=== PATIENT | female | born 1955 | race Caucasian/White ===

== ENCOUNTER 2017-07-22 19:26 | Inpatient (IN) | payer OTHER ==
[2017-07-22] VITALS (9 sets, daily range): BP systolic 118–189; BP diastolic 67–109; PULSE 76–108; RESP 18–19; Ht 160 cm; Wt 52.0 kg
[~2017-07-22] VITALS: Ht 160 cm; Wt 52.0 kg
[~2017-07-22 19:26] MED LIST: CLIN-73 PO
[2017-07-22] MEDS ORDERED: HYDR4TAB PO (19:45)
[2017-07-22] MEDS ORDERED: ALPR0.5T6 PO (19:45)
[2017-07-22] MEDS ORDERED: CALC667C PO (19:45)
[2017-07-22] MEDS ORDERED: ACETAMINOPHEN 325 MG TAB PO PRN (20:30)
[2017-07-22] MEDS: morphine 2 MG INJ IV PRN (22:01)
[2017-07-22] MEDS: ALPRAZOLAM 0.5 MG TAB PO PRN (22:15)
--- NOTE | 2017-07-22 22:52 | QN ---
Documentation Comment pt w esrd htn hx cellulites rectal prolapse plan per order KISHAN MEJIA MD Jul 22, 2017 22:52
[2017-07-22] MEDS ORDERED: NACL 0.9% 3 ML SYG IV SCH (23:00)
[2017-07-22] MEDS ORDERED: BISACODYL (EC) 5 MG TAB PO PRN (23:00)
[2017-07-22] MEDS ORDERED: ONDANSETRON 4 MG INJ IV PRN (23:00)
[2017-07-22] MEDS ORDERED: DOCUSATE SODIUM 100 MG CAP PO PRN (23:00)
[2017-07-23 02:20] VITALS: BP 140/64; RESP 19
[2017-07-23] MEDS: morphine 2 MG INJ IV PRN ×3 (03:47→13:02)
[2017-07-23 05:51] LABS: HAAIG REFLEX REFLEX FILED
[2017-07-23 06:01] LABS: ABNORMAL IP MESSAGE 1; BASOPHIL # 0.1 10^3/ul (0.0-0.1); BASOPHILS % 0.3 % (0.0-2.0); HEMATOCRIT 26.4 % (37.0-47.0); HEMOGLOBIN 8.4 g/dl (12.0-16.0); LYMPHOCYTES # 0.4 10^3/ul (0.8-2.9); LYMPHOCYTES % 1.6 % (15.0-51.0); MEAN CORPUSCULAR HEMOGLOBIN 28.6 pg (29.0-33.0); MEAN CORPUSCULAR HGB CONC 31.8 g/dl (32.0-37.0); MEAN CORPUSCULAR VOLUME 89.8 fl (82.0-101.0); MEAN PLATELET VOLUME 9.4 fl (7.4-10.4); MONOCYTE # 0.6 10^3/ul (0.3-0.9); MONOCYTES % 2.4 % (0.0-11.0); NEUTROPHIL # 23.8 10^3/ul (1.6-7.5); NEUTROPHILS % 94.1 % (39.0-77.0); PLATELET COUNT 301 10^3/UL (140-415); RED BLOOD COUNT 2.94 10^6/ul (4.20-5.40); RED CELL DISTRIBUTION WIDTH 16.2 % (11.5-14.5); WHITE BLOOD COUNT 25.3 10^3/ul (4.8-10.8)
[2017-07-23 06:15] LABS: POSITIVE DIFF @See below
[2017-07-23 06:46] LABS: ALBUMIN 2.5 g/dl (3.3-4.9); ALBUMIN/GLOBULIN RATIO 0.89; CALCIUM 7.9 mg/dl (8.4-10.2); CREATININE 7.97 mg/dl (0.44-1.00); POTASSIUM 3.8 mmol/L (3.5-5.1); TOTAL PROTEIN 5.3 g/dl (6.1-8.1)
[2017-07-23 07:20] VITALS: BP 93/55; RESP 18
[2017-07-23] MEDS: ALPRAZOLAM 0.5 MG TAB PO PRN ×2 (07:34→20:09)
[2017-07-23 07:35] LABS: HEPATITIS B CORE ANTIBODY REACTIVE (NEGATIVE)
[2017-07-23] MEDS: CALCIUM ACETATE 667 MG CAP PO SCH ×3 (07:35→17:11)
[2017-07-23 14:03] VITALS: BP 88/54; RESP 16
--- NOTE | 2017-07-23 16:23 | CONS ---
Date/Time of Note Date/Time of Note DATE: 07/23/17 TIME: 16:23 Assessment/Plan Assessment/Plan Chief Complaint/Hosp Course 1. Rectal prolapse: -recommend colorectal surgeon -manual reduction of prolapse in the interim - patient refusing 2. Leukocytosis: 2/2above vs. pna vs. pl effusion vs. liver etiology vs. other; no feves -[place] culture -abx 3. ESRD: -hd per renal 4. Electrolyte imbalance: -optimize lytes 5. Hypoalbuminemia with hypocalcemia: nutritional +/- inflammation -as above -optimize nutrition 6. Anemia: without acute bleed -monitor and transfuse as needed 7. Hepatitis with reactive serology -medical management Thank you. Patient seen and examined in collaboration with Dr. Deep Zhang. Problems: Consultation Date/Type/Reason Admit Date/Time Jul 22, 2017 at 19:26 Date of Consultation: Jul 23, 2017 Type of Consultation: surgical Reason for Consultation rectal prolapse Referring Provider: KISHAN MEJIA Hx of Present Illness Uzma Mcguire is a 62 yo woman with multiple comorbidities Who is transferred from [facility] due to a recurrent rectal prolapse. According to the patient her prolapse has been reduced multiple times but continues to recur. Her prolapse recurs unprovoked and without straining. She also reports stool incontinence. She reports great discomfort from the site and refused manual reduction of the prolapse at bedside. Risks were explained however she continued to refused stating she would like a more definitive intervention because of the multiple recurrence of the prolapse. She denies fevers, chills, acute pain at the site and myalgias. Constitutional: No chills, No diaphoresis, No febrile Eyes: No visual change ENT: No bleeding, No congestion, No pain Respiratory: No cough, No shortness of breath Cardiovascular: No chest pain, No edema Gastrointestinal: pain (as above), passing stool (incontinence), No blood, No nausea, No vomiting Genitourinary: No hematuria Musculoskeletal: No neck pain Skin: No pruritis, No rash Neurologic: No dizziness, No focal-weakness Psychological: anxiety, No confusion Past Medical History hypertension ESRD anxiety rectal prolapse recurrent Past Surgical History Past Surgical Hx: no surgical history Family History Significant Family History: no pertinent family hx Social History Alcohol Use: none Smoking Status: Smoker,current status unk Drug Use: none Exam/Review of Systems Vital Signs Vitals Vital Signs Date Time Temp Pulse Resp B/P Pulse Ox O2 Delivery O2 Flow Rate FiO2 07/23/17 14:03 98.0 83 16 88/54 93 07/23/17 09:00 Nasal Cannula 3.0 Intake and Output 07/22/17 07/22/17 07/23/17 15:00 23:00 07:00 Intake Total 1425 ml Output Total 4100 ml Balance -2675 ml Exam Constitutional: alert, oriented Psych: anxiety Head: atraumatic, normocephalic Eyes: nl conjunctiva, nl lids, nl sclera ENMT: No mucosa pink and moist (dry) Neck: non-tender, supple Respiratory: diminished breath sounds (at bases), No labored breathing Cardiovascular: nl pulses, regular rate and rhythm, No edema Gastrointestinal: non-tender, soft, No distended, No rebound or guarding Genitourinary - Female: No nl external genitalia (rectal prolapse - pink, moist. tender) Musculoskeletal: nl extremities to inspection Extremities: normal pulses, No edema 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: nl speech, nl strength Skin: No rash or lesions Results Result Diagram: 07/23/1744207/23/17442 Results 24 hrs Laboratory Tests Test 07/23/17 04:43 White Blood Count 25.3 H Red Blood Count 2.94 L Hemoglobin 8.4 L Hematocrit 26.4 L Mean Corpuscular Volume 89.8 Mean Corpuscular Hemoglobin 28.6 L Mean Corpuscular Hemoglobin Concent 31.8 L Red Cell Distribution Width 16.2 H Platelet Count 301 Mean Platelet Volume 9.4 Neutrophils % 94.1 H Lymphocytes % 1.6 L Monocytes % 2.4 Eosinophils % 0.0 Basophils % 0.3 Nucleated Red Blood Cells % 0.0 Neutrophils # 23.8 H Lymphocytes # 0.4 L Monocytes # 0.6 Eosinophils # 0.0 Basophils # 0.1 Nucleated Red Blood Cells # 0.0 Sodium Level 138 Potassium Level 3.8 Chloride Level 104 Carbon Dioxide Level 23 Anion Gap 15 Blood Urea Nitrogen 63 H Creatinine 7.97 H Glucose Level 71 Calcium Level 7.9 L Total Bilirubin 0.0 L Direct Bilirubin 0.00 Indirect Bilirubin 0.0 Aspartate Amino Transf (AST/SGOT) 20 Alanine Aminotransferase (ALT/SGPT) 29 Alkaline Phosphatase 74 Total Protein 5.3 L Albumin 2.5 L Globulin 2.80 Albumin/Globulin Ratio 0.89 Hepatitis B Surface Antigen NEGATIVE Hepatitis B Core Total Antibody REACTIVE H Hepatitis C Antibody REACTIVE H Medications Medications Current Medications Alprazolam (Xanax) 0.5 mg Q8H PRN PO ANXIETY Last administered on 07/23/17t 07: 34; Admin Dose 0.5 MG; Start 07/22/17 at 20:00 Acetaminophen (Tylenol Tab) 650 mg Q6H PRN PO PAIN AND OR ELEVATED TEMP; Start 07/22/17 at 20:30 Ondansetron HCl (Zofran Inj) 4 mg Q6H PRN IV NAUSEA AND/OR VOMITING; Start 07/22/17 at 23:00 Docusate Sodium (Colace) 100 mg Q12H PRN PO CONSTIPATION; Start 07/22/17 at 23: 00 Bisacodyl (Dulcolax) 5 mg DAILY PRN PO CONSTIPATION; Start 07/22/17 at 23:00 Influenza Virus Vaccine (Fluzone) 0.5 ml ONCE ONCE IM* ; Start 07/24/17 at 09:00 ; Stop 07/24/17 at 09:01 Morphine Sulfate (morphine) 3 mg Q4H PRN IV PAIN; Start 07/23/17 at 16:00 RAFFY GRAHAM NP Jul 23, 2017 16:23
[2017-07-23] MEDS: morphine 4 MG/ML VIAL IV PRN ×2 (17:08→22:55)
--- NOTE | 2017-07-23 18:53 | QN ---
Documentation Comment [id number] KISHAN MEJIA MD Jul 23, 2017 18:53
--- NOTE | 2017-07-23 19:56 | HP ---
DATE OF ADMISSION: 07/22/2017 HISTORY OF PRESENT ILLNESS: Patient has history of ESRD, hypertension, was taken to [facility] for rectal prolapse. Patient had rectal prolapse reduced, but patient had recurrence and was transferred her to further management. Patient also has history of ESRD on hemodialysis, missed few dialysis in the past. Denies any fever, chills or rigors. Patient's blood pressure 140/64. LABORATORY DATA: From this hospital, WBC 25.3, hematocrit 26.4, platelet count 301,000. Sodium 138, potassium 3.8, BUN 63, creatinine 7.97. PAST MEDICAL HISTORY: ESRD, hypertension. ALLERGIES: PENICILLIN. SOCIAL HISTORY: Negative at this point. MEDICATIONS: Xanax, calcium acetate, clindamycin, hydromorphone. REVIEW OF SYSTEMS: HEENT: Unremarkable. RESPIRATORY: Unremarkable. CVS: Unremarkable. ABDOMEN: As mentioned above. No hematemesis, melena, except rectal prolapse. EXTREMITIES: Unremarkable. BOTTLE CAPPER: Unremarkable. PHYSICAL EXAMINATION: GENERAL: Patient is awake and alert. VITAL SIGNS: Stable. HEENT: Head is atraumatic, Normocephalic. Pupils equal, reactive to light. NECK: Supple. There is no JVD. LUNGS: Clear. CVS: S1, S2 is normal. ABDOMEN: Soft, nontender, bowel sounds positive. No palpable mass or hepatosplenomegaly. No guarding, rebound tenderness. EXTREMITIES: No cyanosis, clubbing or edema. BOTTLE CAPPER: Patient is awake, alert. No focal deficit. Patient has dialysis catheter in the left neck and in the chest noted, PermCath. Patient's left chest noted. IMPRESSION: 1. Rectal prolapse, severe. 2. Leukocytosis, etiology to be determined. 3. Anemia. End-stage renal disease. 4. Hepatitis B core antibody positive. PLAN: 1. Give this patient clear liquid diet, advance. 2. Empiric antibiotic. 3. Urinalysis. 4. Chest x-ray. 5. Surgical consultation. 6. Hemodialysis. Orders were done. Dictated By: Sreedhar Yost MD /lori/mat /Document#: [id number]
[2017-07-23 19:58] VITALS: BP 101/62; RESP 19
[2017-07-23] MEDS: CIPROFLOXACIN 200 MG/D5W IVPB 100 ML IVPB SCH (20:08)
[2017-07-24] VITALS (12 sets, daily range): BP systolic 92–155; BP diastolic 53–97; PULSE 80–88; RESP 18–20
[2017-07-24] MEDS: ALPRAZOLAM 0.5 MG TAB PO PRN ×2 (04:35→15:06)
--- NOTE | 2017-07-24 04:35 | RADRPT ---
PROCEDURE: XR Chest. CLINICAL INDICATION: High white count. TECHNIQUE: Upright AP and Lateral views of the chest were obtained. COMPARISON: None. FINDINGS: The patient is rotated to the left. The left dialysis catheter is in satisfactory position. No pneum othorax is seen. Moderate left, small right pleural effusions are visualized. There is right lower l obe subsegmental atelectasis, bibasilar atelectasis or consolidation. The hemidiaphragms and heart b orders are obscured. The aortic arch is calcified.. The osseous structures are intact. IMPRESSION: Moderate left, small right pleural effusions and bibasilar atelectasis or consolidation. Left dialysis catheter in place. Physician Jose Date Time Electronically viewed and signed by Physician Jose on 07/24/2017 04:34 CS/
[2017-07-24] MEDS: morphine 4 MG/ML VIAL IV PRN ×4 (05:45→22:16)
[2017-07-24 06:22] LABS: BASOPHILS % 0.2 % (0.0-2.0); EOSINOPHILS # 0.2 10^3/ul (0.0-0.5); EOSINOPHILS % 0.7 % (0.0-7.0); HEMATOCRIT 23.7 % (37.0-47.0); HEMOGLOBIN 7.1 g/dl (12.0-16.0); LYMPHOCYTES # 2.6 10^3/ul (0.8-2.9); LYMPHOCYTES % 11.4 % (15.0-51.0); MEAN CORPUSCULAR HEMOGLOBIN 27.2 pg (29.0-33.0); MEAN CORPUSCULAR VOLUME 90.8 fl (82.0-101.0); MEAN PLATELET VOLUME 9.9 fl (7.4-10.4); MONOCYTE # 1.5 10^3/ul (0.3-0.9); MONOCYTES % 6.5 % (0.0-11.0); NEUTROPHIL # 18.6 10^3/ul (1.6-7.5); NEUTROPHILS % 80.4 % (39.0-77.0); PLATELET COUNT 274 10^3/UL (140-415); RED BLOOD COUNT 2.61 10^6/ul (4.20-5.40); RED CELL DISTRIBUTION WIDTH 16.6 % (11.5-14.5); WHITE BLOOD COUNT 23.2 10^3/ul (4.8-10.8)
[2017-07-24 06:58] LABS: ALBUMIN 2.3 g/dl (3.3-4.9); ALBUMIN/GLOBULIN RATIO 0.79; CALCIUM 7.4 mg/dl (8.4-10.2); CREATININE 9.86 mg/dl (0.44-1.00); POTASSIUM 4.2 mmol/L (3.5-5.1); TOTAL PROTEIN 5.2 g/dl (6.1-8.1)
[2017-07-24] MEDS ORDERED: INFLUENZA VIRUS VACCINE 0.5 ML (DISPENSING) IM* ONE (09:00)
[2017-07-24] MEDS: CALCIUM ACETATE 667 MG CAP PO SCH ×3 (09:01→17:19)
[2017-07-24] MEDS: GUAIFENESIN/DM 5ML CUP PO PRN ×2 (11:24→22:21)
[2017-07-24] MEDS: HYDROCODONE/APAP (5/325) TAB PO PRN ×2 (11:24→17:21)
[2017-07-24] MEDS ORDERED: morphine 4 MG/ML VIAL IV PRN (12:00)
--- NOTE | 2017-07-24 12:13 | CONS ---
Date/Time of Note Date/Time of Note DATE: 07/24/17 TIME: 12:11 Assessment/Plan Assessment/Plan Chief Complaint/Hosp Course IMPRESSION: 1. Rectal prolapse, severe. 2. Leukocytosis, etiology to be determined. 3. Anemia. End-stage renal disease. 4. Hepatitis B core antibody positive. 5 pleural effusion plan antibiotic hd Problems: Consultation Date/Type/Reason Admit Date/Time Jul 22, 2017 at 19:26 Initial Consult Date 07/23/17 Type of Consultation: renal Referring Provider: KISHAN MEJIA MD 24 HR Interval Summary Constitutional: no complaints Exam/Review of Systems Vital Signs Vitals Vital Signs Date Time Temp Pulse Resp B/P Pulse Ox O2 Delivery O2 Flow Rate FiO2 07/24/17 08:00 98.6 80 20 110/62 96 07/23/17 20:10 Nasal Cannula 3.0 Intake and Output 07/23/17 07/23/17 07/24/17 15:00 23:00 07:00 Intake Total 790 ml 480 ml Balance 790 ml 480 ml Exam Respiratory: clear to auscultation Cardiovascular: regular rate and rhythm Gastrointestinal: bowel sounds (+), other (rectal prolapse), soft Results Result Diagram: 07/24/17 0542 07/24/17 0542 Results 24 hrs Laboratory Tests Test 07/24/17 05:42 White Blood Count 23.2 H Red Blood Count 2.61 L Hemoglobin 7.1 L Hematocrit 23.7 L Mean Corpuscular Volume 90.8 Mean Corpuscular Hemoglobin 27.2 L Mean Corpuscular Hemoglobin Concent 30.0 L Red Cell Distribution Width 16.6 H Platelet Count 274 Mean Platelet Volume 9.9 Neutrophils % 80.4 H Lymphocytes % 11.4 L Monocytes % 6.5 Eosinophils % 0.7 Basophils % 0.2 Nucleated Red Blood Cells % 0.0 Neutrophils # 18.6 H Lymphocytes # 2.6 Monocytes # 1.5 H Eosinophils # 0.2 Basophils # 0.0 Nucleated Red Blood Cells # 0.0 Sodium Level 134 L Potassium Level 4.2 Chloride Level 98 Carbon Dioxide Level 24 Anion Gap 16 Blood Urea Nitrogen 90 H Creatinine 9.86 H Glucose Level 122 # Calcium Level 7.4 L Total Bilirubin 0.0 L Direct Bilirubin 0.00 Indirect Bilirubin 0.0 Aspartate Amino Transf (AST/SGOT) 15 Alanine Aminotransferase (ALT/SGPT) 29 Alkaline Phosphatase 67 Total Protein 5.2 L Albumin 2.3 L Globulin 2.90 Albumin/Globulin Ratio 0.79 Medications Medications Current Medications Alprazolam (Xanax) 0.5 mg Q8H PRN PO ANXIETY Last administered on 07/24/17 04: 35; Admin Dose 0.5 MG; Start 07/22/17 at 20:00 Acetaminophen (Tylenol Tab) 650 mg Q6H PRN PO PAIN AND OR ELEVATED TEMP; Start 07/22/17 at 20:30 Ondansetron HCl (Zofran Inj) 4 mg Q6H PRN IV NAUSEA AND/OR VOMITING; Start 07/22/17 at 23:00 Docusate Sodium (Colace) 100 mg Q12H PRN PO CONSTIPATION; Start 07/22/17 at 23: 00 Bisacodyl 5 mg 5 mg DAILY PRN PO CONSTIPATION; Start 07/22/17 at 23:00 Ciprofloxacin/ Dextrose (Cipro Ivpb) 100 ml @ 100 mls/hr Q24H IVPB Last administered on 07/23/17 20:08; Admin Dose 100 MLS/HR; Start 07/23/17 at 21:00 Morphine Sulfate (morphine) 4 mg Q4H PRN IV PAIN Last administered on 10:05; Admin Dose 4 MG; Start 07/24/17 at 10:00 Acetaminophen/ Hydrocodone Bitart ([place] (5/325)) 1 tab Q6H PRN PO Breakthrough Pain Last administered on 07/24/17 11:24; Admin Dose 1 TAB; Start 07/24/17 at 11:30 Guaifenesin/ Dextromethorphan (Robitussin Dm Liquid Cup) 5 ml TID PRN PO Cough Last administered on 07/24/17 11:24; Admin Dose 5 ML; Start 07/24/17 at 11:30 KISHAN MEJIA MD Jul 24, 2017 12:13
[2017-07-24 18:09] LABS: ADD UMIC YES; UR ASCORBIC ACID NEGATIVE (NEGATIVE); UR BACTERIA FEW /HPF (NONE SEEN); UR BILIRUBIN (Dip) NEGATIVE (NEGATIVE); UR BLOOD (Dip) NEGATIVE (NEGATIVE); UR CLARITY SLIGHTLY CLOUDY (CLEAR); UR COLOR YELLOW (YELLOW); UR GLUCOSE (Dip) 3+ mg/dL (NEGATIVE); UR KETONES (Dip) NEGATIVE (NEGATIVE); UR LEUKOCYTE ESTERASE (Dip) NEGATIVE Leu/ul (NEGATIVE); UR NITRITE (Dip) NEGATIVE (NEGATIVE); UR NONSQUAMOUS EPITHELIAL CELL 2 /HPF (NONE SEEN); UR RBC 8 /HPF (0-5); UR SQUAMOUS EPITHELIAL CELL FEW /HPF (FEW); UR TOTAL PROTEIN (Dip) 3+ mg/dl (NEGATIVE); UR UROBILINOGEN (Dip) NEGATIVE (NEGATIVE)
[2017-07-24] MEDS: CIPROFLOXACIN 200 MG/D5W IVPB 100 ML IVPB SCH (22:16)
--- NOTE | 2017-07-24 23:40 | PN ---
Date/Time of Note Date/Time of Note DATE: 07/24/17 TIME: 23:40 Assessment/Plan Lines/Catheters IV Catheter Type (from [facility]): Saline Lock Exam/Review of Systems Vital Signs Vitals Vital Signs Date Time Temp Pulse Resp B/P Pulse Ox O2 Delivery O2 Flow Rate FiO2 07/24/17 21:20 98.3 82 19 135/79 99 07/23/17 20:10 Nasal Cannula 3.0 Intake and Output 07/23/17 07/23/17 07/24/17 15:00 23:00 07:00 Intake Total 790 ml 480 ml Balance 790 ml 480 ml Results Result Diagram: 07/24/17 0542 07/24/17 0542 KLARISSA ELIZONDO MD Jul 24, 2017 23:40
[2017-07-25] MEDS: morphine 4 MG/ML VIAL IV PRN ×2 (03:26→08:24)
[2017-07-25 03:40] VITALS: BP 128/79; RESP 18
[2017-07-25 05:37] LABS: BASOPHIL # 0.1 10^3/ul (0.0-0.1); BASOPHILS % 0.7 % (0.0-2.0); EOSINOPHILS # 0.3 10^3/ul (0.0-0.5); EOSINOPHILS % 3.9 % (0.0-7.0); HEMATOCRIT 28.4 % (37.0-47.0); HEMOGLOBIN 8.9 g/dl (12.0-16.0); LYMPHOCYTES # 1.6 10^3/ul (0.8-2.9); LYMPHOCYTES % 19.2 % (15.0-51.0); MEAN CORPUSCULAR HEMOGLOBIN 28.1 pg (29.0-33.0); MEAN CORPUSCULAR HGB CONC 31.3 g/dl (32.0-37.0); MEAN CORPUSCULAR VOLUME 89.6 fl (82.0-101.0); MEAN PLATELET VOLUME 9.7 fl (7.4-10.4); MONOCYTE # 0.8 10^3/ul (0.3-0.9); MONOCYTES % 9.1 % (0.0-11.0); NEUTROPHIL # 5.6 10^3/ul (1.6-7.5); NEUTROPHILS % 65.9 % (39.0-77.0); PLATELET COUNT 226 10^3/UL (140-415); RED BLOOD COUNT 3.17 10^6/ul (4.20-5.40); RED CELL DISTRIBUTION WIDTH 16.7 % (11.5-14.5); WHITE BLOOD COUNT 8.6 10^3/ul (4.8-10.8)
[2017-07-25 08:00] VITALS: BP 167/89; RESP 20
[2017-07-25] MEDS: CALCIUM ACETATE 667 MG CAP PO SCH ×3 (08:22→19:12)
[2017-07-25] MEDS: HYDROmorphONE 1 MG/ML SYG IV PRN ×3 (11:47→20:17)
[2017-07-25] MEDS: ALPRAZOLAM 0.5 MG TAB PO PRN ×2 (11:53→22:43)
--- NOTE | 2017-07-25 15:00 | PN ---
Date/Time of Note Date/Time of Note DATE: 07/25/17 TIME: 14:50 Assessment/Plan Lines/Catheters IV Catheter Type (from [facility]): Saline Lock Assessment/Plan Chief Complaint/Hosp Course 1. Rectal prolapse: -lap sigmoidectomy tomorrow 2. Leukocytosis: 2/2 above vs. pna vs. pl effusion vs. liver etiology vs. uti vs. other; no fever: normalized -abx 3. ESRD: -hd per renal 4. Electrolyte imbalance: -optimize lytes 5. Hypoalbuminemia with hypocalcemia: nutritional +/- inflammation -as above -optimize nutrition 6. Anemia: without acute bleed -monitor and transfuse as needed 7. Hepatitis with reactive serology -medical management 8. UTI -abx per sensitivity -frequent bladder emptying Thank you. Patient seen and examined in collaboration with Dr. Deep Zhang. Problems: Subjective 24 Hr Interval Summary Continues to have pain in the rectum. No fevers, chills, sob, congested cough, avitia, dizziness, cp, palpitations, n/v/d/dysuria. Obtaining records from [facility]. Exam/Review of Systems Vital Signs Vitals Vital Signs Date Time Temp Pulse Resp B/P Pulse Ox O2 Delivery O2 Flow Rate FiO2 07/25/17 08:00 98.6 100 20 167/89 98 07/23/17 20:10 Nasal Cannula 3.0 Intake and Output 07/24/17 07/24/17 07/25/17 15:00 23:00 07:00 Intake Total 1000 ml 980 ml 600 ml Output Total 3000 ml Balance -2000 ml 980 ml 600 ml Exam Free Text/Dictation Constitutional: alert, oriented Psych: anxiety Head: atraumatic, normocephalic Eyes: nl conjunctiva, nl lids, nl sclera ENMT: No mucosa pink and moist (dry) Neck: non-tender, supple Respiratory: diminished breath sounds (at bases), No labored breathing Cardiovascular: nl pulses, regular rate and rhythm, No edema Gastrointestinal: non-tender, soft, No distended, No rebound or guarding Genitourinary - Female: No nl external genitalia (rectal prolapse - pink, moist. tender) Musculoskeletal: nl extremities to inspection Extremities: normal pulses, No edema 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: nl speech, nl strength Skin: No rash or lesions Results Result Diagram: 07/25/17 0459 07/24/17 0542 RAFFY GRAHAM NP Jul 25, 2017 15:00
[2017-07-25 15:57] LABS: INR 1.01; PROTIME 13.3 Sec (12.2-14.2)
[2017-07-25 15:58] LABS: CALCIUM 7.9 mg/dl (8.4-10.2); CREATININE 7.84 mg/dl (0.44-1.00); POTASSIUM 4.2 mmol/L (3.5-5.1)
[2017-07-25 19:45] VITALS: BP 165/99; RESP 20
[2017-07-25] MEDS: CIPROFLOXACIN 200 MG/D5W IVPB 100 ML IVPB SCH (20:17)
--- NOTE | 2017-07-25 22:34 | PN ---
Date/Time of Note Date/Time of Note DATE: 07/25/17 TIME: 22:33 Assessment/Plan VTE Prophylaxis VTE Prophylaxis Intervention: other Lines/Catheters IV Catheter Type (from Nrs): Saline Lock Assessment/Plan Chief Complaint/Hosp Course IMPRESSION: 1. Rectal prolapse, severe. 2. Leukocytosis, etiology to be determined.better 3. Anemia. End-stage renal disease. 4. Hepatitis B core antibody positive. 5 pleural effusion plan antibiotic hd per surgery Problems: Subjective 24 Hr Interval Summary Respiratory: no complaints Genitourinary: other (rectal pain+) Exam/Review of Systems Vital Signs Vitals Vital Signs Date Time Temp Pulse Resp B/P Pulse Ox O2 Delivery O2 Flow Rate FiO2 07/25/17 08:00 98.6 100 20 167/89 98 07/23/17 20:10 Nasal Cannula 3.0 Intake and Output 07/24/17 07/24/17 07/25/17 15:00 23:00 07:00 Intake Total 1000 ml 980 ml 600 ml Output Total 3000 ml Balance -2000 ml 980 ml 600 ml Exam Respiratory: clear to auscultation Cardiovascular: regular rate and rhythm Gastrointestinal: soft Results Result Diagram: 07/25/17 0459 07/25/17 1533 Results 24 hrs Laboratory Tests Test 07/25/17 04:57 07/25/17 04:59 07/25/17 15:29 07/25/17 15:33 Beta HCG, Quantitative < 2.4 White Blood Count 8.6 # Red Blood Count 3.17 #L Hemoglobin 8.9 #L Hematocrit 28.4 L Mean Corpuscular Volume 89.6 Mean Corpuscular Hemoglobin 28.1 L Mean Corpuscular Hemoglobin Concent 31.3 L Red Cell Distribution Width 16.7 H Platelet Count 226 Mean Platelet Volume 9.7 Neutrophils % 65.9 Lymphocytes % 19.2 Monocytes % 9.1 Eosinophils % 3.9 Basophils % 0.7 Nucleated Red Blood Cells % 0.0 Neutrophils # 5.6 Lymphocytes # 1.6 Monocytes # 0.8 Eosinophils # 0.3 Basophils # 0.1 Nucleated Red Blood Cells # 0.0 Prothrombin Time 13.3 Prothrombin Time Ratio 1.0 INR International Normalized Ratio 1.01 Sodium Level 136 Potassium Level 4.2 Chloride Level 103 Carbon Dioxide Level 23 Anion Gap 14 Blood Urea Nitrogen 71 H Creatinine 7.84 #H Glucose Level 110 Calcium Level 7.9 L Medications Medications Current Medications Acetaminophen (Tylenol Tab) 650 mg Q6H PRN PO PAIN AND OR ELEVATED TEMP; Start 07/22/17 at 20:30 Ondansetron HCl (Zofran Inj) 4 mg Q6H PRN IV NAUSEA AND/OR VOMITING; Start 07/22/17 at 23:00 Docusate Sodium (Colace) 100 mg Q12H PRN PO CONSTIPATION; Start 07/22/17 at 23: 00 Bisacodyl 5 mg 5 mg DAILY PRN PO CONSTIPATION; Start 07/22/17 at 23:00 Ciprofloxacin/ Dextrose (Cipro Ivpb) 100 ml @ 100 mls/hr Q24H IVPB Last administered on 07/25/17 20:17; Admin Dose 100 MLS/HR; Start 07/23/17 at 21:00 Acetaminophen/ Hydrocodone Bitart ([place] (5/325)) 1 tab Q6H PRN PO Breakthrough Pain Last administered on 07/24/17 17:21; Admin Dose 1 TAB; Start 07/24/17 at 11:30 Guaifenesin/ Dextromethorphan (Robitussin Dm Liquid Cup) 5 ml TID PRN PO Cough Last administered on 07/24/17 22:21; Admin Dose 5 ML; Start 07/24/17 at 11:30 Hydromorphone HCl (Dilaudid) 1 mg Q4H PRN IV PAIN Last administered on 20:17; Admin Dose 1 MG; Start 07/25/17 at 11:30 Alprazolam (Xanax) 1 mg Q8H PRN PO ANXIETY; Start 07/26/17 at 04:00 Morphine Sulfate (morphine) 4 mg Q3H PRN IV PAIN LEVEL 7-10; Start 07/25/17 at 21:30 Clonidine (Catapres) 0.1 mg TID PO ; Start 07/26/17 at 09:00 KISHAN MEJIA MD Jul 25, 2017 22:34
[2017-07-25] MEDS ORDERED: BARIUM SULF 2% 450 ML BTL (BERRY SMOOTHIE) PO ONE (23:00)
[2017-07-26] VITALS (11 sets, daily range): BP systolic 106–164; BP diastolic 65–92; PULSE 72–83; RESP 18–20
[2017-07-26] MEDS: morphine 4 MG/ML VIAL IV PRN ×3 (03:39→21:06)
[2017-07-26] MEDS ORDERED: ALPRAZOLAM 0.5 MG TAB PO PRN (04:00)
[2017-07-26] MEDS: ALPRAZOLAM 0.5 MG TAB PO PRN ×2 (06:46→22:15)
[2017-07-26] MEDS: CALCIUM ACETATE 667 MG CAP PO SCH ×3 (07:35→17:35)
[2017-07-26] MEDS: HYDROCODONE/APAP (5/325) TAB PO PRN (13:26)
--- NOTE | 2017-07-26 13:58 | RADRPT ---
PROCEDURE: CT Abdomen and Pelvis without contrast. CLINICAL INDICATION: Perineal pain and prolapse. TECHNIQUE: Multiple contiguous axial CT images of the abdomen and pelvis were obtained without the administration of intravenous contrast. Coronal and sagittal reconstructions were also performed. CTDIvol (mGy): 4.31; Total Exam DLP (mGy-cm): 244.46. One or more of the following dose reduction techniques were utilized: - Automated exposure control. - Adjustment of the mA and/or kV according to patient size. - Use of iterative reconstruction technique. COMPARISON: None. FINDINGS: Limited imaging of the lower thorax demonstrates a small moderate right and large layering left pleu ral effusions with bibasilar atelectasis. The liver and spleen are homogeneous in density. The gallbladder, pancreas and adrenal glands are u nremarkable. The kidneys are symmetric in size. There are no nephroureteral stones. There is no hydronephrosis. Bilateral symmetric perinephric fat stranding is observed. The abdominal aorta is normal in caliber. Atherosclerotic calcification is present. There is no per iaortic / retroperitoneal lymphadenopathy. The stomach is collapsed. The small intestines are unremarkable. A moderate volume of stool seen thr oughout the colon. Mild nonspecific mesenteric edema is observed. There is no ascites. There is no f ree intra-abdominal air. Considerable descent of the anorectal junction is observed with a large peritoneocele and sigmoidoce le. The bladder is collapsed. The uterus and adnexa are unremarkable. There is no free pelvic fluid. There is no pelvic sidewall or inguinal lymphadenopathy. Degenerative changes of the lower lumbar spine are observed. Body wall soft tissues are unremarkabl e. IMPRESSION: Bilateral symmetric perinephric fat stranding which may reflect perinephric edema. Correlate with cl inical signs and symptoms of upper urinary tract infection/inflammation. Considerable descent of the anorectal junction with a large peritoneocele and sigmoidocele. Bibasilar atelectasis with small moderate right and large layering left pleural effusions. Moderate volume of formed stool throughout the colon. RPTAT: HLST .Jayshree Porter MD, MD Date Time Electronically viewed and signed by .Jayshree Porter MD, on 07/26/2017 13:58 .T/
--- NOTE | 2017-07-26 14:27 | PN ---
Date/Time of Note Date/Time of Note DATE: 07/26/17 TIME: 14:25 Assessment/Plan VTE Prophylaxis VTE Prophylaxis Intervention: LMWH Lines/Catheters IV Catheter Type (from Nrs): gen cath Assessment/Plan Chief Complaint/Hosp Course 1. Rectal prolapse, severe. 2. SIRS 3. Anemia. 4. Hepatitis B core antibody positive. 5. End-stage renal disease. Problems: Assessment/Plan 1.continue current treatment . 2. surgical consults are following 3. continue HD Subjective 24 Hr Interval Summary Eyes: no complaints Gastrointestinal: no complaints Genitourinary: other (pain in rectal area) Exam/Review of Systems Vital Signs Vitals Vital Signs Date Time Temp Pulse Resp B/P Pulse Ox O2 Delivery O2 Flow Rate FiO2 07/26/17 08:10 82 07/26/17 08:10 16 07/26/17 08:00 98.6 106/71 96 07/23/17 20:10 Nasal Cannula 3.0 Intake and Output 07/25/17 07/25/17 07/26/17 15:00 23:00 07:00 Intake Total 940 ml 250 ml Balance 940 ml 250 ml Exam Constitutional: alert, oriented Respiratory: clear to auscultation, normal air movement Genitourinary - Female: nl adnexae Additional Comments rectal prolapse. Results Result Diagram: 07/25/17 0459 07/25/17 1533 Results 24 hrs Laboratory Tests Test 07/25/17 15:29 07/25/17 15:33 07/26/17 05:48 Prothrombin Time 13.3 Prothrombin Time Ratio 1.0 INR International Normalized Ratio 1.01 Sodium Level 136 Potassium Level 4.2 Chloride Level 103 Carbon Dioxide Level 23 Anion Gap 14 Blood Urea Nitrogen 71 H Creatinine 7.84 #H Glucose Level 110 Calcium Level 7.9 L Lab Scanned Report BLOOD TRANSFUSION Medications Medications Current Medications Acetaminophen (Tylenol Tab) 650 mg Q6H PRN PO PAIN AND OR ELEVATED TEMP; Start 07/22/17 at 20:30 Ondansetron HCl (Zofran Inj) 4 mg Q6H PRN IV NAUSEA AND/OR VOMITING; Start 07/22/17 at 23:00 Docusate Sodium (Colace) 100 mg Q12H PRN PO CONSTIPATION; Start 07/22/17 at 23: 00 Bisacodyl 5 mg 5 mg DAILY PRN PO CONSTIPATION; Start 07/22/17 at 23:00 Ciprofloxacin/ Dextrose (Cipro Ivpb) 100 ml @ 100 mls/hr Q24H IVPB Last administered on 07/25/17 20:17; Admin Dose 100 MLS/HR; Start 07/23/17 at 21:00 Acetaminophen/ Hydrocodone Bitart ([place] (5/325)) 1 tab Q6H PRN PO Breakthrough Pain Last administered on 07/26/17 13:26; Admin Dose 1 TAB; Start 07/24/17 at 11:30 Guaifenesin/ Dextromethorphan (Robitussin Dm Liquid Cup) 5 ml TID PRN PO Cough Last administered on 07/24/17 22:21; Admin Dose 5 ML; Start 07/24/17 at 11:30 Morphine Sulfate (morphine) 4 mg Q3H PRN IV PAIN LEVEL 7-10 Last administered on 07/26/17 12:23; Admin Dose 4 MG; Start 07/25/17 at 21:30 Clonidine (Catapres) 0.1 mg TID PO ; Start 07/26/17 at 09:00 Alprazolam (Xanax) 1 mg Q8H PRN PO ANXIETY Last administered on 07/26/17 06:46 ; Admin Dose 1 MG; Start 07/25/17 at 22:00 LYDIA DIANA Jul 26, 2017 14:27
[2017-07-26] MEDS: CIPROFLOXACIN 200 MG/D5W IVPB 100 ML IVPB SCH (20:29)
--- NOTE | 2017-07-26 23:45 | PN ---
Date/Time of Note Date/Time of Note DATE: 07/26/17 TIME: 23:45 Assessment/Plan Lines/Catheters IV Catheter Type (from [facility]): DINO CATH Patino in Place (from [facility]): No Assessment/Plan Chief Complaint/Hosp Course 1. Rectal prolapse: -lap sigmoidectomy pending 2. Leukocytosis: 2/2 above vs. pna vs[address] pl effusion vs. liver etiology vs. uti vs. other; no fever: normalized -abx 3. ESRD: -hd per renal 4. Electrolyte imbalance: -optimize lytes 5. Hypoalbuminemia with hypocalcemia: nutritional +/- inflammation -as above -optimize nutrition 6. Anemia: without acute bleed -monitor and transfuse as needed 7. Hepatitis with reactive serology -medical management 8. UTI -abx per sensitivity -frequent bladder emptying Thank you. Patient seen and examined in collaboration with Dr. Deep Zhang. Problems: Subjective 24 Hr Interval Summary No acute change in perineal pain - continues to have pain/discomfort. No fevers , chills, sob, congested cough, n/v/d/dysuria, avitia, dizziness, cp, palpitations. Exam/Review of Systems Vital Signs Vitals Vital Signs Date Time Temp Pulse Resp B/P Pulse Ox O2 Delivery O2 Flow Rate FiO2 08/03/17 20:38 97.4 71 19 165/80 94 08/03/17 16:30 Room Air 08/03/17 15:30 10.0 Intake and Output 08/02/17 08/02/17 08/03/17 15:00 23:00 07:00 Intake Total 1160 ml 0 ml Balance 1160 ml 0 ml Exam Free Text/Dictation Constitutional: alert, oriented Psych: anxiety Head: atraumatic, normocephalic Eyes: nl conjunctiva, nl lids, nl sclera ENMT: No mucosa pink and moist (dry) Neck: non-tender, supple Respiratory: diminished breath sounds (at bases), No labored breathing Cardiovascular: nl pulses, regular rate and rhythm, No edema Gastrointestinal: non-tender, soft, No distended, No rebound or guarding Genitourinary - Female: No nl external genitalia (rectal prolapse - pink, moist. tender) Musculoskeletal: nl extremities to inspection Extremities: normal pulses, No edema 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: nl speech, nl strength Skin: No rash or lesions Results Result Diagram: 08/03/17 0503 08/02/17 0442 RAFFY GRAHAM NP Jul 26, 2017 23:45
[2017-07-27] MEDS: morphine 4 MG/ML VIAL IV PRN ×6 (01:59→21:24)
[2017-07-27 03:22] VITALS: BP 126/80; RESP 18
[2017-07-27] MEDS: HYDROCODONE/APAP (5/325) TAB PO PRN (04:05)
[2017-07-27 06:31] LABS: BASOPHIL # 0.1 10^3/ul (0.0-0.1); BASOPHILS % 1.3 % (0.0-2.0); EOSINOPHILS # 0.3 10^3/ul (0.0-0.5); EOSINOPHILS % 3.8 % (0.0-7.0); HEMATOCRIT 30.5 % (37.0-47.0); HEMOGLOBIN 9.4 g/dl (12.0-16.0); LYMPHOCYTES # 2.7 10^3/ul (0.8-2.9); LYMPHOCYTES % 35.1 % (15.0-51.0); MEAN CORPUSCULAR HGB CONC 30.8 g/dl (32.0-37.0); MEAN CORPUSCULAR VOLUME 90.8 fl (82.0-101.0); MONOCYTE # 0.6 10^3/ul (0.3-0.9); MONOCYTES % 7.6 % (0.0-11.0); NEUTROPHIL # 3.8 10^3/ul (1.6-7.5); NEUTROPHILS % 50.1 % (39.0-77.0); PLATELET COUNT 228 10^3/UL (140-415); RED BLOOD COUNT 3.36 10^6/ul (4.20-5.40); RED CELL DISTRIBUTION WIDTH 16.1 % (11.5-14.5); WHITE BLOOD COUNT 7.5 10^3/ul (4.8-10.8)
[2017-07-27 06:53] LABS: CALCIUM 7.8 mg/dl (8.4-10.2); CREATININE 7.32 mg/dl (0.44-1.00); POTASSIUM 4.7 mmol/L (3.5-5.1)
[2017-07-27 08:15] VITALS: BP 129/89; RESP 20
[2017-07-27] MEDS: CALCIUM ACETATE 667 MG CAP PO SCH ×3 (08:38→17:30)
--- NOTE | 2017-07-27 14:10 | PN ---
Date/Time of Note Date/Time of Note DATE: 07/27/17 TIME: 14:09 Assessment/Plan VTE Prophylaxis VTE Prophylaxis Intervention: ambulation Lines/Catheters IV Catheter Type (from Nrs): DINO CATH Urinary Cath still in place: No Assessment/Plan Chief Complaint/Hosp Course 1. Rectal prolapse, severe. 2. SIRS 3. Anemia. 4. Hepatitis B core antibody positive. 5. End-stage renal disease. Problems: Assessment/Plan 1. LAp sigmoidectomy is pending 2. continue HD Subjective 24 Hr Interval Summary Gastrointestinal: other (rectal pain) Exam/Review of Systems Vital Signs Vitals Vital Signs Date Time Temp Pulse Resp B/P Pulse Ox O2 Delivery O2 Flow Rate FiO2 07/27/17 08:15 98.0 81 20 129/89 97 07/23/17 20:10 Nasal Cannula 3.0 Intake and Output 07/26/17 07/26/17 07/27/17 15:00 23:00 07:00 Intake Total 1100 ml 800 ml 960 ml Output Total 3600 ml Balance -2500 ml 800 ml 960 ml Exam Constitutional: alert, oriented Neck: supple Respiratory: clear to auscultation Musculoskeletal: nl extremities to inspection Results Result Diagram: 07/27/1722 07/27/17 0522 Results 24 hrs Laboratory Tests Test 07/27/17 05:22 07/27/17 10:35 White Blood Count 7.5 Red Blood Count 3.36 L Hemoglobin 9.4 L Hematocrit 30.5 L Mean Corpuscular Volume 90.8 Mean Corpuscular Hemoglobin 28.0 L Mean Corpuscular Hemoglobin Concent 30.8 L Red Cell Distribution Width 16.1 H Platelet Count 228 Mean Platelet Volume 10.0 Neutrophils % 50.1 Lymphocytes % 35.1 Monocytes % 7.6 Eosinophils % 3.8 Basophils % 1.3 Nucleated Red Blood Cells % 0.0 Neutrophils # 3.8 Lymphocytes # 2.7 Monocytes # 0.6 Eosinophils # 0.3 Basophils # 0.1 Nucleated Red Blood Cells # 0.0 Sodium Level 133 L Potassium Level 4.7 Chloride Level 98 Carbon Dioxide Level 26 Anion Gap 14 Blood Urea Nitrogen 66 H Creatinine 7.32 H Glucose Level 92 Calcium Level 7.8 L Hepatitis C Antibody REACTIVE H Lab Scanned Report REFERENCE LAB Medications Medications Current Medications Acetaminophen (Tylenol Tab) 650 mg Q6H PRN PO PAIN AND OR ELEVATED TEMP; Start 07/22/17 at 20:30 Ondansetron HCl (Zofran Inj) 4 mg Q6H PRN IV NAUSEA AND/OR VOMITING; Start 07/22/17 at 23:00 Docusate Sodium (Colace) 100 mg Q12H PRN PO CONSTIPATION; Start 07/22/17 at 23: 00 Bisacodyl 5 mg 5 mg DAILY PRN PO CONSTIPATION; Start 07/22/17 at 23:00 Ciprofloxacin/ Dextrose (Cipro Ivpb) 100 ml @ 100 mls/hr Q24H IVPB Last administered on 07/26/17 20:29; Admin Dose 100 MLS/HR; Start 07/23/17 at 21:00 Acetaminophen/ Hydrocodone Bitart ([place] (5/325)) 1 tab Q6H PRN PO Breakthrough Pain Last administered on 07/27/17 04:05; Admin Dose 1 TAB; Start 07/24/17 at 11:30 Guaifenesin/ Dextromethorphan (Robitussin Dm Liquid Cup) 5 ml TID PRN PO Cough Last administered on 07/24/17 22:21; Admin Dose 5 ML; Start 07/24/17 at 11:30 Morphine Sulfate (morphine) 4 mg Q3H PRN IV PAIN LEVEL 7-10 Last administered on 07/27/17 12:17; Admin Dose 4 MG; Start 07/25/17 at 21:30 Clonidine (Catapres) 0.1 mg TID PO Last administered on 07/27/17 08:40; Admin Dose 0.1 MG; Start 07/26/17 at 09:00 Alprazolam (Xanax) 1 mg Q8H PRN PO ANXIETY Last administered on 07/26/17 22:15 ; Admin Dose 1 MG; Start 07/25/17 at 22:00 LYDIA DIANA Jul 27, 2017 14:10
[2017-07-27 14:29] VITALS: BP 128/78; RESP 18
[2017-07-27] MEDS ORDERED: HYDROmorphONE 1 MG/ML SYG IV PRN (14:30)
--- NOTE | 2017-07-27 16:37 | CONS ---
Date/Time of Note Date/Time of Note DATE: 07/27/17 TIME: 16:29 Assessment/Plan Assessment/Plan Additional Assessment/Plan IMP: 1. Recurrent Rectal Prolapse 2. B/L pleural effusions --likely related to volume overload/ESRD RECS: 1. No preclusion for surgical intervention from pulm standpoint 2. Would continue HD with UF 3. Thoracentesis only for therapeutic purposes (symptom relief) as needed Consultation Date/Type/Reason Admit Date/Time Jul 22, 2017 at 19:26 Type of Consultation: Pulm Hx of Present Illness Briefly, this is 62-year-old woman with ESRD on HD, Hep C, HTN, admitted for recurrent rectal prolapse s/p prior reductions, await laparoscopic intervention. Of note, CT abdomen/pelvis notable for B/L free-flowing pleural effusions. Constitutional: no complaints Eyes: no complaints ENT: No bleeding, No congestion, No pain Respiratory: no complaints Cardiovascular: No chest pain, No edema Gastrointestinal: other (rectal pain) Genitourinary: other (pain in rectal area) Musculoskeletal: No neck pain Skin: No pruritis, No rash Neurologic: No dizziness, No focal-weakness Psychological: anxiety Past Medical History ESRD on HD Medical History: hepatitis, hypertension Past Surgical History Past Surgical Hx: no surgical history Social History Alcohol Use: none Smoking Status: Smoker,current status unk Drug Use: none Exam/Review of Systems Vital Signs Vitals Vital Signs Date Time Temp Pulse Resp B/P Pulse Ox O2 Delivery O2 Flow Rate FiO2 07/27/17 14:29 98.4 82 18 128/78 97 07/23/17 20:10 Nasal Cannula 3.0 Intake and Output 07/26/17 07/26/17 07/27/17 15:00 23:00 07:00 Intake Total 1100 ml 800 ml 960 ml Output Total 3600 ml Balance -2500 ml 800 ml 960 ml Exam Constitutional: alert, oriented, well developed Psych: nl mood/affect, no complaints Head: atraumatic, normocephalic Eyes: EOMI, nl conjunctiva, nl lids, nl sclera ENMT: mucosa pink and moist, nl external ears & nose, nl lips & teeth, nl nasal mucosa & septum Neck: jvd, non-tender, supple Respiratory: diminished breath sounds Cardiovascular: nl pulses, regular rate and rhythm Gastrointestinal: nl liver, spleen, non-tender, soft Musculoskeletal: nl extremities to inspection, nl gait and stance Extremities: normal pulses 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: MICRO LAB ANALYST II-XII intact, nl mental status Results Result Diagram: 07/27/1752107/27/17 05 Results 24 hrs Laboratory Tests Test 07/27/17 05:22 07/27/17 10:35 White Blood Count 7.5 Red Blood Count 3.36 L Hemoglobin 9.4 L Hematocrit 30.5 L Mean Corpuscular Volume 90.8 Mean Corpuscular Hemoglobin 28.0 L Mean Corpuscular Hemoglobin Concent 30.8 L Red Cell Distribution Width 16.1 H Platelet Count 228 Mean Platelet Volume 10.0 Neutrophils % 50.1 Lymphocytes % 35.1 Monocytes % 7.6 Eosinophils % 3.8 Basophils % 1.3 Nucleated Red Blood Cells % 0.0 Neutrophils # 3.8 Lymphocytes # 2.7 Monocytes # 0.6 Eosinophils # 0.3 Basophils # 0.1 Nucleated Red Blood Cells # 0.0 Sodium Level 133 L Potassium Level 4.7 Chloride Level 98 Carbon Dioxide Level 26 Anion Gap 14 Blood Urea Nitrogen 66 H Creatinine 7.32 H Glucose Level 92 Calcium Level 7.8 L Hepatitis C Antibody REACTIVE H Lab Scanned Report REFERENCE LAB Medications Medications Current Medications Acetaminophen (Tylenol Tab) 650 mg Q6H PRN PO PAIN AND OR ELEVATED TEMP; Start 07/22/17 at 20:30 Ondansetron HCl (Zofran Inj) 4 mg Q6H PRN IV NAUSEA AND/OR VOMITING; Start 07/22/17 at 23:00 Docusate Sodium (Colace) 100 mg Q12H PRN PO CONSTIPATION; Start 07/22/17 at 23: 00 Bisacodyl 5 mg 5 mg DAILY PRN PO CONSTIPATION; Start 07/22/17 at 23:00 Ciprofloxacin/ Dextrose (Cipro Ivpb) 100 ml @ 100 mls/hr Q24H IVPB Last administered on 07/26/17 20:29; Admin Dose 100 MLS/HR; Start 07/23/17 at 21:00 Acetaminophen/ Hydrocodone Bitart ([place] (5/325)) 1 tab Q6H PRN PO Breakthrough Pain Last administered on 07/27/17 04:05; Admin Dose 1 TAB; Start 07/24/17 at 11:30 Guaifenesin/ Dextromethorphan (Robitussin Dm Liquid Cup) 5 ml TID PRN PO Cough Last administered on 07/24/17 22:21; Admin Dose 5 ML; Start 07/24/17 at 11:30 Morphine Sulfate (morphine) 4 mg Q3H PRN IV PAIN LEVEL 7-10 Last administered on 07/27/17 12:17; Admin Dose 4 MG; Start 07/25/17 at 21:30 Clonidine (Catapres) 0.1 mg TID PO Last administered on 07/27/17 08:40; Admin Dose 0.1 MG; Start 07/26/17 at 09:00 Alprazolam (Xanax) 1 mg Q8H PRN PO ANXIETY Last administered on 07/26/17 22:15 ; Admin Dose 1 MG; Start 07/25/17 at 22:00 Pantoprazole (Protonix Tab) 40 mg DAILY@06 PO ; Start 07/28/17 at 06:00 Hydromorphone HCl (Dilaudid) 1 mg Q4H PRN IV PAIN LEVEL 6-10; Start 07/27/17 at 14:30 JAMES VALLEJO MD Jul 27, 2017 16:37
[2017-07-27] MEDS: ALPRAZOLAM 0.5 MG TAB PO PRN (18:35)
[2017-07-27 20:10] VITALS: BP 123/71; RESP 19
[2017-07-27] MEDS: CIPROFLOXACIN 200 MG/D5W IVPB 100 ML IVPB SCH (20:15)
--- NOTE | 2017-07-27 21:26 | PN ---
Date/Time of Note Date/Time of Note DATE: 07/27/17 TIME: 21:22 Assessment/Plan Lines/Catheters IV Catheter Type (from [facility]): gen cath Patino in Place (from [facility]): No Assessment/Plan Chief Complaint/Hosp Course 1. Rectal prolapse: awaiting gi -GI consult for colonoscopy prior to surgical intervention 2. Leukocytosis: 2/2 above vs. pna vs. pl effusion vs. liver etiology vs. uti vs. other; no fever: normalized -abx 3. ESRD: -hd per renal 4. Electrolyte imbalance: -optimize lytes 5. Hypoalbuminemia with hypocalcemia: nutritional +/- inflammation -as above -optimize nutrition 6. Anemia: without acute bleed -monitor and transfuse as needed 7. Hepatitis with reactive serology -medical management 8. UTI -abx per sensitivity -frequent bladder emptying Thank you. Patient seen and examined in collaboration with Dr. Deep Zhang. Problems: Subjective 24 Hr Interval Summary Continues to have rectal pain. Rectal prolapse persistent. Awaiting gi. No fevers, chills, sob, congested cough, n/v/d/dysuria, avitia, dizziness, cp, palpitations. Exam/Review of Systems Vital Signs Vitals Vital Signs Date Time Temp Pulse Resp B/P Pulse Ox O2 Delivery O2 Flow Rate FiO2 07/27/17 14:29 98.4 82 18 128/78 97 07/23/17 20:10 Nasal Cannula 3.0 Intake and Output 07/26/17 07/26/17 07/27/17 15:00 23:00 07:00 Intake Total 1100 ml 800 ml 960 ml Output Total 3600 ml Balance -2500 ml 800 ml 960 ml Exam Free Text/Dictation Constitutional: alert, oriented Psych: anxiety Head: atraumatic, normocephalic Eyes: nl conjunctiva, nl lids, nl sclera ENMT: No mucosa pink and moist (dry) Neck: non-tender, supple Respiratory: diminished breath sounds (at bases), No labored breathing Cardiovascular: nl pulses, regular rate and rhythm, No edema Gastrointestinal: non-tender, soft, No distended, No rebound or guarding Genitourinary - Female: No nl external genitalia (rectal prolapse - pink, moist. tender) Musculoskeletal: nl extremities to inspection Extremities: normal pulses, No edema 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: nl speech, nl strength Skin: No rash or lesions Results Result Diagram: 07/27/17 0522 07/27/17 0522 RAFFY GRAHAM NP Jul 27, 2017 21:26
[2017-07-28] VITALS (9 sets, daily range): BP systolic 106–151; BP diastolic 59–82; PULSE 79–84; RESP 17–18
[2017-07-28] MEDS: morphine 4 MG/ML VIAL IV PRN ×3 (04:06→19:49)
[2017-07-28] MEDS: PANTOPRAZOLE (EC) 40 MG TAB PO SCH (05:06)
[2017-07-28 05:21] LABS: BASOPHIL # 0.1 10^3/ul (0.0-0.1); BASOPHILS % 0.9 % (0.0-2.0); EOSINOPHILS # 0.4 10^3/ul (0.0-0.5); EOSINOPHILS % 4.6 % (0.0-7.0); HEMATOCRIT 30.7 % (37.0-47.0); HEMOGLOBIN 9.6 g/dl (12.0-16.0); LYMPHOCYTES # 3.6 10^3/ul (0.8-2.9); LYMPHOCYTES % 37.3 % (15.0-51.0); MEAN CORPUSCULAR HEMOGLOBIN 28.1 pg (29.0-33.0); MEAN CORPUSCULAR HGB CONC 31.3 g/dl (32.0-37.0); MEAN CORPUSCULAR VOLUME 89.8 fl (82.0-101.0); MEAN PLATELET VOLUME 10.1 fl (7.4-10.4); MONOCYTE # 0.6 10^3/ul (0.3-0.9); MONOCYTES % 6.6 % (0.0-11.0); NEUTROPHIL # 4.7 10^3/ul (1.6-7.5); NEUTROPHILS % 48.8 % (39.0-77.0); PLATELET COUNT 275 10^3/UL (140-415); RED BLOOD COUNT 3.42 10^6/ul (4.20-5.40); RED CELL DISTRIBUTION WIDTH 15.7 % (11.5-14.5); WHITE BLOOD COUNT 9.6 10^3/ul (4.8-10.8)
[2017-07-28] MEDS: NITROGLYCERIN (SL) 0.4 MG TAB SL PRN ×2 (05:29→06:49)
[2017-07-28 05:57] LABS: CREATININE 8.65 mg/dl (0.44-1.00); POTASSIUM 5.5 mmol/L (3.5-5.1)
[2017-07-28] MEDS: CALCIUM ACETATE 667 MG CAP PO SCH ×3 (08:48→17:37)
[2017-07-28] MEDS: ALPRAZOLAM 0.5 MG TAB PO PRN (09:08)
--- NOTE | 2017-07-28 12:45 | PN ---
Date/Time of Note Date/Time of Note DATE: 07/28/17 TIME: 12:43 Assessment/Plan VTE Prophylaxis VTE Prophylaxis Intervention: ambulation Lines/Catheters IV Catheter Type (from Nrs): gen cath Urinary Cath still in place: No Assessment/Plan Chief Complaint/Hosp Course 1. Rectal prolapse, severe. 2. SIRS 3. Anemia. 4. Hepatitis B core antibody positive. 5. End-stage renal disease. 6. electrolyte imbalance Problems: Assessment/Plan 1. dr Hobbs for colonoscopy, called 2. pending lap sigmoidoscopy per dr Zhang 3. pain control 4. continue HD Subjective 24 Hr Interval Summary Gastrointestinal: pain (rectally) Exam/Review of Systems Vital Signs Vitals Vital Signs Date Time Temp Pulse Resp B/P Pulse Ox O2 Delivery O2 Flow Rate FiO2 07/28/17 08:34 97.7 71 18 149/76 94 Intake and Output 07/27/17 07/27/17 07/28/17 15:00 23:00 07:00 Intake Total 100 ml 500 ml Output Total 200 ml Balance 100 ml 300 ml Exam Constitutional: alert, oriented Eyes: nl conjunctiva ENMT: nl external ears & nose Respiratory: clear to auscultation Cardiovascular: regular rate and rhythm Gastrointestinal: other (rectal prolapse), soft Results Result Diagram: 07/28/17 0452 07/28/17 0452 Results 24 hrs Laboratory Tests Test 07/28/17 04:52 White Blood Count 9.6 # Red Blood Count 3.42 L Hemoglobin 9.6 L Hematocrit 30.7 L Mean Corpuscular Volume 89.8 Mean Corpuscular Hemoglobin 28.1 L Mean Corpuscular Hemoglobin Concent 31.3 L Red Cell Distribution Width 15.7 H Platelet Count 275 # Mean Platelet Volume 10.1 Neutrophils % 48.8 Lymphocytes % 37.3 Monocytes % 6.6 Eosinophils % 4.6 Basophils % 0.9 Nucleated Red Blood Cells % 0.0 Neutrophils # 4.7 Lymphocytes # 3.6 H Monocytes # 0.6 Eosinophils # 0.4 Basophils # 0.1 Nucleated Red Blood Cells # 0.0 Sodium Level 131 L Potassium Level 5.5 H Chloride Level 98 Carbon Dioxide Level 22 Anion Gap 17 H Blood Urea Nitrogen 82 H Creatinine 8.65 H Glucose Level 74 Calcium Level 8.0 L Troponin I 0.068 Medications Medications Current Medications Acetaminophen (Tylenol Tab) 650 mg Q6H PRN PO PAIN AND OR ELEVATED TEMP; Start 07/22/17 at 20:30 Ondansetron HCl (Zofran Inj) 4 mg Q6H PRN IV NAUSEA AND/OR VOMITING; Start 07/22/17 at 23:00 Docusate Sodium (Colace) 100 mg Q12H PRN PO CONSTIPATION; Start 07/22/17 at 23: 00 Bisacodyl 5 mg 5 mg DAILY PRN PO CONSTIPATION; Start 07/22/17 at 23:00 Ciprofloxacin/ Dextrose (Cipro Ivpb) 100 ml @ 100 mls/hr Q24H IVPB Last administered on 07/27/17 20:15; Admin Dose 100 MLS/HR; Start 07/23/17 at 21:00 Acetaminophen/ Hydrocodone Bitart ([place] (5/325)) 1 tab Q6H PRN PO Breakthrough Pain Last administered on 07/27/17 04:05; Admin Dose 1 TAB; Start 07/24/17 at 11:30 Guaifenesin/ Dextromethorphan (Robitussin Dm Liquid Cup) 5 ml TID PRN PO Cough Last administered on 07/24/17 22:21; Admin Dose 5 ML; Start 07/24/17 at 11:30 Morphine Sulfate (morphine) 4 mg Q3H PRN IV PAIN LEVEL 7-10 Last administered on 07/28/17 08:54; Admin Dose 4 MG; Start 07/25/17 at 21:30 Clonidine (Catapres) 0.1 mg TID PO Last administered on 07/28/17 08:48; Admin Dose 0.1 MG; Start 07/26/17 at 09:00 Alprazolam (Xanax) 1 mg Q8H PRN PO ANXIETY Last administered on 07/28/17 09:08 ; Admin Dose 1 MG; Start 07/25/17 at 22:00 Pantoprazole (Protonix Tab) 40 mg DAILY@06 PO Last administered on 07/28/17 05 :06; Admin Dose 40 MG; Start 07/28/17 at 06:00 Hydromorphone HCl (Dilaudid) 1 mg Q4H PRN IV PAIN LEVEL 6-10; Start 07/27/17 at 14:30 Nitroglycerin (Nitroglycerin (Sl Tab) 0.4 Mg) 1 tab Q5M PRN SL ANGINA Last administered on 07/28/17t 06:49; Admin Dose 1 TAB; Start 07/28/17 at 05:30 LYDIA DIANA Jul 28, 2017 12:45
--- NOTE | 2017-07-28 13:41 | PN ---
Date/Time of Note Date/Time of Note DATE: 07/28/17 TIME: 13:32 Assessment/Plan Lines/Catheters IV Catheter Type (from [facility]): gen cath Patino in Place (from [facility]): No Assessment/Plan Chief Complaint/Hosp Course 1. Rectal prolapse: awaiting gi -GI consult for colonoscopy prior to surgical intervention 2. Leukocytosis: 2/2 above vs. pna vs. pl effusion vs. liver etiology vs. uti vs. other; no fever: normalized -abx 3. ESRD: -hd per renal 4. Electrolyte imbalance: -optimize lytes 5. Hypoalbuminemia with hypocalcemia: nutritional +/- inflammation -as above -optimize nutrition 6. Anemia: without acute bleed -monitor and transfuse as needed 7. Hepatitis with reactive serology -medical management 8. UTI -abx per sensitivity -frequent bladder emptying Thank you. Patient seen and examined in collaboration with Dr. Deep Zhang. Problems: Subjective 24 Hr Interval Summary Continues to have perineal pain but no acute pain.. Awaiting GI consult. Prolapse still out. No fevers, chills, sob, congested cough, n/v/d/dysuria, avitia , dizziness, cp, palpitations, HD ongoing. Exam/Review of Systems Vital Signs Vitals Vital Signs Date Time Temp Pulse Resp B/P Pulse Ox O2 Delivery O2 Flow Rate FiO2 07/28/17 12:30 80 18 07/28/17 08:34 97.7 149/76 94 Intake and Output 07/27/17 07/27/17 07/28/17 15:00 23:00 07:00 Intake Total 100 ml 500 ml Output Total 200 ml Balance 100 ml 300 ml Exam Free Text/Dictation Constitutional: alert, oriented Psych: anxiety Head: atraumatic, normocephalic Eyes: nl conjunctiva, nl lids, nl sclera ENMT: No mucosa pink and moist (dry) Neck: non-tender, supple Respiratory: diminished breath sounds (at bases), No labored breathing Cardiovascular: nl pulses, regular rate and rhythm, No edema Gastrointestinal: non-tender, soft, No distended, No rebound or guarding Genitourinary - Female: No nl external genitalia (rectal prolapse - pink, tender) Musculoskeletal: nl extremities to inspection Extremities: normal pulses, No edema 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: nl speech, nl strength Skin: No rash or lesions Results Result Diagram: 10/8/17 0452 07/28/17 0452 RAFFY GRAHAM NP Jul 28, 2017 13:41
--- NOTE | 2017-07-28 15:53 | CONS ---
Date/Time of Note Date/Time of Note DATE: 07/28/17 TIME: 15:52 Consult Date/Type/Reason Admit Date/Time Jul 22, 2017 at 19:26 Initial Consult Date 07/23/17 Type of Consultation: Pulm Ordering Provider: KISHAN MEJIA MD Subjective No events overnight. Objective Vital Signs Date Time Temp Pulse Resp B/P Pulse Ox O2 Delivery O2 Flow Rate FiO2 07/28/17 15:10 97.6 75 18 106/59 91 Intake and Output 07/27/17 07/27/17 07/28/17 15:00 23:00 07:00 Intake Total 100 ml 500 ml Output Total 200 ml Balance 100 ml 300 ml Exam HEENT: Neck supple; no JVD; no LAD CVS: RRR, S1 and S2 CHEST: Decreased BS at bases ABD: Soft, NT, + BS EXT: No c/c/e Results/Medications Result Diagram: 07/28/17 0452 07/28/17 0452 Results 24 hrs Laboratory Tests Test 07/28/17 04:52 07/28/17 12:56 White Blood Count 9.6 # Red Blood Count 3.42 L Hemoglobin 9.6 L Hematocrit 30.7 L Mean Corpuscular Volume 89.8 Mean Corpuscular Hemoglobin 28.1 L Mean Corpuscular Hemoglobin Concent 31.3 L Red Cell Distribution Width 15.7 H Platelet Count 275 # Mean Platelet Volume 10.1 Neutrophils % 48.8 Lymphocytes % 37.3 Monocytes % 6.6 Eosinophils % 4.6 Basophils % 0.9 Nucleated Red Blood Cells % 0.0 Neutrophils # 4.7 Lymphocytes # 3.6 H Monocytes # 0.6 Eosinophils # 0.4 Basophils # 0.1 Nucleated Red Blood Cells # 0.0 Sodium Level 131 L Potassium Level 5.5 H Chloride Level 98 Carbon Dioxide Level 22 Anion Gap 17 H Blood Urea Nitrogen 82 H Creatinine 8.65 H Glucose Level 74 Calcium Level 8.0 L Troponin I 0.068 0.042 Medications Current Medications Acetaminophen (Tylenol Tab) 650 mg Q6H PRN PO PAIN AND OR ELEVATED TEMP; Start 07/22/17 at 20:30 Ondansetron HCl (Zofran Inj) 4 mg Q6H PRN IV NAUSEA AND/OR VOMITING; Start 07/22/17 at 23:00 Docusate Sodium (Colace) 100 mg Q12H PRN PO CONSTIPATION; Start 07/22/17 at 23: 00 Bisacodyl 5 mg 5 mg DAILY PRN PO CONSTIPATION; Start 07/22/17 at 23:00 Ciprofloxacin/ Dextrose (Cipro Ivpb) 100 ml @ 100 mls/hr Q24H IVPB Last administered on 07/27/17 20:15; Admin Dose 100 MLS/HR; Start 07/23/17 at 21:00 Acetaminophen/ Hydrocodone Bitart ([place] (5/325)) 1 tab Q6H PRN PO Breakthrough Pain Last administered on 07/27/17 04:05; Admin Dose 1 TAB; Start 07/24/17 at 11:30 Guaifenesin/ Dextromethorphan (Robitussin Dm Liquid Cup) 5 ml TID PRN PO Cough Last administered on 07/24/17 22:21; Admin Dose 5 ML; Start 07/24/17 at 11:30 Morphine Sulfate (morphine) 4 mg Q3H PRN IV PAIN LEVEL 7-10 Last administered on 07/28/17 08:54; Admin Dose 4 MG; Start 07/25/17 at 21:30 Clonidine (Catapres) 0.1 mg TID PO Last administered on 07/28/17 08:48; Admin Dose 0.1 MG; Start 07/26/17 at 09:00 Alprazolam (Xanax) 1 mg Q8H PRN PO ANXIETY Last administered on 07/28/17 09:08 ; Admin Dose 1 MG; Start 07/25/17 at 22:00 Pantoprazole (Protonix Tab) 40 mg DAILY@06 PO Last administered on 07/28/17 05 :06; Admin Dose 40 MG; Start 07/28/17 at 06:00 Hydromorphone HCl (Dilaudid) 1 mg Q4H PRN IV PAIN LEVEL 6-10; Start 07/27/17 at 14:30 Nitroglycerin (Nitroglycerin (Sl Tab) 0.4 Mg) 1 tab Q5M PRN SL ANGINA Last administered on 07/28/17 06:49; Admin Dose 1 TAB; Start 07/28/17 at 05:30 Assessment/Plan Chief Complaint/Hosp Course Briefly, this is 62-year-old woman with ESRD on HD, Hep C, HTN, admitted for recurrent rectal prolapse s/p prior reductions, await laparoscopic intervention. Of note, CT abdomen/pelvis notable for B/L free-flowing pleural effusions. Problems: Additional Assessment/Plan MP: 1. Recurrent Rectal Prolapse 2. B/L pleural effusions --likely related to volume overload/ESRD 3. ESRD on HD 4. HypoNa+ RECS: 1. No preclusion for surgical intervention from pulm standpoint 2. Would continue HD with UF 3. Thoracentesis only for therapeutic purposes (symptom relief) as needed 4. Am CXR JAMES VALLEJO MD Jul 28, 2017 15:53
[2017-07-28] MEDS ORDERED: PEG/ELECTROLYTES 4L BTL PO ONE ×2 (17:00→20:00)
[2017-07-28] MEDS ORDERED: BISACODYL (EC) 5 MG TAB PO ONE ×2 (17:00→22:00)
[2017-07-28] MEDS: CIPROFLOXACIN 200 MG/D5W IVPB 100 ML IVPB SCH (20:30)
[2017-07-28] MEDS: GUAIFENESIN/DM 5ML CUP PO PRN (21:19)
[2017-07-29] VITALS (11 sets, daily range): BP systolic 124–144; BP diastolic 63–89; PULSE 62–71; RESP 11–24
[2017-07-29] MEDS: morphine 4 MG/ML VIAL IV PRN ×4 (02:01→21:27)
[2017-07-29 05:18] LABS: CALCIUM 7.8 mg/dl (8.4-10.2); CREATININE 6.14 mg/dl (0.44-1.00); POTASSIUM 4.2 mmol/L (3.5-5.1)
[2017-07-29] MEDS: PANTOPRAZOLE (EC) 40 MG TAB PO SCH (05:30)
[2017-07-29] MEDS: CALCIUM ACETATE 667 MG CAP PO SCH ×3 (07:35→17:10)
--- NOTE | 2017-07-29 10:47 | CONS ---
DATE OF ADMISSION: 07/22/2017 DATE OF CONSULTATION: TYPE OF CONSULTATION: Gastroenterology. REFERRING PHYSICIAN: Sreedhar Yost. REASON FOR CONSULTATION: Screening colonoscopy before surgery for rectal prolapse. HISTORY OF PRESENT ILLNESS: The patient is an elderly female with end-stage renal disease, on dialy sis; hypertension; was originally taken to the [facility] for rectal prolapse. It was red uced, but since it came back, the patient was brought back to this hospital. The patient was evalua layla by Dr. Ran Zhang, and he wanted a colonoscopy prior to surgery. No gross GI bleeding, no naus ea, no vomiting, no abdominal pain, no chest pain, no shortness of breath. PAST MEDICAL HISTORY: End-stage renal disease and hypertension. ALLERGIES: PENICILLIN. SOCIAL HISTORY: Negative. MEDICATIONS: Xanax, calcium acetate, clindamycin and hydromorphone. REVIEW OF SYSTEMS: Negative. PHYSICAL EXAMINATION: GENERAL: Thin, well-nourished, not in distress. VITAL SIGNS: Stable. HEENT: Unremarkable. NECK: Supple, no thyromegaly, no lymphadenopathy. CARDIOVASCULAR: No murmur, gallop or click. LUNGS: Clear. ABDOMEN: Benign. EXTREMITIES: No edema. CENTRAL NERVOUS SYSTEM: Grossly within normal limits. IMPRESSION: 1. Rectal prolapse. 2. End-stage renal disease, on dialysis. 3. Anemia. 4. Positive hepatitis C antibody, but ____ study was negative. 5. Urinary tract infection. PLAN: At this point is to proceed with colonoscopy. Discussed with the patient and also with Dr. Guille feliciano. The patient has agreed. The GI lab staff has been informed and they will notify me tomorrow regarding the timing. Dictated By: ZIA HARRINGTON/JON Conf#: [id number] DID#: [id number]
--- NOTE | 2017-07-29 10:57 | RADRPT ---
PROCEDURE: XR Chest. CLINICAL INDICATION: Shortness of breath. TECHNIQUE: Single frontal view. COMPARISON: 07/23/2017. FINDINGS: There is a tunneled left internal jugular vein dialysis catheter in satisfactory and unchanged posit ion. Bibasilar atelectasis is slightly improved. The heart size is normal. There are small bilateral pleural effusions. There is no pneumothorax. IMPRESSION: 1. Improved appearance of the lung bases. 2. No other change from 07/23/2017. RPTAT: QQ .Sam Villalpando MD, MD Date Time Electronically viewed and signed by .Sam Villalpando MD, MD on 07/29/2017 10:57 .R/
--- NOTE | 2017-07-29 12:11 | PN ---
Date/Time of Note Date/Time of Note DATE: 07/29/17 TIME: 12:06 Assessment/Plan Lines/Catheters IV Catheter Type (from [facility]): Saline Lock [place] in Place (from [facility]): No Assessment/Plan Chief Complaint/Hosp Course 1. Rectal prolapse: gi for coloscopy and cards clearance prior to surgery -GI consult for colonoscopy prior to surgical intervention 2. Leukocytosis: 2/2 above vs[address] pna vs. [address] effusion vs. liver etiology vs. uti vs. other; no fever: normalized -abx 3. ESRD: -hd per renal 4. Electrolyte imbalance: -optimize lytes 5. Hypoalbuminemia with hypocalcemia: nutritional +/- inflammation -as above -optimize nutrition 6. Anemia: without acute bleed -monitor and transfuse as needed 7. Hepatitis with reactive serology -medical management 8. UTI -abx per sensitivity -frequent bladder emptying 9. Chest pain: no current c/o pain; trop +; EKG: NSR -cards consult -cardia optimization 10. Pleural effusion: comfortable on room air -pulm consult -IS -cont diuresis and HD Thank you. Patient seen and examined in collaboration with Dr. Deep Zhang. Problems: Subjective 24 Hr Interval Summary Patient with episode of chest pain yesterday with +troponins. No current cp, palpitations, sob, congested cough, n/v/d/dysuria. Pending colonoscopy. Exam/Review of Systems Vital Signs Vitals Vital Signs Date Time Temp Pulse Resp B/P Pulse Ox O2 Delivery O2 Flow Rate FiO2 07/29/17 07:51 98.3 74 18 132/63 96 Intake and Output 07/28/17 07/28/17 07/29/17 15:00 23:00 07:00 Intake Total 500 ml 520 ml 2000 ml Output Total 2500 ml Balance -2000 ml 520 ml 2000 ml Exam Free Text/Dictation Constitutional: alert, oriented Psych: anxiety Head: atraumatic, normocephalic Eyes: nl conjunctiva, nl lids, nl sclera ENMT: No mucosa pink and moist (dry) Neck: non-tender, supple Respiratory: diminished breath sounds (at bases), No labored breathing Cardiovascular: nl pulses, regular rate and rhythm, No edema Gastrointestinal: non-tender, soft, No distended, No rebound or guarding Genitourinary - Female: No nl external genitalia (rectal prolapse - pink, tender) Musculoskeletal: nl extremities to inspection Extremities: normal pulses, No edema 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: nl speech, nl strength Skin: No rash or lesions Results Result Diagram: 07/28/17 0452 07/29/17 0435 RAFFY GRAHAM NP Jul 29, 2017 12:11
--- NOTE | 2017-07-29 12:54 | CONS ---
Date/Time of Note Date/Time of Note DATE: 07/29/17 TIME: 12:52 Assessment/Plan Assessment/Plan Additional Assessment/Plan Assessment and recommendations; 1. Patient admitted with rectal prolapse with interval improvement. Awaiting laparoscopic intervention. 2. Bilateral pleural effusions with marked overall improvement from today's chest x-ray. 3. Volume overload, history of end-stage renal disease, on hemodialysis. Continue current treatment. Patient cleared for surgery from pulmonary perspective. Consultation Date/Type/Reason Admit Date/Time Jul 22, 2017 at 19:26 Initial Consult Date 07/23/17 Type of Consultation: Pulm Referring Provider: KISHAN MEJIA MD 24 HR Interval Summary Free Text/Dictation Patient's condition is stable. Remains awake alert. Denies any shortness of breath, chest pain. General exam; elderly woman, awake and alert. Currently in no distress. Exam/Review of Systems Vital Signs Vitals Vital Signs Date Time Temp Pulse Resp B/P Pulse Ox O2 Delivery O2 Flow Rate FiO2 07/29/17 07:51 98.3 74 18 132/63 96 Intake and Output 07/28/17 07/28/17 07/29/17 15:00 23:00 07:00 Intake Total 500 ml 520 ml 2000 ml Output Total 2500 ml Balance -2000 ml 520 ml 2000 ml Exam HEENT exam; supple neck, no JVD. No lymphadenopathy. Midline trachea. No thyromegaly. Patient is edentulous. Chest exam; diminished but clear breath sounds. S1-S2 audible, no murmurs. Regular rhythm. Abdomen exam; soft, nontender. No organomegaly. Bowel sounds audible. Extremity exam; no peripheral edema. COMMUNITY RELATIONS REPRESENTATIVE exam; focal deficit. Results Result Diagram: 07/28/17 0452 07/29/17 0435 Results 24 hrs Laboratory Tests Test 07/28/17 12:56 07/28/17 18:59 07/29/17 01:49 07/29/17 04:35 Troponin I 0.042 0.275 *H 0.400 *H 0.297 *H Sodium Level 142 Potassium Level 4.2 Chloride Level 106 Carbon Dioxide Level 25 Anion Gap 15 Blood Urea Nitrogen 52 #H Creatinine 6.14 #H Glucose Level 91 Calcium Level 7.8 L Medications Medications Current Medications Acetaminophen (Tylenol Tab) 650 mg Q6H PRN PO PAIN AND OR ELEVATED TEMP; Start 07/22/17 at 20:30 Ondansetron HCl (Zofran Inj) 4 mg Q6H PRN IV NAUSEA AND/OR VOMITING; Start 07/22/17 at 23:00 Docusate Sodium (Colace) 100 mg Q12H PRN PO CONSTIPATION; Start 07/22/17 at 23: 00 Bisacodyl 5 mg 5 mg DAILY PRN PO CONSTIPATION; Start 07/22/17 at 23:00 Ciprofloxacin/ Dextrose (Cipro Ivpb) 100 ml @ 100 mls/hr Q24H IVPB Last administered on 07/28/17 20:30; Admin Dose 100 MLS/HR; Start 07/23/17 at 21:00 Acetaminophen/ Hydrocodone Bitart ([place] (5/325)) 1 tab Q6H PRN PO Breakthrough Pain Last administered on 07/27/17 04:05; Admin Dose 1 TAB; Start 07/24/17 at 11:30 Guaifenesin/ Dextromethorphan (Robitussin Dm Liquid Cup) 5 ml TID PRN PO Cough Last administered on 07/28/17 21:19; Admin Dose 5 ML; Start 07/24/17 at 11:30 Morphine Sulfate (morphine) 4 mg Q3H PRN IV PAIN LEVEL 7-10 Last administered on 07/29/17 08:08; Admin Dose 4 MG; Start 07/25/17 at 21:30 Clonidine (Catapres) 0.1 mg TID PO Last administered on 07/28/17 20:04; Admin Dose 0.1 MG; Start 07/26/17 at 09:00 Alprazolam (Xanax) 1 mg Q8H PRN PO ANXIETY Last administered on 07/28/17 09:08 ; Admin Dose 1 MG; Start 07/25/17 at 22:00 Pantoprazole (Protonix Tab) 40 mg DAILY@06 PO Last administered on 07/28/17 05 :06; Admin Dose 40 MG; Start 07/28/17 at 06:00 Hydromorphone HCl (Dilaudid) 1 mg Q4H PRN IV PAIN LEVEL 6-10; Start 07/27/17 at 14:30 Nitroglycerin (Nitroglycerin (Sl Tab) 0.4 Mg) 1 tab Q5M PRN SL ANGINA Last administered on 07/28/17 06:49; Admin Dose 1 TAB; Start 07/28/17 at 05:30 LEATHA PHAM Jul 29, 2017 12:54
[2017-07-29] MEDS ORDERED: morphine 4 MG/ML VIAL IV STA (15:36)
[2017-07-29] MEDS ORDERED: MIDAZOLAM 1 MG/ML 2 ML INJ ONE (17:00)
[2017-07-29] MEDS ORDERED: HYDROmorphONE (0.2 MG/ML) 10ML SYG IV PRN (17:00)
[2017-07-29] MEDS ORDERED: LIDOCAINE 2% (SDV) 5 ML INJ ONE (17:00)
[2017-07-29] MEDS ORDERED: PROPOFOL 40 ML ONE (17:00)
[2017-07-29] MEDS ORDERED: ONDANSETRON 4 MG INJ IV PRN (17:00)
--- NOTE | 2017-07-29 17:22 | OPPN ---
Date/Time of Note Date/Time of Note DATE: 07/29/17 TIME: 17:20 Proc Note GI Procedure Date 07/29/17 Pre-procedure Diagnosis Screening colonoscopy Post-procedure Diagnosis Complete prolapse of the rectum Procedure Performed: Colonoscopy Surgeon see signature line Tank Builder Helper none Anesthesia Type: MAC Tourniquet Time none EBL none Transfusion required none Biopsy 1: None Grafts/Implants none Tubes/Drains none Complication(s) none Pt Condition post procedure: stable Disposition: PACU Indications: screening/surveillance Operative\Procedure Findings Complete prolapse of the rectum Diverticulosis left side of the colon Negative all the way into the cecum Procedure Description See dictated report ZIA BAEZA MD Jul 29, 2017 17:22
[2017-07-29] MEDS: ALPRAZOLAM 0.5 MG TAB PO PRN (20:24)
--- NOTE | 2017-07-29 20:43 | PN ---
Date/Time of Note Date/Time of Note DATE: 07/29/17 TIME: 20:42 Assessment/Plan VTE Prophylaxis VTE Prophylaxis Intervention: other Lines/Catheters IV Catheter Type (from Nrs): Saline Lock Urinary Cath still in place: No Assessment/Plan Chief Complaint/Hosp Course IMPRESSION: 1. Rectal prolapse, severe. 2. Leukocytosis, etiology to be determined.better 3. Anemia. End-stage renal disease. 4. Hepatitis B core antibody positive. 5 pleural effusion 6 NSTEMI plan hd per surgery AND GI DR ENRIQUEZ TO SEE Problems: Subjective 24 Hr Interval Summary Cardiovascular: No chest pain Gastrointestinal: pain (+) Exam/Review of Systems Vital Signs Vitals Vital Signs Date Time Temp Pulse Resp B/P Pulse Ox O2 Delivery O2 Flow Rate FiO2 07/29/17 17:53 62 12 134/84 95 Room Air 07/29/17 17:29 98.6 07/29/17 17:15 12 Intake and Output 07/28/17 07/28/17 07/29/17 15:00 23:00 07:00 Intake Total 500 ml 520 ml 2000 ml Output Total 2500 ml Balance -2000 ml 520 ml 2000 ml Exam Respiratory: clear to auscultation Cardiovascular: regular rate and rhythm Gastrointestinal: soft Musculoskeletal: nl extremities to inspection Extremities: normal pulses Results Result Diagram: 07/28/17 0452 07/29/17 0435 Results 24 hrs Laboratory Tests Test 07/29/17 01:49 07/29/17 04:35 07/29/17 12:28 07/29/17 19:05 Troponin I 0.400 *H 0.297 *H 0.173 *H 0.145 *H Sodium Level 142 Potassium Level 4.2 Chloride Level 106 Carbon Dioxide Level 25 Anion Gap 15 Blood Urea Nitrogen 52 #H Creatinine 6.14 #H Glucose Level 91 Calcium Level 7.8 L Medications Medications Current Medications Acetaminophen (Tylenol Tab) 650 mg Q6H PRN PO PAIN AND OR ELEVATED TEMP; Start 07/22/17 at 20:30 Ondansetron HCl (Zofran Inj) 4 mg Q6H PRN IV NAUSEA AND/OR VOMITING; Start 07/22/17 at 23:00 Docusate Sodium (Colace) 100 mg Q12H PRN PO CONSTIPATION; Start 07/22/17 at 23: 00 Bisacodyl 5 mg 5 mg DAILY PRN PO CONSTIPATION; Start 07/22/17 at 23:00 Ciprofloxacin/ Dextrose (Cipro Ivpb) 100 ml @ 100 mls/hr Q24H IVPB Last administered on 07/28/17 20:30; Admin Dose 100 MLS/HR; Start 07/23/17 at 21:00 Acetaminophen/ Hydrocodone Bitart ([place] (5/325)) 1 tab Q6H PRN PO Breakthrough Pain Last administered on 07/27/17 04:05; Admin Dose 1 TAB; Start 07/24/17 at 11:30 Guaifenesin/ Dextromethorphan (Robitussin Dm Liquid Cup) 5 ml TID PRN PO Cough Last administered on 07/28/17 21:19; Admin Dose 5 ML; Start 07/24/17 at 11:30 Morphine Sulfate (morphine) 4 mg Q3H PRN IV PAIN LEVEL 7-10 Last administered on 07/29/17 14:25; Admin Dose 4 MG; Start 07/25/17 at 21:30 Clonidine (Catapres) 0.1 mg TID PO Last administered on 07/28/17 20:04; Admin Dose 0.1 MG; Start 07/26/17 at 09:00 Alprazolam (Xanax) 1 mg Q8H PRN PO ANXIETY Last administered on 07/29/17 20:24 ; Admin Dose 1 MG; Start 07/25/17 at 22:00 Pantoprazole (Protonix Tab) 40 mg DAILY@06 PO Last administered on 07/28/17 05 :06; Admin Dose 40 MG; Start 07/28/17 at 06:00 Nitroglycerin (Nitroglycerin (Sl Tab) 0.4 Mg) 1 tab Q5M PRN SL ANGINA Last administered on 07/28/17 06:49; Admin Dose 1 TAB; Start 07/28/17 at 05:30 Aspirin (Aspirin) 81 mg DAILY PO ; Start 07/30/17 at 09:00 Metoprolol Tartrate (Lopressor) 12.5 mg BID PO ; Start 07/29/17 at 21:00 Isosorbide Dinitrate (Isordil) 20 mg TID PO ; Start 07/29/17 at 21:00 KISHAN MEJIA MD Jul 29, 2017 20:43
[2017-07-29] MEDS: ISOSORBIDE DINITRATE 20 MG TAB PO SCH (21:00)
[2017-07-29] MEDS: METOPROLOL 25 MG TAB PO SCH (21:28)
[2017-07-29] MEDS: CIPROFLOXACIN 200 MG/D5W IVPB 100 ML IVPB SCH (21:34)
[2017-07-29] MEDS: HYDROCODONE/APAP (5/325) TAB PO PRN (23:51)
[2017-07-30] VITALS (11 sets, daily range): BP systolic 109–136; BP diastolic 55–82; PULSE 60–84; RESP 14–19
[2017-07-30] MEDS: morphine 4 MG/ML VIAL IV PRN ×6 (01:56→21:01)
--- NOTE | 2017-07-30 04:00 | GILP ---
DATE OF PROCEDURE: PROCEDURE PERFORMED: Colonoscopy. INDICATION: A 62-year-old female undergoing this procedure for prolapse of the rectum and for colon cancer screening. INFORMED CONSENT: The risks of the procedure, related and unrelated complications, anesthetic risks , alternatives discussed. Informed consent was obtained. DESCRIPTION OF PROCEDURE: Patient was brought to the GI lab, sedated by the anesthesiologist. Afte r optimal sedation, scope was passed with much ease into rectum. Before passing the scope, there wa s a large prolapse of the entire rectum which could not be initially reduced, but managed to pass th e scope through the opening into the rectum and gradually reduced it. Scope was advanced slowly thr ough sigmoid, descending, transverse colon all the way into cecum. Appendiceal orifice identified. IC valve identified. No tumor was seen. No polyp was identified. While coming out, mucosa thorou ghly inspected. She had diverticulosis in the left side of the colon. Some nonsegmental colitis al so identified. Rest of the colon was normal. IMPRESSION: 1. Grade IV prolapse of the rectum. 2. Diverticulosis, left side of the colon. 3. Negative all the way into cecum. PLAN: Proceed with the surgery for prolapse of the rectum. Dictated By: ZIA HARRINGTON/NTS Conf#: [id number] DID#: [id number] CC: KLARISSA ELIZONDO MD; KISHAN MEJIA MD;*End*
[2017-07-30] MEDS: PANTOPRAZOLE (EC) 40 MG TAB PO SCH (04:40)
--- NOTE | 2017-07-30 05:38 | CONS ---
DATE OF ADMISSION: 07/22/2017 DATE OF CONSULTATION: 07/29/2017 REASON FOR CONSULTATION: Positive troponin, assess significance. REQUESTING PHYSICIAN: Dr. Sreedhar Mejia. HISTORY OF PRESENT ILLNESS: Ms. Mcguire is a 62-year-old female with a history of hypertension, dyslipidemia, diabetes mellitus, hepatitis, rectal prolapse who had initially presented to an outside hospital with painful rectal prolapse. It was reduced. The patient is transferred due to insurance reasons. Initially upon arrival temperature of 98, blood pressure 151/96, pulse 102, respiratory rate 19, saturating 98% on 2 liters. The patient's labs initially were notable for Hep C antibody positivity, Hep B core antibody positive. White blood cell count 25/c, hemoglobin 8.4, platelet count 301. Sodium 138, potassium 3.8, creatinine 7.9, BUN 63, AST 20, ALT 29. INR of 1.0, UA negative. The patient underwent a chest x-ray revealing improved appearance at the lung bases, small bilateral pleural effusions and abdominal pelvic CT that revealed bilateral symmetric perinephric fat stranding which may reflect perinephric edema. Considerable desat of the anorectal junction, bibasilar atelectasis, moderate volume, formed stool throughout the colon. The patient's initial electrocardiogram on the revealed normal sinus rhythm, rate of 66 with normal axis, normal intervals and anterior lateral T-wave inversions. The patient had a followup EKG later in the day revealing no significant changes. The patient states that since admit, she has had some recurrent episodes of chest pain, described as a pressure-like sensation, occurring at rest. The patient has had troponins trending, initially returning negative at 0.068 and then became positive at 0.275, trended up to 0.4, and back down to 0.173 day. The patient has been followed by the GI services and underwent a colonoscopy today revealing prolapse and diverticulosis. The patient at this time denies ongoing chest pain. PAST MEDICAL HISTORY: As above in HPI. MEDICATIONS CURRENTLY IN HOSPITAL: 1. Dilaudid. 2. Zofran. 3. Protonix. 4. Xopenex ____. 5. Clonidine 0.1 mg p.o. t.i.d. 6. Xanax. 7. Morphine. 8. [place]. 9. Robitussin 10. Ciprofloxacin. 11. Calcium acetate. 12. Dulcolax. 13. Tylenol. 14. Colace. ALLERGIES: PENICILLIN. SOCIAL HISTORY: No tobacco, ETOH or illicit drug use. FAMILY HISTORY: No history of sudden cardiac or early CAD. REVIEW OF SYSTEMS: As above in HPI. CONSTITUTIONAL: No fevers, chills. PULMONARY: No shortness of breath. CARDIOVASCULAR: Intermittent chest pain. Positive troponin. GASTROINTESTINAL: Rectal prolapse. GENITOURINARY: No hematuria. MUSCULOSKELETAL: Degenerative joint disease. PSYCHIATRIC: Possible psychiatric medications with anxiety. NEUROLOGIC: No documented history of CVA. PHYSICAL EXAMINATION VITAL SIGNS: Temperature of 98.6, blood pressure 134/84, pulse 60, respiratory rate 12, saturating 95% on room air. GENERAL: The patient is alert, awake, in no acute distress. NECK: JVP approximately 9 cm water. CHEST: Fair air movement throughout. HEART: Regular rate and rhythm. Normal S1, S2, I/ systolic murmur, nondisplaced PMI. ABDOMEN: Positive bowel sounds, soft. EXTREMITIES: No pitting edema, 1+ pulses bilaterally posterior tibial. LABORATORIES: As above in HPI, white blood cell count 9.6, hemoglobin 9.6, platelet count of 275. Sodium 142, potassium 4.2, creatinine 6.1 from the 9th. Troponin 0.173. IMAGING STUDIES: As above in HPI with chest x-ray from today revealing small bilateral pleural effusions. IMPRESSION: 1. Positive troponin in the setting of renal failure, but chest pain and cardiac risk factors, assess significance. 2. Abnormal electrocardiogram with nonspecific ST-T abnormalities and initial anterolateral T-wave inversions. 3. Hypertension. 4. Rectal prolapse. 5. Hepatitis C antibody positive, hepatitis B core antibody positive. 6. Anemia. 7. End-stage renal disease on hemodialysis. RECOMMENDATIONS: 1. At this time, would check serial EKGs to assess for significant ongoing changes. Continue to trend the patient's cardiac enzymes to assess for any significant ongoing cardiac damage. 2. Check a fasting lipid panel for general risk stratification and initiate lipid-lowering medication as necessary. 3. Continue the patient's baseline clonidine at this time. We will initiate the patient on very low dose beta blockers and nitrates as tolerated given chest pain. 4. Check a 2D echocardiogram to further assess patient's ejection fraction, wall motion and any major valve abnormalities. 5. Would place the patient on aspirin prophylaxis against cardiovascular events. 6. Will consider a Lexiscan stress test in morning to assess significance of positive troponin in a patient in need for further repair of rectal prolapse. Thank you for allowing me to take part in the care of this patient. I will continue to follow along very closely with you. Further recommendations will be made as the patient progresses through her inpatient hospital clinical course. Dictated By: CONI PATINO/JON Conf#: [id number] DID#: [id number] CC: SREEDHAR MEJIA MD;*EndCC* MTDD
[2017-07-30] MEDS: HYDROCODONE/APAP (5/325) TAB PO PRN (05:58)
[2017-07-30 07:19] LABS: BASOPHIL # 0.1 10^3/ul (0.0-0.1); BASOPHILS % 1.1 % (0.0-2.0); EOSINOPHILS # 0.5 10^3/ul (0.0-0.5); EOSINOPHILS % 5.3 % (0.0-7.0); HEMATOCRIT 28.2 % (37.0-47.0); HEMOGLOBIN 8.4 g/dl (12.0-16.0); LYMPHOCYTES % 32.8 % (15.0-51.0); MEAN CORPUSCULAR HEMOGLOBIN 27.2 pg (29.0-33.0); MEAN CORPUSCULAR HGB CONC 29.8 g/dl (32.0-37.0); MEAN CORPUSCULAR VOLUME 91.3 fl (82.0-101.0); MEAN PLATELET VOLUME 10.1 fl (7.4-10.4); MONOCYTE # 0.7 10^3/ul (0.3-0.9); MONOCYTES % 7.2 % (0.0-11.0); NEUTROPHIL # 4.8 10^3/ul (1.6-7.5); NEUTROPHILS % 52.1 % (39.0-77.0); PLATELET COUNT 272 10^3/UL (140-415); RED BLOOD COUNT 3.09 10^6/ul (4.20-5.40); RED CELL DISTRIBUTION WIDTH 15.9 % (11.5-14.5); WHITE BLOOD COUNT 9.3 10^3/ul (4.8-10.8)
[2017-07-30] MEDS: CALCIUM ACETATE 667 MG CAP PO SCH ×3 (07:35→17:34)
[2017-07-30 07:50] LABS: CHOL/HDL RATIO 3.5 RATIO
[2017-07-30 07:59] LABS: ALBUMIN 2.3 g/dl (3.3-4.9); ALBUMIN/GLOBULIN RATIO 0.76; CREATININE 7.92 mg/dl (0.44-1.00); POTASSIUM 4.1 mmol/L (3.5-5.1); TOTAL PROTEIN 5.3 g/dl (6.1-8.1)
[2017-07-30] MEDS: ASPIRIN 81 MG TAB PO SCH (08:22)
[2017-07-30] MEDS: ISOSORBIDE DINITRATE 20 MG TAB PO SCH ×3 (08:22→20:59)
[2017-07-30] MEDS: METOPROLOL 25 MG TAB PO SCH ×2 (08:23→20:59)
--- NOTE | 2017-07-30 09:54 | CONS ---
Date/Time of Note Date/Time of Note DATE: 07/30/17 TIME: 09:53 Assessment/Plan Assessment/Plan Additional Assessment/Plan 1. Positive troponin in the setting of renal failure, but chest pain and cardiac risk factors, assess significance- Donna scheduled for today. 2. Abnormal electrocardiogram with nonspecific ST-T abnormalities and initial anterolateral T-wave inversions- will re-stratify with stress test. 3. Hypertension- well Rx now, will monitpr. 4. Rectal prolapse- primary team follows. 5. Hepatitis C antibody positive, hepatitis B core antibody positive. 6. Anemia. 7. End-stage renal disease on hemodialysis. Consultation Date/Type/Reason Admit Date/Time Jul 22, 2017 at 19:26 Initial Consult Date 07/23/17 Type of Consultation: Pulm Referring Provider: KISHAN MEJIA MD 24 HR Interval Summary Free Text/Dictation No acute events - Stress test planned today. ROS: No fever, no chills, no nausea, no vomiting, no diarrhea/constipation No recent weight changes No chest pain, no PND, no orthopnea No dizziness, blurred vision No thirst, no heat or cold intolerance Exam/Review of Systems Vital Signs Vitals Vital Signs Date Time Temp Pulse Resp B/P Pulse Ox O2 Delivery O2 Flow Rate FiO2 07/30/17 07:40 98.2 63 14 122/82 93 Room Air 07/29/17 17:15 12 Intake and Output 07/29/17 07/29/17 07/30/17 15:00 23:00 07:00 Intake Total 100 ml 120 ml Balance 100 ml 120 ml Exam General: WN/WD/NAD, AOx 3 HEENT: Unicetric/atraumatic/EOMI ( follows commands) NECK: JVD elevated, no thyromegaly Lymph: no lymphadenopathy HEART: regular with no S3, II/ systolic murmur at apex LUNGS: Coarse sounds ABD: soft, NT, ND, +BS : Intact Neuro: non focal SKIN: chronic changes EXT: trace edema Results Result Diagram: 07/30/1725 07/30/17 0625 Results 24 hrs Laboratory Tests Test 07/29/17 12:28 07/29/17 19:05 07/30/17 00:44 07/30/17 06:25 Troponin I 0.173 *H 0.145 *H 0.117 0.112 White Blood Count 9.3 Red Blood Count 3.09 L Hemoglobin 8.4 L Hematocrit 28.2 L Mean Corpuscular Volume 91.3 Mean Corpuscular Hemoglobin 27.2 L Mean Corpuscular Hemoglobin Concent 29.8 L Red Cell Distribution Width 15.9 H Platelet Count 272 Mean Platelet Volume 10.1 Neutrophils % 52.1 Lymphocytes % 32.8 Monocytes % 7.2 Eosinophils % 5.3 Basophils % 1.1 Nucleated Red Blood Cells % 0.0 Neutrophils # 4.8 Lymphocytes # 3.0 H Monocytes # 0.7 Eosinophils # 0.5 Basophils # 0.1 Nucleated Red Blood Cells # 0.0 Sodium Level 135 Potassium Level 4.1 Chloride Level 102 Carbon Dioxide Level 24 Anion Gap 13 Blood Urea Nitrogen 66 H Creatinine 7.92 H Glucose Level 70 Calcium Level 8.0 L Total Bilirubin 0.0 L Direct Bilirubin 0.00 Indirect Bilirubin 0.0 Aspartate Amino Transf (AST/SGOT) 17 Alanine Aminotransferase (ALT/SGPT) 31 Alkaline Phosphatase 56 Total Protein 5.3 L Albumin 2.3 L Globulin 3.00 Albumin/Globulin Ratio 0.76 Triglycerides Level 183 H Cholesterol Level 168 LDL Cholesterol, Calculated 83 HDL Cholesterol 48 Cholesterol/HDL Ratio 3.5 Medications Medications Current Medications Acetaminophen (Tylenol Tab) 650 mg Q6H PRN PO PAIN AND OR ELEVATED TEMP; Start 07/22/17 at 20:30 Ondansetron HCl (Zofran Inj) 4 mg Q6H PRN IV NAUSEA AND/OR VOMITING; Start 07/22/17 at 23:00 Docusate Sodium (Colace) 100 mg Q12H PRN PO CONSTIPATION; Start 07/22/17 at 23: 00 Bisacodyl 5 mg 5 mg DAILY PRN PO CONSTIPATION; Start 07/22/17 at 23:00 Ciprofloxacin/ Dextrose (Cipro Ivpb) 100 ml @ 100 mls/hr Q24H IVPB Last administered on 07/29/17 21:34; Admin Dose 100 MLS/HR; Start 07/23/17 at 21:00 Acetaminophen/ Hydrocodone Bitart ([place] (5/325)) 1 tab Q6H PRN PO Breakthrough Pain Last administered on 07/30/17 05:58; Admin Dose 1 TAB; Start 07/24/17 at 11:30 Guaifenesin/ Dextromethorphan (Robitussin Dm Liquid Cup) 5 ml TID PRN PO Cough Last administered on 07/28/17 21:19; Admin Dose 5 ML; Start 07/24/17 at 11:30 Morphine Sulfate (morphine) 4 mg Q3H PRN IV PAIN LEVEL 7-10 Last administered on 07/30/17 08:35; Admin Dose 4 MG; Start 07/25/17 at 21:30 Clonidine (Catapres) 0.1 mg TID PO Last administered on 07/30/17 08:21; Admin Dose 0.1 MG; Start 07/26/17 at 09:00 Alprazolam (Xanax) 1 mg Q8H PRN PO ANXIETY Last administered on 07/29/17 20:24 ; Admin Dose 1 MG; Start 07/25/17 at 22:00 Pantoprazole (Protonix Tab) 40 mg DAILY@06 PO Last administered on 07/30/17 04:40; Admin Dose 40 MG; Start 07/28/17 at 06:00 Nitroglycerin (Nitroglycerin (Sl Tab) 0.4 Mg) 1 tab Q5M PRN SL ANGINA Last administered on 07/28/17 06:49; Admin Dose 1 TAB; Start 07/28/17 at 05:30 Aspirin (Aspirin) 81 mg DAILY PO Last administered on 07/30/17 08:22; Admin Dose 81 MG; Start 07/30/17 at 09:00 Metoprolol Tartrate (Lopressor) 12.5 mg BID PO Last administered on 07/30/17 08:23; Admin Dose 12.5 MG; Start 07/29/17 at 21:00 Isosorbide Dinitrate (Isordil) 20 mg TID PO Last administered on 07/30/17 08: 22; Admin Dose 20 MG; Start 07/29/17 at 21:00 NASREEN CRUZ MD Jul 30, 2017 09:54
--- NOTE | 2017-07-30 10:39 | CONS ---
Date/Time of Note Date/Time of Note DATE: 07/30/17 TIME: 10:39 Assessment/Plan Assessment/Plan Additional Assessment/Plan IMPRESSION: 1. Rectal prolapse. 2. End-stage renal disease, on dialysis. 3. Anemia. 4. Positive hepatitis C antibody, but viral study was negative. 5. Urinary tract infection. Plan Proceed with surgery for rectal prolapse Consultation Date/Type/Reason Admit Date/Time Jul 22, 2017 at 19:26 Initial Consult Date 07/23/17 Type of Consultation: Pulm Referring Provider: KISHAN MEJIA MD 24 HR Interval Summary Constitutional: improved, no complaints Exam/Review of Systems Vital Signs Vitals Vital Signs Date Time Temp Pulse Resp B/P Pulse Ox O2 Delivery O2 Flow Rate FiO2 07/30/17 07:40 98.2 63 14 122/82 93 Room Air 07/29/17 17:15 12 Intake and Output 07/29/17 07/29/17 07/30/17 15:00 23:00 07:00 Intake Total 100 ml 120 ml Balance 100 ml 120 ml Exam Constitutional: alert, oriented, well developed Psych: nl mood/affect, no complaints Head: atraumatic, normocephalic Eyes: EOMI, PERRL, nl conjunctiva, nl lids, nl sclera ENMT: nl external ears & nose, nl lips & teeth, nl nasal mucosa & septum Neck: non-tender, supple Respiratory: clear to auscultation, normal air movement Cardiovascular: nl pulses, regular rate and rhythm Gastrointestinal: nl liver, spleen, non-tender, soft Musculoskeletal: nl extremities to inspection, nl gait and stance Extremities: normal pulses 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: ADMITTANCE ATTENDANT II-XII intact, nl mental status, nl speech, nl strength Skin: nl turgor, No rash or lesions Lymph: nl lymph nodes Results Result Diagram: 07/30/1725 07/30/1725 Results 24 hrs Laboratory Tests Test 07/29/17 12:28 07/29/17 19:05 07/30/17 00:44 07/30/17 06:25 Troponin I 0.173 *H 0.145 *H 0.117 0.112 White Blood Count 9.3 Red Blood Count 3.09 L Hemoglobin 8.4 L Hematocrit 28.2 L Mean Corpuscular Volume 91.3 Mean Corpuscular Hemoglobin 27.2 L Mean Corpuscular Hemoglobin Concent 29.8 L Red Cell Distribution Width 15.9 H Platelet Count 272 Mean Platelet Volume 10.1 Neutrophils % 52.1 Lymphocytes % 32.8 Monocytes % 7.2 Eosinophils % 5.3 Basophils % 1.1 Nucleated Red Blood Cells % 0.0 Neutrophils # 4.8 Lymphocytes # 3.0 H Monocytes # 0.7 Eosinophils # 0.5 Basophils # 0.1 Nucleated Red Blood Cells # 0.0 Sodium Level 135 Potassium Level 4.1 Chloride Level 102 Carbon Dioxide Level 24 Anion Gap 13 Blood Urea Nitrogen 66 H Creatinine 7.92 H Glucose Level 70 Calcium Level 8.0 L Total Bilirubin 0.0 L Direct Bilirubin 0.00 Indirect Bilirubin 0.0 Aspartate Amino Transf (AST/SGOT) 17 Alanine Aminotransferase (ALT/SGPT) 31 Alkaline Phosphatase 56 Total Protein 5.3 L Albumin 2.3 L Globulin 3.00 Albumin/Globulin Ratio 0.76 Triglycerides Level 183 H Cholesterol Level 168 LDL Cholesterol, Calculated 83 HDL Cholesterol 48 Cholesterol/HDL Ratio 3.5 Medications Medications Current Medications Acetaminophen (Tylenol Tab) 650 mg Q6H PRN PO PAIN AND OR ELEVATED TEMP; Start 07/22/17 at 20:30 Ondansetron HCl (Zofran Inj) 4 mg Q6H PRN IV NAUSEA AND/OR VOMITING; Start 07/22/17 at 23:00 Docusate Sodium (Colace) 100 mg Q12H PRN PO CONSTIPATION; Start 07/22/17 at 23: 00 Bisacodyl 5 mg 5 mg DAILY PRN PO CONSTIPATION; Start 07/22/17 at 23:00 Ciprofloxacin/ Dextrose (Cipro Ivpb) 100 ml @ 100 mls/hr Q24H IVPB Last administered on 07/29/17 21:34; Admin Dose 100 MLS/HR; Start 07/23/17 at 21:00 Acetaminophen/ Hydrocodone Bitart ([place] (5/325)) 1 tab Q6H PRN PO Breakthrough Pain Last administered on 07/30/17 05:58; Admin Dose 1 TAB; Start 07/24/17 at 11:30 Guaifenesin/ Dextromethorphan (Robitussin Dm Liquid Cup) 5 ml TID PRN PO Cough Last administered on 07/28/17 21:19; Admin Dose 5 ML; Start 07/24/17 at 11:30 Morphine Sulfate (morphine) 4 mg Q3H PRN IV PAIN LEVEL 7-10 Last administered on 07/30/17 08:35; Admin Dose 4 MG; Start 07/25/17 at 21:30 Clonidine (Catapres) 0.1 mg TID PO Last administered on 07/30/17 08:21; Admin Dose 0.1 MG; Start 07/26/17 at 09:00 Alprazolam (Xanax) 1 mg Q8H PRN PO ANXIETY Last administered on 07/29/17 20:24 ; Admin Dose 1 MG; Start 07/25/17 at 22:00 Pantoprazole (Protonix Tab) 40 mg DAILY@06 PO Last administered on 07/30/17 04:40; Admin Dose 40 MG; Start 07/28/17 at 06:00 Nitroglycerin (Nitroglycerin (Sl Tab) 0.4 Mg) 1 tab Q5M PRN SL ANGINA Last administered on 07/28/17 06:49; Admin Dose 1 TAB; Start 07/28/17 at 05:30 Aspirin (Aspirin) 81 mg DAILY PO Last administered on 07/30/17 08:22; Admin Dose 81 MG; Start 07/30/17 at 09:00 Metoprolol Tartrate (Lopressor) 12.5 mg BID PO Last administered on 07/30/17 08:23; Admin Dose 12.5 MG; Start 07/29/17 at 21:00 Isosorbide Dinitrate (Isordil) 20 mg TID PO Last administered on 07/30/17 08: 22; Admin Dose 20 MG; Start 07/29/17 at 21:00 ZIA BAEZA MD Jul 30, 2017 10:39
[2017-07-30] MEDS ORDERED: REGADENOSON 0.4 MG/5 ML SYG ONE (11:02)
--- NOTE | 2017-07-30 12:47 | RADRPT ---
PROCEDURE: Lexiscan myocardial perfusion study CLINICAL INDICATION: 62 -year-old patient complaining of chest pain. TECHNIQUE: Lexiscan 0.4 mg intravenously separate acquisition gated myocardial perfusion SPECT usi ng Tc 99m Myoview 28.7 mCi intravenously at stress and Tc-99m Myoview, 10.2 mCi intravenously at res t was performed using the rest/stress sequence. Poststress Myoview SPECT images were obtained in th e supine position. COMPARISON: No prior studies. FINDINGS: Perfusion images reveal no evidence of perfusion defects. Lexiscan post stress gated SPECT images demonstrate no wall motion abnormalities. IMPRESSION: 1. No evidence of perfusion defects. 2. No wall motion abnormalities. 3. The left ventricle ejection fraction at stress is 54%. Call report was made to Dr. Carmona on July 30, 2017 and 12:45 p.m. RPTAT: HH .Catina Johnson MD, Date Time Electronically viewed and signed by .Catina Johnson MD, on 07/30/2017 12:46 .L/
--- NOTE | 2017-07-30 15:46 | ECORPT ---
DATE OF SERVICE: REFERRING PHYSICIAN: Dr. Yost. REASON FOR STRESS TEST: Chest pain. DESCRIPTION OF TEST: The patient was brought into the heart station in fasting condition. Initial blood pressure was /84. She tolerated the injection well. The imaging portion will be dictate d separately. Dictated By: NASREEN CRUZ MD ML/JON Conf#: [id number] DID#: [id number]
--- NOTE | 2017-07-30 18:37 | PN ---
Date/Time of Note Date/Time of Note DATE: 07/30/17 TIME: 18:35 Assessment/Plan VTE Prophylaxis VTE Prophylaxis Intervention: other Lines/Catheters IV Catheter Type (from [facility]): Saline Lock Urinary Cath still in place: No Assessment/Plan Chief Complaint/Hosp Course IMPRESSION: 1. Rectal prolapse, severe. 2. Leukocytosis, BETTER 3. Anemia. End-stage renal disease. 4. Hepatitis B core antibody positive. 5 pleural effusion 6 NSTEMI 7 S/P LEXISCAN NEG plan hd per surgery GI AND CARDIO Problems: Subjective 24 Hr Interval Summary Subjective hx not possible: other (S/P LEXISCAN NEG,) Exam/Review of Systems Vital Signs Vitals Vital Signs Date Time Temp Pulse Resp B/P Pulse Ox O2 Delivery O2 Flow Rate FiO2 07/30/17 16:22 98.0 60 16 133/74 94 07/30/17 07:40 Room Air 07/29/17 17:15 12 Intake and Output 07/29/17 07/29/17 07/30/17 15:00 23:00 07:00 Intake Total 100 ml 120 ml Balance 100 ml 120 ml Exam Neck: supple Respiratory: clear to auscultation Cardiovascular: regular rate and rhythm Gastrointestinal: soft Musculoskeletal: nl extremities to inspection Extremities: normal pulses Results Result Diagram: 07/30/17 0625 07/30/17 0625 Results 24 hrs Laboratory Tests Test 07/29/17 19:05 07/30/17 00:44 07/30/17 06:25 Troponin I 0.145 *H 0.117 0.112 White Blood Count 9.3 Red Blood Count 3.09 L Hemoglobin 8.4 L Hematocrit 28.2 L Mean Corpuscular Volume 91.3 Mean Corpuscular Hemoglobin 27.2 L Mean Corpuscular Hemoglobin Concent 29.8 L Red Cell Distribution Width 15.9 H Platelet Count 272 Mean Platelet Volume 10.1 Neutrophils % 52.1 Lymphocytes % 32.8 Monocytes % 7.2 Eosinophils % 5.3 Basophils % 1.1 Nucleated Red Blood Cells % 0.0 Neutrophils # 4.8 Lymphocytes # 3.0 H Monocytes # 0.7 Eosinophils # 0.5 Basophils # 0.1 Nucleated Red Blood Cells # 0.0 Sodium Level 135 Potassium Level 4.1 Chloride Level 102 Carbon Dioxide Level 24 Anion Gap 13 Blood Urea Nitrogen 66 H Creatinine 7.92 H Glucose Level 70 Calcium Level 8.0 L Total Bilirubin 0.0 L Direct Bilirubin 0.00 Indirect Bilirubin 0.0 Aspartate Amino Transf (AST/SGOT) 17 Alanine Aminotransferase (ALT/SGPT) 31 Alkaline Phosphatase 56 Total Protein 5.3 L Albumin 2.3 L Globulin 3.00 Albumin/Globulin Ratio 0.76 Triglycerides Level 183 H Cholesterol Level 168 LDL Cholesterol, Calculated 83 HDL Cholesterol 48 Cholesterol/HDL Ratio 3.5 Medications Medications Current Medications Acetaminophen (Tylenol Tab) 650 mg Q6H PRN PO PAIN AND OR ELEVATED TEMP; Start 07/22/17 at 20:30 Ondansetron HCl (Zofran Inj) 4 mg Q6H PRN IV NAUSEA AND/OR VOMITING; Start 07/22/17 at 23:00 Docusate Sodium (Colace) 100 mg Q12H PRN PO CONSTIPATION; Start 07/22/17 at 23: 00 Bisacodyl 5 mg 5 mg DAILY PRN PO CONSTIPATION; Start 07/22/17 at 23:00 Ciprofloxacin/ Dextrose (Cipro Ivpb) 100 ml @ 100 mls/hr Q24H IVPB Last administered on 07/29/17 21:34; Admin Dose 100 MLS/HR; Start 07/23/17 at 21:00 Acetaminophen/ Hydrocodone Bitart ([place] (5/325)) 1 tab Q6H PRN PO Breakthrough Pain Last administered on 07/30/17 05:58; Admin Dose 1 TAB; Start 07/24/17 at 11:30 Guaifenesin/ Dextromethorphan (Robitussin Dm Liquid Cup) 5 ml TID PRN PO Cough Last administered on 07/28/17 21:19; Admin Dose 5 ML; Start 07/24/17 at 11:30 Morphine Sulfate (morphine) 4 mg Q3H PRN IV PAIN LEVEL 7-10 Last administered on 07/30/17 17:46; Admin Dose 4 MG; Start 07/25/17 at 21:30 Clonidine (Catapres) 0.1 mg TID PO Last administered on 07/30/17 08:21; Admin Dose 0.1 MG; Start 07/26/17 at 09:00 Alprazolam (Xanax) 1 mg Q8H PRN PO ANXIETY Last administered on 07/29/17 20:24 ; Admin Dose 1 MG; Start 07/25/17 at 22:00 Pantoprazole (Protonix Tab) 40 mg DAILY@06 PO Last administered on 07/30/17 04:40; Admin Dose 40 MG; Start 07/28/17 at 06:00 Nitroglycerin (Nitroglycerin (Sl Tab) 0.4 Mg) 1 tab Q5M PRN SL ANGINA Last administered on 07/28/17 06:49; Admin Dose 1 TAB; Start 07/28/17 at 05:30 Aspirin (Aspirin) 81 mg DAILY PO Last administered on 07/30/17 08:22; Admin Dose 81 MG; Start 07/30/17 at 09:00 Metoprolol Tartrate (Lopressor) 12.5 mg BID PO Last administered on 07/30/17 08:23; Admin Dose 12.5 MG; Start 07/29/17 at 21:00 Isosorbide Dinitrate (Isordil) 20 mg TID PO Last administered on 07/30/17 13: 44; Admin Dose 20 MG; Start 07/29/17 at 21:00 KISHAN MEJIA MD Jul 30, 2017 18:37
[2017-07-30] MEDS: CIPROFLOXACIN 200 MG/D5W IVPB 100 ML IVPB SCH (20:58)
--- NOTE | 2017-07-30 22:59 | PN ---
Date/Time of Note Date/Time of Note DATE: 07/30/17 TIME: 22:46 Assessment/Plan Lines/Catheters IV Catheter Type (from [facility]): gen catheter Patino in Place (from [facility]): No Assessment/Plan Chief Complaint/Hosp Course 1. Rectal prolapse: colonoscopy noted; s/p samuel today -pending prolapse repair once cleared by cards 2. Leukocytosis: 2/2 above vs. pna vs. pl effusion vs. liver etiology vs. uti vs. other; no fever: normalized -abx 3. ESRD: -hd per renal 4. Electrolyte imbalance: -optimize lytes 5. Hypoalbuminemia with hypocalcemia: nutritional +/- inflammation -as above -optimize nutrition 6. Anemia: without acute bleed -monitor and transfuse as needed 7. Hepatitis with reactive serology -medical management 8. UTI -abx per sensitivity -frequent bladder emptying 9. Chest pain: no current c/o pain; trop +; EKG: NSR -cards consult -cardia optimization 10. Pleural effusion: comfortable on room air -pulm consult -IS -cont diuresis and HD Thank you. Patient seen and examined in collaboration with Dr. Deep Zhang. Problems: Subjective 24 Hr Interval Summary S/p lexiscan today. Colonscopy noted. Continues to have perineal pain. No fevers , chills, sob, congested cough, avitia, dizziness, cp, palpitations. Exam/Review of Systems Vital Signs Vitals Vital Signs Date Time Temp Pulse Resp B/P Pulse Ox O2 Delivery O2 Flow Rate FiO2 07/30/17 19:48 98.6 69 18 109/63 91 07/30/17 07:40 Room Air 07/29/17 17:15 12 Intake and Output 07/29/17 07/29/17 07/30/17 15:00 23:00 07:00 Intake Total 100 ml 120 ml Balance 100 ml 120 ml Exam Free Text/Dictation Constitutional: alert, oriented Psych: anxiety Head: atraumatic, normocephalic Eyes: nl conjunctiva, nl lids, nl sclera ENMT: No mucosa pink and moist (dry) Neck: non-tender, supple Respiratory: diminished breath sounds (at bases), No labored breathing Cardiovascular: nl pulses, regular rate and rhythm, No edema Gastrointestinal: non-tender, soft, No distended, No rebound or guarding Genitourinary - Female: No nl external genitalia (rectal prolapse - pink, tender) Musculoskeletal: nl extremities to inspection Extremities: normal pulses, No edema 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: nl speech, nl strength Skin: No rash or lesions Results Result Diagram: 07/30/1762407/30/17624 RAFFY GRAHAM NP Jul 30, 2017 22:59
[2017-07-31] MEDS: morphine 4 MG/ML VIAL IV PRN ×6 (00:03→22:46)
[2017-07-31] MEDS: HYDROCODONE/APAP (5/325) TAB PO PRN (01:41)
[2017-07-31 02:19] VITALS: BP 151/89; RESP 18
[2017-07-31] MEDS: ALPRAZOLAM 0.5 MG TAB PO PRN (03:35)
[2017-07-31] MEDS: PANTOPRAZOLE (EC) 40 MG TAB PO SCH (06:19)
[2017-07-31 08:10] VITALS: BP 151/86; RESP 16
[2017-07-31] MEDS: ISOSORBIDE DINITRATE 20 MG TAB PO SCH ×3 (08:23→22:51)
[2017-07-31] MEDS: CALCIUM ACETATE 667 MG CAP PO SCH ×3 (08:23→17:35)
[2017-07-31] MEDS: METOPROLOL 25 MG TAB PO SCH ×2 (08:24→22:49)
--- NOTE | 2017-07-31 10:31 | PN ---
Date/Time of Note Date/Time of Note DATE: 07/31/17 TIME: 10:23 Assessment/Plan Lines/Catheters IV Catheter Type (from [facility]rs): Saline Lock Patino in Place (from [facility]): No Assessment/Plan Chief Complaint/Hosp Course 1. Rectal prolapse: colonoscopy noted; s/p samuel today -pending prolapse repair possibly today 2. Leukocytosis: 2/2 above vs. pna vs. pl effusion vs. liver etiology vs. uti vs. other; no fever: normalized -monitor 3. ESRD: -hd per renal 4. Electrolyte imbalance: -optimize lytes 5. Hypoalbuminemia with hypocalcemia: nutritional +/- inflammation -as above -optimize nutrition 6. Anemia: without acute bleed -monitor and transfuse as needed 7. Hepatitis with reactive serology -medical management 8. UTI -abx per sensitivity -frequent bladder emptying 9. Chest pain: no current c/o pain; trop +; EKG: NSR -cardia optimization 10. Pleural effusion: comfortable on room air -IS -cont diuresis and HD Thank you. Patient seen and examined in collaboration with Dr. Deep Zhang. Problems: Subjective 24 Hr Interval Summary Still with pain in perineum. No change in pain character. No n/v/d/dysuria, cp, palpitations, sob, congested cough, avitia, dizziness, palpitations. HD yesterday Exam/Review of Systems Vital Signs Vitals Vital Signs Date Time Temp Pulse Resp B/P Pulse Ox O2 Delivery O2 Flow Rate FiO2 07/31/17 08:10 98.5 67 16 151/86 93 07/30/17 07:40 Room Air 07/29/17 17:15 12 Intake and Output 07/30/17 07/30/17 07/31/17 15:00 23:00 07:00 Intake Total 1200 ml 1180 ml Output Total 3000 ml Balance -1800 ml 1180 ml Exam Free Text/Dictation Constitutional: alert, oriented Psych: anxiety Head: atraumatic, normocephalic Eyes: nl conjunctiva, nl lids, nl sclera ENMT: No mucosa pink and moist (dry) Neck: non-tender, supple Respiratory: diminished breath sounds (at bases), No labored breathing Cardiovascular: nl pulses, regular rate and rhythm, No edema Gastrointestinal: non-tender, soft, No distended, No rebound or guarding Genitourinary - Female: No nl external genitalia (rectal prolapse - pink, tender) Musculoskeletal: nl extremities to inspection Extremities: normal pulses, No edema 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: nl speech, nl strength Skin: No rash or lesions Results Result Diagram: 07/30/1762407/30/17624 RAFFY GRAHAM NP Jul 31, 2017 10:31
[2017-07-31] MEDS: ASPIRIN 81 MG TAB PO SCH (10:39)
[2017-07-31 11:20] LABS: BASOPHIL # 0.1 10^3/ul (0.0-0.1); EOSINOPHILS # 0.4 10^3/ul (0.0-0.5); EOSINOPHILS % 3.9 % (0.0-7.0); HEMATOCRIT 30.8 % (37.0-47.0); HEMOGLOBIN 9.4 g/dl (12.0-16.0); LYMPHOCYTES # 3.2 10^3/ul (0.8-2.9); LYMPHOCYTES % 34.3 % (15.0-51.0); MEAN CORPUSCULAR HEMOGLOBIN 28.1 pg (29.0-33.0); MEAN CORPUSCULAR HGB CONC 30.5 g/dl (32.0-37.0); MEAN CORPUSCULAR VOLUME 92.2 fl (82.0-101.0); MEAN PLATELET VOLUME 10.1 fl (7.4-10.4); MONOCYTE # 0.7 10^3/ul (0.3-0.9); MONOCYTES % 7.6 % (0.0-11.0); NEUTROPHIL # 4.8 10^3/ul (1.6-7.5); NEUTROPHILS % 52.3 % (39.0-77.0); PLATELET COUNT 313 10^3/UL (140-415); RED BLOOD COUNT 3.34 10^6/ul (4.20-5.40); RED CELL DISTRIBUTION WIDTH 15.7 % (11.5-14.5); WHITE BLOOD COUNT 9.2 10^3/ul (4.8-10.8)
[2017-07-31 11:37] LABS: CALCIUM 8.4 mg/dl (8.4-10.2); CREATININE 6.48 mg/dl (0.44-1.00); POTASSIUM 3.6 mmol/L (3.5-5.1)
--- NOTE | 2017-07-31 12:52 | CONS ---
Date/Time of Note Date/Time of Note DATE: 07/31/17 TIME: 12:50 Assessment/Plan Assessment/Plan Additional Assessment/Plan Assessment and recommendations; 1. Patient admitted with pulmonary edema with marked clinical improvement. 2. Rectal prolapse. 3. End-stage renal disease, on hemodialysis. Patient also admitted with fluid overload with interval improvement. 4. Negative nuclear cardiac SPECT test from yesterday. Continue current treatment. Patient awaiting laparoscopic rectal prolapse surgery. Cleared for surgery from pulmonary perspective. Consultation Date/Type/Reason Admit Date/Time Jul 22, 2017 at 19:26 Initial Consult Date 07/23/17 Type of Consultation: Pulm Referring Provider: KISHAN MEJIA MD 24 HR Interval Summary Free Text/Dictation Patient's condition is stable. Remains completely awake and alert. She complains of rectal prolapse. Denies any shortness breath. General exam; elderly woman, awake alert, currently in no distress. Exam/Review of Systems Vital Signs Vitals Vital Signs Date Time Temp Pulse Resp B/P Pulse Ox O2 Delivery O2 Flow Rate FiO2 07/31/17 08:10 98.5 67 16 151/86 93 07/30/17 07:40 Room Air 07/29/17 17:15 12 Intake and Output 07/30/17 07/30/17 07/31/17 14:59 22:59 06:59 Intake Total 1200 ml 1180 ml Output Total 3000 ml Balance -1800 ml 1180 ml Exam HEENT exam; supple neck, no JVD. No lymphadenopathy. Midline trachea. No thyromegaly. Patient is edentulous. Pupils are equal and reactive to light. Chest exam; clear to auscultation. S1-S2 audible, no murmurs. Regular rhythm. Abdomen exam; soft, nontender. No organomegaly. Bowel sounds audible. Extremity exam; no peripheral edema. No clubbing. [employer]ENT[employer] THIRD STEP examination; no focal deficit. Results Result Diagram: 07/31/17 1051 07/31/17 1051 Results 24 hrs Laboratory Tests Test 07/31/17 10:51 White Blood Count 9.2 Red Blood Count 3.34 L Hemoglobin 9.4 L Hematocrit 30.8 L Mean Corpuscular Volume 92.2 Mean Corpuscular Hemoglobin 28.1 L Mean Corpuscular Hemoglobin Concent 30.5 L Red Cell Distribution Width 15.7 H Platelet Count 313 Mean Platelet Volume 10.1 Neutrophils % 52.3 Lymphocytes % 34.3 Monocytes % 7.6 Eosinophils % 3.9 Basophils % 1.0 Nucleated Red Blood Cells % 0.0 Neutrophils # 4.8 Lymphocytes # 3.2 H Monocytes # 0.7 Eosinophils # 0.4 Basophils # 0.1 Nucleated Red Blood Cells # 0.0 Sodium Level 136 Potassium Level 3.6 Chloride Level 101 Carbon Dioxide Level 26 Anion Gap 13 Blood Urea Nitrogen 48 #H Creatinine 6.48 H Glucose Level 86 Calcium Level 8.4 Medications Medications Current Medications Acetaminophen (Tylenol Tab) 650 mg Q6H PRN PO PAIN AND OR ELEVATED TEMP; Start 07/22/17 at 20:30 Ondansetron HCl (Zofran Inj) 4 mg Q6H PRN IV NAUSEA AND/OR VOMITING; Start 07/22/17 at 23:00 Docusate Sodium (Colace) 100 mg Q12H PRN PO CONSTIPATION; Start 07/22/17 at 23: 00 Bisacodyl 5 mg 5 mg DAILY PRN PO CONSTIPATION; Start 07/22/17 at 23:00 Ciprofloxacin/ Dextrose (Cipro Ivpb) 100 ml @ 100 mls/hr Q24H IVPB Last administered on 07/30/17 20:58; Admin Dose 100 MLS/HR; Start 07/23/17 at 21:00 Acetaminophen/ Hydrocodone Bitart ([place] (5/325)) 1 tab Q6H PRN PO Breakthrough Pain Last administered on 07/31/17 01:41; Admin Dose 1 TAB; Start 07/24/17 at 11:30 Guaifenesin/ Dextromethorphan (Robitussin Dm Liquid Cup) 5 ml TID PRN PO Cough Last administered on 07/28/17 21:19; Admin Dose 5 ML; Start 07/24/17 at 11:30 Morphine Sulfate (morphine) 4 mg Q3H PRN IV PAIN LEVEL 7-10 Last administered on 07/31/17 11:45; Admin Dose 4 MG; Start 07/25/17 at 21:30 Clonidine (Catapres) 0.1 mg TID PO Last administered on 07/31/17 08:24; Admin Dose 0.1 MG; Start 07/26/17 at 09:00 Alprazolam (Xanax) 1 mg Q8H PRN PO ANXIETY Last administered on 07/31/17 03: 35; Admin Dose 1 MG; Start 07/25/17 at 22:00 Pantoprazole (Protonix Tab) 40 mg DAILY@06 PO Last administered on 07/31/17 06:19; Admin Dose 40 MG; Start 07/28/17 at 06:00 Nitroglycerin (Nitroglycerin (Sl Tab) 0.4 Mg) 1 tab Q5M PRN SL ANGINA Last administered on 07/28/17 06:49; Admin Dose 1 TAB; Start 07/28/17 at 05:30 Aspirin (Aspirin) 81 mg DAILY PO Last administered on 07/30/17 08:22; Admin Dose 81 MG; Start 07/30/17 at 09:00 Metoprolol Tartrate (Lopressor) 12.5 mg BID PO Last administered on 07/31/17 08:24; Admin Dose 12.5 MG; Start 07/29/17 at 21:00 Isosorbide Dinitrate (Isordil) 20 mg TID PO Last administered on 07/31/17 08: 23; Admin Dose 20 MG; Start 07/29/17 at 21:00 LEATHA PHAM Jul 31, 2017 12:52
[2017-07-31 14:39] VITALS: BP 123/64; RESP 16
--- NOTE | 2017-07-31 17:02 | CONS ---
Date/Time of Note Date/Time of Note DATE: 07/31/17 TIME: 16:57 Assessment/Plan Assessment/Plan Chief Complaint/Hosp Course IMPRESSION: 1. Positive troponin in the setting of renal failure, but chest pain and cardiac risk factors, assess significance.- Now trended negative and s/p lexiscan with no ischemia/NL EF. OK to proceed to surgery fopr rectal prolapse from cardiac standpoint at moderate CV risk on current medications including low dose BB continue [id number] 2. Abnormal electrocardiogram with nonspecific ST-T abnormalities and initial anterolateral T-wave inversions. 3. Hypertension. 4. Rectal prolapse. 5. Hepatitis C antibody positive, hepatitis B core antibody positive. 6. Anemia. 7. End-stage renal disease on hemodialysis. Recc: -Continue low dose BB as tolerated [id number] -check post-op 12 lead ecg -Continue baseline isordil/clonidine -Contnue asa -pnding rectal prolapse surgery -Will f/u echo -Pain control Problems: Consultation Date/Type/Reason Admit Date/Time Jul 22, 2017 at 19:26 Initial Consult Date 07/23/17 Type of Consultation: cardiology Reason for Consultation Pre-op/positive troponin Referring Provider: KISHAN MEJIA MD Exam/Review of Systems Vital Signs Vitals Vital Signs Date Time Temp Pulse Resp B/P Pulse Ox O2 Delivery O2 Flow Rate FiO2 07/31/17 14:39 98.5 63 16 123/64 92 07/30/17 07:40 Room Air 07/29/17 17:15 12 Intake and Output 07/30/17 07/30/17 07/31/17 15:00 23:00 07:00 Intake Total 1200 ml 1180 ml Output Total 3000 ml Balance -1800 ml 1180 ml Exam Review of Systems: CONSTITUTIONAL: No fevers, chills. PULMONARY: No sob CARDIOVASCULAR: No chest pain/palpitations GASTROINTESTINAL: No nausea/vomiting. GENITOURINARY: No hematuria/dysuria. MUSCULOSKELETAL: No myagias/arthalgias. PSYCHIATRIC: The patient denies depression. NEUROLOGIC: No weakness Constitutional: alert Psych: no complaints Head: normocephalic ENMT: mucosa pink and moist Neck: supple Respiratory: clear to auscultation Cardiovascular: regular rate and rhythm Gastrointestinal: non-tender, soft Musculoskeletal: muscle tone (normal) Extremities: edema (none) 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: other (No focal deficits) Results Result Diagram: 07/31/17 1051 07/31/17 1051 Results 24 hrs Laboratory Tests Test 07/31/17 10:51 White Blood Count 9.2 Red Blood Count 3.34 L Hemoglobin 9.4 L Hematocrit 30.8 L Mean Corpuscular Volume 92.2 Mean Corpuscular Hemoglobin 28.1 L Mean Corpuscular Hemoglobin Concent 30.5 L Red Cell Distribution Width 15.7 H Platelet Count 313 Mean Platelet Volume 10.1 Neutrophils % 52.3 Lymphocytes % 34.3 Monocytes % 7.6 Eosinophils % 3.9 Basophils % 1.0 Nucleated Red Blood Cells % 0.0 Neutrophils # 4.8 Lymphocytes # 3.2 H Monocytes # 0.7 Eosinophils # 0.4 Basophils # 0.1 Nucleated Red Blood Cells # 0.0 Sodium Level 136 Potassium Level 3.6 Chloride Level 101 Carbon Dioxide Level 26 Anion Gap 13 Blood Urea Nitrogen 48 #H Creatinine 6.48 H Glucose Level 86 Calcium Level 8.4 Medications Medications Current Medications Acetaminophen (Tylenol Tab) 650 mg Q6H PRN PO PAIN AND OR ELEVATED TEMP; Start 07/22/17 at 20:30 Ondansetron HCl (Zofran Inj) 4 mg Q6H PRN IV NAUSEA AND/OR VOMITING; Start 07/22/17 at 23:00 Docusate Sodium (Colace) 100 mg Q12H PRN PO CONSTIPATION; Start 07/22/17 at 23: 00 Bisacodyl 5 mg 5 mg DAILY PRN PO CONSTIPATION; Start 07/22/17 at 23:00 Ciprofloxacin/ Dextrose (Cipro Ivpb) 100 ml @ 100 mls/hr Q24H IVPB Last administered on 07/30/17 20:58; Admin Dose 100 MLS/HR; Start 07/23/17 at 21:00 Acetaminophen/ Hydrocodone Bitart ([place] (5/325)) 1 tab Q6H PRN PO Breakthrough Pain Last administered on 07/31/17 01:41; Admin Dose 1 TAB; Start 07/24/17 at 11:30 Guaifenesin/ Dextromethorphan (Robitussin Dm Liquid Cup) 5 ml TID PRN PO Cough Last administered on 07/28/17 21:19; Admin Dose 5 ML; Start 07/24/17 at 11:30 Morphine Sulfate (morphine) 4 mg Q3H PRN IV PAIN LEVEL 7-10 Last administered on 07/31/17 16:12; Admin Dose 4 MG; Start 07/25/17 at 21:30 Clonidine (Catapres) 0.1 mg TID PO Last administered on 07/31/17 08:24; Admin Dose 0.1 MG; Start 07/26/17 at 09:00 Alprazolam (Xanax) 1 mg Q8H PRN PO ANXIETY Last administered on 07/31/17 03: 35; Admin Dose 1 MG; Start 07/25/17 at 22:00 Pantoprazole (Protonix Tab) 40 mg DAILY@06 PO Last administered on 07/31/17 06:19; Admin Dose 40 MG; Start 07/28/17 at 06:00 Nitroglycerin (Nitroglycerin (Sl Tab) 0.4 Mg) 1 tab Q5M PRN SL ANGINA Last administered on 07/28/17 06:49; Admin Dose 1 TAB; Start 07/28/17 at 05:30 Aspirin (Aspirin) 81 mg DAILY PO Last administered on 07/30/17 08:22; Admin Dose 81 MG; Start 07/30/17 at 09:00 Metoprolol Tartrate (Lopressor) 12.5 mg BID PO Last administered on 07/31/17 08:24; Admin Dose 12.5 MG; Start 07/29/17 at 21:00 Isosorbide Dinitrate (Isordil) 20 mg TID PO Last administered on 07/31/17 08: 23; Admin Dose 20 MG; Start 07/29/17 at 21:00 CONI ENRIQUEZ Jul 31, 2017 17:02
--- NOTE | 2017-07-31 17:16 | CONS ---
Date/Time of Note Date/Time of Note DATE: 07/31/17 TIME: 17:16 Assessment/Plan Assessment/Plan Additional Assessment/Plan IMPRESSION: 1. Rectal prolapse. 2. End-stage renal disease, on dialysis. 3. Anemia. 4. Positive hepatitis C antibody, but viral study was negative. 5. Urinary tract infection. Plan Proceed with surgery for rectal prolapse Patient is scheduled for surgery today Consultation Date/Type/Reason Admit Date/Time Jul 22, 2017 at 19:26 Initial Consult Date 07/23/17 Type of Consultation: cardiology Referring Provider: KISHAN MEJIA MD 24 HR Interval Summary Constitutional: improved, no complaints Exam/Review of Systems Vital Signs Vitals Vital Signs Date Time Temp Pulse Resp B/P Pulse Ox O2 Delivery O2 Flow Rate FiO2 07/31/17 14:39 98.5 63 16 123/64 92 07/30/17 07:40 Room Air 07/29/17 17:15 12 Intake and Output 07/30/17 07/30/17 07/31/17 15:00 23:00 07:00 Intake Total 1200 ml 1180 ml Output Total 3000 ml Balance -1800 ml 1180 ml Exam Constitutional: alert, oriented, well developed Psych: nl mood/affect, no complaints Head: atraumatic, normocephalic Eyes: EOMI, PERRL, nl conjunctiva, nl lids, nl sclera ENMT: nl external ears & nose, nl lips & teeth, nl nasal mucosa & septum Neck: non-tender, supple Respiratory: clear to auscultation, normal air movement Cardiovascular: nl pulses, regular rate and rhythm Gastrointestinal: nl liver, spleen, non-tender, soft Musculoskeletal: nl extremities to inspection, nl gait and stance Extremities: normal pulses 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: PARACHUTE MARKER II-XII intact, nl mental status, nl speech, nl strength Skin: nl turgor, No rash or lesions Lymph: nl lymph nodes Results Result Diagram: 07/31/17 1051 07/31/17 1051 Results 24 hrs Laboratory Tests Test 07/31/17 10:51 White Blood Count 9.2 Red Blood Count 3.34 L Hemoglobin 9.4 L Hematocrit 30.8 L Mean Corpuscular Volume 92.2 Mean Corpuscular Hemoglobin 28.1 L Mean Corpuscular Hemoglobin Concent 30.5 L Red Cell Distribution Width 15.7 H Platelet Count 313 Mean Platelet Volume 10.1 Neutrophils % 52.3 Lymphocytes % 34.3 Monocytes % 7.6 Eosinophils % 3.9 Basophils % 1.0 Nucleated Red Blood Cells % 0.0 Neutrophils # 4.8 Lymphocytes # 3.2 H Monocytes # 0.7 Eosinophils # 0.4 Basophils # 0.1 Nucleated Red Blood Cells # 0.0 Sodium Level 136 Potassium Level 3.6 Chloride Level 101 Carbon Dioxide Level 26 Anion Gap 13 Blood Urea Nitrogen 48 #H Creatinine 6.48 H Glucose Level 86 Calcium Level 8.4 Medications Medications Current Medications Acetaminophen (Tylenol Tab) 650 mg Q6H PRN PO PAIN AND OR ELEVATED TEMP; Start 07/22/17 at 20:30 Ondansetron HCl (Zofran Inj) 4 mg Q6H PRN IV NAUSEA AND/OR VOMITING; Start 07/22/17 at 23:00 Docusate Sodium (Colace) 100 mg Q12H PRN PO CONSTIPATION; Start 07/22/17 at 23: 00 Bisacodyl 5 mg 5 mg DAILY PRN PO CONSTIPATION; Start 07/22/17 at 23:00 Ciprofloxacin/ Dextrose (Cipro Ivpb) 100 ml @ 100 mls/hr Q24H IVPB Last administered on 07/30/17 20:58; Admin Dose 100 MLS/HR; Start 07/23/17 at 21:00 Acetaminophen/ Hydrocodone Bitart ([place] (5/325)) 1 tab Q6H PRN PO Breakthrough Pain Last administered on 07/31/17 01:41; Admin Dose 1 TAB; Start 07/24/17 at 11:30 Guaifenesin/ Dextromethorphan (Robitussin Dm Liquid Cup) 5 ml TID PRN PO Cough Last administered on 07/28/17 21:19; Admin Dose 5 ML; Start 07/24/17 at 11:30 Morphine Sulfate (morphine) 4 mg Q3H PRN IV PAIN LEVEL 7-10 Last administered on 07/31/17 16:12; Admin Dose 4 MG; Start 07/25/17 at 21:30 Clonidine (Catapres) 0.1 mg TID PO Last administered on 07/31/17 08:24; Admin Dose 0.1 MG; Start 07/26/17 at 09:00 Alprazolam (Xanax) 1 mg Q8H PRN PO ANXIETY Last administered on 07/31/17 03: 35; Admin Dose 1 MG; Start 07/25/17 at 22:00 Pantoprazole (Protonix Tab) 40 mg DAILY@06 PO Last administered on 07/31/17 06:19; Admin Dose 40 MG; Start 07/28/17 at 06:00 Nitroglycerin (Nitroglycerin (Sl Tab) 0.4 Mg) 1 tab Q5M PRN SL ANGINA Last administered on 07/28/17 06:49; Admin Dose 1 TAB; Start 07/28/17 at 05:30 Aspirin (Aspirin) 81 mg DAILY PO Last administered on 07/30/17 08:22; Admin Dose 81 MG; Start 07/30/17 at 09:00 Metoprolol Tartrate (Lopressor) 12.5 mg BID PO Last administered on 07/31/17 08:24; Admin Dose 12.5 MG; Start 07/29/17 at 21:00 Isosorbide Dinitrate (Isordil) 20 mg TID PO Last administered on 07/31/17 08: 23; Admin Dose 20 MG; Start 07/29/17 at 21:00 ZIA BAEZA MD Jul 31, 2017 17:16
[2017-07-31 20:14] VITALS: BP 117/72; RESP 17
--- NOTE | 2017-07-31 20:44 | RADRPT ---
Echocardiogram Report Patient Name: CAYETANO CARRILLO Gender: Female Date: 1955 Study Date: 30-Jul-2017 Traveling Accountant: ANALIA Hill.[facility] Location: 2246 Ref. Physician: ARMOND MARLOW Quality: Adequate Procedures: Transthoracic echocardiogram with complete 2D, M-Mode, and doppler examination. Indications: NSTEMI. 2D/M Mode Doppler Measurement Value Normal Ranges Measurement Value Normal Ranges LVIDd 2D 4.4 3.5 - 5.6 cm ROSALBA Vmax 0.9 cm2 LVIDs 2D 2.7 2.1 - 4.1 cm ROSALBA VTI 0.9 cm2 FS 2D 38.7 % AV Mean Louie 2.0 m/sec LVPWd 2D 0.8 0.6 - 1.1 cm AV Mean PG 19.0 mmHg IVSd 2D 0.9 0.6 - 1.1 cm AV Peak Louie 2.8 m/sec IVS/LVPW 2D 1.0 AV Peak PG 32.0 mmHg AoR Diam 2D 2.7 2.0 - 3.7 cm AV VTI 63.6 cm LA/Ao 2D 1 0 - 1 AI Peak PG 42.0 mmHg EDV 2D 88.1 cm3 AI Peak Louie 3.3 m/sec ESV 2D 20.3 cm3 AI PHT 390.0 msec LA Dimen 2D 3.1 2.3 - 4.0 cm LVOT Mean Louie 0.7 m/sec LVOT Diam 1.8 cm LVOT Mean PG 3.0 mmHg LVOT Area 2.5 cm2 LVOT Peak Louie 1.0 m/sec LVOT Peak PG 4.0 mmHg LVOT VTI 22.7 cm MV E Peak Louie 0.7 m/sec MV A Peak Louie 0.9 m/sec MV E/A 0.7 MV Decel Time 320 msec MV E/A 0.7 TR Peak Louie 2.7 m/sec TR Peak PG 30.0 mmHg RVSP 35.0 mmHg Findings Left Ventricle: Lower limits of normal systolic function. Normal left ventricular cavity size. Normal left ventricular wall thickness. Ejection fraction is visually estimated at 5055 %. Tissue Doppler/Mitral Doppler indices are consistent with impaired relaxation (Stage I diastolic dysfunction). Right Ventricle: Normal right ventricular size. Normal right ventricular systolic function. Left Atrium: The left atrium is normal in size. Right Atrium: The right atrium is normal in size. Mitral Valve: Mitral valve leaflets appear mildly thickened. Mild mitral annular calcification. Mild mitral valve regurgitation. Aortic Valve: Moderate aortic stenosis. Max PG 35.00 mmHg. Mean PG 19.00 mmHg. Aortic valve area 0.91 cm2. Mild to moderate aortic valve regurgitation. Tricuspid Valve: Tricuspid valve not well visualized. Estimated peak PA systolic pressure 35 mmHg. There is mild tricuspid regurgitation. Pulmonic Valve: Pulmonic valve not well visualized. Pericardium: Trivial pericardial effusion. Aorta: Normal aortic root. IVC: Normal size and normal respiratory collapse consistent with normal right atrial pressure. Conclusions 1.Lower limits of normal systolic function. Normal left ventricular cavity size. Normal left ventricular wall thickness. Ejection fraction is visually estimated at 50-55 %. Tissue Doppler/Mitral Doppler indices are consistent with impaired relaxation (Stage I diastolic dysfunction). 2.Mild mitral valve regurgitation. 3.Significant mismatch between derived gradient across the valve and calculated aortic valve area. Likely consistent with Moderate aortic stenosis. Mean PG 19.00 mmHg. Aortic valve area 0.91 cm2. Mild to moderate aortic valve regurgitation. 4.Tricuspid valve not well visualized. Estimated peak PA systolic pressure 35 mmHg. There is mild tricuspid regurgitation. 5.Trivial to small pericardial effusion. Electronically Signed By: Vitaly Ceballos 31-Jul-2017 20:43:49 -0700 Patient Name: CAYETANO CARRILLO Study Date: 30-Jul-[id number]
[2017-07-31] MEDS: CIPROFLOXACIN 200 MG/D5W IVPB 100 ML IVPB SCH (20:49)
--- NOTE | 2017-07-31 20:57 | PN ---
Date/Time of Note Date/Time of Note DATE: 07/31/17 TIME: 20:56 Assessment/Plan VTE Prophylaxis VTE Prophylaxis Intervention: other Lines/Catheters IV [facility] Type (from [facility]): L Miguel Cath Urinary Cath still in place: No Assessment/Plan Chief Complaint/Hosp Course IMPRESSION: 1. Rectal prolapse, severe. 2. Leukocytosis, BETTER 3. Anemia. End-stage renal disease. 4. Hepatitis B core antibody positive. 5 pleural effusion 6 NSTEMI 7 S/P LEXISCAN NEG plan hd SOON surgery GI AND CARDIO Problems: Subjective 24 Hr Interval Summary Cardiovascular: no complaints Gastrointestinal: no complaints Exam/Review of Systems Vital Signs Vitals Vital Signs Date Time Temp Pulse Resp B/P Pulse Ox O2 Delivery O2 Flow Rate FiO2 07/31/17 14:39 98.5 63 16 123/64 92 07/30/17 07:40 Room Air 07/29/17 17:15 12 Intake and Output 07/30/17 07/30/17 07/31/17 15:00 23:00 07:00 Intake Total 1200 ml 1180 ml Output Total 3000 ml Balance -1800 ml 1180 ml Exam Neck: supple Respiratory: clear to auscultation Cardiovascular: regular rate and rhythm Gastrointestinal: bowel sounds (+), soft Extremities: No edema Results Result Diagram: 07/31/17 1051 07/31/17 1051 Results 24 hrs Laboratory Tests Test 07/31/17 10:51 White Blood Count 9.2 Red Blood Count 3.34 L Hemoglobin 9.4 L Hematocrit 30.8 L Mean Corpuscular Volume 92.2 Mean Corpuscular Hemoglobin 28.1 L Mean Corpuscular Hemoglobin Concent 30.5 L Red Cell Distribution Width 15.7 H Platelet Count 313 Mean Platelet Volume 10.1 Neutrophils % 52.3 Lymphocytes % 34.3 Monocytes % 7.6 Eosinophils % 3.9 Basophils % 1.0 Nucleated Red Blood Cells % 0.0 Neutrophils # 4.8 Lymphocytes # 3.2 H Monocytes # 0.7 Eosinophils # 0.4 Basophils # 0.1 Nucleated Red Blood Cells # 0.0 Sodium Level 136 Potassium Level 3.6 Chloride Level 101 Carbon Dioxide Level 26 Anion Gap 13 Blood Urea Nitrogen 48 #H Creatinine 6.48 H Glucose Level 86 Calcium Level 8.4 Medications Medications Current Medications Acetaminophen (Tylenol Tab) 650 mg Q6H PRN PO PAIN AND OR ELEVATED TEMP; Start 07/22/17 at 20:30 Ondansetron HCl (Zofran Inj) 4 mg Q6H PRN IV NAUSEA AND/OR VOMITING; Start 07/22/17 at 23:00 Docusate Sodium (Colace) 100 mg Q12H PRN PO CONSTIPATION; Start 07/22/17 at 23: 00 Bisacodyl 5 mg 5 mg DAILY PRN PO CONSTIPATION; Start 07/22/17 at 23:00 Ciprofloxacin/ Dextrose (Cipro Ivpb) 100 ml @ 100 mls/hr Q24H IVPB Last administered on 07/30/17 20:58; Admin Dose 100 MLS/HR; Start 07/23/17 at 21:00 Acetaminophen/ Hydrocodone Bitart ([place] (5/325)) 1 tab Q6H PRN PO Breakthrough Pain Last administered on 07/31/17 01:41; Admin Dose 1 TAB; Start 07/24/17 at 11:30 Guaifenesin/ Dextromethorphan (Robitussin Dm Liquid Cup) 5 ml TID PRN PO Cough Last administered on 07/28/17 21:19; Admin Dose 5 ML; Start 07/24/17 at 11:30 Morphine Sulfate (morphine) 4 mg Q3H PRN IV PAIN LEVEL 7-10 Last administered on 07/31/17 16:12; Admin Dose 4 MG; Start 07/25/17 at 21:30 Clonidine (Catapres) 0.1 mg TID PO Last administered on 07/31/17 08:24; Admin Dose 0.1 MG; Start 07/26/17 at 09:00 Alprazolam (Xanax) 1 mg Q8H PRN PO ANXIETY Last administered on 07/31/17 03: 35; Admin Dose 1 MG; Start 07/25/17 at 22:00 Pantoprazole (Protonix Tab) 40 mg DAILY@06 PO Last administered on 07/31/17 06:19; Admin Dose 40 MG; Start 07/28/17 at 06:00 Nitroglycerin (Nitroglycerin (Sl Tab) 0.4 Mg) 1 tab Q5M PRN SL ANGINA Last administered on 07/28/17 06:49; Admin Dose 1 TAB; Start 07/28/17 at 05:30 Aspirin (Aspirin) 81 mg DAILY PO Last administered on 07/30/17 08:22; Admin Dose 81 MG; Start 07/30/17 at 09:00 Metoprolol Tartrate (Lopressor) 12.5 mg BID PO Last administered on 07/31/17 08:24; Admin Dose 12.5 MG; Start 07/29/17 at 21:00 Isosorbide Dinitrate (Isordil) 20 mg TID PO Last administered on 07/31/17 08: 23; Admin Dose 20 MG; Start 07/29/17 at 21:00 KISHAN MEJIA MD Jul 31, 2017 20:57
[2017-08-01] VITALS (12 sets, daily range): BP systolic 102–147; BP diastolic 56–87; PULSE 70–81; RESP 18–20
[2017-08-01] MEDS: ALPRAZOLAM 0.5 MG TAB PO PRN (00:25)
[2017-08-01] MEDS: morphine 4 MG/ML VIAL IV PRN ×3 (05:01→17:36)
[2017-08-01 05:57] LABS: BASOPHIL # 0.1 10^3/ul (0.0-0.1); BASOPHILS % 1.1 % (0.0-2.0); EOSINOPHILS # 0.3 10^3/ul (0.0-0.5); EOSINOPHILS % 3.6 % (0.0-7.0); HEMOGLOBIN 8.4 g/dl (12.0-16.0); LYMPHOCYTES # 3.4 10^3/ul (0.8-2.9); MEAN CORPUSCULAR HEMOGLOBIN 28.1 pg (29.0-33.0); MEAN CORPUSCULAR HGB CONC 31.1 g/dl (32.0-37.0); MEAN CORPUSCULAR VOLUME 90.3 fl (82.0-101.0); MONOCYTE # 0.7 10^3/ul (0.3-0.9); MONOCYTES % 8.3 % (0.0-11.0); NEUTROPHIL # 3.9 10^3/ul (1.6-7.5); NEUTROPHILS % 46.2 % (39.0-77.0); PLATELET COUNT 308 10^3/UL (140-415); RED BLOOD COUNT 2.99 10^6/ul (4.20-5.40); RED CELL DISTRIBUTION WIDTH 15.6 % (11.5-14.5); WHITE BLOOD COUNT 8.5 10^3/ul (4.8-10.8)
[2017-08-01] MEDS: PANTOPRAZOLE (EC) 40 MG TAB PO SCH (06:05)
[2017-08-01 06:15] LABS: ALBUMIN 2.6 g/dl (3.3-4.9); ALBUMIN/GLOBULIN RATIO 0.89; CALCIUM 8.1 mg/dl (8.4-10.2); CREATININE 7.23 mg/dl (0.44-1.00); POTASSIUM 4.1 mmol/L (3.5-5.1); TOTAL PROTEIN 5.5 g/dl (6.1-8.1)
[2017-08-01] MEDS: CALCIUM ACETATE 667 MG CAP PO SCH ×3 (07:35→17:36)
[2017-08-01] MEDS: METOPROLOL 25 MG TAB PO SCH ×2 (09:00→21:00)
[2017-08-01] MEDS: ISOSORBIDE DINITRATE 20 MG TAB PO SCH ×3 (09:00→21:00)
[2017-08-01] MEDS: ASPIRIN 81 MG TAB PO SCH (09:00)
--- NOTE | 2017-08-01 11:00 | CONS ---
Date/Time of Note Date/Time of Note DATE: 08/01/17 TIME: 10:59 Assessment/Plan Assessment/Plan Additional Assessment/Plan IMPRESSION: 1. Rectal prolapse. 2. End-stage renal disease, on dialysis. 3. Anemia. 4. Positive hepatitis C antibody, but viral study was negative. 5. Urinary tract infection. Plan Proceed with surgery for rectal prolapse Consultation Date/Type/Reason Admit Date/Time Jul 22, 2017 at 19:26 Initial Consult Date 07/23/17 Type of Consultation: cardiology Referring Provider: KISHAN MEJIA MD 24 HR Interval Summary Free Text/Dictation Patient is hungry Exam/Review of Systems Vital Signs Vitals Vital Signs Date Time Temp Pulse Resp B/P Pulse Ox O2 Delivery O2 Flow Rate FiO2 08/01/17 07:49 98.3 57 20 126/73 94 07/30/17 07:40 Room Air 07/29/17 17:15 12 Intake and Output 07/31/17 07/31/17 08/01/17 15:00 23:00 07:00 Intake Total 500 ml 240 ml Balance 500 ml 240 ml Exam Constitutional: alert, oriented, well developed Psych: nl mood/affect, no complaints Head: atraumatic, normocephalic Eyes: EOMI, PERRL, nl conjunctiva, nl lids, nl sclera ENMT: nl external ears & nose, nl lips & teeth, nl nasal mucosa & septum Neck: non-tender, supple Respiratory: clear to auscultation, normal air movement Cardiovascular: nl pulses, regular rate and rhythm Gastrointestinal: nl liver, spleen, non-tender, soft Musculoskeletal: nl extremities to inspection, nl gait and stance Extremities: normal pulses 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: AGRICULTURAL REAL ESTATE AGENT II-XII intact, nl mental status, nl speech, nl strength Skin: nl turgor, No rash or lesions Lymph: nl lymph nodes Results Result Diagram: 08/01/17 0524 08/01/17 0524 Results 24 hrs Laboratory Tests Test 08/01/17 05:24 08/01/17 07:57 White Blood Count 8.5 Red Blood Count 2.99 L Hemoglobin 8.4 L Hematocrit 27.0 L Mean Corpuscular Volume 90.3 Mean Corpuscular Hemoglobin 28.1 L Mean Corpuscular Hemoglobin Concent 31.1 L Red Cell Distribution Width 15.6 H Platelet Count 308 Mean Platelet Volume 10.0 Neutrophils % 46.2 Lymphocytes % 40.0 Monocytes % 8.3 Eosinophils % 3.6 Basophils % 1.1 Nucleated Red Blood Cells % 0.0 Neutrophils # 3.9 Lymphocytes # 3.4 H Monocytes # 0.7 Eosinophils # 0.3 Basophils # 0.1 Nucleated Red Blood Cells # 0.0 Sodium Level 133 L Potassium Level 4.1 Chloride Level 99 Carbon Dioxide Level 24 Anion Gap 14 Blood Urea Nitrogen 53 H Creatinine 7.23 H Glucose Level 65 #L Calcium Level 8.1 L Total Bilirubin 0.0 L Direct Bilirubin 0.00 Indirect Bilirubin 0.0 Aspartate Amino Transf (AST/SGOT) 14 L Alanine Aminotransferase (ALT/SGPT) 26 Alkaline Phosphatase 53 Total Protein 5.5 L Albumin 2.6 L Globulin 2.90 Albumin/Globulin Ratio 0.89 Bedside Glucose 75 Medications Medications Current Medications Acetaminophen (Tylenol Tab) 650 mg Q6H PRN PO PAIN AND OR ELEVATED TEMP; Start 07/22/17 at 20:30 Ondansetron HCl (Zofran Inj) 4 mg Q6H PRN IV NAUSEA AND/OR VOMITING; Start 07/22/17 at 23:00 Docusate Sodium (Colace) 100 mg Q12H PRN PO CONSTIPATION; Start 07/22/17 at 23: 00 Bisacodyl (Dulcolax) 5 mg DAILY PRN PO CONSTIPATION; Start 07/22/17 at 23:00 Acetaminophen/ Hydrocodone Bitart ([place] (5/325)) 1 tab Q6H PRN PO Breakthrough Pain Last administered on 07/31/17 01:41; Admin Dose 1 TAB; Start 07/24/17 at 11:30 Guaifenesin/ Dextromethorphan (Robitussin Dm Liquid Cup) 5 ml TID PRN PO Cough Last administered on 07/28/17 21:19; Admin Dose 5 ML; Start 07/24/17 at 11:30 Morphine Sulfate (morphine) 4 mg Q3H PRN IV PAIN LEVEL 7-10 Last administered on 08/01/17 05:01; Admin Dose 4 MG; Start 07/25/17 at 21:30 Clonidine (Catapres) 0.1 mg TID PO Last administered on 07/31/17 22:50; Admin Dose 0.1 MG; Start 07/26/17 at 09:00 Alprazolam (Xanax) 1 mg Q8H PRN PO ANXIETY Last administered on 08/01/17 00: 25; Admin Dose 1 MG; Start 07/25/17 at 22:00 Pantoprazole (Protonix Tab) 40 mg DAILY@06 PO Last administered on 08/01/17 06:05; Admin Dose 40 MG; Start 07/28/17 at 06:00 Nitroglycerin (Nitroglycerin (Sl Tab) 0.4 Mg) 1 tab Q5M PRN SL ANGINA Last administered on 07/28/17 06:49; Admin Dose 1 TAB; Start 07/28/17 at 05:30 Aspirin (Aspirin) 81 mg DAILY PO Last administered on 07/30/17 08:22; Admin Dose 81 MG; Start 07/30/17 at 09:00 Metoprolol Tartrate (Lopressor) 12.5 mg BID PO Last administered on 07/31/17 22:49; Admin Dose 12.5 MG; Start 07/29/17 at 21:00 Isosorbide Dinitrate (Isordil) 20 mg TID PO Last administered on 07/31/17 22: 51; Admin Dose 20 MG; Start 07/29/17 at 21:00 Ciprofloxacin (Cipro) 250 mg Q24H PO ; Start 08/01/17 at 21:00 ZIA BAEZA MD Aug 01, 2017 11:00
--- NOTE | 2017-08-01 13:43 | RADRPT ---
Vent Rate: 67 bpm RR Interval: 0 msec VA Interval: 128 msec QRS Duration: 78 msec QT Interval: 434 msec QTC Interval: 458 msec P-R-T [place]: 38 - 50 - 42 degrees Normal sinus rhythm Nonspecific T wave abnormality Abnormal ECG Electronically Signed By: Del [place] [id number]
--- NOTE | 2017-08-01 16:05 | PN ---
Date/Time of Note Date/Time of Note DATE: 08/01/17 TIME: 16:00 Assessment/Plan Lines/Catheters IV Catheter Type (from [facility]): Saline Lock [place] in Place (from [facility]): No Assessment/Plan Chief Complaint/Hosp Course 1. Rectal prolapse: cleared by cards -pending prolapse repair:likely tomorrow 2. Leukocytosis: 2/2 above vs. p[address] vs. [address] effusion vs. liver etiology vs. uti vs. other; no fever: normalized -monitor 3. ESRD: -hd per renal 4. Electrolyte imbalance: -optimize lytes 5. Hypoalbuminemia with hypocalcemia: nutritional +/- inflammation -as above -optimize nutrition 6. Anemia: without acute bleed -monitor and transfuse as needed 7. Hepatitis with reactive serology -medical management 8. UTI -abx per sensitivity -frequent bladder emptying 9. Chest pain: no current c/o pain; trop +; EKG: NSR -cardiac optimization 10. Pleural effusion: comfortable on room air -IS -cont diuresis and HD Thank you. Patient seen and examined in collaboration with Dr. Deep Zhang. Problems: Subjective 24 Hr Interval Summary Feels ok. Pending surgery tomorrow. Continues to have perineal discomfort. No acute pain. No fevers, chills, sob, congested cough, n/v/d/dysuria. Exam/Review of Systems Vital Signs Vitals Vital Signs Date Time Temp Pulse Resp B/P Pulse Ox O2 Delivery O2 Flow Rate FiO2 08/01/17 14:30 98.1 66 18 102/56 96 07/30/17 07:40 Room Air 07/29/17 17:15 12 Intake and Output 07/31/17 07/31/17 08/01/17 15:00 23:00 07:00 Intake Total 500 ml 240 ml Balance 500 ml 240 ml Exam Free Text/Dictation Constitutional: alert, oriented Psych: anxiety Head: atraumatic, normocephalic Eyes: nl conjunctiva, nl lids, nl sclera ENMT: No mucosa pink and moist (dry) Neck: non-tender, supple Respiratory: diminished breath sounds (at bases), No labored breathing Cardiovascular: nl pulses, regular rate and rhythm, No edema Gastrointestinal: non-tender, soft, No distended, No rebound or guarding Genitourinary - Female: No nl external genitalia (rectal prolapse - moist, pink , tender) Musculoskeletal: nl extremities to inspection Extremities: normal pulses, No edema 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: nl speech, nl strength Skin: No rash or lesions Results Result Diagram: 08/01/1752308/01/17523 RAFFY GRAHAM NP Aug 01, 2017 16:05
--- NOTE | 2017-08-01 17:08 | PN ---
Date/Time of Note Date/Time of Note DATE: 08/01/17 TIME: 17:06 Assessment/Plan VTE Prophylaxis VTE Prophylaxis Intervention: other Lines/Catheters [facility] [place] Urinary Cath still in place: No Assessment/Plan Chief Complaint/Hosp Course IMPRESSION: 1. Rectal prolapse, severe. 2. Leukocytosis, BETTER 3. Anemia. End-stage renal disease. 4. Hepatitis B core antibody positive. 5 pleural effusion 6 NSTEMI 7 S/P LEXISCAN NEG plan hd rectal prolapse surgery soon Problems: Subjective 24 Hr Interval Summary Cardiovascular: No lightheadedness Gastrointestinal: no complaints Genitourinary: No flank pain Musculoskeletal: no complaints Skin: no complaints Exam/Review of Systems Vital Signs Vitals Vital Signs Date Time Temp Pulse Resp B/P Pulse Ox O2 Delivery O2 Flow Rate FiO2 08/01/17 14:30 98.1 66 18 102/56 96 07/30/17 07:40 Room Air 07/29/17 17:15 12 Intake and Output 07/31/17 07/31/17 08/01/17 15:00 23:00 07:00 Intake Total 500 ml 240 ml Balance 500 ml 240 ml Exam Respiratory: clear to auscultation Cardiovascular: regular rate and rhythm Gastrointestinal: soft Musculoskeletal: nl extremities to inspection Results Result Diagram: 08/01/1752308/01/17 0524 Results 24 hrs Laboratory Tests Test 08/01/17 05:24 08/01/17 07:57 White Blood Count 8.5 Red Blood Count 2.99 L Hemoglobin 8.4 L Hematocrit 27.0 L Mean Corpuscular Volume 90.3 Mean Corpuscular Hemoglobin 28.1 L Mean Corpuscular Hemoglobin Concent 31.1 L Red Cell Distribution Width 15.6 H Platelet Count 308 Mean Platelet Volume 10.0 Neutrophils % 46.2 Lymphocytes % 40.0 Monocytes % 8.3 Eosinophils % 3.6 Basophils % 1.1 Nucleated Red Blood Cells % 0.0 Neutrophils # 3.9 Lymphocytes # 3.4 H Monocytes # 0.7 Eosinophils # 0.3 Basophils # 0.1 Nucleated Red Blood Cells # 0.0 Sodium Level 133 L Potassium Level 4.1 Chloride Level 99 Carbon Dioxide Level 24 Anion Gap 14 Blood Urea Nitrogen 53 H Creatinine 7.23 H Glucose Level 65 #L Calcium Level 8.1 L Total Bilirubin 0.0 L Direct Bilirubin 0.00 Indirect Bilirubin 0.0 Aspartate Amino Transf (AST/SGOT) 14 L Alanine Aminotransferase (ALT/SGPT) 26 Alkaline Phosphatase 53 Total Protein 5.5 L Albumin 2.6 L Globulin 2.90 Albumin/Globulin Ratio 0.89 Bedside Glucose 75 Medications Medications Current Medications Acetaminophen (Tylenol Tab) 650 mg Q6H PRN PO PAIN AND OR ELEVATED TEMP; Start 07/22/17 at 20:30 Ondansetron HCl (Zofran Inj) 4 mg Q6H PRN IV NAUSEA AND/OR VOMITING; Start 07/22/17 at 23:00 Docusate Sodium (Colace) 100 mg Q12H PRN PO CONSTIPATION; Start 07/22/17 at 23: 00 Bisacodyl (Dulcolax) 5 mg DAILY PRN PO CONSTIPATION; Start 07/22/17 at 23:00 Acetaminophen/ Hydrocodone Bitart ([place] (5/325)) 1 tab Q6H PRN PO Breakthrough Pain Last administered on 07/31/17 01:41; Admin Dose 1 TAB; Start 07/24/17 at 11:30 Guaifenesin/ Dextromethorphan (Robitussin Dm Liquid Cup) 5 ml TID PRN PO Cough Last administered on 07/28/17 21:19; Admin Dose 5 ML; Start 07/24/17 at 11:30 Morphine Sulfate (morphine) 4 mg Q3H PRN IV PAIN LEVEL 7-10 Last administered on 08/01/17 11:11; Admin Dose 4 MG; Start 07/25/17 at 21:30 Clonidine (Catapres) 0.1 mg TID PO Last administered on 07/31/17 22:50; Admin Dose 0.1 MG; Start 07/26/17 at 09:00 Alprazolam (Xanax) 1 mg Q8H PRN PO ANXIETY Last administered on 08/01/17 00: 25; Admin Dose 1 MG; Start 07/25/17 at 22:00 Pantoprazole (Protonix Tab) 40 mg DAILY@06 PO Last administered on 08/01/17 06:05; Admin Dose 40 MG; Start 07/28/17 at 06:00 Nitroglycerin (Nitroglycerin (Sl Tab) 0.4 Mg) 1 tab Q5M PRN SL ANGINA Last administered on 07/28/17 06:49; Admin Dose 1 TAB; Start 07/28/17 at 05:30 Aspirin (Aspirin) 81 mg DAILY PO Last administered on 07/30/17 08:22; Admin Dose 81 MG; Start 07/30/17 at 09:00 Metoprolol Tartrate (Lopressor) 12.5 mg BID PO Last administered on 07/31/17 22:49; Admin Dose 12.5 MG; Start 07/29/17 at 21:00 Isosorbide Dinitrate (Isordil) 20 mg TID PO Last administered on 07/31/17 22: 51; Admin Dose 20 MG; Start 07/29/17 at 21:00 Ciprofloxacin (Cipro) 250 mg Q24H PO ; Start 08/01/17 at 21:00 KISHAN MEJIA MD Aug 01, 2017 17:08
--- NOTE | 2017-08-01 17:52 | CONS ---
Date/Time of Note Date/Time of Note DATE: 08/01/17 TIME: 17:46 Assessment/Plan Assessment/Plan Chief Complaint/Hosp Course IMPRESSION: 1. Positive troponin in the setting of renal failure, but chest pain and cardiac risk factors, assess significance.- Now trended negative and s/p lexiscan with no ischemia/NL EF.Echo n10/10 with NL EF 50-55. Moid OK to proceed to surgery for rectal prolapse from cardiac standpoint at moderate CV risk on current medications including low dose BB continue pre-post- operatively. Avoid large fluid shifts/swings in blood pressure as possible. 2. Abnormal electrocardiogram with nonspecific ST-T abnormalities and initial anterolateral T-wave inversions. 3. Hypertension-refusing medications but patient BP on lower end today 4. Rectal prolapse. 5. Hepatitis C antibody positive, hepatitis B core antibody positive. 6. Anemia. 7. End-stage renal disease on hemodialysis. Recc: -Continue low dose BB as tolerated [id number] -check post-op 12 lead ecg -Continue baseline isordil/clonidine as patient will comply and tolerated/ neceassary -Contnue asa -pnding rectal prolapse surgery -Pain control Problems: Consultation Date/Type/Reason Admit Date/Time Jul 22, 2017 at 19:26 Initial Consult Date 07/23/17 Type of Consultation: cardiology Reason for Consultation preop Referring Provider: KISHAN MEJIA MD Exam/Review of Systems Vital Signs Vitals Vital Signs Date Time Temp Pulse Resp B/P Pulse Ox O2 Delivery O2 Flow Rate FiO2 08/01/17 14:30 98.1 66 18 102/56 96 07/30/17 07:40 Room Air 07/29/17 17:15 12 Intake and Output 07/31/17 07/31/17 08/01/17 15:00 23:00 07:00 Intake Total 500 ml 240 ml Balance 500 ml 240 ml Exam Review of Systems: CONSTITUTIONAL: No fevers, chills. PULMONARY: No sob CARDIOVASCULAR: No chest pain/palpitations GASTROINTESTINAL: No nausea/vomiting. GENITOURINARY: No hematuria/dysuria. MUSCULOSKELETAL: No myagias/arthalgias. PSYCHIATRIC: The patient denies depression. NEUROLOGIC: No weakness Constitutional: alert, oriented Psych: no complaints Head: normocephalic ENMT: mucosa pink and moist Neck: jvd (8-9 cm water), supple Respiratory: clear to auscultation Cardiovascular: regular rate and rhythm Gastrointestinal: non-tender, soft Musculoskeletal: muscle tone (normal) Extremities: edema (none) 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: other (NO ofcal deficits) Results Result Diagram: 08/01/17 0524 08/01/17 0524 Results 24 hrs Laboratory Tests Test 08/01/17 05:24 08/01/17 07:57 White Blood Count 8.5 Red Blood Count 2.99 L Hemoglobin 8.4 L Hematocrit 27.0 L Mean Corpuscular Volume 90.3 Mean Corpuscular Hemoglobin 28.1 L Mean Corpuscular Hemoglobin Concent 31.1 L Red Cell Distribution Width 15.6 H Platelet Count 308 Mean Platelet Volume 10.0 Neutrophils % 46.2 Lymphocytes % 40.0 Monocytes % 8.3 Eosinophils % 3.6 Basophils % 1.1 Nucleated Red Blood Cells % 0.0 Neutrophils # 3.9 Lymphocytes # 3.4 H Monocytes # 0.7 Eosinophils # 0.3 Basophils # 0.1 Nucleated Red Blood Cells # 0.0 Sodium Level 133 L Potassium Level 4.1 Chloride Level 99 Carbon Dioxide Level 24 Anion Gap 14 Blood Urea Nitrogen 53 H Creatinine 7.23 H Glucose Level 65 #L Calcium Level 8.1 L Total Bilirubin 0.0 L Direct Bilirubin 0.00 Indirect Bilirubin 0.0 Aspartate Amino Transf (AST/SGOT) 14 L Alanine Aminotransferase (ALT/SGPT) 26 Alkaline Phosphatase 53 Total Protein 5.5 L Albumin 2.6 L Globulin 2.90 Albumin/Globulin Ratio 0.89 Bedside Glucose 75 Medications Medications Current Medications Acetaminophen (Tylenol Tab) 650 mg Q6H PRN PO PAIN AND OR ELEVATED TEMP; Start 07/22/17 at 20:30 Ondansetron HCl (Zofran Inj) 4 mg Q6H PRN IV NAUSEA AND/OR VOMITING; Start 07/22/17 at 23:00 Docusate Sodium (Colace) 100 mg Q12H PRN PO CONSTIPATION; Start 07/22/17 at 23: 00 Bisacodyl (Dulcolax) 5 mg DAILY PRN PO CONSTIPATION; Start 07/22/17 at 23:00 Acetaminophen/ Hydrocodone Bitart ([place] (5/325)) 1 tab Q6H PRN PO Breakthrough Pain Last administered on 07/31/17t 01:41; Admin Dose 1 TAB; Start 07/24/17 at 11:30 Guaifenesin/ Dextromethorphan (Robitussin Dm Liquid Cup) 5 ml TID PRN PO Cough Last administered on 07/28/17 21:19; Admin Dose 5 ML; Start 07/24/17 at 11:30 Morphine Sulfate (morphine) 4 mg Q3H PRN IV PAIN LEVEL 7-10 Last administered on 08/01/17 17:36; Admin Dose 4 MG; Start 07/25/17 at 21:30 Clonidine (Catapres) 0.1 mg TID PO Last administered on 07/31/17 22:50; Admin Dose 0.1 MG; Start 07/26/17 at 09:00 Alprazolam (Xanax) 1 mg Q8H PRN PO ANXIETY Last administered on 08/01/17 00: 25; Admin Dose 1 MG; Start 07/25/17 at 22:00 Pantoprazole (Protonix Tab) 40 mg DAILY@06 PO Last administered on 08/01/17 06:05; Admin Dose 40 MG; Start 07/28/17 at 06:00 Nitroglycerin (Nitroglycerin (Sl Tab) 0.4 Mg) 1 tab Q5M PRN SL ANGINA Last administered on 07/28/17 06:49; Admin Dose 1 TAB; Start 07/28/17 at 05:30 Aspirin (Aspirin) 81 mg DAILY PO Last administered on 07/30/17 08:22; Admin Dose 81 MG; Start 07/30/17 at 09:00 Metoprolol Tartrate (Lopressor) 12.5 mg BID PO Last administered on 07/31/17 22:49; Admin Dose 12.5 MG; Start 07/29/17 at 21:00 Isosorbide Dinitrate (Isordil) 20 mg TID PO Last administered on 07/31/17 22: 51; Admin Dose 20 MG; Start 07/29/17 at 21:00 Ciprofloxacin (Cipro) 250 mg Q24H PO ; Start 08/01/17 at 21:00 CONI ENRIQUEZ Aug 01, 2017 17:52
[2017-08-01] MEDS ORDERED: CIPROFLOXACIN 250 MG TAB PO SCH (21:00)
[2017-08-02] MEDS: morphine 4 MG/ML VIAL IV PRN ×3 (01:23→23:06)
[2017-08-02 03:03] VITALS: BP 132/73; RESP 18
[2017-08-02 05:14] LABS: BASOPHIL # 0.1 10^3/ul (0.0-0.1); BASOPHILS % 1.4 % (0.0-2.0); EOSINOPHILS # 0.2 10^3/ul (0.0-0.5); EOSINOPHILS % 2.7 % (0.0-7.0); HEMATOCRIT 25.2 % (37.0-47.0); HEMOGLOBIN 7.9 g/dl (12.0-16.0); LYMPHOCYTES % 31.9 % (15.0-51.0); MEAN CORPUSCULAR HEMOGLOBIN 27.8 pg (29.0-33.0); MEAN CORPUSCULAR HGB CONC 31.3 g/dl (32.0-37.0); MEAN CORPUSCULAR VOLUME 88.7 fl (82.0-101.0); MEAN PLATELET VOLUME 10.3 fl (7.4-10.4); MONOCYTE # 0.6 10^3/ul (0.3-0.9); MONOCYTES % 9.5 % (0.0-11.0); NEUTROPHIL # 3.4 10^3/ul (1.6-7.5); PLATELET COUNT 301 10^3/UL (140-415); RED BLOOD COUNT 2.84 10^6/ul (4.20-5.40); RED CELL DISTRIBUTION WIDTH 15.4 % (11.5-14.5); WHITE BLOOD COUNT 6.2 10^3/ul (4.8-10.8)
[2017-08-02 05:35] LABS: INR 1.06; PROTIME 13.8 Sec (12.2-14.2); PT RATIO 1.1
[2017-08-02 05:40] LABS: CREATININE 5.82 mg/dl (0.44-1.00); POTASSIUM 3.7 mmol/L (3.5-5.1)
[2017-08-02] MEDS: PANTOPRAZOLE (EC) 40 MG TAB PO SCH (06:16)
[2017-08-02 07:59] VITALS: BP 131/77; RESP 16
[2017-08-02] MEDS: ASPIRIN 81 MG TAB PO SCH (09:00)
[2017-08-02] MEDS: ISOSORBIDE DINITRATE 20 MG TAB PO SCH ×3 (09:43→21:00)
[2017-08-02] MEDS: CALCIUM ACETATE 667 MG CAP PO SCH ×3 (09:44→18:05)
[2017-08-02] MEDS: METOPROLOL 25 MG TAB PO SCH ×2 (09:44→21:00)
[2017-08-02] MEDS: ALPRAZOLAM 0.5 MG TAB PO PRN (09:50)
[2017-08-02 14:12] VITALS: BP 104/67; RESP 17
--- NOTE | 2017-08-02 15:55 | RADRPT ---
Vent Rate: 61 bpm RR Interval: 0 msec [place] Interval: 142 msec QRS Duration: 78 msec QT Interval: 434 msec QTC Interval: 436 msec P-R-T [place]: 57 - 65 - 61 degrees Normal sinus rhythm Nonspecific T wave abnormality Abnormal ECG Electronically Signed By: Chester Cantu [id number]
--- NOTE | 2017-08-02 16:26 | CONS ---
Date/Time of Note Date/Time of Note DATE: 08/02/17 TIME: 16:24 Assessment/Plan Assessment/Plan Chief Complaint/Hosp Course IMPRESSION: 1. Positive troponin in the setting of renal failure, but chest pain and cardiac risk factors, assess significance.- Now trended negative and s/p lexiscan with no ischemia/NL EF.Echo n10/10 with NL EF 50-55. Moid OK to proceed to surgery for rectal prolapse from cardiac standpoint at moderate CV risk on current medications including low dose BB continue pre-post- operatively. Avoid large fluid shifts/swings in blood pressure as possible. 2. Abnormal electrocardiogram with nonspecific ST-T abnormalities and initial anterolateral T-wave inversions. 3. Hypertension-refusing medications but patient BP on lower end today 4. Rectal prolapse. 5. Hepatitis C antibody positive, hepatitis B core antibody positive. 6. Anemia. 7. End-stage renal disease on hemodialysis. Recc: -Continue low dose BB as tolerated [id number] -check post-op 12 lead ecg -Continue baseline isordil/clonidine as patient will comply and tolerated/ necessary -Contnue asa -pnding rectal prolapse surgery -Pain control Problems: Consultation Date/Type/Reason Admit Date/Time Jul 22, 2017 at 19:26 Initial Consult Date 07/23/17 Type of Consultation: cardiology Reason for Consultation positive troponin Referring Provider: KISHAN MEJIA MD Exam/Review of Systems Vital Signs Vitals Vital Signs Date Time Temp Pulse Resp B/P Pulse Ox O2 Delivery O2 Flow Rate FiO2 08/02/17 14:12 98.4 60 17 104/67 91 07/30/17 07:40 Room Air 07/29/17 17:15 12 Intake and Output 08/01/17 08/01/17 08/02/17 15:00 23:00 07:00 Intake Total 500 ml 700 ml 200 ml Output Total 3000 ml 150 ml Balance -2500 ml 550 ml 200 ml Exam Review of Systems: CONSTITUTIONAL: No fevers, chills. PULMONARY: No sob CARDIOVASCULAR: No chest pain/palpitations GASTROINTESTINAL: Rectal pain GENITOURINARY: No hematuria/dysuria. MUSCULOSKELETAL: No myagias/arthalgias. PSYCHIATRIC: The patient denies depression. NEUROLOGIC: No weakness Constitutional: alert Psych: no complaints Head: normocephalic ENMT: mucosa pink and moist Neck: jvd (9 cm water), supple Respiratory: diminished breath sounds (at bases/B) Cardiovascular: regular rate and rhythm Gastrointestinal: non-tender, soft Musculoskeletal: muscle tone (normal) Extremities: edema (none) 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: other (NO focal deficits) Results Result Diagram: 08/02/172 08/02/172 Results 24 hrs Laboratory Tests Test 08/02/17 04:42 White Blood Count 6.2 # Red Blood Count 2.84 L Hemoglobin 7.9 L Hematocrit 25.2 L Mean Corpuscular Volume 88.7 Mean Corpuscular Hemoglobin 27.8 L Mean Corpuscular Hemoglobin Concent 31.3 L Red Cell Distribution Width 15.4 H Platelet Count 301 Mean Platelet Volume 10.3 Neutrophils % 54.0 Lymphocytes % 31.9 Monocytes % 9.5 Eosinophils % 2.7 Basophils % 1.4 Nucleated Red Blood Cells % 0.0 Neutrophils # 3.4 Lymphocytes # 2.0 Monocytes # 0.6 Eosinophils # 0.2 Basophils # 0.1 Nucleated Red Blood Cells # 0.0 Prothrombin Time 13.8 Prothrombin Time Ratio 1.1 INR International Normalized Ratio 1.06 Sodium Level 137 Potassium Level 3.7 Chloride Level 101 Carbon Dioxide Level 29 Anion Gap 11 Blood Urea Nitrogen 38 #H Creatinine 5.82 H Glucose Level 77 Calcium Level 8.0 L Medications Medications Current Medications Acetaminophen (Tylenol Tab) 650 mg Q6H PRN PO PAIN AND OR ELEVATED TEMP; Start 07/22/17 at 20:30 Ondansetron HCl (Zofran Inj) 4 mg Q6H PRN IV NAUSEA AND/OR VOMITING; Start 07/22/17 at 23:00 Docusate Sodium (Colace) 100 mg Q12H PRN PO CONSTIPATION; Start 07/22/17 at 23: 00 Bisacodyl (Dulcolax) 5 mg DAILY PRN PO CONSTIPATION; Start 07/22/17 at 23:00 Acetaminophen/ Hydrocodone Bitart ([place] (5/325)) 1 tab Q6H PRN PO Breakthrough Pain Last administered on 07/31/17 01:41; Admin Dose 1 TAB; Start 07/24/17 at 11:30 Guaifenesin/ Dextromethorphan (Robitussin Dm Liquid Cup) 5 ml TID PRN PO Cough Last administered on 07/28/17 21:19; Admin Dose 5 ML; Start 07/24/17 at 11:30 Morphine Sulfate (morphine) 4 mg Q3H PRN IV PAIN LEVEL 7-10 Last administered on 08/02/17 09:33; Admin Dose 4 MG; Start 07/25/17 at 21:30 Alprazolam (Xanax) 1 mg Q8H PRN PO ANXIETY Last administered on 08/02/17 09: 50; Admin Dose 1 MG; Start 07/25/17 at 22:00 Pantoprazole (Protonix Tab) 40 mg DAILY@06 PO Last administered on 08/02/17 06:16; Admin Dose 40 MG; Start 07/28/17 at 06:00 Nitroglycerin (Nitroglycerin (Sl Tab) 0.4 Mg) 1 tab Q5M PRN SL ANGINA Last administered on 07/28/17 06:49; Admin Dose 1 TAB; Start 07/28/17 at 05:30 Aspirin (Aspirin) 81 mg DAILY PO Last administered on 07/30/17 08:22; Admin Dose 81 MG; Start 07/30/17 at 09:00 Metoprolol Tartrate (Lopressor) 12.5 mg BID PO Last administered on 08/02/17 09:44; Admin Dose 12.5 MG; Start 07/29/17 at 21:00 Isosorbide Dinitrate (Isordil) 20 mg TID PO Last administered on 08/02/17 13: 19; Admin Dose 20 MG; Start 07/29/17 at 21:00 Clonidine (Catapres) 0.1 mg BID PO Last administered on 08/02/17 09:45; Admin Dose 0.1 MG; Start 08/01/17 at 21:00 CONI ENRIQUEZ Aug 02, 2017 16:26
--- NOTE | 2017-08-02 18:01 | PN ---
Date/Time of Note Date/Time of Note DATE: 08/02/17 TIME: 17:59 Assessment/Plan VTE Prophylaxis VTE Prophylaxis Intervention: other Lines/Catheters IV [facility] Type (from [facility] Peripheral IV Urinary Cath still in place: No Assessment/Plan Chief Complaint/Hosp Course IMPRESSION: 1. Rectal prolapse, severe. 2. Leukocytosis, BETTER 3. Anemia. End-stage renal disease. 4. Hepatitis B core antibody positive. 5 pleural effusion 6 NSTEMI 7 S/P LEXISCAN NEG plan hd rectal prolapse surgery soon SCHEDULING PROBLEM Problems: Subjective 24 Hr Interval Summary Subjective hx not possible: other (WAITING FOR RECTAL PROLAPSE SURGERY) Exam/Review of Systems Vital Signs Vitals Vital Signs Date Time Temp Pulse Resp B/P Pulse Ox O2 Delivery O2 Flow Rate FiO2 08/02/17 14:12 98.4 60 17 104/67 91 07/30/17 07:40 Room Air 07/29/17 17:15 12 Intake and Output 08/01/17 08/01/17 08/02/17 14:59 22:59 06:59 Intake Total 500 ml 700 ml 200 ml Output Total 3000 ml 150 ml Balance -2500 ml 550 ml 200 ml Exam Neck: supple Respiratory: clear to auscultation Cardiovascular: regular rate and rhythm Gastrointestinal: soft Musculoskeletal: nl extremities to inspection Extremities: normal pulses Results Result Diagram: 08/02/172 08/02/17 0442 Results 24 hrs Laboratory Tests Test 08/02/17 04:42 White Blood Count 6.2 # Red Blood Count 2.84 L Hemoglobin 7.9 L Hematocrit 25.2 L Mean Corpuscular Volume 88.7 Mean Corpuscular Hemoglobin 27.8 L Mean Corpuscular Hemoglobin Concent 31.3 L Red Cell Distribution Width 15.4 H Platelet Count 301 Mean Platelet Volume 10.3 Neutrophils % 54.0 Lymphocytes % 31.9 Monocytes % 9.5 Eosinophils % 2.7 Basophils % 1.4 Nucleated Red Blood Cells % 0.0 Neutrophils # 3.4 Lymphocytes # 2.0 Monocytes # 0.6 Eosinophils # 0.2 Basophils # 0.1 Nucleated Red Blood Cells # 0.0 Prothrombin Time 13.8 Prothrombin Time Ratio 1.1 INR International Normalized Ratio 1.06 Sodium Level 137 Potassium Level 3.7 Chloride Level 101 Carbon Dioxide Level 29 Anion Gap 11 Blood Urea Nitrogen 38 #H Creatinine 5.82 H Glucose Level 77 Calcium Level 8.0 L Medications Medications Current Medications Acetaminophen (Tylenol Tab) 650 mg Q6H PRN PO PAIN AND OR ELEVATED TEMP; Start 07/22/17 at 20:30 Ondansetron HCl (Zofran Inj) 4 mg Q6H PRN IV NAUSEA AND/OR VOMITING; Start 07/22/17 at 23:00 Docusate Sodium (Colace) 100 mg Q12H PRN PO CONSTIPATION; Start 07/22/17 at 23: 00 Bisacodyl (Dulcolax) 5 mg DAILY PRN PO CONSTIPATION; Start 07/22/17 at 23:00 Acetaminophen/ Hydrocodone Bitart ([place] (5/325)) 1 tab Q6H PRN PO Breakthrough Pain Last administered on 07/31/17 01:41; Admin Dose 1 TAB; Start 07/24/17 at 11:30 Guaifenesin/ Dextromethorphan (Robitussin Dm Liquid Cup) 5 ml TID PRN PO Cough Last administered on 07/28/17 21:19; Admin Dose 5 ML; Start 07/24/17 at 11:30 Morphine Sulfate (morphine) 4 mg Q3H PRN IV PAIN LEVEL 7-10 Last administered on 08/02/17 09:33; Admin Dose 4 MG; Start 07/25/17 at 21:30 Alprazolam (Xanax) 1 mg Q8H PRN PO ANXIETY Last administered on 08/02/17 09: 50; Admin Dose 1 MG; Start 07/25/17 at 22:00 Pantoprazole (Protonix Tab) 40 mg DAILY@06 PO Last administered on 08/02/17 06:16; Admin Dose 40 MG; Start 07/28/17 at 06:00 Nitroglycerin (Nitroglycerin (Sl Tab) 0.4 Mg) 1 tab Q5M PRN SL ANGINA Last administered on 07/28/17 06:49; Admin Dose 1 TAB; Start 07/28/17 at 05:30 Aspirin (Aspirin) 81 mg DAILY PO Last administered on 07/30/17 08:22; Admin Dose 81 MG; Start 07/30/17 at 09:00 Metoprolol Tartrate (Lopressor) 12.5 mg BID PO Last administered on 08/02/17 09:44; Admin Dose 12.5 MG; Start 07/29/17 at 21:00 Isosorbide Dinitrate (Isordil) 20 mg TID PO Last administered on 08/02/17 13: 19; Admin Dose 20 MG; Start 07/29/17 at 21:00 Clonidine (Catapres) 0.1 mg BID PO Last administered on 08/02/17 09:45; Admin Dose 0.1 MG; Start 08/01/17 at 21:00 KISHAN MEJIA MD Aug 02, 2017 18:01
--- NOTE | 2017-08-02 18:44 | CONS ---
Date/Time of Note Date/Time of Note DATE: 08/02/17 TIME: 18:43 Assessment/Plan Assessment/Plan Additional Assessment/Plan Additional Assessment/Plan IMPRESSION: 1. Rectal prolapse. 2. End-stage renal disease, on dialysis. 3. Anemia. 4. Positive hepatitis C antibody, but viral study was negative. 5. Urinary tract infection. Plan Proceed with surgery for rectal prolapse Awaiting for the surgery Consultation Date/Type/Reason Admit Date/Time Jul 22, 2017 at 19:26 Initial Consult Date 07/23/17 Type of Consultation: cardiology Referring Provider: KISHAN MEJIA MD 24 HR Interval Summary Constitutional: no complaints Exam/Review of Systems Vital Signs Vitals Vital Signs Date Time Temp Pulse Resp B/P Pulse Ox O2 Delivery O2 Flow Rate FiO2 08/02/17 14:12 98.4 60 17 104/67 91 07/30/17 07:40 Room Air 07/29/17 17:15 12 Intake and Output 08/01/17 08/01/17 08/02/17 15:00 23:00 07:00 Intake Total 500 ml 700 ml 200 ml Output Total 3000 ml 150 ml Balance -2500 ml 550 ml 200 ml Exam Constitutional: alert, oriented, well developed Psych: nl mood/affect, no complaints Head: atraumatic, normocephalic Eyes: EOMI, PERRL, nl conjunctiva, nl lids, nl sclera ENMT: nl external ears & nose, nl lips & teeth, nl nasal mucosa & septum Neck: non-tender, supple Respiratory: clear to auscultation, normal air movement Cardiovascular: nl pulses, regular rate and rhythm Gastrointestinal: nl liver, spleen, non-tender, soft Musculoskeletal: nl extremities to inspection, nl gait and stance Extremities: normal pulses 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: OSTEOP[employer] TE[employer]ER II-XII intact, nl mental status, nl speech, nl strength Skin: nl turgor, No rash or lesions Lymph: nl lymph nodes Results Result Diagram: 08/02/1744108/02/17441 Results 24 hrs Laboratory Tests Test 08/02/17 04:42 White Blood Count 6.2 # Red Blood Count 2.84 L Hemoglobin 7.9 L Hematocrit 25.2 L Mean Corpuscular Volume 88.7 Mean Corpuscular Hemoglobin 27.8 L Mean Corpuscular Hemoglobin Concent 31.3 L Red Cell Distribution Width 15.4 H Platelet Count 301 Mean Platelet Volume 10.3 Neutrophils % 54.0 Lymphocytes % 31.9 Monocytes % 9.5 Eosinophils % 2.7 Basophils % 1.4 Nucleated Red Blood Cells % 0.0 Neutrophils # 3.4 Lymphocytes # 2.0 Monocytes # 0.6 Eosinophils # 0.2 Basophils # 0.1 Nucleated Red Blood Cells # 0.0 Prothrombin Time 13.8 Prothrombin Time Ratio 1.1 INR International Normalized Ratio 1.06 Sodium Level 137 Potassium Level 3.7 Chloride Level 101 Carbon Dioxide Level 29 Anion Gap 11 Blood Urea Nitrogen 38 #H Creatinine 5.82 H Glucose Level 77 Calcium Level 8.0 L Medications Medications Current Medications Acetaminophen (Tylenol Tab) 650 mg Q6H PRN PO PAIN AND OR ELEVATED TEMP; Start 07/22/17 at 20:30 Ondansetron HCl (Zofran Inj) 4 mg Q6H PRN IV NAUSEA AND/OR VOMITING; Start 07/22/17 at 23:00 Docusate Sodium (Colace) 100 mg Q12H PRN PO CONSTIPATION; Start 07/22/17 at 23: 00 Bisacodyl (Dulcolax) 5 mg DAILY PRN PO CONSTIPATION; Start 07/22/17 at 23:00 Acetaminophen/ Hydrocodone Bitart ([place] (5/325)) 1 tab Q6H PRN PO Breakthrough Pain Last administered on 07/31/17 01:41; Admin Dose 1 TAB; Start 07/24/17 at 11:30 Guaifenesin/ Dextromethorphan (Robitussin Dm Liquid Cup) 5 ml TID PRN PO Cough Last administered on 07/28/17 21:19; Admin Dose 5 ML; Start 07/24/17 at 11:30 Morphine Sulfate (morphine) 4 mg Q3H PRN IV PAIN LEVEL 7-10 Last administered on 08/02/17 09:33; Admin Dose 4 MG; Start 07/25/17 at 21:30 Alprazolam (Xanax) 1 mg Q8H PRN PO ANXIETY Last administered on 08/02/17 09: 50; Admin Dose 1 MG; Start 07/25/17 at 22:00 Pantoprazole (Protonix Tab) 40 mg DAILY@06 PO Last administered on 08/02/17 06:16; Admin Dose 40 MG; Start 07/28/17 at 06:00 Nitroglycerin (Nitroglycerin (Sl Tab) 0.4 Mg) 1 tab Q5M PRN SL ANGINA Last administered on 07/28/17 06:49; Admin Dose 1 TAB; Start 07/28/17 at 05:30 Aspirin (Aspirin) 81 mg DAILY PO Last administered on 07/30/17 08:22; Admin Dose 81 MG; Start 07/30/17 at 09:00 Metoprolol Tartrate (Lopressor) 12.5 mg BID PO Last administered on 08/02/17 09:44; Admin Dose 12.5 MG; Start 07/29/17 at 21:00 Isosorbide Dinitrate (Isordil) 20 mg TID PO Last administered on 08/02/17 13: 19; Admin Dose 20 MG; Start 07/29/17 at 21:00 Clonidine (Catapres) 0.1 mg BID PO Last administered on 08/02/17 09:45; Admin Dose 0.1 MG; Start 08/01/17 at 21:00 ZIA BAEZA MD Aug 02, 2017 18:44
[2017-08-02 19:40] VITALS: BP 113/75; RESP 20
--- NOTE | 2017-08-02 20:25 | PN ---
Date/Time of Note Date/Time of Note DATE: 08/02/17 TIME: 20:25 Assessment/Plan Lines/Catheters IV Catheter Type (from [facility]): Peripheral IV Patino in Place (from [facility]): No Assessment/Plan Chief Complaint/Hosp Course 1. Rectal prolapse: cleared by cards -pending prolapse repair: tomorrow 2. Leukocytosis: 2/2 above vs. pna vs. pl effusion vs. liver etiology vs. uti vs. other; no fever: normalized -monitor 3. ESRD: -hd per renal 4. Electrolyte imbalance: -optimize lytes 5. Hypoalbuminemia with hypocalcemia: nutritional +/- inflammation -as above -optimize nutrition 6. Anemia: without acute bleed -monitor and transfuse as needed 7. Hepatitis with reactive serology -medical management 8. UTI -abx per sensitivity -frequent bladder emptying 9. Chest pain: no current c/o pain; trop +; EKG: NSR -cardiac optimization 10. Pleural effusion: comfortable on room air -IS -cont diuresis and HD Thank you. Patient seen and examined in collaboration with Dr. Deep Zhang. Problems: Subjective 24 Hr Interval Summary Prolapse repair tomorrow (no OR time available today). Patient feels well. No acute pain, change in pain in perineal area. No fevers, chills, sob, congested cough, n/v/d/dysuria, avitia, dizziness, cp, palpitations. Exam/Review of Systems Vital Signs Vitals Vital Signs Date Time Temp Pulse Resp B/P Pulse Ox O2 Delivery O2 Flow Rate FiO2 08/03/17 02:08 98.6 61 18 128/79 94 07/30/17 07:40 Room Air Intake and Output 08/02/17 08/02/17 08/03/17 15:00 23:00 07:00 Intake Total 1160 ml 0 ml Balance 1160 ml 0 ml Exam Free Text/Dictation Constitutional: alert, oriented Psych: nl mood Head: atraumatic, normocephalic Eyes: nl conjunctiva, nl lids, nl sclera ENMT: No mucosa pink and moist (dry) Neck: non-tender, supple Respiratory: diminished breath sounds (at bases), No labored breathing Cardiovascular: nl pulses, regular rate and rhythm, No edema Gastrointestinal: non-tender, soft, No distended, No rebound or guarding Genitourinary - Female: No nl external genitalia (rectal prolapse - moist, pink , tender) Musculoskeletal: nl extremities to inspection Extremities: normal pulses, No edema 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: nl speech, nl strength Skin: No rash or lesions Results Result Diagram: 08/03/17 0503 08/02/17 0442 RAFFY GRAHAM NP Aug 02, 2017 20:25
[2017-08-03] VITALS (22 sets, daily range): BP systolic 128–182; BP diastolic 76–93; PULSE 60–82; RESP 11–19
[2017-08-03] MEDS: morphine 4 MG/ML VIAL IV PRN ×2 (04:31→17:40)
[2017-08-03] MEDS: PANTOPRAZOLE (EC) 40 MG TAB PO SCH (05:24)
[2017-08-03 05:41] LABS: BASOPHIL # 0.1 10^3/ul (0.0-0.1); BASOPHILS % 1.3 % (0.0-2.0); EOSINOPHILS # 0.3 10^3/ul (0.0-0.5); HEMATOCRIT 26.8 % (37.0-47.0); HEMOGLOBIN 8.3 g/dl (12.0-16.0); LYMPHOCYTES % 39.1 % (15.0-51.0); MEAN CORPUSCULAR HEMOGLOBIN 27.9 pg (29.0-33.0); MEAN CORPUSCULAR VOLUME 89.9 fl (82.0-101.0); MONOCYTE # 0.8 10^3/ul (0.3-0.9); MONOCYTES % 10.3 % (0.0-11.0); NEUTROPHIL # 3.5 10^3/ul (1.6-7.5); NEUTROPHILS % 44.9 % (39.0-77.0); PLATELET COUNT 308 10^3/UL (140-415); RED BLOOD COUNT 2.98 10^6/ul (4.20-5.40); RED CELL DISTRIBUTION WIDTH 15.3 % (11.5-14.5); WHITE BLOOD COUNT 7.7 10^3/ul (4.8-10.8)
[2017-08-03] MEDS ORDERED: NEOSTIGMINE 3 MG/3 ML SYRINGE ONE (07:00)
[2017-08-03] MEDS ORDERED: GLYCOPYRROLATE 0.4 MG INJ ONE (07:00)
[2017-08-03] MEDS ORDERED: ONDANSETRON 4 MG INJ ONE (07:00)
[2017-08-03] MEDS: CALCIUM ACETATE 667 MG CAP PO SCH ×3 (07:35→17:40)
[2017-08-03] MEDS: METOPROLOL 25 MG TAB PO SCH ×2 (09:00→20:27)
[2017-08-03] MEDS: ISOSORBIDE DINITRATE 20 MG TAB PO SCH ×3 (09:00→20:27)
[2017-08-03] MEDS: ASPIRIN 81 MG TAB PO SCH (09:00)
--- NOTE | 2017-08-03 10:40 | PN ---
Date/Time of Note Date/Time of Note DATE: 08/03/17 TIME: 10:37 Assessment/Plan Lines/Catheters IV Catheter Type (from Nrs): Saline Lock Patino in Place (from Nrs): No Assessment/Plan Chief Complaint/Hosp Course 1. Rectal prolapse: cleared by cards -OR today. Patient advised she had stool incontinence currently which may not improve. She is advised of her higher risks and probable recurrence. 2. Leukocytosis: 2/2 above vs. pna vs. pl effusion vs. liver etiology vs. uti vs. other; no fever: normalized -monitor 3. ESRD: -hd per renal 4. Electrolyte imbalance: -optimize lytes 5. Hypoalbuminemia with hypocalcemia: nutritional +/- inflammation -as above -optimize nutrition 6. Anemia: without acute bleed -monitor and transfuse as needed 7. Hepatitis with reactive serology -medical management 8. UTI s/p abx per sensitivity -frequent bladder emptying 9. Chest pain: no current c/o pain; trop +; EKG: NSR. Cleared by Cardiology. -cardiac optimization 10. Pleural effusion: comfortable on room air -IS -cont diuresis and HD Thank you, Problems: Subjective 24 Hr Interval Summary OR today. Patient feels well. No acute pain, change in pain in perineal area. No fevers, chills, sob, congested cough, n/v/d/dysuria, avitia, dizziness, cp, palpitations. Exam/Review of Systems Vital Signs Vitals Vital Signs Date Time Temp Pulse Resp B/P Pulse Ox O2 Delivery O2 Flow Rate FiO2 08/03/17 07:56 98.2 62 19 133/76 95 07/30/17 07:40 Room Air Intake and Output 08/02/17 08/02/17 08/03/17 15:00 23:00 07:00 Intake Total 1160 ml 0 ml Balance 1160 ml 0 ml Exam Free Text/Dictation Constitutional: alert, oriented Psych: nl mood Head: atraumatic, normocephalic Eyes: nl conjunctiva, nl lids, nl sclera ENMT: No mucosa pink and moist (dry) Neck: non-tender, supple Respiratory: diminished breath sounds (at bases), No labored breathing Cardiovascular: nl pulses, regular rate and rhythm, No edema Gastrointestinal: non-tender, soft, No distended, No rebound or guarding Genitourinary - Female: No nl external genitalia (rectal prolapse - moist, pink , tender) Musculoskeletal: nl extremities to inspection Extremities: normal pulses, No edema 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: nl speech, nl strength Skin: No rash or lesions Rectal: Prolapse with incontinence. No sphincter tone. Results Result Diagram: 08/03/17 0503 08/02/17 0442 KLARISSA ELIZONDO MD Aug 03, 2017 10:40
[2017-08-03] MEDS ORDERED: MIDAZOLAM 1 MG/ML 2 ML INJ ONE (10:58)
[2017-08-03] MEDS ORDERED: LIDOCAINE 1% (MPF) 30 ML INJ ONE (12:00)
[2017-08-03] MEDS ORDERED: BUPIVACAINE 0.5%/EPI (SDV) 30 ML INJ ONE (12:00)
--- NOTE | 2017-08-03 12:59 | CONS ---
Date/Time of Note Date/Time of Note DATE: 08/03/17 TIME: 12:58 Assessment/Plan Assessment/Plan Additional Assessment/Plan In surgery now - will follow post op Consultation Date/Type/Reason Admit Date/Time Jul 22, 2017 at 19:26 Initial Consult Date 07/23/17 Type of Consultation: cardiology Referring Provider: KISHAN MEJIA MD Exam/Review of Systems Vital Signs Vitals Vital Signs Date Time Temp Pulse Resp B/P Pulse Ox O2 Delivery O2 Flow Rate FiO2 08/03/17 07:56 98.2 62 19 133/76 95 07/30/17 07:40 Room Air Intake and Output 08/02/17 08/02/17 08/03/17 15:00 23:00 07:00 Intake Total 1160 ml 0 ml Balance 1160 ml 0 ml Results Result Diagram: 08/03/17 0503 08/02/17 0442 Results 24 hrs Laboratory Tests Test 08/03/17 05:03 White Blood Count 7.7 # Red Blood Count 2.98 L Hemoglobin 8.3 L Hematocrit 26.8 L Mean Corpuscular Volume 89.9 Mean Corpuscular Hemoglobin 27.9 L Mean Corpuscular Hemoglobin Concent 31.0 L Red Cell Distribution Width 15.3 H Platelet Count 308 Mean Platelet Volume 10.0 Neutrophils % 44.9 Lymphocytes % 39.1 Monocytes % 10.3 Eosinophils % 4.0 Basophils % 1.3 Nucleated Red Blood Cells % 0.0 Neutrophils # 3.5 Lymphocytes # 3.0 H Monocytes # 0.8 Eosinophils # 0.3 Basophils # 0.1 Nucleated Red Blood Cells # 0.0 Medications Medications Current Medications Acetaminophen (Tylenol Tab) 650 mg Q6H PRN PO PAIN AND OR ELEVATED TEMP; Start 07/22/17 at 20:30 Ondansetron HCl (Zofran Inj) 4 mg Q6H PRN IV NAUSEA AND/OR VOMITING; Start 07/22/17 at 23:00 Docusate Sodium (Colace) 100 mg Q12H PRN PO CONSTIPATION; Start 07/22/17 at 23: 00 Bisacodyl (Dulcolax) 5 mg DAILY PRN PO CONSTIPATION; Start 07/22/17 at 23:00 Acetaminophen/ Hydrocodone Bitart ([place] (5/325)) 1 tab Q6H PRN PO Breakthrough Pain Last administered on 07/31/17 01:41; Admin Dose 1 TAB; Start 07/24/17 at 11:30 Guaifenesin/ Dextromethorphan (Robitussin Dm Liquid Cup) 5 ml TID PRN PO Cough Last administered on 07/28/17 21:19; Admin Dose 5 ML; Start 07/24/17 at 11:30 Morphine Sulfate (morphine) 4 mg Q3H PRN IV PAIN LEVEL 7-10 Last administered on 08/03/17 04:31; Admin Dose 4 MG; Start 07/25/17 at 21:30 Alprazolam (Xanax) 1 mg Q8H PRN PO ANXIETY Last administered on 08/02/17 09: 50; Admin Dose 1 MG; Start 07/25/17 at 22:00 Pantoprazole (Protonix Tab) 40 mg DAILY@06 PO Last administered on 08/02/17 06:16; Admin Dose 40 MG; Start 07/28/17 at 06:00 Nitroglycerin (Nitroglycerin (Sl Tab) 0.4 Mg) 1 tab Q5M PRN SL ANGINA Last administered on 07/28/17 06:49; Admin Dose 1 TAB; Start 07/28/17 at 05:30 Aspirin (Aspirin) 81 mg DAILY PO Last administered on 07/30/17 08:22; Admin Dose 81 MG; Start 07/30/17 at 09:00 Metoprolol Tartrate (Lopressor) 12.5 mg BID PO Last administered on 08/02/17 09:44; Admin Dose 12.5 MG; Start 07/29/17 at 21:00 Isosorbide Dinitrate (Isordil) 20 mg TID PO Last administered on 08/02/17 13: 19; Admin Dose 20 MG; Start 07/29/17 at 21:00 Clonidine (Catapres) 0.1 mg BID PO Last administered on 08/02/17 09:45; Admin Dose 0.1 MG; Start 08/01/17 at 21:00 NASREEN CRUZ MD Aug 03, 2017 12:59
[2017-08-03] MEDS ORDERED: ETOMIDATE 20 MG INJ ONE (14:46)
[2017-08-03] MEDS ORDERED: LIDOCAINE 2% (SDV) 5 ML INJ ONE (14:46)
[2017-08-03] MEDS ORDERED: metroNIDAZOLE 500 MG/NS (PMX) 100 ML IVPB ONE (14:46)
[2017-08-03] MEDS ORDERED: CIPROFLOXACIN 400MG/D5W 200 ML ONE (14:46)
[2017-08-03] MEDS ORDERED: ROCURONIUM 50 MG INJ ONE (14:47)
[2017-08-03] MEDS ORDERED: KETOROLAC 15 MG INJ IV PRN (15:00)
--- NOTE | 2017-08-03 15:07 | OPR ---
Date/Time of Note Date/Time of Note DATE: 08/03/17 TIME: 14:58 Operative Report Procedure Date: Aug 03, 2017 Preoperative Diagnosis 1. Rectal prolapse 2. Stool incontinence Postoperative Diagnosis 1. Rectal prolapse 2. Stool incontinence 3. Redundant sigmoid Operation/Procedure Performed 1. Laparoscopic low anterior resection with primary colo-proctostomy 2. Rigid sigmoidoscopy 3. Rectopexy 2 4. Implantation of biologic, xenograft, ACell, 3 layer, 7 x 10 cm 5. Local anesthetic injection, [id number] 6. Laparoscopic guided bilateral transversus abdominis plane block Surgeon Deep Zhnag MD Tomato Paste Maker None Anesthesia Type: general (Plus local plus regional) Anesthesiologist: BOLIVAR SWAN MD Estimated Blood Loss: 10 - 50 ml's Transfusion none Specimen Sigmoid and upper rectum with open and proximal and staple and distal Donut anastomotic rings Grafts/Implants Acell, 7 x 10 cm, 3 layer Tubes/Drains None Complications none Pt Condition Post Procedure: stable Disposition: PACU Indications Per notes. Risks include but are not limited to bleeding, infection, abscess, seroma, leak , damage to intestines or any intra-abdominal/intrapelvic structures, hernia formation, chronic pain, need for re-operations or further surgeries, TN, stroke , PE, DVT, pneumonia, organ failures, or even . Procedure Description Patient was brought into the operating room, placed supine on the operating table, SCDs were placed, right arm was tucked, all pressure points were well- padded, preoperative antibiotics administered, and after induction of anesthesia , patient was placed in the lithotomy. Patino was inserted. Patient was then prepped and draped in usual sterile fashion, and timeout was performed. Incision was made in the right upper quadrant, and using an Optiview port and 5 mm 0 scope abdomen was safely entered and insufflated to 15 mmHg with CO2. Laparoscopy was performed and no injuries were identified. There was tattoo marking in the sigmoid colon with some splattering of the tattoo ink on the burton and the intestines. Under direct visualization another 5 mm port was placed in the right lower quadrant a 12 mm port was placed in the right lower lateral quadrant. Eventually a 5 mm port was placed in the left upper quadrant. Patient was placed in Trendelenburg and left side up. Using LigaSure and scissor colon was mobilized off of the left lateral wall in the avascular plane fully mobilizing the left colon the sigmoid and the upper rectum. The medial mesentery was opened and the left colon, sigmoid and the upper rectum beyond the peritoneal reflection. At least 5 cm of colon proximal and distal to the tattoo region were marked. The mesentery was sequentially taken using LigaSure with complete hemostasis. The colon 5 cm proximal and distal to the tattoo area was transected with Endo BIANCA echelon 60 mm blue staplers. After full resection of the diseased segment of the sigmoid and the left colon suture was placed on the proximal colon. The 12 mm port site was switched to GelPort with an Sylvain medium. The resected colon was exteriorized and sent to pathology. Intraoperative consultation with pathologist confirmed lesion to be fully removed with sufficient clear margins. Abdomen was reinsufflated with CO2. Partial mobilization of the splenic flexure was performed to allow sufficient colon to reach into the pelvis. This was done by mobilizing the left colon off of the spleen. [id number] staple anastomosis was created between the left colon and the upper rectum. This was done by placing 2-0 silk sutures and interrupted posteriorly followed by enterotomies in both segments followed by 60 blue load staple anastomosis that was created. The open end was closed with another 60 blue load stapler. There was enough anastomosis to allow easy passage of stool. The suture line was reinforced with 2-0 silk Lembert sutures in a running fashion. The mesenteric defect was large enough and decision was made not to close it. There was enough fat around the colon to cover this anastomosis for reinforcement. The omentum was eventually pulled over the anastomosis to further secure it as well. The colon was not twisted. There was complete hemostasis. Sylvain retractor was removed wound was irrigated and the fascial defect was closed with interrupted oh Vicryls in a [id number] manner with Endo Close. Ports and CO2 were removed under direct visualization, wounds were fully irrigated, and skin was closed in subcuticular fashion using 4-0 Monocryl. The right lower quadrant incision was closed in multiple layers. After the fascial closer there was an interrupted subcutaneous 2-0 Vicryl closures followed by 4- 0 Monocryl subcuticular. Dermabond was applied. All counts were correct and the end of the operation 2. Patient was extubated and transferred to recovery room in stable condition. Copies To: CC: CONI ENRIQUEZ; ZIA BAEZA MD; NASREEN CRUZ MD; KISHAN MEJIA MD, SAMUEL MD Aug 03, 2017 15:07
--- NOTE | 2017-08-03 15:22 | PN ---
Date/Time of Note Date/Time of Note DATE: 08/03/17 TIME: 15:21 Assessment/Plan VTE Prophylaxis VTE Prophylaxis Intervention: other Lines/Catheters IV Catheter Type (from Nrs): Saline Lock Urinary Cath still in place: No Assessment/Plan Chief Complaint/Hosp Course IMPRESSION: 1. Rectal prolapse, severe. 2. Leukocytosis, BETTER 3. Anemia. End-stage renal disease. 4. Hepatitis B core antibody positive. 5 pleural effusion 6 NSTEMI 7 S/P LEXISCAN NEG plan hd rectal prolapse surgery TODAY Problems: Subjective 24 Hr Interval Summary Cardiovascular: no complaints Gastrointestinal: no complaints Exam/Review of Systems Vital Signs Vitals Vital Signs Date Time Temp Pulse Resp B/P Pulse Ox O2 Delivery O2 Flow Rate FiO2 08/03/17 15:07 98.0 08/03/17 07:56 62 19 133/76 95 07/30/17 07:40 Room Air Intake and Output 08/02/17 08/02/17 08/03/17 15:00 23:00 07:00 Intake Total 1160 ml 0 ml Balance 1160 ml 0 ml Exam Respiratory: clear to auscultation Cardiovascular: regular rate and rhythm Gastrointestinal: bowel sounds (+), soft Results Result Diagram: 08/03/17 0503 08/02/17 0442 Results 24 hrs Laboratory Tests Test 08/03/17 05:03 White Blood Count 7.7 # Red Blood Count 2.98 L Hemoglobin 8.3 L Hematocrit 26.8 L Mean Corpuscular Volume 89.9 Mean Corpuscular Hemoglobin 27.9 L Mean Corpuscular Hemoglobin Concent 31.0 L Red Cell Distribution Width 15.3 H Platelet Count 308 Mean Platelet Volume 10.0 Neutrophils % 44.9 Lymphocytes % 39.1 Monocytes % 10.3 Eosinophils % 4.0 Basophils % 1.3 Nucleated Red Blood Cells % 0.0 Neutrophils # 3.5 Lymphocytes # 3.0 H Monocytes # 0.8 Eosinophils # 0.3 Basophils # 0.1 Nucleated Red Blood Cells # 0.0 Medications Medications Current Medications Acetaminophen (Tylenol Tab) 650 mg Q6H PRN PO PAIN AND OR ELEVATED TEMP; Start 07/22/17 at 20:30 Ondansetron HCl (Zofran Inj) 4 mg Q6H PRN IV NAUSEA AND/OR VOMITING; Start 07/22/17 at 23:00 Docusate Sodium (Colace) 100 mg Q12H PRN PO CONSTIPATION; Start 07/22/17 at 23: 00 Bisacodyl (Dulcolax) 5 mg DAILY PRN PO CONSTIPATION; Start 07/22/17 at 23:00 Acetaminophen/ Hydrocodone Bitart ([place] (5/325)) 1 tab Q6H PRN PO Breakthrough Pain Last administered on 07/31/17 01:41; Admin Dose 1 TAB; Start 07/24/17 at 11:30 Guaifenesin/ Dextromethorphan (Robitussin Dm Liquid Cup) 5 ml TID PRN PO Cough Last administered on 07/28/17 21:19; Admin Dose 5 ML; Start 07/24/17 at 11:30 Morphine Sulfate (morphine) 4 mg Q3H PRN IV PAIN LEVEL 7-10 Last administered on 08/03/17 04:31; Admin Dose 4 MG; Start 07/25/17 at 21:30 Alprazolam (Xanax) 1 mg Q8H PRN PO ANXIETY Last administered on 08/02/17 09: 50; Admin Dose 1 MG; Start 07/25/17 at 22:00 Pantoprazole (Protonix Tab) 40 mg DAILY@06 PO Last administered on 08/02/17 06:16; Admin Dose 40 MG; Start 07/28/17 at 06:00 Nitroglycerin (Nitroglycerin (Sl Tab) 0.4 Mg) 1 tab Q5M PRN SL ANGINA Last administered on 07/28/17 06:49; Admin Dose 1 TAB; Start 07/28/17 at 05:30 Aspirin (Aspirin) 81 mg DAILY PO Last administered on 07/30/17 08:22; Admin Dose 81 MG; Start 07/30/17 at 09:00 Metoprolol Tartrate (Lopressor) 12.5 mg BID PO Last administered on 08/02/17 09:44; Admin Dose 12.5 MG; Start 07/29/17 at 21:00 Isosorbide Dinitrate (Isordil) 20 mg TID PO Last administered on 08/02/17 13: 19; Admin Dose 20 MG; Start 07/29/17 at 21:00 Clonidine 0.1 mg 0.1 mg BID PO Last administered on 08/02/17 09:45; Admin Dose 0.1 MG; Start 08/01/17 at 21:00 Metronidazole 100 ml @ 100 mls/hr Q8H IVPB ; Start 08/03/17 at 15:00; Stop at 14:59 Ciprofloxacin/ Dextrose (Cipro Ivpb) 200 ml @ 200 mls/hr DAILY IVPB ; Start at 15:00; Stop 08/04/17 at 14:59 Ketorolac Tromethamine (Toradol) 15 mg Q6H PRN IV PAIN; Start 08/03/17 at 15: 00; Stop 08/06/17 at 14:59 KISHAN MEJIA MD Aug 03, 2017 15:22
[2017-08-03] MEDS ORDERED: HYDROmorphONE (0.2 MG/ML) 10ML SYG IV PRN ×2 (15:30)
[2017-08-03] MEDS ORDERED: FENTAnyl 50 MCG/ML VIAL IV PRN (15:30)
--- NOTE | 2017-08-03 15:33 | CONS ---
Date/Time of Note Date/Time of Note DATE: 08/03/17 TIME: 15:32 Assessment/Plan Assessment/Plan Additional Assessment/Plan Additional Assessment/Plan Additional Assessment/Plan IMPRESSION: 1. Rectal prolapse. 2. End-stage renal disease, on dialysis. 3. Anemia. 4. Positive hepatitis C antibody, but viral study was negative. 5. Urinary tract infection. 6. Status post a surgery for rectal prolapse Plan Continue postoperative care Consultation Date/Type/Reason Admit Date/Time Jul 22, 2017 at 19:26 Initial Consult Date 07/23/17 Type of Consultation: cardiology Referring Provider: KISHAN MEJIA MD 24 HR Interval Summary Constitutional: no complaints Exam/Review of Systems Vital Signs Vitals Vital Signs Date Time Temp Pulse Resp B/P Pulse Ox O2 Delivery O2 Flow Rate FiO2 08/03/17 15:11 Simple Mask 10.0 08/03/17 15:07 98.0 08/03/17 07:56 62 19 133/76 95 Intake and Output 08/02/17 08/02/17 08/03/17 15:00 23:00 07:00 Intake Total 1160 ml 0 ml Balance 1160 ml 0 ml Exam Constitutional: alert, oriented, well developed Psych: nl mood/affect, no complaints Head: atraumatic, normocephalic Eyes: EOMI, PERRL, nl conjunctiva, nl lids, nl sclera ENMT: nl external ears & nose, nl lips & teeth, nl nasal mucosa & septum Neck: non-tender, supple Respiratory: clear to auscultation, normal air movement Cardiovascular: nl pulses, regular rate and rhythm Gastrointestinal: nl liver, spleen, non-tender, soft Musculoskeletal: nl extremities to inspection, nl gait and stance Extremities: normal pulses 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: MANAGER NIGHT II-XII intact, nl mental status, nl speech, nl strength Skin: nl turgor, No rash or lesions Lymph: nl lymph nodes Results Result Diagram: 08/03/17 0503 08/02/17 0442 Results 24 hrs Laboratory Tests Test 08/03/17 05:03 White Blood Count 7.7 # Red Blood Count 2.98 L Hemoglobin 8.3 L Hematocrit 26.8 L Mean Corpuscular Volume 89.9 Mean Corpuscular Hemoglobin 27.9 L Mean Corpuscular Hemoglobin Concent 31.0 L Red Cell Distribution Width 15.3 H Platelet Count 308 Mean Platelet Volume 10.0 Neutrophils % 44.9 Lymphocytes % 39.1 Monocytes % 10.3 Eosinophils % 4.0 Basophils % 1.3 Nucleated Red Blood Cells % 0.0 Neutrophils # 3.5 Lymphocytes # 3.0 H Monocytes # 0.8 Eosinophils # 0.3 Basophils # 0.1 Nucleated Red Blood Cells # 0.0 Medications Medications Current Medications Acetaminophen (Tylenol Tab) 650 mg Q6H PRN PO PAIN AND OR ELEVATED TEMP; Start 07/22/17 at 20:30 Ondansetron HCl (Zofran Inj) 4 mg Q6H PRN IV NAUSEA AND/OR VOMITING; Start 07/22/17 at 23:00 Docusate Sodium (Colace) 100 mg Q12H PRN PO CONSTIPATION; Start 07/22/17 at 23: 00 Bisacodyl (Dulcolax) 5 mg DAILY PRN PO CONSTIPATION; Start 07/22/17 at 23:00 Acetaminophen/ Hydrocodone Bitart ([place] (5/325)) 1 tab Q6H PRN PO Breakthrough Pain Last administered on 07/31/17 01:41; Admin Dose 1 TAB; Start 07/24/17 at 11:30 Guaifenesin/ Dextromethorphan (Robitussin Dm Liquid Cup) 5 ml TID PRN PO Cough Last administered on 07/28/17 21:19; Admin Dose 5 ML; Start 07/24/17 at 11:30 Morphine Sulfate (morphine) 4 mg Q3H PRN IV PAIN LEVEL 7-10 Last administered on 08/03/17 04:31; Admin Dose 4 MG; Start 07/25/17 at 21:30 Alprazolam (Xanax) 1 mg Q8H PRN PO ANXIETY Last administered on 08/02/17 09: 50; Admin Dose 1 MG; Start 07/25/17 at 22:00 Pantoprazole (Protonix Tab) 40 mg DAILY@06 PO Last administered on 08/02/17 06:16; Admin Dose 40 MG; Start 07/28/17 at 06:00 Nitroglycerin (Nitroglycerin (Sl Tab) 0.4 Mg) 1 tab Q5M PRN SL ANGINA Last administered on 07/28/17 06:49; Admin Dose 1 TAB; Start 07/28/17 at 05:30 Aspirin (Aspirin) 81 mg DAILY PO Last administered on 07/30/17 08:22; Admin Dose 81 MG; Start 07/30/17 at 09:00 Metoprolol Tartrate (Lopressor) 12.5 mg BID PO Last administered on 08/02/17 09:44; Admin Dose 12.5 MG; Start 07/29/17 at 21:00 Isosorbide Dinitrate (Isordil) 20 mg TID PO Last administered on 08/02/17 13: 19; Admin Dose 20 MG; Start 07/29/17 at 21:00 Clonidine 0.1 mg 0.1 mg BID PO Last administered on 08/02/17 09:45; Admin Dose 0.1 MG; Start 08/01/17 at 21:00 Metronidazole 100 ml @ 100 mls/hr Q8H IVPB ; Start 08/03/17 at 15:00; Stop at 14:59 Ciprofloxacin/ Dextrose (Cipro Ivpb) 200 ml @ 200 mls/hr DAILY IVPB ; Start at 15:00; Stop 08/04/17 at 14:59 Ketorolac Tromethamine (Toradol) 15 mg Q6H PRN IV PAIN; Start 08/03/17 at 15: 00; Stop 08/06/17 at 14:59 ZIA BAEZA MD Aug 03, 2017 15:33
[2017-08-03] MEDS ORDERED: hydrALAzine 20 MG INJ ONE (15:42)
[2017-08-03] MEDS ORDERED: hydrALAzine 20 MG INJ IV ONE (16:00)
[2017-08-03] MEDS: metroNIDAZOLE 500 MG/NS (PMX) 100 ML IVPB SCH (17:42)
[2017-08-03] MEDS ORDERED: morphine 4 MG/ML VIAL IV STA (18:08)
[2017-08-03] MEDS: CIPROFLOXACIN 400MG/D5W 200 ML IVPB SCH (18:26)
[2017-08-03] MEDS: ALPRAZOLAM 0.5 MG TAB PO PRN (20:26)
[2017-08-03] MEDS: morphine 10 MG INJ IV PRN (20:33)
[2017-08-04] VITALS (13 sets, daily range): BP systolic 97–125; BP diastolic 50–75; PULSE 58–72; RESP 17–19
[2017-08-04] MEDS: metroNIDAZOLE 500 MG/NS (PMX) 100 ML IVPB SCH ×2 (00:15→06:39)
[2017-08-04] MEDS: morphine 10 MG INJ IV PRN ×6 (01:06→22:03)
[2017-08-04] MEDS: PANTOPRAZOLE (EC) 40 MG TAB PO SCH (05:35)
[2017-08-04 06:24] LABS: BASOPHIL # 0.1 10^3/ul (0.0-0.1); BASOPHILS % 0.5 % (0.0-2.0); EOSINOPHILS % 0.1 % (0.0-7.0); HEMATOCRIT 26.1 % (37.0-47.0); LYMPHOCYTES # 1.5 10^3/ul (0.8-2.9); LYMPHOCYTES % 10.9 % (15.0-51.0); MEAN CORPUSCULAR HEMOGLOBIN 27.4 pg (29.0-33.0); MEAN CORPUSCULAR HGB CONC 30.7 g/dl (32.0-37.0); MEAN CORPUSCULAR VOLUME 89.4 fl (82.0-101.0); MEAN PLATELET VOLUME 10.4 fl (7.4-10.4); MONOCYTE # 0.4 10^3/ul (0.3-0.9); NEUTROPHILS % 85.1 % (39.0-77.0); PLATELET COUNT 326 10^3/UL (140-415); RED BLOOD COUNT 2.92 10^6/ul (4.20-5.40); RED CELL DISTRIBUTION WIDTH 15.5 % (11.5-14.5); WHITE BLOOD COUNT 14.1 10^3/ul (4.8-10.8)
[2017-08-04 07:14] LABS: ALBUMIN 2.7 g/dl (3.3-4.9); CALCIUM 7.8 mg/dl (8.4-10.2); CREATININE 8.32 mg/dl (0.44-1.00); POTASSIUM 5.8 mmol/L (3.5-5.1); TOTAL PROTEIN 5.4 g/dl (6.1-8.1)
[2017-08-04] MEDS: CALCIUM ACETATE 667 MG CAP PO SCH ×3 (07:35→16:59)
[2017-08-04] MEDS: ASPIRIN 81 MG TAB PO SCH (08:26)
[2017-08-04] MEDS: ALPRAZOLAM 0.5 MG TAB PO PRN ×2 (08:26→23:00)
[2017-08-04] MEDS: CIPROFLOXACIN 400MG/D5W 200 ML IVPB SCH (08:27)
[2017-08-04] MEDS: ISOSORBIDE DINITRATE 20 MG TAB PO SCH ×3 (08:35→22:01)
[2017-08-04] MEDS: METOPROLOL 25 MG TAB PO SCH ×2 (08:35→22:01)
--- NOTE | 2017-08-04 13:25 | CONS ---
Date/Time of Note Date/Time of Note DATE: 08/04/17 TIME: 13:24 Assessment/Plan Assessment/Plan Additional Assessment/Plan 1. Positive troponin in the setting of renal failure, but chest pain and cardiac risk factors, assess significance.- Now trended negative and s/p lexiscan with no ischemia/NL EF.Echo n10/10 with NL EF 50-55. Moid OK to proceed to surgery for rectal prolapse from cardiac standpoint at moderate CV risk on current medications including low dose BB continue pre-post- operatively. Avoid large fluid shifts/swings in blood pressure as possible- TOLERATED procedure well. 2. Abnormal electrocardiogram with nonspecific ST-T abnormalities and initial anterolateral T-wave inversions. 3. Hypertension-refusing medications but patient BP on lower end today 4. Rectal prolapse. 5. Hepatitis C antibody positive, hepatitis B core antibody positive. 6. Anemia. 7. End-stage renal disease on hemodialysis- ON HD now. Consultation Date/Type/Reason Admit Date/Time Jul 22, 2017 at 19:26 Initial Consult Date 07/23/17 Type of Consultation: cardiology Referring Provider: KISHAN MJEIA MD 24 HR Interval Summary Free Text/Dictation NO acute events - HD now. ROS: No fever, no chills, no nausea, no vomiting, no diarrhea/constipation No recent weight changes No chest pain, no PND, no orthopnea No dizziness, blurred vision No thirst, no heat or cold intolerance Exam/Review of Systems Vital Signs Vitals Vital Signs Date Time Temp Pulse Resp B/P Pulse Ox O2 Delivery O2 Flow Rate FiO2 08/04/17 13:13 64 14 08/04/17 07:54 98.7 123/73 92 08/03/17 20:00 Nasal Cannula 2.0 Intake and Output 08/03/17 08/03/17 08/04/17 14:59 22:59 06:59 Intake Total 275 ml 500 ml Output Total 150 ml Balance -150 ml 275 ml 500 ml Exam General: WN/WD/NAD, AOx 1-2 HEENT: Unicetric/atraumatic/EOMI (follow commands) NECK: JVD elevated, no thyromegaly Lymph: no lymphadenopathy HEART: regular with no S3, II/ systolic murmur at apex LUNGS: Coarse sounds ABD: soft, NT, ND, +BS : Intact Neuro: non focal SKIN: chronic changes EXT: trace edema Results Result Diagram: 08/04/17 0425 08/04/17 0425 Results 24 hrs Laboratory Tests Test 08/04/17 04:25 White Blood Count 14.1 #H Red Blood Count 2.92 L Hemoglobin 8.0 L Hematocrit 26.1 L Mean Corpuscular Volume 89.4 Mean Corpuscular Hemoglobin 27.4 L Mean Corpuscular Hemoglobin Concent 30.7 L Red Cell Distribution Width 15.5 H Platelet Count 326 Mean Platelet Volume 10.4 Neutrophils % 85.1 H Lymphocytes % 10.9 L Monocytes % 3.0 Eosinophils % 0.1 Basophils % 0.5 Nucleated Red Blood Cells % 0.0 Neutrophils # 12.0 H Lymphocytes # 1.5 Monocytes # 0.4 Eosinophils # 0.0 Basophils # 0.1 Nucleated Red Blood Cells # 0.0 Sodium Level 133 L Potassium Level 5.8 #H Chloride Level 99 Carbon Dioxide Level 22 Anion Gap 18 #H Blood Urea Nitrogen 58 H Creatinine 8.32 #H Glucose Level 67 #L Calcium Level 7.8 L Total Bilirubin 0.0 L Direct Bilirubin 0.00 Indirect Bilirubin 0.0 Aspartate Amino Transf (AST/SGOT) 18 Alanine Aminotransferase (ALT/SGPT) 27 Alkaline Phosphatase 57 Total Protein 5.4 L Albumin 2.7 L Globulin 2.70 Albumin/Globulin Ratio 1.00 Medications Medications Current Medications Acetaminophen (Tylenol Tab) 650 mg Q6H PRN PO PAIN AND OR ELEVATED TEMP; Start 07/22/17 at 20:30 Ondansetron HCl (Zofran Inj) 4 mg Q6H PRN IV NAUSEA AND/OR VOMITING; Start 07/22/17 at 23:00 Docusate Sodium (Colace) 100 mg Q12H PRN PO CONSTIPATION; Start 07/22/17 at 23: 00 Bisacodyl (Dulcolax) 5 mg DAILY PRN PO CONSTIPATION; Start 07/22/17 at 23:00 Acetaminophen/ Hydrocodone Bitart ([place] (5/325)) 1 tab Q6H PRN PO Breakthrough Pain Last administered on 07/31/17 01:41; Admin Dose 1 TAB; Start 07/24/17 at 11:30 Guaifenesin/ Dextromethorphan (Robitussin Dm Liquid Cup) 5 ml TID PRN PO Cough Last administered on 07/28/17 21:19; Admin Dose 5 ML; Start 07/24/17 at 11:30 Alprazolam (Xanax) 1 mg Q8H PRN PO ANXIETY Last administered on 08/04/17 08: 26; Admin Dose 1 MG; Start 07/25/17 at 22:00 Pantoprazole (Protonix Tab) 40 mg DAILY@06 PO Last administered on 08/04/17 05:35; Admin Dose 40 MG; Start 07/28/17 at 06:00 Nitroglycerin (Nitroglycerin (Sl Tab) 0.4 Mg) 1 tab Q5M PRN SL ANGINA Last administered on 07/28/17 06:49; Admin Dose 1 TAB; Start 07/28/17 at 05:30 Aspirin (Aspirin) 81 mg DAILY PO Last administered on 08/04/17 08:26; Admin Dose 81 MG; Start 07/30/17 at 09:00 Metoprolol Tartrate (Lopressor) 12.5 mg BID PO Last administered on 08/03/17 20:27; Admin Dose 12.5 MG; Start 07/29/17 at 21:00 Isosorbide Dinitrate (Isordil) 20 mg TID PO Last administered on 08/03/17 20: 27; Admin Dose 20 MG; Start 07/29/17 at 21:00 Clonidine 0.1 mg 0.1 mg BID PO Last administered on 08/03/17 20:26; Admin Dose 0.1 MG; Start 08/01/17 at 21:00 Metronidazole 100 ml @ 100 mls/hr Q8H IVPB Last administered on 08/04/17 06: 39; Admin Dose 100 MLS/HR; Start 08/03/17 at 15:00; Stop 08/04/17 at 14:59 Ciprofloxacin/ Dextrose (Cipro Ivpb) 200 ml @ 200 mls/hr DAILY IVPB Last administered on 08/04/17 08:27; Admin Dose 200 MLS/HR; Start 08/03/17 at 15: 00; Stop 08/04/17 at 14:59 Ketorolac Tromethamine (Toradol) 15 mg Q6H PRN IV PAIN Last administered on 12:25; Admin Dose 15 MG; Start 08/03/17 at 15:00; Stop 08/06/17 at 14: 59 Morphine Sulfate (morphine) 5 mg Q4H PRN IV For pain 7-10 Last administered on 08/04/17t 09:48; Admin Dose 5 MG; Start 08/03/17 at 18:30 NASREEN CRUZ MD Aug 04, 2017 13:25
--- NOTE | 2017-08-04 23:56 | PN ---
Date/Time of Note Date/Time of Note DATE: 08/04/17 TIME: 23:53 Assessment/Plan Lines/Catheters IV Catheter Type (from Nrs): lcw gen cath. Patino in Place (from Nrs): No Assessment/Plan Chief Complaint/Hosp Course 1. Rectal prolapse status post laparoscopic LAR, rectopexy, biologic 08/03. Doing well. -Avoid straining -Diet advance as tolerated 2. Leukocytosis probably reactive -monitor 3. ESRD: -hd per renal 4. Electrolyte imbalance: -optimize lytes 5. Hypoalbuminemia with hypocalcemia: nutritional +/- inflammation -as above -optimize nutrition 6. Anemia: without acute bleed -monitor and transfuse as needed 7. Hepatitis with reactive serology -medical management 8. UTI s/p abx per sensitivity -frequent bladder emptying 9. Chest pain: no current c/o pain; trop +; EKG: NSR. Cleared by Cardiology. -cardiac optimization 10. Pleural effusion: comfortable on room air -IS -cont diuresis and HD Thank you, Problems: Subjective 24 Hr Interval Summary s/p laparoscopic LAR, rectopexy 08/03. Feels good overall. Minimal pain. No fevers, chills, sob, congested cough, n/v/d/dysuria, avitia, dizziness, cp, palpitations. No dysuria. On clears. Passing flatus however no bowel movement. Exam/Review of Systems Vital Signs Vitals Vital Signs Date Time Temp Pulse Resp B/P Pulse Ox O2 Delivery O2 Flow Rate FiO2 08/04/17 20:44 98.4 74 18 108/58 90 08/03/17 20:00 Nasal Cannula 2.0 Intake and Output 08/03/17 08/03/17 08/04/17 15:00 23:00 07:00 Intake Total 275 ml 500 ml Output Total 150 ml Balance -150 ml 275 ml 500 ml Exam Free Text/Dictation Constitutional: alert, oriented Psych: nl mood Head: atraumatic, normocephalic Eyes: nl conjunctiva, nl lids, nl sclera ENMT: No mucosa pink and moist (dry) Neck: non-tender, supple Respiratory: diminished breath sounds (at bases), No labored breathing Cardiovascular: nl pulses, regular rate and rhythm, No edema Gastrointestinal: non-tender, soft, No distended, No rebound or guarding Genitourinary - Female: No further prolapse Musculoskeletal: nl extremities to inspection Extremities: normal pulses, No edema 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: nl speech, nl strength Skin: No rash or lesions Rectal: No further prolapse Results Result Diagram: 08/04/1742408/04/17 0425 KLARISSA ELIZONDO MD Aug 04, 2017 23:56
[2017-08-05 02:49] VITALS: BP 100/62; RESP 16
[2017-08-05] MEDS: PANTOPRAZOLE (EC) 40 MG TAB PO SCH (05:27)
[2017-08-05] MEDS: morphine 10 MG INJ IV PRN ×3 (05:27→15:29)
[2017-08-05] MEDS: CALCIUM ACETATE 667 MG CAP PO SCH ×4 (07:35→20:45)
[2017-08-05 07:48] LABS: ABNORMAL IP MESSAGE 1; HEMATOCRIT 22.1 % (37.0-47.0); MEAN CORPUSCULAR HEMOGLOBIN 26.7 pg (29.0-33.0); MEAN CORPUSCULAR HGB CONC 29.4 g/dl (32.0-37.0); MEAN CORPUSCULAR VOLUME 90.9 fl (82.0-101.0); MEAN PLATELET VOLUME 10.6 fl (7.4-10.4); PLATELET COUNT 266 10^3/UL (140-415); RED BLOOD COUNT 2.43 10^6/ul (4.20-5.40); RED CELL DISTRIBUTION WIDTH 15.8 % (11.5-14.5); WHITE BLOOD COUNT 6.6 10^3/ul (4.8-10.8)
[2017-08-05 07:53] LABS: HEMOGLOBIN 6.5 g/dl (12.0-16.0); POSITIVE DIFF @See below
[2017-08-05 08:02] VITALS: BP 115/72; RESP 20
[2017-08-05 08:20] LABS: ALBUMIN 2.1 g/dl (3.3-4.9); ALBUMIN/GLOBULIN RATIO 0.75; BILIRUBIN,INDIRECT 0.1 mg/dl (0-1.1); BILIRUBIN,TOTAL 0.1 mg/dl (0.2-1.3); CALCIUM 7.7 mg/dl (8.4-10.2); CREATININE 6.07 mg/dl (0.44-1.00); POTASSIUM 3.9 mmol/L (3.5-5.1); TOTAL PROTEIN 4.9 g/dl (6.1-8.1)
[2017-08-05] MEDS: ASPIRIN 81 MG TAB PO SCH (08:34)
[2017-08-05] MEDS: METOPROLOL 25 MG TAB PO SCH ×2 (08:35→20:46)
[2017-08-05] MEDS: ISOSORBIDE DINITRATE 20 MG TAB PO SCH ×3 (08:35→20:45)
[2017-08-05] MEDS: ALPRAZOLAM 0.5 MG TAB PO PRN ×2 (08:39→19:53)
[2017-08-05 10:07] LABS: ANISOCYTOSIS 1+ (0-0); EOSINOPHILS % (M) 3 % (0-7); MICROCYTOSIS 1+ (0-0); MONOCYTES % (M) 4 % (0-11); PLATELET ESTIMATE NORMAL; POLYCHROMASIA 3+ (0-0)
[2017-08-05 13:41] VITALS: BP 125/76; RESP 18
--- NOTE | 2017-08-05 15:46 | PN ---
Date/Time of Note Date/Time of Note DATE: 08/05/17 TIME: 15:37 Assessment/Plan Lines/Catheters IV Catheter Type (from Nrs): LCW Miguel Patino in Place (from Nrs): No Assessment/Plan Chief Complaint/Hosp Course 1. Rectal prolapse status post laparoscopic LAR, rectopexy, biologic 08/03; tolerating clear with +bowel function -Avoid straining -Diet advance as tolerated 2. Leukocytosis probably reactive: normalized -monitor 3. ESRD: -hd per renal 4. Electrolyte imbalance: -optimize lytes 5. Hypoalbuminemia with hypocalcemia: nutritional +/- inflammation -as above -optimize nutrition 6. Anemia: without acute bleed: s/p 1 unit prbc tx today -monitor and transfuse as needed 7. Hepatitis with reactive serology -medical management 8. UTI s/p abx per sensitivity -frequent bladder emptying 9. Chest pain: no current c/o pain; trop +; EKG: NSR. Cleared by Cardiology. -cardiac optimization 10. Pleural effusion: comfortable on room air -IS -cont diuresis and HD Thank you. Patient seen and examined in collaboration with Dr. Deep Zhang. Problems: Subjective 24 Hr Interval Summary Pain improved. + flatus and small bm. No meri bleed from rectum. No fevers, chills, sob, congested cough, n/v/d/dysuria, cp, palpitations. S/p 1 unit prbc tx today. Exam/Review of Systems Vital Signs Vitals Vital Signs Date Time Temp Pulse Resp B/P Pulse Ox O2 Delivery O2 Flow Rate FiO2 08/05/17 13:41 97.5 60 18 125/76 94 08/05/17 10:00 Nasal Cannula 2.0 Intake and Output 08/04/17 08/04/17 08/05/17 15:00 23:00 07:00 Intake Total 800 ml 2100 ml 340 ml Output Total 1500 ml Balance -700 ml 2100 ml 340 ml Exam Free Text/Dictation Constitutional: alert, oriented Psych: nl mood Head: atraumatic, normocephalic Eyes: nl conjunctiva, nl lids, nl sclera ENMT: No mucosa pink and moist (dry) Neck: non-tender, supple Respiratory: diminished breath sounds (at bases), No labored breathing Cardiovascular: nl pulses, regular rate and rhythm, No edema Gastrointestinal: non-tender, soft, No distended, No rebound or guarding Genitourinary - Female: No further prolapse Musculoskeletal: nl extremities to inspection Extremities: normal pulses, No edema 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: nl speech, nl strength Skin: No rash or lesions Rectal: No further prolapse, no meri bleed noted Results Result Diagram: 08/05/17 0536 08/05/17 0536 RAFFY GRAHAM NP Aug 05, 2017 15:46
--- NOTE | 2017-08-05 16:37 | PN ---
Date/Time of Note Date/Time of Note DATE: 08/05/17 TIME: 16:30 Assessment/Plan VTE Prophylaxis VTE Prophylaxis Intervention: contraindicated VTE Contraindication Reason: bleeding Lines/Catheters IV Catheter Type (from Nrs): LCW Miguel Urinary Cath still in place: No Assessment/Plan Chief Complaint/Hosp Course 62 y/o with 1. Rectal prolapse, severe.status post laparoscopic LAR, rectopexy, biologic 08/03; on full liquid 2. Leukocytosis > imrpoved 3. Anemia likely End-stage renal disease however with acute drop no bleeding noted 4. Hepatitis B core antibody positive. 5 pleural effusion 6 NSTEMI 7 S/P LEXISCAN NEG Plan - HD tmw - 1 unit PRBC - Full liquid diet - Decrease Morphine,add ultram - PT - Epogen Problems: Subjective 24 Hr Interval Summary Free Text/Dictation Abdominal pain present Pt not ambulating much Hb dropped today 6.5 no active bleed noted Exam/Review of Systems Vital Signs Vitals Vital Signs Date Time Temp Pulse Resp B/P Pulse Ox O2 Delivery O2 Flow Rate FiO2 08/05/17 13:41 97.5 60 18 125/76 94 08/05/17 10:00 Nasal Cannula 2.0 Intake and Output 08/04/17 08/04/17 08/05/17 15:00 23:00 07:00 Intake Total 800 ml 2100 ml 340 ml Output Total 1500 ml Balance -700 ml 2100 ml 340 ml Exam Exam Respiratory: clear to auscultation Cardiovascular: regular rate and rhythm Gastrointestinal: bowel sounds (+), soft Results Result Diagram: 08/05/17 0536 08/05/17 0536 Results 24 hrs Laboratory Tests Test 08/05/17 05:36 White Blood Count 6.6 # Red Blood Count 2.43 L Hemoglobin 6.5 *L Hematocrit 22.1 L Mean Corpuscular Volume 90.9 Mean Corpuscular Hemoglobin 26.7 L Mean Corpuscular Hemoglobin Concent 29.4 L Red Cell Distribution Width 15.8 H Platelet Count 266 Mean Platelet Volume 10.6 H Neutrophils % Segmented Neutrophils % (Manual) 72 Band Neutrophils % (Manual) 1 Lymphocytes % Lymphocytes % (Manual) 21 Monocytes % Monocytes % (Manual) 4 Eosinophils % Eosinophils % (Manual) 3 Basophils % Nucleated Red Blood Cells % 0.0 Neutrophils # Neutrophils # (Manual) 4.8 Band Neutrophils # 0.0 Absolute Lymphocytes (Manual) 1.3 Lymphocytes # Monocytes # Absolute Monocytes (Manual) 0.2 L Eosinophils # Basophils # Nucleated Red Blood Cells # Platelet Estimate NORMAL Polychromasia 3+ Anisocytosis 1+ Microcytosis 1+ Sodium Level 135 Potassium Level 3.9 Chloride Level 98 Carbon Dioxide Level 30 Anion Gap 11 # Blood Urea Nitrogen 36 #H Creatinine 6.07 #H Glucose Level 76 Calcium Level 7.7 L Total Bilirubin 0.1 L Direct Bilirubin 0.00 Indirect Bilirubin 0.1 Aspartate Amino Transf (AST/SGOT) 15 Alanine Aminotransferase (ALT/SGPT) 23 Alkaline Phosphatase 51 Total Protein 4.9 L Albumin 2.1 L Globulin 2.80 Albumin/Globulin Ratio 0.75 Medications Medications Current Medications Acetaminophen (Tylenol Tab) 650 mg Q6H PRN PO PAIN AND OR ELEVATED TEMP; Start 07/22/17 at 20:30 Ondansetron HCl (Zofran Inj) 4 mg Q6H PRN IV NAUSEA AND/OR VOMITING; Start 07/22/17 at 23:00 Docusate Sodium (Colace) 100 mg Q12H PRN PO CONSTIPATION; Start 07/22/17 at 23: 00 Bisacodyl (Dulcolax) 5 mg DAILY PRN PO CONSTIPATION; Start 07/22/17 at 23:00 Acetaminophen/ Hydrocodone Bitart ([place] (5/325)) 1 tab Q6H PRN PO Breakthrough Pain Last administered on 07/31/17 01:41; Admin Dose 1 TAB; Start 07/24/17 at 11:30 Guaifenesin/ Dextromethorphan (Robitussin Dm Liquid Cup) 5 ml TID PRN PO Cough Last administered on 07/28/17 21:19; Admin Dose 5 ML; Start 07/24/17 at 11:30 Alprazolam (Xanax) 1 mg Q8H PRN PO ANXIETY Last administered on 08/05/17 08: 39; Admin Dose 1 MG; Start 07/25/17 at 22:00 Pantoprazole (Protonix Tab) 40 mg DAILY@06 PO Last administered on 08/05/17 05:27; Admin Dose 40 MG; Start 07/28/17 at 06:00 Nitroglycerin (Nitroglycerin (Sl Tab) 0.4 Mg) 1 tab Q5M PRN SL ANGINA Last administered on 07/28/17 06:49; Admin Dose 1 TAB; Start 07/28/17 at 05:30 Aspirin (Aspirin) 81 mg DAILY PO Last administered on 08/05/17 08:34; Admin Dose 81 MG; Start 07/30/17 at 09:00 Metoprolol Tartrate (Lopressor) 12.5 mg BID PO Last administered on 08/05/17 08:35; Admin Dose 12.5 MG; Start 07/29/17 at 21:00 Isosorbide Dinitrate (Isordil) 20 mg TID PO Last administered on 08/05/17 13: 39; Admin Dose 20 MG; Start 07/29/17 at 21:00 Clonidine (Catapres) 0.1 mg BID PO Last administered on 08/04/17 22:01; Admin Dose 0.1 MG; Start 08/01/17 at 21:00 Morphine Sulfate (morphine) 5 mg Q4H PRN IV For pain 7-10 Last administered on 08/05/17 15:29; Admin Dose 5 MG; Start 08/03/17 at 18:30 ROSLYN SHANNON MD Aug 05, 2017 16:37
--- NOTE | 2017-08-05 16:53 | CONS ---
Date/Time of Note Date/Time of Note DATE: 08/05/17 TIME: 16:50 Assessment/Plan Assessment/Plan Chief Complaint/Hosp Course IMPRESSION: 1. Positive troponin in the setting of renal failure, but chest pain and cardiac risk factors, assess significance.- Now trended negative and s/p lexiscan with no ischemia/NL EF.Echo n10/10 with NL EF 50-55. Mod OK to proceed to surgery for rectal prolapse from cardiac standpoint at moderate CV risk on current medications including low dose BB continue pre-post- operatively. Avoid large fluid shifts/swings in blood pressure as possible-Now post-op s/p rectal prolapse surgery 2. Abnormal electrocardiogram with nonspecific ST-T abnormalities and initial anterolateral T-wave inversions. 3. Hypertension-refusing medications but patient BP on lower end today 4. Rectal prolapse. 5. Hepatitis C antibody positive, hepatitis B core antibody positive. 6. Anemia. 7. End-stage renal disease on hemodialysis. Recc: -Continue low dose BB/isordil as tolerated [id number] -Possible need to d/c clonidine as being held and thus will make prn at this time -Continue baseline isordil/clonidine as patient will comply and tolerated/ necessary -Contnue asa -routine post-op care -Pain control Problems: Consultation Date/Type/Reason Admit Date/Time Jul 22, 2017 at 19:26 Initial Consult Date 07/23/17 Type of Consultation: cardiology Reason for Consultation pre-op/positive troponin Referring Provider: KISHAN MEJIA MD Exam/Review of Systems Vital Signs Vitals Vital Signs Date Time Temp Pulse Resp B/P Pulse Ox O2 Delivery O2 Flow Rate FiO2 08/05/17 13:41 97.5 60 18 125/76 94 08/05/17 10:00 Nasal Cannula 2.0 Intake and Output 08/04/17 08/04/17 08/05/17 15:00 23:00 07:00 Intake Total 800 ml 2100 ml 340 ml Output Total 1500 ml Balance -700 ml 2100 ml 340 ml Exam Review of Systems: CONSTITUTIONAL: No fevers, chills. PULMONARY: No sob CARDIOVASCULAR: No chest pain/palpitations GASTROINTESTINAL: No nausea/vomiting. GENITOURINARY: No hematuria/dysuria. MUSCULOSKELETAL: Pain at incision site PSYCHIATRIC: The patient denies depression. NEUROLOGIC: No weakness Constitutional: alert Psych: no complaints Head: normocephalic ENMT: mucosa pink and moist Neck: jvd (9 cm water), supple Respiratory: clear to auscultation Cardiovascular: regular rate and rhythm Gastrointestinal: non-tender, soft Musculoskeletal: muscle tone (normal), other (incision site c/d/i) Extremities: edema (none) 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: other (No focal deficits) Results Result Diagram: 08/05/17 0536 08/05/17 0536 Results 24 hrs Laboratory Tests Test 08/05/17 05:36 White Blood Count 6.6 # Red Blood Count 2.43 L Hemoglobin 6.5 *L Hematocrit 22.1 L Mean Corpuscular Volume 90.9 Mean Corpuscular Hemoglobin 26.7 L Mean Corpuscular Hemoglobin Concent 29.4 L Red Cell Distribution Width 15.8 H Platelet Count 266 Mean Platelet Volume 10.6 H Neutrophils % Segmented Neutrophils % (Manual) 72 Band Neutrophils % (Manual) 1 Lymphocytes % Lymphocytes % (Manual) 21 Monocytes % Monocytes % (Manual) 4 Eosinophils % Eosinophils % (Manual) 3 Basophils % Nucleated Red Blood Cells % 0.0 Neutrophils # Neutrophils # (Manual) 4.8 Band Neutrophils # 0.0 Absolute Lymphocytes (Manual) 1.3 Lymphocytes # Monocytes # Absolute Monocytes (Manual) 0.2 L Eosinophils # Basophils # Nucleated Red Blood Cells # Platelet Estimate NORMAL Polychromasia 3+ Anisocytosis 1+ Microcytosis 1+ Sodium Level 135 Potassium Level 3.9 Chloride Level 98 Carbon Dioxide Level 30 Anion Gap 11 # Blood Urea Nitrogen 36 #H Creatinine 6.07 #H Glucose Level 76 Calcium Level 7.7 L Total Bilirubin 0.1 L Direct Bilirubin 0.00 Indirect Bilirubin 0.1 Aspartate Amino Transf (AST/SGOT) 15 Alanine Aminotransferase (ALT/SGPT) 23 Alkaline Phosphatase 51 Total Protein 4.9 L Albumin 2.1 L Globulin 2.80 Albumin/Globulin Ratio 0.75 Medications Medications Current Medications Acetaminophen (Tylenol Tab) 650 mg Q6H PRN PO PAIN AND OR ELEVATED TEMP; Start 07/22/17 at 20:30 Ondansetron HCl (Zofran Inj) 4 mg Q6H PRN IV NAUSEA AND/OR VOMITING; Start 07/22/17 at 23:00 Bisacodyl (Dulcolax) 5 mg DAILY PRN PO CONSTIPATION; Start 07/22/17 at 23:00 Acetaminophen/ Hydrocodone Bitart ([place] (5/325)) 1 tab Q6H PRN PO Breakthrough Pain Last administered on 07/31/17 01:41; Admin Dose 1 TAB; Start 07/24/17 at 11:30 Guaifenesin/ Dextromethorphan (Robitussin Dm Liquid Cup) 5 ml TID PRN PO Cough Last administered on 07/28/17 21:19; Admin Dose 5 ML; Start 07/24/17 at 11:30 Alprazolam (Xanax) 1 mg Q8H PRN PO ANXIETY Last administered on 08/05/17 08: 39; Admin Dose 1 MG; Start 07/25/17 at 22:00 Pantoprazole (Protonix Tab) 40 mg DAILY@06 PO Last administered on 08/05/17 05:27; Admin Dose 40 MG; Start 07/28/17 at 06:00 Nitroglycerin (Nitroglycerin (Sl Tab) 0.4 Mg) 1 tab Q5M PRN SL ANGINA Last administered on 07/28/17 06:49; Admin Dose 1 TAB; Start 07/28/17 at 05:30 Aspirin (Aspirin) 81 mg DAILY PO Last administered on 08/05/17 08:34; Admin Dose 81 MG; Start 07/30/17 at 09:00 Metoprolol Tartrate (Lopressor) 12.5 mg BID PO Last administered on 08/05/17 08:35; Admin Dose 12.5 MG; Start 07/29/17 at 21:00 Isosorbide Dinitrate (Isordil) 20 mg TID PO Last administered on 08/05/17 13: 39; Admin Dose 20 MG; Start 07/29/17 at 21:00 Clonidine (Catapres) 0.1 mg BID PO Last administered on 08/04/17 22:01; Admin Dose 0.1 MG; Start 08/01/17 at 21:00 Tramadol HCl (Ultram) 50 mg Q6H PRN PO pain; Start 08/05/17 at 16:30; Status UNV Morphine Sulfate (morphine) 2 mg Q4H PRN IV pain; Start 08/05/17 at 17:00; Status UNV Docusate Sodium (Colace) 100 mg Q12H PO ; Start 08/05/17 at 23:00; Status UNV CONI ENRIQUEZ Aug 05, 2017 16:53
[2017-08-05] MEDS: morphine 2 MG INJ IV PRN (19:54)
[2017-08-05] MEDS: GUAIFENESIN/DM 5ML CUP PO PRN (20:45)
[2017-08-05] MEDS: DOCUSATE SODIUM 100 MG CAP PO SCH (20:47)
[2017-08-05 20:49] VITALS: BP 126/72; RESP 16
[2017-08-06] VITALS (12 sets, daily range): BP systolic 118–170; BP diastolic 65–96; PULSE 61–72; RESP 16–18
[2017-08-06] MEDS: morphine 2 MG INJ IV PRN ×2 (02:02→06:51)
[2017-08-06 05:36] LABS: BASOPHIL # 0.1 10^3/ul (0.0-0.1); BASOPHILS % 1.1 % (0.0-2.0); EOSINOPHILS # 0.6 10^3/ul (0.0-0.5); EOSINOPHILS % 6.5 % (0.0-7.0); HEMATOCRIT 25.6 % (37.0-47.0); HEMOGLOBIN 7.9 g/dl (12.0-16.0); LYMPHOCYTES # 2.1 10^3/ul (0.8-2.9); LYMPHOCYTES % 25.1 % (15.0-51.0); MEAN CORPUSCULAR HEMOGLOBIN 27.7 pg (29.0-33.0); MEAN CORPUSCULAR HGB CONC 30.9 g/dl (32.0-37.0); MEAN CORPUSCULAR VOLUME 89.8 fl (82.0-101.0); MEAN PLATELET VOLUME 10.4 fl (7.4-10.4); MONOCYTE # 0.7 10^3/ul (0.3-0.9); MONOCYTES % 8.2 % (0.0-11.0); NEUTROPHIL # 4.9 10^3/ul (1.6-7.5); NEUTROPHILS % 58.6 % (39.0-77.0); PLATELET COUNT 276 10^3/UL (140-415); RED BLOOD COUNT 2.85 10^6/ul (4.20-5.40); RED CELL DISTRIBUTION WIDTH 15.9 % (11.5-14.5); WHITE BLOOD COUNT 8.4 10^3/ul (4.8-10.8)
[2017-08-06] MEDS: PANTOPRAZOLE (EC) 40 MG TAB PO SCH (05:47)
[2017-08-06 06:45] LABS: CREATININE 7.41 mg/dl (0.44-1.00); POTASSIUM 4.2 mmol/L (3.5-5.1)
[2017-08-06] MEDS ORDERED: HEPARIN 1000 UNITS/ML 10 ML INJ CATHETER SCH (08:30)
[2017-08-06] MEDS: ISOSORBIDE DINITRATE 20 MG TAB PO SCH ×3 (09:00→20:54)
[2017-08-06] MEDS: METOPROLOL 25 MG TAB PO SCH ×2 (09:00→20:55)
--- NOTE | 2017-08-06 09:38 | CONS ---
Date/Time of Note Date/Time of Note DATE: 08/06/17 TIME: 09:37 Assessment/Plan Assessment/Plan Additional Assessment/Plan 1. Positive troponin in the setting of renal failure, but chest pain and cardiac risk factors, assess significance.- Now trended negative and s/p lexiscan with no ischemia/NL EF.Echo n10/10 with NL EF 50-55. Mod OK to proceed to surgery for rectal prolapse from cardiac standpoint at moderate CV risk on current medications including low dose BB continue pre-post- operatively. Avoid large fluid shifts/swings in blood pressure as possible-Now post-op s/p rectal prolapse surgery - tolerated well 2. Abnormal electrocardiogram with nonspecific ST-T abnormalities and initial anterolateral T-wave inversions.NO CP now. 3. Hypertension-refusing medications but patient BP on lower end today- reasonable control - margi rx with renal team. 4. Rectal prolapse. 5. Hepatitis C antibody positive, hepatitis B core antibody positive. 6. Anemia. 7. End-stage renal disease on hemodialysis. Consultation Date/Type/Reason Admit Date/Time Jul 22, 2017 at 19:26 Initial Consult Date 07/23/17 Type of Consultation: cardiology Referring Provider: KISHAN MEJIA MD 24 HR Interval Summary Free Text/Dictation NO acute events - off tele now - no CP. ROS: No fever, no chills, no nausea, no vomiting, no diarrhea/constipation No recent weight changes No chest pain, no PND, no orthopnea No dizziness, blurred vision No thirst, no heat or cold intolerance Exam/Review of Systems Vital Signs Vitals Vital Signs Date Time Temp Pulse Resp B/P Pulse Ox O2 Delivery O2 Flow Rate FiO2 08/06/17 08:30 98.3 71 16 150/65 99 08/05/17 20:00 Nasal Cannula 2.0 Intake and Output 08/05/17 08/05/17 08/06/17 15:00 23:00 07:00 Intake Total 1000 ml 920 ml Balance 1000 ml 920 ml Exam General: WN/WD/NAD, AOx 3 HEENT: Unicetric/atraumatic/EOMI (follows commands) NECK: JVD elevated, no thyromegaly Lymph: no lymphadenopathy HEART: regular with no S3, II/ systolic murmur at apex LUNGS: Coarse sounds ABD: soft, NT, ND, +BS : Intact Neuro: non focal SKIN: chronic changes EXT: trace edema Results Result Diagram: 08/06/17 0451 08/06/17 0451 Results 24 hrs Laboratory Tests Test 08/06/17 04:51 08/06/17 05:25 White Blood Count 8.4 # Red Blood Count 2.85 L Hemoglobin 7.9 #L Hematocrit 25.6 L Mean Corpuscular Volume 89.8 Mean Corpuscular Hemoglobin 27.7 L Mean Corpuscular Hemoglobin Concent 30.9 L Red Cell Distribution Width 15.9 H Platelet Count 276 Mean Platelet Volume 10.4 Neutrophils % 58.6 Lymphocytes % 25.1 Monocytes % 8.2 Eosinophils % 6.5 Basophils % 1.1 Nucleated Red Blood Cells % 0.0 Neutrophils # 4.9 Lymphocytes # 2.1 Monocytes # 0.7 Eosinophils # 0.6 H Basophils # 0.1 Nucleated Red Blood Cells # 0.0 Sodium Level 137 Potassium Level 4.2 Chloride Level 101 Carbon Dioxide Level 27 Anion Gap 13 Blood Urea Nitrogen 44 H Creatinine 7.41 H Glucose Level 76 Calcium Level 8.0 L Lab Scanned Report BLOOD TRANSFUSION Medications Medications Current Medications Acetaminophen (Tylenol Tab) 650 mg Q6H PRN PO PAIN AND OR ELEVATED TEMP; Start 07/22/17 at 20:30 Ondansetron HCl (Zofran Inj) 4 mg Q6H PRN IV NAUSEA AND/OR VOMITING; Start 07/22/17 at 23:00 Bisacodyl (Dulcolax) 5 mg DAILY PRN PO CONSTIPATION; Start 07/22/17 at 23:00 Acetaminophen/ Hydrocodone Bitart ([place] (5/325)) 1 tab Q6H PRN PO Breakthrough Pain Last administered on 07/31/17 01:41; Admin Dose 1 TAB; Start 07/24/17 at 11:30 Guaifenesin/ Dextromethorphan (Robitussin Dm Liquid Cup) 5 ml TID PRN PO Cough Last administered on 08/05/17 20:45; Admin Dose 5 ML; Start 07/24/17 at 11:30 Alprazolam (Xanax) 1 mg Q8H PRN PO ANXIETY Last administered on 08/05/17 19: 53; Admin Dose 1 MG; Start 07/25/17 at 22:00 Pantoprazole (Protonix Tab) 40 mg DAILY@06 PO Last administered on 08/06/17 05:47; Admin Dose 40 MG; Start 07/28/17 at 06:00 Nitroglycerin (Nitroglycerin (Sl Tab) 0.4 Mg) 1 tab Q5M PRN SL ANGINA Last administered on 07/28/17 06:49; Admin Dose 1 TAB; Start 07/28/17 at 05:30 Aspirin (Aspirin) 81 mg DAILY PO Last administered on 08/05/17 08:34; Admin Dose 81 MG; Start 07/30/17 at 09:00 Metoprolol Tartrate (Lopressor) 12.5 mg BID PO Last administered on 08/05/17 20:46; Admin Dose 12.5 MG; Start 07/29/17 at 21:00 Isosorbide Dinitrate (Isordil) 20 mg TID PO Last administered on 08/05/17 20: 45; Admin Dose 20 MG; Start 07/29/17 at 21:00 Tramadol HCl (Ultram) 50 mg Q6H PRN PO pain; Start 08/05/17 at 16:30 Morphine Sulfate (morphine) 2 mg Q4H PRN IV pain Last administered on 06:51; Admin Dose 2 MG; Start 08/05/17 at 17:00 Docusate Sodium (Colace) 100 mg Q12 PO Last administered on 08/05/17 20:47; Admin Dose 100 MG; Start 08/05/17 at 21:00 Clonidine (Catapres) 0.1 mg Q6 PRN PO SBP>170; Start 08/05/17 at 17:00 NASREEN CRUZ MD Aug 06, 2017 09:38
[2017-08-06] MEDS: ASPIRIN 81 MG TAB PO SCH (09:49)
[2017-08-06] MEDS: DOCUSATE SODIUM 100 MG CAP PO SCH ×2 (09:49→20:54)
[2017-08-06] MEDS: ALPRAZOLAM 0.5 MG TAB PO PRN ×2 (09:51→20:54)
[2017-08-06] MEDS: CALCIUM ACETATE 667 MG CAP PO SCH ×2 (11:30→17:24)
--- NOTE | 2017-08-06 12:17 | CONS ---
Date/Time of Note Date/Time of Note DATE: 08/06/17 TIME: 12:13 Assessment/Plan Assessment/Plan Chief Complaint/Hosp Course 62 y/o with 1. Rectal prolapse, severe.status post laparoscopic LAR, rectopexy, biologic 08/03; improving 2. Leukocytosis > imrpoved 3. Anemia likely End-stage renal disease however with acute drop no bleeding noted 4. Hepatitis B core antibody positive. 5 pleural effusion 6 NSTEMI 7 S/P LEXISCAN NEG Plan - HD today - 1 unit PRBC along with HD - Repeat Chest Xray - Advance diet to renal diet - c/w Morphine and ultram - PT - Epogen - Possible SNIF arrangement along with HD, spoke to energy efficient site manager Problems: Consultation Date/Type/Reason Admit Date/Time Jul 22, 2017 at 19:26 Initial Consult Date 07/23/17 Type of Consultation: cardiology Referring Provider: KISHAN MEJIA MD 24 HR Interval Summary Free Text/Dictation Able to tolerate diet well pt very weak, Receiving 1 unit of PRBC along with HD Exam/Review of Systems Vital Signs Vitals Vital Signs Date Time Temp Pulse Resp B/P Pulse Ox O2 Delivery O2 Flow Rate FiO2 08/06/17 09:53 142/77 94 Nasal Cannula 2.0 08/06/17 08:30 98.3 71 16 Intake and Output 08/05/17 08/05/17 08/06/17 15:00 23:00 07:00 Intake Total 1000 ml 920 ml Balance 1000 ml 920 ml Exam respiratory: decreased breath sounds b/l Cardiovascular: regular rate and rhythm Gastrointestinal: bowel sounds (+), soft, distended, surgical site TTP Left permacath Results Result Diagram: 08/06/17 0451 08/06/17 0451 Results 24 hrs Laboratory Tests Test 08/06/17 04:51 08/06/17 05:25 White Blood Count 8.4 # Red Blood Count 2.85 L Hemoglobin 7.9 #L Hematocrit 25.6 L Mean Corpuscular Volume 89.8 Mean Corpuscular Hemoglobin 27.7 L Mean Corpuscular Hemoglobin Concent 30.9 L Red Cell Distribution Width 15.9 H Platelet Count 276 Mean Platelet Volume 10.4 Neutrophils % 58.6 Lymphocytes % 25.1 Monocytes % 8.2 Eosinophils % 6.5 Basophils % 1.1 Nucleated Red Blood Cells % 0.0 Neutrophils # 4.9 Lymphocytes # 2.1 Monocytes # 0.7 Eosinophils # 0.6 H Basophils # 0.1 Nucleated Red Blood Cells # 0.0 Sodium Level 137 Potassium Level 4.2 Chloride Level 101 Carbon Dioxide Level 27 Anion Gap 13 Blood Urea Nitrogen 44 H Creatinine 7.41 H Glucose Level 76 Calcium Level 8.0 L Lab Scanned Report BLOOD TRANSFUSION Medications Medications Current Medications Acetaminophen (Tylenol Tab) 650 mg Q6H PRN PO PAIN AND OR ELEVATED TEMP; Start 07/22/17 at 20:30 Ondansetron HCl (Zofran Inj) 4 mg Q6H PRN IV NAUSEA AND/OR VOMITING; Start 07/22/17 at 23:00 Bisacodyl (Dulcolax) 5 mg DAILY PRN PO CONSTIPATION; Start 07/22/17 at 23:00 Acetaminophen/ Hydrocodone Bitart ([place] (5/325)) 1 tab Q6H PRN PO Breakthrough Pain Last administered on 07/31/17 01:41; Admin Dose 1 TAB; Start 07/24/17 at 11:30 Guaifenesin/ Dextromethorphan (Robitussin Dm Liquid Cup) 5 ml TID PRN PO Cough Last administered on 08/05/17 20:45; Admin Dose 5 ML; Start 07/24/17 at 11:30 Alprazolam (Xanax) 1 mg Q8H PRN PO ANXIETY Last administered on 08/06/17 09: 51; Admin Dose 1 MG; Start 07/25/17 at 22:00 Pantoprazole (Protonix Tab) 40 mg DAILY@06 PO Last administered on 08/06/17 05:47; Admin Dose 40 MG; Start 07/28/17 at 06:00 Nitroglycerin (Nitroglycerin (Sl Tab) 0.4 Mg) 1 tab Q5M PRN SL ANGINA Last administered on 07/28/17 06:49; Admin Dose 1 TAB; Start 07/28/17 at 05:30 Aspirin (Aspirin) 81 mg DAILY PO Last administered on 08/06/17 09:49; Admin Dose 81 MG; Start 07/30/17 at 09:00 Metoprolol Tartrate (Lopressor) 12.5 mg BID PO Last administered on 08/05/17 20:46; Admin Dose 12.5 MG; Start 07/29/17 at 21:00 Isosorbide Dinitrate (Isordil) 20 mg TID PO Last administered on 08/05/17 20: 45; Admin Dose 20 MG; Start 07/29/17 at 21:00 Tramadol HCl (Ultram) 50 mg Q6H PRN PO pain; Start 08/05/17 at 16:30 Morphine Sulfate (morphine) 2 mg Q4H PRN IV pain Last administered on 06:51; Admin Dose 2 MG; Start 08/05/17 at 17:00 Docusate Sodium (Colace) 100 mg Q12 PO Last administered on 08/06/17 09:49; Admin Dose 100 MG; Start 08/05/17 at 21:00 Clonidine (Catapres) 0.1 mg Q6 PRN PO SBP>170; Start 08/05/17 at 17:00 ROSLYN SHANNON MD Aug 06, 2017 12:17
[2017-08-06] MEDS: traMADol 50 MG TAB PO PRN ×2 (13:39→20:59)
--- NOTE | 2017-08-06 18:13 | RADRPT ---
PROCEDURE: X-ray Chest. CLINICAL INDICATION: Pulmonary edema. TECHNIQUE: Single view chest x-ray. COMPARISON: Exam dated 07/29/2017. FINDINGS: There is a well-positioned tunneled left IJ catheter with its tip overlying the right atr ium. There is new complete opacification of the left hemithorax with shift of the mediastinal struct ures towards the left, suggestive of volume loss. There is a new small right effusion and right basi lar parenchymal disease. No pneumothorax is identified. There are no acute osseous abnormalities. IMPRESSION: 1. New complete opacification of the left hemithorax with shift of the mediastinal structures towar ds the left, suggestive of volume loss/consolidation. 2. New right basilar pleural and parenchymal disease. These findings discussed with the floor nurse Ian Chawla at 1812 hours on 08/06/2017. RPTAT: HLBP .Brown Faye MD, Date Time Electronically viewed and signed by .Borwn Faye MD, MD on 08/06/2017 18:13 .P/
[2017-08-06] MEDS: IPRATROPIUM (NEB) 0.5 MG/2.5 ML AMP HHN SCH (21:15)
[2017-08-06] MEDS: ALBUTEROL 0.083% (NEB) 2.5 MG/3 ML AMP HHN SCH (21:15)
[2017-08-06] MEDS: ACETYLCYSTEINE 20% 4 ML VIAL NEB SCH (21:21)
[2017-08-06] MEDS ORDERED: FUROSEMIDE 40 MG INJ IV ONE (22:30)
--- NOTE | 2017-08-06 22:44 | PN ---
Date/Time of Note Date/Time of Note DATE: 08/06/17 TIME: 22:44 Assessment/Plan Lines/Catheters IV C[facility] Type [facility]from [facility] LCW Catheter Patino in Place (from Nrs): No Assessment/Plan Chief Complaint/Hosp Course 1. Rectal prolapse status post laparoscopic LAR, rectopexy, biologic 08/03; tolerating diet with +bowel function -Avoid straining 2. Leukocytosis probably reactive: normalized -monitor 3. ESRD: -hd per renal 4. Electrolyte imbalance: -optimize lytes 5. Hypoalbuminemia with hypocalcemia: nutritional +/- inflammation -as above -optimize nutrition 6. Anemia: without acute bleed: s/p 1 unit prbc tx today -monitor and transfuse as needed 7. Hepatitis with reactive serology -medical management 8. UTI s/p abx per sensitivity -frequent bladder emptying 9. Chest pain: no current c/o pain; trop +; EKG: NSR. -cardiac optimization 10. Pleural effusion: comfortable on room air; cxr: new opacifications -IS -cont diuresis and HD -consider pulm consult Thank you. Patient seen and examined in collaboration with Dr. Deep Zhang. Problems: Subjective 24 Hr Interval Summary Feels well. Tolerating solid diet. +bowel function without bleeding/discomfort/ prolapse. No fevers, chills, sob, congested cough, n/v/d/dysuria, avitia, dizziness , cp, palpitations. Exam/Review of Systems Vital Signs Vitals Vital Signs Date Time Temp Pulse Resp B/P Pulse Ox O2 Delivery O2 Flow Rate FiO2 08/07/17 05:15 95 100 08/07/17 04:02 63 08/07/17 03:49 97.9 20 163/95 08/06/17 22:09 6.0 08/06/17 21:21 Nasal Cannula Intake and Output 08/06/17 08/06/17 08/07/17 15:00 23:00 07:00 Intake Total 800 ml 700 ml 500 ml Output Total 4000 ml Balance -3200 ml 700 ml 500 ml Exam Free Text/Dictation Constitutional: alert, oriented Psych: nl mood Head: atraumatic, normocephalic Eyes: nl conjunctiva, nl lids, nl sclera ENMT: No mucosa pink and moist (dry) Neck: non-tender, supple Respiratory: diminished breath sounds, No labored breathing Cardiovascular: nl pulses, regular rate and rhythm, No edema Gastrointestinal: non-tender, soft, No distended, No rebound or guarding Genitourinary - Female: No further prolapse Musculoskeletal: nl extremities to inspection Extremities: normal pulses, No edema 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: nl speech, nl strength Skin: No rash or lesions Rectal: No further prolapse, no meri bleed noted Results Result Diagram: 08/06/17 0451 08/06/17 0451 RAFFY GRAHAM NP Aug 06, 2017 22:44 RAFFY GRAHAM NP Aug 06, 2017 22:44
[2017-08-06 22:59] LABS: AADO2 Arterial 191.5 mmHg (7.0-24.0); Allen Test ACCEPTAB; Arterial Base Excess 2.5 mmol/L (-3.0-3); Arterial COHb 0.1 % (0.0-3.0); Arterial Fraction of Oxyhgb 84.3 % (93.0-99.0); Arterial HCO3 25.8 mmol/L (22.0-26.0); Arterial MetHb 0.3 % (0.0-1.5); Arterial Total Hemglobin 10.7 g/dl (12.0-18.0); MODE NASAL CANNULA
[2017-08-07] VITALS (26 sets, daily range): BP systolic 131–182; BP diastolic 81–124; PULSE 63–79; RESP 15–20
[2017-08-07] MEDS: IPRATROPIUM (NEB) 0.5 MG/2.5 ML AMP HHN SCH ×6 (00:42→20:18)
[2017-08-07] MEDS: ALBUTEROL 0.083% (NEB) 2.5 MG/3 ML AMP HHN SCH ×6 (00:43→20:19)
[2017-08-07] MEDS: HYDROCODONE/APAP (5/325) TAB PO PRN (00:53)
[2017-08-07] MEDS: PANTOPRAZOLE (EC) 40 MG TAB PO SCH (06:00)
[2017-08-07 07:11] LABS: BASOPHIL # 0.1 10^3/ul (0.0-0.1); BASOPHILS % 1.2 % (0.0-2.0); EOSINOPHILS # 0.4 10^3/ul (0.0-0.5); EOSINOPHILS % 3.6 % (0.0-7.0); HEMATOCRIT 30.4 % (37.0-47.0); HEMOGLOBIN 9.5 g/dl (12.0-16.0); LYMPHOCYTES # 1.7 10^3/ul (0.8-2.9); LYMPHOCYTES % 17.8 % (15.0-51.0); MEAN CORPUSCULAR HEMOGLOBIN 27.9 pg (29.0-33.0); MEAN CORPUSCULAR HGB CONC 31.3 g/dl (32.0-37.0); MEAN CORPUSCULAR VOLUME 89.1 fl (82.0-101.0); MEAN PLATELET VOLUME 10.4 fl (7.4-10.4); MONOCYTE # 0.7 10^3/ul (0.3-0.9); MONOCYTES % 7.2 % (0.0-11.0); NEUTROPHIL # 6.8 10^3/ul (1.6-7.5); PLATELET COUNT 245 10^3/UL (140-415); RED BLOOD COUNT 3.41 10^6/ul (4.20-5.40); RED CELL DISTRIBUTION WIDTH 15.5 % (11.5-14.5); WHITE BLOOD COUNT 9.8 10^3/ul (4.8-10.8)
[2017-08-07] MEDS: CALCIUM ACETATE 667 MG CAP PO SCH ×4 (07:28→18:35)
[2017-08-07 08:00] LABS: CALCIUM 8.2 mg/dl (8.4-10.2); CREATININE 4.66 mg/dl (0.44-1.00); POTASSIUM 3.7 mmol/L (3.5-5.1)
[2017-08-07] MEDS: ACETYLCYSTEINE 20% 4 ML VIAL NEB SCH ×2 (08:00→20:18)
[2017-08-07] MEDS: traMADol 50 MG TAB PO PRN (08:48)
[2017-08-07] MEDS: ISOSORBIDE DINITRATE 20 MG TAB PO SCH ×3 (08:48→20:57)
[2017-08-07] MEDS: DOCUSATE SODIUM 100 MG CAP PO SCH ×2 (08:48→20:06)
[2017-08-07] MEDS: METOPROLOL 25 MG TAB PO SCH ×2 (08:48→20:06)
[2017-08-07] MEDS: ASPIRIN 81 MG TAB PO SCH (08:48)
[2017-08-07] MEDS: GUAIFENESIN/DM 5ML CUP PO PRN (08:49)
--- NOTE | 2017-08-07 10:02 | PN ---
Date/Time of Note Date/Time of Note DATE: 08/07/17 TIME: 09:58 Assessment/Plan VTE Prophylaxis VTE Prophylaxis Intervention: heparin Lines/Catheters IV [facility] (from [facility] [place] Urinary Cath still in place: No Assessment/Plan Chief Complaint/Hosp Course 62 y/o with 1. Rectal prolapse, severe.status post laparoscopic LAR, rectopexy, biologic 08/03; improving 2. Leukocytosis > imrpoved 3. Anemia likely End-stage renal disease however with acute drop no bleeding noted 4. Hepatitis B core antibody positive. 5 pleural effusion 6 NSTEMI 7 S/P LEXISCAN NEG 8 Hypoxic respiratory insufficency with completye opacification of left lung ? mucous plug s/p dry UF this am, much improved Plan - Spoke to Dr Bruno, pt will likely need Bronch - Repeat chest xray stat pending - s/p dry UF todayHD today - Keep NPO - c/w Morphine and ultram - Epogen - Problems: Subjective 24 Hr Interval Summary Free Text/Dictation Pt was transferred to [facility] due to worseining repsiratory status Chest Xray yesterday had showed complete opacification of left lung Pt received breathing treatments S/P dry UF this am removed 3.5 L On high flow oxygen currently , saturating in 90's Exam/Review of Systems Vital Signs Vitals Vital Signs Date Time Temp Pulse Resp B/P Pulse Ox O2 Delivery O2 Flow Rate FiO2 08/07/17 09:02 68 08/07/17 08:17 92 100 08/07/17 08:14 22 15.0 08/07/17 07:37 98.3 174/95 08/06/17 21:21 Nasal Cannula Intake and Output 08/06/17 08/06/17 08/07/17 15:00 23:00 07:00 Intake Total 800 ml 700 ml 500 ml Output Total 4000 ml Balance -3200 ml 700 ml 500 ml Exam respiratory: decreased breath sounds b/l r>l Cardiovascular: regular rate and rhythm Gastrointestinal: bowel sounds (+), soft, distended, surgical site TTP Left permacath Results Result Diagram: 08/07/17 0641 08/07/17 0640 Results 24 hrs Laboratory Tests Test 08/06/17 22:19 08/07/17 06:40 08/07/17 06:41 Blood Gas Specimen Source Blood arterial Arterial Blood Date Drawn 08/06/2017 10:50:45 PM Arterial Blood pH (Temp corrected) 7.482 H Arterial Blood pCO2 (Temp correct) 35.3 Arterial Blood pO2 (Temp corrected) 45.9 *L Arterial Blood HCO3 25.8 Arterial Blood Base Excess 2.5 Arterial Blood Oxygen Saturation 84.6 L Seb Test ACCEPTAB Arterial Blood Gas Puncture Site Left Radial Arterial Blood Carboxyhemoglobin 0.1 Arterial Blood Methemoglobin 0.3 Blood Gas A-a O2 Differential 191.5 H Oxyhemoglobin Percent 84.3 L Total Hemoglobin 10.7 L Blood Gas Temperature 37.0 Blood Gas Modality NASAL CANNULA FiO2 39.0 Blood Gas Critical Value Read Back Liz ADAME R.N Blood Gas Notified Whom MM Blood Gas Notified Time 08/06/2017 10:59:32 PM Sodium Level 139 Potassium Level 3.7 Chloride Level 103 Carbon Dioxide Level 28 Anion Gap 12 Blood Urea Nitrogen 24 #H Creatinine 4.66 #H Glucose Level 87 Calcium Level 8.2 L White Blood Count 9.8 Red Blood Count 3.41 L Hemoglobin 9.5 #L Hematocrit 30.4 L Mean Corpuscular Volume 89.1 Mean Corpuscular Hemoglobin 27.9 L Mean Corpuscular Hemoglobin Concent 31.3 L Red Cell Distribution Width 15.5 H Platelet Count 245 Mean Platelet Volume 10.4 Neutrophils % 70.0 Lymphocytes % 17.8 Monocytes % 7.2 Eosinophils % 3.6 Basophils % 1.2 Nucleated Red Blood Cells % 0.0 Neutrophils # 6.8 Lymphocytes # 1.7 Monocytes # 0.7 Eosinophils # 0.4 Basophils # 0.1 Nucleated Red Blood Cells # 0.0 Medications Medications Current Medications Acetaminophen (Tylenol Tab) 650 mg Q6H PRN PO PAIN AND OR ELEVATED TEMP; Start 07/22/17 at 20:30 Ondansetron HCl (Zofran Inj) 4 mg Q6H PRN IV NAUSEA AND/OR VOMITING; Start 07/22/17 at 23:00 Bisacodyl (Dulcolax) 5 mg DAILY PRN PO CONSTIPATION; Start 07/22/17 at 23:00 Acetaminophen/ Hydrocodone Bitart ([place] (5/325)) 1 tab Q6H PRN PO Breakthrough Pain Last administered on 08/07/17t 00:53; Admin Dose 1 TAB; Start 07/24/17 at 11:30 Guaifenesin/ Dextromethorphan (Robitussin Dm Liquid Cup) 5 ml TID PRN PO Cough Last administered on 08/07/17 08:49; Admin Dose 5 ML; Start 07/24/17 at 11:30 Alprazolam (Xanax) 1 mg Q8H PRN PO ANXIETY Last administered on 08/06/17 20: 54; Admin Dose 1 MG; Start 07/25/17 at 22:00 Pantoprazole (Protonix Tab) 40 mg DAILY@06 PO Last administered on 08/07/17 06:00; Admin Dose 40 MG; Start 07/28/17 at 06:00 Nitroglycerin (Nitroglycerin (Sl Tab) 0.4 Mg) 1 tab Q5M PRN SL ANGINA Last administered on 07/28/17 06:49; Admin Dose 1 TAB; Start 07/28/17 at 05:30 Aspirin (Aspirin) 81 mg DAILY PO Last administered on 08/07/17 08:48; Admin Dose 81 MG; Start 07/30/17 at 09:00 Metoprolol Tartrate (Lopressor) 12.5 mg BID PO Last administered on 08/07/17 08:48; Admin Dose 12.5 MG; Start 07/29/17 at 21:00 Isosorbide Dinitrate (Isordil) 20 mg TID PO Last administered on 08/07/17 08: 48; Admin Dose 20 MG; Start 07/29/17 at 21:00 Tramadol HCl (Ultram) 50 mg Q6H PRN PO pain Last administered on 08/07/17 08: 48; Admin Dose 50 MG; Start 08/05/17 at 16:30 Morphine Sulfate (morphine) 2 mg Q4H PRN IV pain Last administered on 06:51; Admin Dose 2 MG; Start 08/05/17 at 17:00 Docusate Sodium (Colace) 100 mg Q12 PO Last administered on 08/07/17 08:48; Admin Dose 100 MG; Start 08/05/17 at 21:00 Clonidine (Catapres) 0.1 mg Q6 PRN PO SBP>170; Start 08/05/17 at 17:00 ROSLYN SHANNON MD Aug 07, 2017 10:02
--- NOTE | 2017-08-07 12:57 | RADRPT ---
PROCEDURE: XR Chest. CLINICAL INDICATION: Consolidation TECHNIQUE: Single AP portable chest. COMPARISON: A chest x-ray 08/06/2017 Chest x-ray FINDINGS: Persistent opacification left hemithorax with right to left mediastinal shift and left lung volume l oss/atelectasis increased moderate sized right pleural effusion. Stable position of left dialysis c atheter tip at the cavoatrial junction. The right lung is clear. No pneumothorax. Degenerative rios es of the thoracic spine.. IMPRESSION: 1. Persistent consolidation/volume loss of the left hemithorax with large pleural effusion moderate sized right pleural effusion increased compared to prior examination. 2. No pneumothorax. . RPTAT:AAJJ Physician Heidi Date Time Electronically viewed and signed by Physician Heidi on 08/07/2017 12:56 LORENA/
--- NOTE | 2017-08-07 13:14 | CONS ---
Date/Time of Note Date/Time of Note DATE: 08/07/17 TIME: 13:11 Assessment/Plan Assessment/Plan Additional Assessment/Plan Assessment recommendations; patient admitted with pulmonary edema with interval improvement. 1. Patient admitted with pulmonary edema with interval improvement. 2. Rectal prolapse status post surgical repair. 3. End-stage renal disease, on hemodialysis. 4. Complete left lung atelectasis. Transfer the patient to ICU , the patient will need to have a bronchoscopy performed sometime this afternoon. She will need to be intubated for the procedure. Consultation Date/Type/Reason Admit Date/Time Jul 22, 2017 at 19:26 Initial Consult Date 07/23/17 Type of Consultation: Pulmonary Referring Provider: KISHAN MEJIA MD 24 HR Interval Summary Free Text/Dictation Patient's condition is stable. Complains of mild shortness of breath. A chest x-ray was done yesterday which is showing complete whiteout of the left lung. Repeat chest x-ray was performed today which is not showing any interval change. The findings are indicative of underlying left mainstem mucous plugging. Next General exam; elderly woman, awake alert, currently in no distress. Exam/Review of Systems Vital Signs Vitals Vital Signs Date Time Temp Pulse Resp B/P Pulse Ox O2 Delivery O2 Flow Rate FiO2 08/07/17 12:42 67 08/07/17 12:04 98.4 19 166/81 93 08/07/17 08:17 100 08/07/17 08:14 15.0 08/06/17 21:21 Nasal Cannula Intake and Output 08/06/17 08/06/17 08/07/17 15:00 23:00 07:00 Intake Total 800 ml 700 ml 500 ml Output Total 4000 ml Balance -3200 ml 700 ml 500 ml Exam HEENT exam; supple neck, no JVD. No lymphadenopathy. Midline trachea. No thyromegaly. Pharynx is clear. Patient is edentulous. Chest exam; diminished breath sounds left lung. Right lung is clear to auscultation. S1-S2 audible, no murmurs. Regular rhythm. Abdomen exam; soft, nontender. No organomegaly. Bowel sounds audible. Extremity exam; no peripheral edema. Patient is a chronic skin changes in lower extremities bilaterally. MANAGEMENT CONSULTING exam; no focal deficit. Results Result Diagram: 08/07/17 0641 08/07/17 0640 Results 24 hrs Laboratory Tests Test 08/06/17 22:19 08/07/17 06:40 08/07/17 06:41 Blood Gas Specimen Source Blood arterial Arterial Blood Date Drawn 08/06/2017 10:50:45 PM Arterial Blood pH (Temp corrected) 7.482 H Arterial Blood pCO2 (Temp correct) 35.3 Arterial Blood pO2 (Temp corrected) 45.9 *L Arterial Blood HCO3 25.8 Arterial Blood Base Excess 2.5 Arterial Blood Oxygen Saturation 84.6 L Seb Test ACCEPTAB Arterial Blood Gas Puncture Site Left Radial Arterial Blood Carboxyhemoglobin 0.1 Arterial Blood Methemoglobin 0.3 Blood Gas A-a O2 Differential 191.5 H Oxyhemoglobin Percent 84.3 L Total Hemoglobin 10.7 L Blood Gas Temperature 37.0 Blood Gas Modality NASAL CANNULA FiO2 39.0 Blood Gas Critical Value Read Back Liz ADAME R.N Blood Gas Notified Whom MM Blood Gas Notified Time 08/06/2017 10:59:32 PM Sodium Level 139 Potassium Level 3.7 Chloride Level 103 Carbon Dioxide Level 28 Anion Gap 12 Blood Urea Nitrogen 24 #H Creatinine 4.66 #H Glucose Level 87 Calcium Level 8.2 L White Blood Count 9.8 Red Blood Count 3.41 L Hemoglobin 9.5 #L Hematocrit 30.4 L Mean Corpuscular Volume 89.1 Mean Corpuscular Hemoglobin 27.9 L Mean Corpuscular Hemoglobin Concent 31.3 L Red Cell Distribution Width 15.5 H Platelet Count 245 Mean Platelet Volume 10.4 Neutrophils % 70.0 Lymphocytes % 17.8 Monocytes % 7.2 Eosinophils % 3.6 Basophils % 1.2 Nucleated Red Blood Cells % 0.0 Neutrophils # 6.8 Lymphocytes # 1.7 Monocytes # 0.7 Eosinophils # 0.4 Basophils # 0.1 Nucleated Red Blood Cells # 0.0 Medications Medications Current Medications Acetaminophen (Tylenol Tab) 650 mg Q6H PRN PO PAIN AND OR ELEVATED TEMP; Start 07/22/17 at 20:30 Ondansetron HCl (Zofran Inj) 4 mg Q6H PRN IV NAUSEA AND/OR VOMITING; Start 07/22/17 at 23:00 Bisacodyl (Dulcolax) 5 mg DAILY PRN PO CONSTIPATION; Start 07/22/17 at 23:00 Acetaminophen/ Hydrocodone Bitart ([place] (5/325)) 1 tab Q6H PRN PO Breakthrough Pain Last administered on 08/07/17 00:53; Admin Dose 1 TAB; Start 07/24/17 at 11:30 Guaifenesin/ Dextromethorphan (Robitussin Dm Liquid Cup) 5 ml TID PRN PO Cough Last administered on 08/07/17 08:49; Admin Dose 5 ML; Start 07/24/17 at 11:30 Alprazolam (Xanax) 1 mg Q8H PRN PO ANXIETY Last administered on 08/06/17 20: 54; Admin Dose 1 MG; Start 07/25/17 at 22:00 Pantoprazole (Protonix Tab) 40 mg DAILY@06 PO Last administered on 08/07/17 06:00; Admin Dose 40 MG; Start 07/28/17 at 06:00 Nitroglycerin (Nitroglycerin (Sl Tab) 0.4 Mg) 1 tab Q5M PRN SL ANGINA Last administered on 07/28/17 06:49; Admin Dose 1 TAB; Start 07/28/17 at 05:30 Aspirin (Aspirin) 81 mg DAILY PO Last administered on 08/07/17 08:48; Admin Dose 81 MG; Start 07/30/17 at 09:00 Metoprolol Tartrate (Lopressor) 12.5 mg BID PO Last administered on 08/07/17 08:48; Admin Dose 12.5 MG; Start 07/29/17 at 21:00 Isosorbide Dinitrate (Isordil) 20 mg TID PO Last administered on 08/07/17 08: 48; Admin Dose 20 MG; Start 07/29/17 at 21:00 Tramadol HCl (Ultram) 50 mg Q6H PRN PO pain Last administered on 08/07/17 08: 48; Admin Dose 50 MG; Start 08/05/17 at 16:30 Morphine Sulfate (morphine) 2 mg Q4H PRN IV pain Last administered on 06:51; Admin Dose 2 MG; Start 08/05/17 at 17:00 Docusate Sodium (Colace) 100 mg Q12 PO Last administered on 08/07/17 08:48; Admin Dose 100 MG; Start 08/05/17 at 21:00 Clonidine (Catapres) 0.1 mg Q6 PRN PO SBP>170; Start 08/05/17 at 17:00 LEATHA PHAM Aug 07, 2017 13:14
[2017-08-07] MEDS ORDERED: VITAMIN A & D 5 GM OINT PACKET TOP ONE (13:32)
[2017-08-07] MEDS: morphine 10 MG INJ IV PRN ×2 (15:13→20:14)
--- NOTE | 2017-08-07 17:52 | CONS ---
Date/Time of Note Date/Time of Note DATE: 08/07/17 TIME: 17:51 Assessment/Plan Assessment/Plan Additional Assessment/Plan Additional Assessment/Plan IMPRESSION: 1. Rectal prolapse. 2. End-stage renal disease, on dialysis. 3. Anemia. 4. Positive hepatitis C antibody, but viral study was negative. 5. Urinary tract infection. 6. Status post a surgery for rectal prolapse 7. Left lung complete opacification Plan Continue present care Patient will undergo bronchoscopy Consultation Date/Type/Reason Admit Date/Time Jul 22, 2017 at 19:26 Initial Consult Date 07/23/17 Type of Consultation: Pulmonary Referring Provider: KISHAN MEJIA MD 24 HR Interval Summary Free Text/Dictation Patient shortness of breath worsened and transferred to the intensive care unit Subjective hx not possible: pt critical Exam/Review of Systems Vital Signs Vitals Vital Signs Date Time Temp Pulse Resp B/P Pulse Ox O2 Delivery O2 Flow Rate FiO2 08/07/17 17:34 20 95 8.0 08/07/17 17:00 98.4 79 131/105 High Flow 08/07/17 14:31 100 Intake and Output 08/06/17 08/06/17 08/07/17 15:00 23:00 07:00 Intake Total 800 ml 700 ml 500 ml Output Total 4000 ml Balance -3200 ml 700 ml 500 ml Exam Constitutional: alert, oriented, well developed Psych: nl mood/affect, no complaints Head: atraumatic, normocephalic Eyes: EOMI, PERRL, nl conjunctiva, nl lids, nl sclera ENMT: nl external ears & nose, nl lips & teeth, nl nasal mucosa & septum Neck: non-tender, supple Respiratory: clear to auscultation, normal air movement Cardiovascular: nl pulses, regular rate and rhythm Gastrointestinal: nl liver, spleen, non-tender, soft Musculoskeletal: nl extremities to inspection, nl gait and stance Extremities: normal pulses 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, nl mental status, nl speech, nl strength Skin: nl turgor, No rash or lesions Lymph: nl lymph nodes Results Result Diagram: 08/07/17 0641 08/07/17 0640 Results 24 hrs Laboratory Tests Test 08/06/17 22:19 08/07/17 06:40 08/07/17 06:41 Blood Gas Specimen Source Blood arterial Arterial Blood Date Drawn 08/06/2017 10:50:45 PM Arterial Blood pH (Temp corrected) 7.482 H Arterial Blood pCO2 (Temp correct) 35.3 Arterial Blood pO2 (Temp corrected) 45.9 *L Arterial Blood HCO3 25.8 Arterial Blood Base Excess 2.5 Arterial Blood Oxygen Saturation 84.6 L Seb Test ACCEPTAB Arterial Blood Gas Puncture Site Left Radial Arterial Blood Carboxyhemoglobin 0.1 Arterial Blood Methemoglobin 0.3 Blood Gas A-a O2 Differential 191.5 H Oxyhemoglobin Percent 84.3 L Total Hemoglobin 10.7 L Blood Gas Temperature 37.0 Blood Gas Modality NASAL CANNULA FiO2 39.0 Blood Gas Critical Value Read Back Liz ADAME R.N Blood Gas Notified Whom MM Blood Gas Notified Time 08/06/2017 10:59:32 PM Sodium Level 139 Potassium Level 3.7 Chloride Level 103 Carbon Dioxide Level 28 Anion Gap 12 Blood Urea Nitrogen 24 #H Creatinine 4.66 #H Glucose Level 87 Calcium Level 8.2 L White Blood Count 9.8 Red Blood Count 3.41 L Hemoglobin 9.5 #L Hematocrit 30.4 L Mean Corpuscular Volume 89.1 Mean Corpuscular Hemoglobin 27.9 L Mean Corpuscular Hemoglobin Concent 31.3 L Red Cell Distribution Width 15.5 H Platelet Count 245 Mean Platelet Volume 10.4 Neutrophils % 70.0 Lymphocytes % 17.8 Monocytes % 7.2 Eosinophils % 3.6 Basophils % 1.2 Nucleated Red Blood Cells % 0.0 Neutrophils # 6.8 Lymphocytes # 1.7 Monocytes # 0.7 Eosinophils # 0.4 Basophils # 0.1 Nucleated Red Blood Cells # 0.0 Medications Medications Current Medications Acetaminophen (Tylenol Tab) 650 mg Q6H PRN PO PAIN AND OR ELEVATED TEMP; Start 07/22/17 at 20:30 Ondansetron HCl (Zofran Inj) 4 mg Q6H PRN IV NAUSEA AND/OR VOMITING; Start 07/22/17 at 23:00 Bisacodyl (Dulcolax) 5 mg DAILY PRN PO CONSTIPATION; Start 07/22/17 at 23:00 Acetaminophen/ Hydrocodone Bitart ([place] (5/325)) 1 tab Q6H PRN PO Breakthrough Pain Last administered on 08/07/17t 00:53; Admin Dose 1 TAB; Start 07/24/17 at 11:30 Guaifenesin/ Dextromethorphan (Robitussin Dm Liquid Cup) 5 ml TID PRN PO Cough Last administered on 08/07/17 08:49; Admin Dose 5 ML; Start 07/24/17 at 11:30 Alprazolam (Xanax) 1 mg Q8H PRN PO ANXIETY Last administered on 08/06/17 20: 54; Admin Dose 1 MG; Start 07/25/17 at 22:00 Pantoprazole (Protonix Tab) 40 mg DAILY@06 PO Last administered on 08/07/17 06:00; Admin Dose 40 MG; Start 07/28/17 at 06:00 Nitroglycerin (Nitroglycerin (Sl Tab) 0.4 Mg) 1 tab Q5M PRN SL ANGINA Last administered on 07/28/17 06:49; Admin Dose 1 TAB; Start 07/28/17 at 05:30 Aspirin (Aspirin) 81 mg DAILY PO Last administered on 08/07/17 08:48; Admin Dose 81 MG; Start 07/30/17 at 09:00 Metoprolol Tartrate (Lopressor) 12.5 mg BID PO Last administered on 08/07/17 08:48; Admin Dose 12.5 MG; Start 07/29/17 at 21:00 Isosorbide Dinitrate (Isordil) 20 mg TID PO Last administered on 08/07/17 08: 48; Admin Dose 20 MG; Start 07/29/17 at 21:00 Tramadol HCl (Ultram) 50 mg Q6H PRN PO pain Last administered on 08/07/17 08: 48; Admin Dose 50 MG; Start 08/05/17 at 16:30 Morphine Sulfate (morphine) 2 mg Q4H PRN IV pain Last administered on 06:51; Admin Dose 2 MG; Start 08/05/17 at 17:00 Docusate Sodium (Colace) 100 mg Q12 PO Last administered on 08/07/17 08:48; Admin Dose 100 MG; Start 08/05/17 at 21:00 Clonidine (Catapres) 0.1 mg Q6 PRN PO SBP>170; Start 08/05/17 at 17:00 Morphine Sulfate (morphine) 5 mg Q4H PRN IV PAIN Last administered on 15:13; Admin Dose 5 MG; Start 08/07/17 at 14:30 Acetylcysteine (Mucomyst) 3 ml Q4 NEB ; Start 08/07/17 at 21:00 ZIA BAEZA MD Aug 07, 2017 17:52
[2017-08-07 20:09] LABS: AADO2 Arterial 623.7 mmHg (7.0-24.0); Allen Test ACCEPTAB; Arterial Base Excess 4.5 mmol/L (-3.0-3); Arterial COHb 0.3 % (0.0-3.0); Arterial Fraction of Oxyhgb 87.8 % (93.0-99.0); Arterial HCO3 27.9 mmol/L (22.0-26.0); Arterial MetHb 0.2 % (0.0-1.5); Arterial Total Hemglobin 11.8 g/dl (12.0-18.0); MODE HFNC
--- NOTE | 2017-08-07 21:10 | PN ---
Date/Time of Note Date/Time of Note DATE: 08/07/17 TIME: 21:06 Assessment/Plan Lines/Catheters IV Catheter Type (from Nrs): Saline Lock [place] in Place (from Nrs): No Assessment/Plan Chief Complaint/Hosp Course 1. Rectal prolapse status post laparoscopic LAR, rectopexy, biologic 08/03; tolerating diet with +bowel function -Avoid straining 2. Respiratory compromise with left sided white out and bilateral pleural effusion in ICU -bronch pending -judicious fluid management and gentle diuresis/HD -resp following -pulm toilette 3. ESRD: -hd per renal 4. Electrolyte imbalance: -optimize lytes 5. Hypoalbuminemia with hypocalcemia: nutritional +/- inflammation -as above -optimize nutrition 6. Anemia: without acute bleed: s/p 1 unit prbc tx today -monitor and transfuse as needed 7. Hepatitis with reactive serology -medical management 8. UTI s/p abx per sensitivity -frequent bladder emptying 9. Chest pain: no current c/o pain; trop +; EKG: NSR. -cardiac optimization Thank you, Problems: Subjective 24 Hr Interval Summary In ICU with in resp difficulty. Left sided white out with bilateral effusion. Bronchoscopy pending. Tolerating solid diet. +Bowel function without bleeding/ discomfort/prolapse. No fevers, chills, sob, congested cough, n/v/d/dysuria, avitia , dizziness, cp, palpitations. Exam/Review of Systems Vital Signs Vitals Vital Signs Date Time Temp Pulse Resp B/P Pulse Ox O2 Delivery O2 Flow Rate FiO2 08/07/17 20:49 76 08/07/17 20:38 20 95 15.0 100 08/07/17 18:00 135/107 High Flow 08/07/17 17:00 98.4 Intake and Output 08/06/17 08/06/17 08/07/17 15:00 23:00 07:00 Intake Total 800 ml 700 ml 500 ml Output Total 4000 ml Balance -3200 ml 700 ml 500 ml Exam Free Text/Dictation Constitutional: alert, oriented Psych: nl mood Head: atraumatic, normocephalic Eyes: nl conjunctiva, nl lids, nl sclera ENMT: No mucosa pink and moist (dry) Neck: non-tender, supple Respiratory: diminished breath sounds, No labored breathing Cardiovascular: nl pulses, regular rate and rhythm, No edema Gastrointestinal: non-tender, soft, No distended, No rebound or guarding Genitourinary - Female: No further prolapse Musculoskeletal: nl extremities to inspection Extremities: normal pulses, No edema 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: nl speech, nl strength Skin: No rash or lesions Rectal: No further prolapse, no meri bleed noted Results Result Diagram: 08/07/17 0641 08/07/17 0640 KLARISSA ELIZONDO MD Aug 07, 2017 21:09
[2017-08-08] VITALS (27 sets, daily range): BP systolic 112–165; BP diastolic 85–103; PULSE 67–85; RESP 10–19
[2017-08-08] MEDS: morphine 10 MG INJ IV PRN ×3 (01:31→18:56)
[2017-08-08] MEDS: ACETYLCYSTEINE 20% 4 ML VIAL NEB SCH ×6 (01:43→20:34)
[2017-08-08] MEDS: ALBUTEROL 0.083% (NEB) 2.5 MG/3 ML AMP HHN SCH ×6 (01:43→20:33)
[2017-08-08] MEDS: IPRATROPIUM (NEB) 0.5 MG/2.5 ML AMP HHN SCH ×6 (01:43→20:33)
[2017-08-08] MEDS: PANTOPRAZOLE (EC) 40 MG TAB PO SCH (06:00)
[2017-08-08 06:14] LABS: BASOPHIL # 0.1 10^3/ul (0.0-0.1); BASOPHILS % 1.1 % (0.0-2.0); EOSINOPHILS # 0.2 10^3/ul (0.0-0.5); HEMATOCRIT 32.5 % (37.0-47.0); HEMOGLOBIN 10.3 g/dl (12.0-16.0); LYMPHOCYTES # 2.7 10^3/ul (0.8-2.9); LYMPHOCYTES % 24.8 % (15.0-51.0); MEAN CORPUSCULAR HEMOGLOBIN 28.5 pg (29.0-33.0); MEAN CORPUSCULAR HGB CONC 31.7 g/dl (32.0-37.0); MEAN PLATELET VOLUME 10.6 fl (7.4-10.4); MONOCYTE # 0.6 10^3/ul (0.3-0.9); MONOCYTES % 5.9 % (0.0-11.0); NEUTROPHIL # 7.1 10^3/ul (1.6-7.5); NEUTROPHILS % 65.7 % (39.0-77.0); PLATELET COUNT 257 10^3/UL (140-415); RED BLOOD COUNT 3.61 10^6/ul (4.20-5.40); RED CELL DISTRIBUTION WIDTH 14.8 % (11.5-14.5); WHITE BLOOD COUNT 10.8 10^3/ul (4.8-10.8)
[2017-08-08 06:54] LABS: CALCIUM 8.5 mg/dl (8.4-10.2); CREATININE 5.35 mg/dl (0.44-1.00); POTASSIUM 4.1 mmol/L (3.5-5.1)
[2017-08-08] MEDS: CALCIUM ACETATE 667 MG CAP PO SCH ×3 (07:35→18:03)
--- NOTE | 2017-08-08 07:36 | RADRPT ---
PROCEDURE: XR Chest. CLINICAL INDICATION: Pneumonia . TECHNIQUE: Single frontal chest x-ray. COMPARISON: 08/07/2017 FINDINGS: There is a left-sided tunneled dialysis catheter in place unchanged. There is partial aeration of th e left upper lobe increased since previous exam. There is persistent atelectasis of the left lower l ayaan with volume loss. Underlying pleural effusion is not excluded. . Right lower lung atelectasis an d small effusion is improved since prior exam.. The cardiomediastinal silhouette is unremarkable. T he osseous structures are intact. IMPRESSION: Partial re-expansion of the left upper lung. Persistent left lower lung atelectasis and possible effusion. Decreased right lower lung atelectasis and effusion. Left sided tunneled dialysis catheter in place.. RPTAT: QQ .Kamron Choudhury MD, Date Time Electronically viewed and signed by .Kamron Choudhury MD, MD on 08/08/2017 07:36 .L/
[2017-08-08 07:49] LABS: AADO2 Arterial 576.1 mmHg (7.0-24.0); Allen Test ACCEPTAB; Arterial Base Excess 3.5 mmol/L (-3.0-3); Arterial COHb 0.3 % (0.0-3.0); Arterial Fraction of Oxyhgb 96.8 % (93.0-99.0); Arterial HCO3 27.5 mmol/L (22.0-26.0); Arterial MetHb 0.2 % (0.0-1.5); Arterial Total Hemglobin 10.9 g/dl (12.0-18.0); MODE HFNC
--- NOTE | 2017-08-08 08:11 | PN ---
Date/Time of Note Date/Time of Note DATE: 08/08/17 TIME: 08:11 Assessment/Plan VTE Prophylaxis VTE Prophylaxis Intervention: heparin Lines/Catheters IV Catheter Type (from Nrs): Saline Lock Urinary Cath still in place: No Assessment/Plan Chief Complaint/Hosp Course 62 y/o with 1. Rectal prolapse, severe.status post laparoscopic LAR, rectopexy, biologic 08/03; improving 2. Leukocytosis > imrpoved 3. Anemia likely End-stage renal disease however with acute drop no bleeding noted 4. Hepatitis B core antibody positive. 5 pleural effusion 6 NSTEMI 7 S/P LEXISCAN NEG 8 Hypoxic respiratory insufficency with completye opacification of left lung ? mucous plug s/p dry UF this am, much improved Plan - Repeat chest xray still effusion /opacification - Bronch vs Thoracentesis today - HD again today - Keep NPO - c/w Morphine and ultram - Epogen - spoke to patient to decrease narcotics but does not agree - Problems: Subjective 24 Hr Interval Summary Free Text/Dictation Pt little more comfortable today still on high flow Asking for pain meds> morphine Exam/Review of Systems Vital Signs Vitals Vital Signs Date Time Temp Pulse Resp B/P Pulse Ox O2 Delivery O2 Flow Rate FiO2 08/08/17 06:00 82 19 160/95 99 High Flow 08/08/17 05:07 15.0 100 08/08/17 04:00 98.0 Intake and Output 08/07/17 08/07/17 08/08/17 15:00 23:00 07:00 Intake Total 500 ml 480 ml 0 ml Output Total 3500 ml 50 ml Balance -3000 ml 480 ml -50 ml Exam espiratory: decreased breath sounds b/l r>l Cardiovascular: regular rate and rhythm Gastrointestinal: bowel sounds (+), soft, distended, surgical site TTP Left permacath Results Result Diagram: 08/08/17 0530 08/08/17 0530 Results 24 hrs Laboratory Tests Test 08/07/17 20:00 08/08/17 05:30 08/08/17 05:49 08/08/17 07:00 Blood Gas Specimen Source Blood arterial Blood arterial Arterial Blood Date Drawn 08/07/2017 7:55:28 PM 08/08/2017 7:42:53 AM Arterial Blood pH (Temp corrected) 7.490 H 7.460 H Arterial Blood pCO2 (Temp correct) 37.5 39.6 Arterial Blood pO2 (Temp corrected) 51.8 *L 97.3 Arterial Blood HCO3 27.9 H 27.5 H Arterial Blood Base Excess 4.5 H 3.5 H Arterial Blood Oxygen Saturation 88.2 L 97.3 Seb Test ACCEPTAB ACCEPTAB Arterial Blood Gas Puncture Site Right Radial Right Radial Arterial Blood Carboxyhemoglobin 0.3 0.3 Arterial Blood Methemoglobin 0.2 0.2 Blood Gas A-a O2 Differential 623.7 H 576.1 H Oxyhemoglobin Percent 87.8 L 96.8 Total Hemoglobin 11.8 L 10.9 L Blood Gas Temperature 37.0 37.0 Blood Gas Actual Respiration Rate 18 Blood Gas Modality HFNC HFNC FiO2 100.0 100.0 Blood Gas Critical Value Read Back Barber SCHROEDER R.N. Blood Gas Notified Whom EDWINA MAI RCP Blood Gas Notified Time 08/07/2017 8:08:54 PM 08/08/2017 7:48:57 AM White Blood Count 10.8 Red Blood Count 3.61 L Hemoglobin 10.3 L Hematocrit 32.5 L Mean Corpuscular Volume 90.0 Mean Corpuscular Hemoglobin 28.5 L Mean Corpuscular Hemoglobin Concent 31.7 L Red Cell Distribution Width 14.8 H Platelet Count 257 Mean Platelet Volume 10.6 H Neutrophils % 65.7 Lymphocytes % 24.8 Monocytes % 5.9 Eosinophils % 2.0 Basophils % 1.1 Nucleated Red Blood Cells % 0.0 Neutrophils # 7.1 Lymphocytes # 2.7 Monocytes # 0.6 Eosinophils # 0.2 Basophils # 0.1 Nucleated Red Blood Cells # 0.0 Sodium Level 137 Potassium Level 4.1 Chloride Level 99 Carbon Dioxide Level 28 Anion Gap 14 Blood Urea Nitrogen 26 H Creatinine 5.35 H Glucose Level 89 Calcium Level 8.5 Lab Scanned Report BLOOD TRANSFUSION Medications Medications Current Medications Acetaminophen (Tylenol Tab) 650 mg Q6H PRN PO PAIN AND OR ELEVATED TEMP; Start 07/22/17 at 20:30 Ondansetron HCl (Zofran Inj) 4 mg Q6H PRN IV NAUSEA AND/OR VOMITING; Start 07/22/17 at 23:00 Bisacodyl (Dulcolax) 5 mg DAILY PRN PO CONSTIPATION; Start 07/22/17 at 23:00 Acetaminophen/ Hydrocodone Bitart ([place] (5/325)) 1 tab Q6H PRN PO Breakthrough Pain Last administered on 08/07/17 00:53; Admin Dose 1 TAB; Start 07/24/17 at 11:30 Guaifenesin/ Dextromethorphan (Robitussin Dm Liquid Cup) 5 ml TID PRN PO Cough Last administered on 08/07/17 08:49; Admin Dose 5 ML; Start 07/24/17 at 11:30 Alprazolam (Xanax) 1 mg Q8H PRN PO ANXIETY Last administered on 08/06/17 20: 54; Admin Dose 1 MG; Start 07/25/17 at 22:00 Pantoprazole (Protonix Tab) 40 mg DAILY@06 PO Last administered on 08/07/17 06:00; Admin Dose 40 MG; Start 07/28/17 at 06:00 Nitroglycerin (Nitroglycerin (Sl Tab) 0.4 Mg) 1 tab Q5M PRN SL ANGINA Last administered on 07/28/17 06:49; Admin Dose 1 TAB; Start 07/28/17 at 05:30 Aspirin (Aspirin) 81 mg DAILY PO Last administered on 08/07/17 08:48; Admin Dose 81 MG; Start 07/30/17 at 09:00 Metoprolol Tartrate (Lopressor) 12.5 mg BID PO Last administered on 08/07/17 20:06; Admin Dose 12.5 MG; Start 07/29/17 at 21:00 Isosorbide Dinitrate (Isordil) 20 mg TID PO Last administered on 08/07/17 20: 57; Admin Dose 20 MG; Start 07/29/17 at 21:00 Tramadol HCl (Ultram) 50 mg Q6H PRN PO pain Last administered on 08/07/17 08: 48; Admin Dose 50 MG; Start 08/05/17 at 16:30 Morphine Sulfate (morphine) 2 mg Q4H PRN IV pain Last administered on 06:51; Admin Dose 2 MG; Start 08/05/17 at 17:00 Docusate Sodium (Colace) 100 mg Q12 PO Last administered on 08/07/17 20:06; Admin Dose 100 MG; Start 08/05/17 at 21:00 Clonidine (Catapres) 0.1 mg Q6 PRN PO SBP>170; Start 08/05/17 at 17:00 Morphine Sulfate (morphine) 5 mg Q4H PRN IV PAIN Last administered on 06:35; Admin Dose 5 MG; Start 08/07/17 at 14:30 Acetylcysteine (Mucomyst) 3 ml Q4 NEB Last administered on 08/08/17 04:41; Admin Dose 3 ML; Start 08/07/17 at 21:00 ROSLYN SHANNON MD Aug 08, 2017 08:11
--- NOTE | 2017-08-08 09:56 | CONS ---
Date/Time of Note Date/Time of Note DATE: 08/08/17 TIME: 09:55 Assessment/Plan Assessment/Plan Additional Assessment/Plan Additional Assessment/Plan IMPRESSION: 1. Rectal prolapse. 2. End-stage renal disease, on dialysis. 3. Anemia. 4. Positive hepatitis C antibody, but viral study was negative. 5. Urinary tract infection. 6. Status post a surgery for rectal prolapse 7. Left lung complete opacification, partial reexpansion of left lung Plan Continue present care Patient will undergo bronchoscopy Consultation Date/Type/Reason Admit Date/Time Jul 22, 2017 at 19:26 Initial Consult Date 07/23/17 Type of Consultation: Pulmonary Referring Provider: KISHAN MEJIA MD 24 HR Interval Summary Constitutional: improved Exam/Review of Systems Vital Signs Vitals Vital Signs Date Time Temp Pulse Resp B/P Pulse Ox O2 Delivery O2 Flow Rate FiO2 08/08/17 09:15 96 100 08/08/17 09:15 70 20 08/08/17 08:00 98.2 144/85 High Flow 08/08/17 05:07 15.0 Intake and Output 08/07/17 08/07/17 08/08/17 15:00 23:00 07:00 Intake Total 500 ml 480 ml 0 ml Output Total 3500 ml 50 ml Balance -3000 ml 480 ml -50 ml Exam Constitutional: alert, oriented, well developed Psych: nl mood/affect, no complaints Head: atraumatic, normocephalic Eyes: EOMI, PERRL, nl conjunctiva, nl lids, nl sclera ENMT: nl external ears & nose, nl lips & teeth, nl nasal mucosa & septum Neck: non-tender, supple Respiratory: clear to auscultation, normal air movement Cardiovascular: nl pulses, regular rate and rhythm Gastrointestinal: nl liver, spleen, non-tender, soft Musculoskeletal: nl extremities to inspection, nl gait and stance Extremities: normal pulses 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: 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, nl mental status, nl speech, nl strength Skin: nl turgor, No rash or lesions Lymph: nl lymph nodes Results Result Diagram: 08/08/17 0530 08/08/17 0530 Results 24 hrs Laboratory Tests Test 08/07/17 20:00 08/08/17 05:30 08/08/17 05:49 08/08/17 07:00 Blood Gas Specimen Source Blood arterial Blood arterial Arterial Blood Date Drawn 08/07/2017 7:55:28 PM 08/08/2017 7:42:53 AM Arterial Blood pH (Temp corrected) 7.490 H 7.460 H Arterial Blood pCO2 (Temp correct) 37.5 39.6 Arterial Blood pO2 (Temp corrected) 51.8 *L 97.3 Arterial Blood HCO3 27.9 H 27.5 H Arterial Blood Base Excess 4.5 H 3.5 H Arterial Blood Oxygen Saturation 88.2 L 97.3 Seb Test ACCEPTAB ACCEPTAB Arterial Blood Gas Puncture Site Right Radial Right Radial Arterial Blood Carboxyhemoglobin 0.3 0.3 Arterial Blood Methemoglobin 0.2 0.2 Blood Gas A-a O2 Differential 623.7 H 576.1 H Oxyhemoglobin Percent 87.8 L 96.8 Total Hemoglobin 11.8 L 10.9 L Blood Gas Temperature 37.0 37.0 Blood Gas Actual Respiration Rate 18 Blood Gas Modality HFNC HFNC FiO2 100.0 100.0 Blood Gas Critical Value Read Back Barber SCHROEDER R.N. Blood Gas Notified Whom EDWINA MAI RCP Blood Gas Notified Time 08/07/2017 8:08:54 PM 08/08/2017 7:48:57 AM White Blood Count 10.8 Red Blood Count 3.61 L Hemoglobin 10.3 L Hematocrit 32.5 L Mean Corpuscular Volume 90.0 Mean Corpuscular Hemoglobin 28.5 L Mean Corpuscular Hemoglobin Concent 31.7 L Red Cell Distribution Width 14.8 H Platelet Count 257 Mean Platelet Volume 10.6 H Neutrophils % 65.7 Lymphocytes % 24.8 Monocytes % 5.9 Eosinophils % 2.0 Basophils % 1.1 Nucleated Red Blood Cells % 0.0 Neutrophils # 7.1 Lymphocytes # 2.7 Monocytes # 0.6 Eosinophils # 0.2 Basophils # 0.1 Nucleated Red Blood Cells # 0.0 Sodium Level 137 Potassium Level 4.1 Chloride Level 99 Carbon Dioxide Level 28 Anion Gap 14 Blood Urea Nitrogen 26 H Creatinine 5.35 H Glucose Level 89 Calcium Level 8.5 Lab Scanned Report BLOOD TRANSFUSION Medications Medications Current Medications Acetaminophen (Tylenol Tab) 650 mg Q6H PRN PO PAIN AND OR ELEVATED TEMP; Start 07/22/17 at 20:30 Ondansetron HCl (Zofran Inj) 4 mg Q6H PRN IV NAUSEA AND/OR VOMITING; Start 07/22/17 at 23:00 Bisacodyl (Dulcolax) 5 mg DAILY PRN PO CONSTIPATION; Start 07/22/17 at 23:00 Acetaminophen/ Hydrocodone Bitart ([place] (5/325)) 1 tab Q6H PRN PO Breakthrough Pain Last administered on 08/07/17 00:53; Admin Dose 1 TAB; Start 07/24/17 at 11:30 Guaifenesin/ Dextromethorphan (Robitussin Dm Liquid Cup) 5 ml TID PRN PO Cough Last administered on 08/07/17 08:49; Admin Dose 5 ML; Start 07/24/17 at 11:30 Alprazolam (Xanax) 1 mg Q8H PRN PO ANXIETY Last administered on 08/06/17 20: 54; Admin Dose 1 MG; Start 07/25/17 at 22:00 Pantoprazole (Protonix Tab) 40 mg DAILY@06 PO Last administered on 08/07/17 06:00; Admin Dose 40 MG; Start 07/28/17 at 06:00 Nitroglycerin (Nitroglycerin (Sl Tab) 0.4 Mg) 1 tab Q5M PRN SL ANGINA Last administered on 07/28/17 06:49; Admin Dose 1 TAB; Start 07/28/17 at 05:30 Aspirin (Aspirin) 81 mg DAILY PO Last administered on 08/07/17 08:48; Admin Dose 81 MG; Start 07/30/17 at 09:00 Metoprolol Tartrate (Lopressor) 12.5 mg BID PO Last administered on 08/07/17 20:06; Admin Dose 12.5 MG; Start 07/29/17 at 21:00 Isosorbide Dinitrate (Isordil) 20 mg TID PO Last administered on 08/07/17 20: 57; Admin Dose 20 MG; Start 07/29/17 at 21:00 Tramadol HCl (Ultram) 50 mg Q6H PRN PO pain Last administered on 08/07/17 08: 48; Admin Dose 50 MG; Start 08/05/17 at 16:30 Morphine Sulfate (morphine) 2 mg Q4H PRN IV pain Last administered on 06:51; Admin Dose 2 MG; Start 08/05/17 at 17:00 Docusate Sodium (Colace) 100 mg Q12 PO Last administered on 08/07/17 20:06; Admin Dose 100 MG; Start 08/05/17 at 21:00 Clonidine (Catapres) 0.1 mg Q6 PRN PO SBP>170; Start 08/05/17 at 17:00 Morphine Sulfate (morphine) 5 mg Q4H PRN IV PAIN Last administered on 06:35; Admin Dose 5 MG; Start 08/07/17 at 14:30 Acetylcysteine (Mucomyst) 3 ml Q4 NEB Last administered on 08/08/17 09:13; Admin Dose 3 ML; Start 08/07/17 at 21:00 ZIA BAEZA MD Aug 08, 2017 09:56
--- NOTE | 2017-08-08 11:06 | CONS ---
Date/Time of Note Date/Time of Note DATE: 08/08/17 TIME: 11:05 Consult Date/Type/Reason Admit Date/Time Jul 22, 2017 at 19:26 Initial Consult Date 07/23/17 Type of Consultation: Pulmonary Ordering Provider: KISHAN MEJIA MD Subjective Patient comfortable this morning. Having hemodialysis. Objective Vital Signs Date Time Temp Pulse Resp B/P Pulse Ox O2 Delivery O2 Flow Rate FiO2 08/08/17 09:15 96 100 08/08/17 09:15 70 20 08/08/17 08:00 98.2 144/85 High Flow 08/08/17 05:07 15.0 Intake and Output 08/07/17 08/07/17 08/08/17 14:59 22:59 06:59 Intake Total 500 ml 480 ml 0 ml Output Total 3500 ml 50 ml Balance -3000 ml 480 ml -50 ml Exam GENERAL: Elderly lady appears comfortable at rest no acute distress VITAL SIGNS: per chart NECK: Supple. No JVD or lymphadenopathy. CARDIAC EXAM: S1, S2. No added sounds or murmurs. CHEST: Diminished air entry left lung more than right ABDOMEN: Soft, nontender. No guarding or rebound. EXTREMITIES: No cyanosis, clubbing or edema. NEUROLOGIC: Generalized weakness. No focal deficits. Results/Medications Result Diagram: 08/08/1752908/08/17529 Results 24 hrs Laboratory Tests Test 08/07/17 20:00 08/08/17 05:30 08/08/17 05:49 08/08/17 07:00 Blood Gas Specimen Source Blood arterial Blood arterial Arterial Blood Date Drawn 08/07/2017 7:55:28 PM 08/08/2017 7:42:53 AM Arterial Blood pH (Temp corrected) 7.490 H 7.460 H Arterial Blood pCO2 (Temp correct) 37.5 39.6 Arterial Blood pO2 (Temp corrected) 51.8 *L 97.3 Arterial Blood HCO3 27.9 H 27.5 H Arterial Blood Base Excess 4.5 H 3.5 H Arterial Blood Oxygen Saturation 88.2 L 97.3 Seb Test ACCEPTAB ACCEPTAB Arterial Blood Gas Puncture Site Right Radial Right Radial Arterial Blood Carboxyhemoglobin 0.3 0.3 Arterial Blood Methemoglobin 0.2 0.2 Blood Gas A-a O2 Differential 623.7 H 576.1 H Oxyhemoglobin Percent 87.8 L 96.8 Total Hemoglobin 11.8 L 10.9 L Blood Gas Temperature 37.0 37.0 Blood Gas Actual Respiration Rate 18 Blood Gas Modality HFNC HFNC FiO2 100.0 100.0 Blood Gas Critical Value Read Back Barber SCHROEDER R.N. Blood Gas Notified Whom EDWINA MAI RCP Blood Gas Notified Time 08/07/2017 8:08:54 PM 08/08/2017 7:48:57 AM White Blood Count 10.8 Red Blood Count 3.61 L Hemoglobin 10.3 L Hematocrit 32.5 L Mean Corpuscular Volume 90.0 Mean Corpuscular Hemoglobin 28.5 L Mean Corpuscular Hemoglobin Concent 31.7 L Red Cell Distribution Width 14.8 H Platelet Count 257 Mean Platelet Volume 10.6 H Neutrophils % 65.7 Lymphocytes % 24.8 Monocytes % 5.9 Eosinophils % 2.0 Basophils % 1.1 Nucleated Red Blood Cells % 0.0 Neutrophils # 7.1 Lymphocytes # 2.7 Monocytes # 0.6 Eosinophils # 0.2 Basophils # 0.1 Nucleated Red Blood Cells # 0.0 Sodium Level 137 Potassium Level 4.1 Chloride Level 99 Carbon Dioxide Level 28 Anion Gap 14 Blood Urea Nitrogen 26 H Creatinine 5.35 H Glucose Level 89 Calcium Level 8.5 Lab Scanned Report BLOOD TRANSFUSION Medications Current Medications Acetaminophen (Tylenol Tab) 650 mg Q6H PRN PO PAIN AND OR ELEVATED TEMP; Start 07/22/17 at 20:30 Ondansetron HCl (Zofran Inj) 4 mg Q6H PRN IV NAUSEA AND/OR VOMITING; Start 07/22/17 at 23:00 Bisacodyl (Dulcolax) 5 mg DAILY PRN PO CONSTIPATION; Start 07/22/17 at 23:00 Acetaminophen/ Hydrocodone Bitart ([place] (5/325)) 1 tab Q6H PRN PO Breakthrough Pain Last administered on 08/07/17 00:53; Admin Dose 1 TAB; Start 07/24/17 at 11:30 Guaifenesin/ Dextromethorphan (Robitussin Dm Liquid Cup) 5 ml TID PRN PO Cough Last administered on 08/07/17 08:49; Admin Dose 5 ML; Start 07/24/17 at 11:30 Alprazolam (Xanax) 1 mg Q8H PRN PO ANXIETY Last administered on 08/06/17 20: 54; Admin Dose 1 MG; Start 07/25/17 at 22:00 Pantoprazole (Protonix Tab) 40 mg DAILY@06 PO Last administered on 08/07/17 06:00; Admin Dose 40 MG; Start 07/28/17 at 06:00 Nitroglycerin (Nitroglycerin (Sl Tab) 0.4 Mg) 1 tab Q5M PRN SL ANGINA Last administered on 07/28/17 06:49; Admin Dose 1 TAB; Start 07/28/17 at 05:30 Aspirin (Aspirin) 81 mg DAILY PO Last administered on 08/07/17 08:48; Admin Dose 81 MG; Start 07/30/17 at 09:00 Metoprolol Tartrate (Lopressor) 12.5 mg BID PO Last administered on 08/07/17 20:06; Admin Dose 12.5 MG; Start 07/29/17 at 21:00 Isosorbide Dinitrate (Isordil) 20 mg TID PO Last administered on 08/07/17 20: 57; Admin Dose 20 MG; Start 07/29/17 at 21:00 Tramadol HCl (Ultram) 50 mg Q6H PRN PO pain Last administered on 08/07/17 08: 48; Admin Dose 50 MG; Start 08/05/17 at 16:30 Morphine Sulfate (morphine) 2 mg Q4H PRN IV pain Last administered on 06:51; Admin Dose 2 MG; Start 08/05/17 at 17:00 Docusate Sodium (Colace) 100 mg Q12 PO Last administered on 08/07/17 20:06; Admin Dose 100 MG; Start 08/05/17 at 21:00 Clonidine (Catapres) 0.1 mg Q6 PRN PO SBP>170; Start 08/05/17 at 17:00 Morphine Sulfate (morphine) 5 mg Q4H PRN IV PAIN Last administered on 06:35; Admin Dose 5 MG; Start 08/07/17 at 14:30 Acetylcysteine (Mucomyst) 3 ml Q4 NEB Last administered on 08/08/17 09:13; Admin Dose 3 ML; Start 08/07/17 at 21:00 Assessment/Plan Chief Complaint/Hosp Course Assessment 1. Patient admitted with pulmonary edema with interval improvement. Hypoxemic respiratory failure with component of lung collapse and pleural effusion 2. Rectal prolapse status post surgical repair. 3. End-stage renal disease, on hemodialysis. Plan 1. Thoracentesis left pleural effusion 2. If no significant pleural effusion and patient will require bronchoscopy 3. Hemodialysis with volume removal 4. Incentive spirometry and chest percussion Problems: SAMIA CINTRON MD, [facility] Aug 08, 2017 11:06
--- NOTE | 2017-08-08 12:33 | CONS ---
Date/Time of Note Date/Time of Note DATE: 08/08/17 TIME: 12:28 Assessment/Plan Assessment/Plan Chief Complaint/Hosp Course IMPRESSION: 1. Positive troponin in the setting of renal failure, but chest pain and cardiac risk factors, assess significance.- Now trended negative and s/p lexiscan with no ischemia/NL EF.Echo n10/10 with NL EF 50-55. Mod OK to proceed to surgery for rectal prolapse from cardiac standpoint at moderate CV risk on current medications including low dose BB continue pre-post- operatively. Avoid large fluid shifts/swings in blood pressure as possible-Now post-op s/p rectal prolapse surgery 2. Abnormal electrocardiogram with nonspecific ST-T abnormalities and initial anterolateral T-wave inversions. 3. Hypertension-refusing medications but patient BP on lower end today 4. Rectal prolapse. 5. Hepatitis C antibody positive, hepatitis B core antibody positive. 6. Anemia. 7. End-stage renal disease on hemodialysis. 8. L Lung white out-slowly improving Recc: -Continue low dose BB/isordil as tolerated [id number] -Continue asa -routine post-op care -Pain control -Possible bronch versus thoracentesis Problems: Consultation Date/Type/Reason Admit Date/Time Jul 22, 2017 at 19:26 Initial Consult Date 07/23/17 Type of Consultation: cardiology Reason for Consultation Positive troponin Referring Provider: KISHAN MEJIA MD Exam/Review of Systems Vital Signs Vitals Vital Signs Date Time Temp Pulse Resp B/P Pulse Ox O2 Delivery O2 Flow Rate FiO2 08/08/17 11:00 94 100 08/08/17 09:15 70 20 08/08/17 08:00 98.2 144/85 High Flow 08/08/17 05:07 15.0 Intake and Output 08/07/17 08/07/17 08/08/17 15:00 23:00 07:00 Intake Total 500 ml 480 ml 0 ml Output Total 3500 ml 50 ml Balance -3000 ml 480 ml -50 ml Exam Review of Systems: CONSTITUTIONAL: No fevers, chills. PULMONARY: No sob CARDIOVASCULAR: No chest pain/palpitations GASTROINTESTINAL: No nausea/vomiting. GENITOURINARY: No hematuria/dysuria. MUSCULOSKELETAL: No myagias/arthalgias. PSYCHIATRIC: The patient denies depression. NEUROLOGIC: No weakness Constitutional: alert Psych: no complaints Head: normocephalic ENMT: mucosa pink and moist Neck: jvd, supple Respiratory: diminished breath sounds (at basdes/B) Cardiovascular: regular rate and rhythm Gastrointestinal: non-tender, soft Extremities: edema (normal) 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: other (No focal deficits) Results Result Diagram: 08/08/17 0530 08/08/17 0530 Results 24 hrs Laboratory Tests Test 08/07/17 20:00 08/08/17 05:30 08/08/17 05:49 08/08/17 07:00 Blood Gas Specimen Source Blood arterial Blood arterial Arterial Blood Date Drawn 08/07/2017 7:55:28 PM 08/08/2017 7:42:53 AM Arterial Blood pH (Temp corrected) 7.490 H 7.460 H Arterial Blood pCO2 (Temp correct) 37.5 39.6 Arterial Blood pO2 (Temp corrected) 51.8 *L 97.3 Arterial Blood HCO3 27.9 H 27.5 H Arterial Blood Base Excess 4.5 H 3.5 H Arterial Blood Oxygen Saturation 88.2 L 97.3 Seb Test ACCEPTAB ACCEPTAB Arterial Blood Gas Puncture Site Right Radial Right Radial Arterial Blood Carboxyhemoglobin 0.3 0.3 Arterial Blood Methemoglobin 0.2 0.2 Blood Gas A-a O2 Differential 623.7 H 576.1 H Oxyhemoglobin Percent 87.8 L 96.8 Total Hemoglobin 11.8 L 10.9 L Blood Gas Temperature 37.0 37.0 Blood Gas Actual Respiration Rate 18 Blood Gas Modality HFNC HFNC FiO2 100.0 100.0 Blood Gas Critical Value Read Back Barber SCHROEDER R.N. Blood Gas Notified Whom EDWINA MAI RCP Blood Gas Notified Time 08/07/2017 8:08:54 PM 08/08/2017 7:48:57 AM White Blood Count 10.8 Red Blood Count 3.61 L Hemoglobin 10.3 L Hematocrit 32.5 L Mean Corpuscular Volume 90.0 Mean Corpuscular Hemoglobin 28.5 L Mean Corpuscular Hemoglobin Concent 31.7 L Red Cell Distribution Width 14.8 H Platelet Count 257 Mean Platelet Volume 10.6 H Neutrophils % 65.7 Lymphocytes % 24.8 Monocytes % 5.9 Eosinophils % 2.0 Basophils % 1.1 Nucleated Red Blood Cells % 0.0 Neutrophils # 7.1 Lymphocytes # 2.7 Monocytes # 0.6 Eosinophils # 0.2 Basophils # 0.1 Nucleated Red Blood Cells # 0.0 Sodium Level 137 Potassium Level 4.1 Chloride Level 99 Carbon Dioxide Level 28 Anion Gap 14 Blood Urea Nitrogen 26 H Creatinine 5.35 H Glucose Level 89 Calcium Level 8.5 Lab Scanned Report BLOOD TRANSFUSION Medications Medications Current Medications Acetaminophen (Tylenol Tab) 650 mg Q6H PRN PO PAIN AND OR ELEVATED TEMP; Start 07/22/17 at 20:30 Ondansetron HCl (Zofran Inj) 4 mg Q6H PRN IV NAUSEA AND/OR VOMITING; Start 07/22/17 at 23:00 Bisacodyl (Dulcolax) 5 mg DAILY PRN PO CONSTIPATION; Start 07/22/17 at 23:00 Acetaminophen/ Hydrocodone Bitart ([place] (5/325)) 1 tab Q6H PRN PO Breakthrough Pain Last administered on 08/07/17 00:53; Admin Dose 1 TAB; Start 07/24/17 at 11:30 Guaifenesin/ Dextromethorphan (Robitussin Dm Liquid Cup) 5 ml TID PRN PO Cough Last administered on 08/07/17 08:49; Admin Dose 5 ML; Start 07/24/17 at 11:30 Alprazolam (Xanax) 1 mg Q8H PRN PO ANXIETY Last administered on 08/06/17 20: 54; Admin Dose 1 MG; Start 07/25/17 at 22:00 Pantoprazole (Protonix Tab) 40 mg DAILY@06 PO Last administered on 08/07/17 06:00; Admin Dose 40 MG; Start 07/28/17 at 06:00 Nitroglycerin (Nitroglycerin (Sl Tab) 0.4 Mg) 1 tab Q5M PRN SL ANGINA Last administered on 07/28/17 06:49; Admin Dose 1 TAB; Start 07/28/17 at 05:30 Aspirin (Aspirin) 81 mg DAILY PO Last administered on 08/07/17 08:48; Admin Dose 81 MG; Start 07/30/17 at 09:00 Metoprolol Tartrate (Lopressor) 12.5 mg BID PO Last administered on 08/07/17 20:06; Admin Dose 12.5 MG; Start 07/29/17 at 21:00 Isosorbide Dinitrate (Isordil) 20 mg TID PO Last administered on 08/07/17 20: 57; Admin Dose 20 MG; Start 07/29/17 at 21:00 Tramadol HCl (Ultram) 50 mg Q6H PRN PO pain Last administered on 08/07/17 08: 48; Admin Dose 50 MG; Start 08/05/17 at 16:30 Morphine Sulfate (morphine) 2 mg Q4H PRN IV pain Last administered on 06:51; Admin Dose 2 MG; Start 08/05/17 at 17:00 Docusate Sodium (Colace) 100 mg Q12 PO Last administered on 08/07/17 20:06; Admin Dose 100 MG; Start 08/05/17 at 21:00 Clonidine (Catapres) 0.1 mg Q6 PRN PO SBP>170; Start 08/05/17 at 17:00 Morphine Sulfate (morphine) 5 mg Q4H PRN IV PAIN Last administered on 06:35; Admin Dose 5 MG; Start 08/07/17 at 14:30 Acetylcysteine 3 ml 3 ml Q4 NEB Last administered on 08/08/17 09:13; Admin Dose 3 ML; Start 08/07/17 at 21:00 Aztreonam (Azactam 1gm/NS (Pmx)) 50 ml @ 100 mls/hr Q12 IVPB ; Start 08/08/17 at 12:30; Status CONI JAUREGUI Aug 08, 2017 12:33
[2017-08-08] MEDS: ISOSORBIDE DINITRATE 20 MG TAB PO SCH ×3 (13:00→21:21)
[2017-08-08] MEDS: ASPIRIN 81 MG TAB PO SCH (13:08)
[2017-08-08] MEDS: DOCUSATE SODIUM 100 MG CAP PO SCH ×2 (13:08→21:20)
[2017-08-08] MEDS: METOPROLOL 25 MG TAB PO SCH ×2 (13:09→21:21)
[2017-08-08] MEDS: AZTREONAM 1 GM/NS (PMX) 50 ML IVPB SCH ×2 (15:00→21:32)
--- NOTE | 2017-08-08 18:42 | PN ---
Date/Time of Note Date/Time of Note DATE: 08/08/17 TIME: 18:38 Assessment/Plan Lines/Catheters IV Catheter Type (from Nrs): Saline Lock [place] in Place (from Nrs): No Assessment/Plan Chief Complaint/Hosp Course 1. Rectal prolapse status post laparoscopic LAR, rectopexy, biologic 08/03; tolerating diet with +bowel function -Avoid straining 2. Respiratory compromise with left sided white out and bilateral pleural effusion in ICU; cxr improved, was scheduled for thoracentesis but refused -judicious fluid management and gentle diuresis/HD -resp following -pulm toilette 3. ESRD: -hd per renal 4. Electrolyte imbalance: -optimize lytes 5. Hypoalbuminemia with hypocalcemia: nutritional +/- inflammation -as above -optimize nutrition 6. Anemia: without acute bleed: s/p 1 unit prbc tx today -monitor and transfuse as needed 7. Hepatitis with reactive serology -medical management 8. UTI s/p abx per sensitivity -frequent bladder emptying 9. Chest pain: no current c/o pain; trop +; EKG: NSR. -cardiac optimization Thank you. Patient seen and examined in collaboration with Dr. Deep Zhang. Problems: Subjective 24 Hr Interval Summary Feels ok. On high flow O2. Refused thoracentesis today. No fevers, chills, sob, congested cough, n/v/d/dysuria, cp, palpitations. Exam/Review of Systems Vital Signs Vitals Vital Signs Date Time Temp Pulse Resp B/P Pulse Ox O2 Delivery O2 Flow Rate FiO2 08/08/17 17:35 94 100 08/08/17 17:35 75 18 08/08/17 16:00 98.4 134/98 High Flow 08/08/17 05:07 15.0 Intake and Output 08/07/17 08/07/17 08/08/17 15:00 23:00 07:00 Intake Total 500 ml 480 ml 0 ml Output Total 3500 ml 50 ml Balance -3000 ml 480 ml -50 ml Exam Free Text/Dictation Constitutional: alert, oriented Psych: nl mood Head: atraumatic, normocephalic Eyes: nl conjunctiva, nl lids, nl sclera ENMT: No mucosa pink and moist (dry) Neck: non-tender, supple Respiratory: diminished breath sounds, crackles at bases; No labored breathing ; high flow O2 Cardiovascular: nl pulses, regular rate and rhythm, No edema Gastrointestinal: non-tender, soft, No distended, No rebound or guarding Genitourinary - Female: No further prolapse Musculoskeletal: nl extremities to inspection Extremities: normal pulses, No edema 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: nl speech, nl strength Skin: No rash or lesions Rectal: No further prolapse, no meri bleed noted Results Result Diagram: 08/08/17 0530 08/08/17 0530 RAFFY GRAHAM NP Aug 08, 2017 18:42
[2017-08-08] MEDS: morphine 2 MG INJ IV PRN (23:59)
[2017-08-09] VITALS (24 sets, daily range): BP systolic 117–187; BP diastolic 79–165; PULSE 63–82; RESP 11–20
[2017-08-09] MEDS: ALBUTEROL 0.083% (NEB) 2.5 MG/3 ML AMP HHN SCH ×6 (00:08→20:15)
[2017-08-09] MEDS: ACETYLCYSTEINE 20% 4 ML VIAL NEB SCH ×6 (00:08→20:15)
[2017-08-09] MEDS: IPRATROPIUM (NEB) 0.5 MG/2.5 ML AMP HHN SCH ×6 (00:08→20:15)
[2017-08-09] MEDS: ALPRAZOLAM 0.5 MG TAB PO PRN ×2 (02:35→19:49)
[2017-08-09] MEDS: PANTOPRAZOLE (EC) 40 MG TAB PO SCH (05:58)
[2017-08-09 06:39] LABS: AADO2 Arterial 620.5 mmHg (7.0-24.0); Arterial Base Excess 1.8 mmol/L (-3.0-3); Arterial COHb 0.3 % (0.0-3.0); Arterial Fraction of Oxyhgb 91.3 % (93.0-99.0); Arterial HCO3 25.1 mmol/L (22.0-26.0); Arterial MetHb 0.1 % (0.0-1.5); Arterial Total Hemglobin 10.5 g/dl (12.0-18.0); MODE HFNC
[2017-08-09 06:51] LABS: CALCIUM 8.9 mg/dl (8.4-10.2); CREATININE 4.9 mg/dl (0.44-1.00); PHOSPHORUS 5.6 mg/dl (2.5-4.9); POTASSIUM 4.1 mmol/L (3.5-5.1)
[2017-08-09] MEDS: CALCIUM ACETATE 667 MG CAP PO SCH ×3 (08:03→17:19)
--- NOTE | 2017-08-09 09:03 | PN ---
Date/Time of Note Date/Time of Note DATE: 08/09/17 TIME: 09:02 Assessment/Plan VTE Prophylaxis VTE Prophylaxis Intervention: heparin Lines/Catheters IV Catheter Type (from Nrs): Peripheral IV Urinary Cath still in place: No Assessment/Plan Chief Complaint/Hosp Course 62 y/o with 1. Rectal prolapse, severe.status post laparoscopic LAR, rectopexy, biologic 08/03; improving 2. Leukocytosis > imrpoved 3. Anemia likely End-stage renal disease however with acute drop no bleeding noted 4. Hepatitis B core antibody positive. 5 pleural effusion 6 NSTEMI 7 S/P LEXISCAN NEG 8 Hypoxic respiratory insufficency with complete opacification of left lung? mucous plug s/p dry UF /HD, cannot r/o underlying Pneumonia and underlying effusion Plan - Repeat chest xray pending - Ultrasound today for possible Thoracentesis today - Chest PT and Mucomist - c/w Aztreonam, sputum cx pending - c/w Morphine and ultram - Epogen - GI/DVT prophylaxsis - HD tmw - Appreciate Pulmonary recs - Problems: Subjective 24 Hr Interval Summary Free Text/Dictation On High flow 100% Repeat Chest Xray pending Pt feels better today S/p HD yesterday Exam/Review of Systems Vital Signs Vitals Vital Signs Date Time Temp Pulse Resp B/P Pulse Ox O2 Delivery O2 Flow Rate FiO2 08/09/17 08:00 98.3 76 20 181/102 94 High Flow 08/09/17 04:45 100 08/08/17 05:07 15.0 Intake and Output 08/08/17 08/08/17 08/09/17 15:00 23:00 07:00 Intake Total 300 ml 780 ml 340 ml Output Total 3500 ml 0 ml 10 ml Balance -3200 ml 780 ml 330 ml Exam Respiratory: decreased breath sounds b/l r>l Cardiovascular: regular rate and rhythm Gastrointestinal: bowel sounds (+), soft, distended, surgical site TTP Left permacaTH Results Result Diagram: 08/08/17 0530 08/09/17 0548 Results 24 hrs Laboratory Tests Test 08/09/17 05:48 08/09/17 07:00 08/09/17 07:42 Sodium Level 136 Potassium Level 4.1 Chloride Level 101 Carbon Dioxide Level 27 Anion Gap 12 Blood Urea Nitrogen 26 H Creatinine 4.90 H Glucose Level 118 Calcium Level 8.9 Phosphorus Level 5.6 H Magnesium Level 2.0 Blood Gas Specimen Source Blood arterial Arterial Blood Date Drawn 08/09/2017 6:30:46 AM Arterial Blood pH (Temp corrected) 7.481 H Arterial Blood pCO2 (Temp correct) 34.4 L Arterial Blood pO2 (Temp corrected) 58.1 L Arterial Blood HCO3 25.1 Arterial Blood Base Excess 1.8 Arterial Blood Oxygen Saturation 91.7 L Seb Test N/A Arterial Blood Gas Puncture Site Right Brachial Arterial Blood Carboxyhemoglobin 0.3 Arterial Blood Methemoglobin 0.1 Blood Gas A-a O2 Differential 620.5 H Oxyhemoglobin Percent 91.3 L Total Hemoglobin 10.5 L Blood Gas Temperature 37.0 Blood Gas Actual Respiration Rate 18 Blood Gas Modality HFNC FiO2 100.0 Blood Gas Notified Whom BL Blood Gas Notified Time 08/09/2017 6:38:49 AM White Blood Count Pending Red Blood Count Pending Hemoglobin Pending Hematocrit Pending Mean Corpuscular Volume Pending Mean Corpuscular Hemoglobin Pending Mean Corpuscular Hemoglobin Concent Pending Red Cell Distribution Width Pending Platelet Count Pending Mean Platelet Volume Pending Medications Medications Current Medications Acetaminophen (Tylenol Tab) 650 mg Q6H PRN PO PAIN AND OR ELEVATED TEMP; Start 07/22/17 at 20:30 Ondansetron HCl (Zofran Inj) 4 mg Q6H PRN IV NAUSEA AND/OR VOMITING; Start 07/22/17 at 23:00 Bisacodyl (Dulcolax) 5 mg DAILY PRN PO CONSTIPATION; Start 07/22/17 at 23:00 Acetaminophen/ Hydrocodone Bitart ([place] (5/325)) 1 tab Q6H PRN PO Breakthrough Pain Last administered on 08/07/17 00:53; Admin Dose 1 TAB; Start 07/24/17 at 11:30 Guaifenesin/ Dextromethorphan (Robitussin Dm Liquid Cup) 5 ml TID PRN PO Cough Last administered on 08/07/17 08:49; Admin Dose 5 ML; Start 07/24/17 at 11:30 Alprazolam (Xanax) 1 mg Q8H PRN PO ANXIETY Last administered on 08/09/17 02: 35; Admin Dose 1 MG; Start 07/25/17 at 22:00 Pantoprazole (Protonix Tab) 40 mg DAILY@06 PO Last administered on 08/09/17 05:58; Admin Dose 40 MG; Start 07/28/17 at 06:00 Nitroglycerin (Nitroglycerin (Sl Tab) 0.4 Mg) 1 tab Q5M PRN SL ANGINA Last administered on 07/28/17 06:49; Admin Dose 1 TAB; Start 07/28/17 at 05:30 Aspirin (Aspirin) 81 mg DAILY PO Last administered on 08/08/17 13:08; Admin Dose 81 MG; Start 07/30/17 at 09:00 Metoprolol Tartrate (Lopressor) 12.5 mg BID PO Last administered on 08/08/17 21:21; Admin Dose 12.5 MG; Start 07/29/17 at 21:00 Isosorbide Dinitrate (Isordil) 20 mg TID PO Last administered on 08/08/17 21: 21; Admin Dose 20 MG; Start 07/29/17 at 21:00 Tramadol HCl (Ultram) 50 mg Q6H PRN PO pain Last administered on 08/07/17 08: 48; Admin Dose 50 MG; Start 08/05/17 at 16:30 Morphine Sulfate (morphine) 2 mg Q4H PRN IV pain Last administered on 23:59; Admin Dose 2 MG; Start 08/05/17 at 17:00 Docusate Sodium (Colace) 100 mg Q12 PO Last administered on 08/08/17 21:20; Admin Dose 100 MG; Start 08/05/17 at 21:00 Clonidine (Catapres) 0.1 mg Q6 PRN PO SBP>170; Start 08/05/17 at 17:00 Morphine Sulfate (morphine) 5 mg Q4H PRN IV PAIN Last administered on 18:56; Admin Dose 5 MG; Start 08/07/17 at 14:30 Acetylcysteine 3 ml 3 ml Q4 NEB Last administered on 08/09/17 08:59; Admin Dose 3 ML; Start 08/07/17 at 21:00 Aztreonam (Azactam 1gm/NS (Pmx)) 50 ml @ 100 mls/hr Q12 IVPB Last administered on 08/08/17 21:32; Admin Dose 100 MLS/HR; Start 08/08/17 at 12: 30 ROSLYN SHANNON MD Aug 09, 2017 09:03
--- NOTE | 2017-08-09 09:20 | RADRPT ---
PROCEDURE: XR Chest. CLINICAL INDICATION: Shortness of breath. TECHNIQUE: Single frontal view. COMPARISON: 08/08/2017. FINDINGS: The tunneled left internal jugular vein dialysis catheter remains in satisfactory position. There is air space disease at the right lung base, worse than seen previously. There is improved aeration of the left lung. The heart size is normal. There is a small right pleural effusion and moderate left pleural effusion. There is no pneumothorax. IMPRESSION: 1. Worse appearance of the right lung and improved appearance of the left lung. 2. Small right pleural effusion and moderate left pleural effusion. RPTAT: QQ .Sam Villalpando MD, MD Date Time Electronically viewed and signed by .Sam Villalpando MD, MD on 08/09/2017 09:19 .R/
[2017-08-09] MEDS: ASPIRIN 81 MG TAB PO SCH (09:47)
[2017-08-09] MEDS: METOPROLOL 25 MG TAB PO SCH ×2 (09:47→21:00)
[2017-08-09] MEDS: DOCUSATE SODIUM 100 MG CAP PO SCH ×2 (09:48→21:00)
[2017-08-09] MEDS: AZTREONAM 1 GM/NS (PMX) 50 ML IVPB SCH ×2 (09:48→21:00)
[2017-08-09] MEDS: ISOSORBIDE DINITRATE 20 MG TAB PO SCH ×3 (09:48→21:00)
--- NOTE | 2017-08-09 09:51 | CONS ---
Date/Time of Note Date/Time of Note DATE: 08/09/17 TIME: 09:49 Assessment/Plan Assessment/Plan Additional Assessment/Plan Chest x-ray was reviewed from today which is showing continued improvement in extensive left lung infiltrative/atelectatic changes. Assessment and recommendations; 1. Patient admitted with pulmonary edema and also had significant rectal prolapse, status post surgical repair. 2. Postop complete left lung atelectasis with marked interval improvement. Underlying pneumonia cannot be excluded entirely. Underlying pleural effusion also cannot be excluded at this time. Continue current treatment. Patient responding well to current treatment regimen. Scheduled for left chest ultrasound. If there is a significant effusion patient will undergo left thoracentesis. Patient can be transferred to the medical floor. Consultation Date/Type/Reason Admit Date/Time Jul 22, 2017 at 19:26 Initial Consult Date 07/23/17 Type of Consultation: Pulmonary/critical care Referring Provider: KISHAN MEJIA MD 24 HR Interval Summary Free Text/Dictation Patient's condition is stable. Remains completely awake alert. According to her shortness of breath is markedly improved. General exam; elderly woman, awake alert, currently in no distress. Exam/Review of Systems Vital Signs Vitals Vital Signs Date Time Temp Pulse Resp B/P Pulse Ox O2 Delivery O2 Flow Rate FiO2 08/09/17 09:09 75 14 95 100 08/09/17 08:00 98.3 181/102 High Flow 08/08/17 05:07 15.0 Intake and Output 08/08/17 08/08/17 08/09/17 15:00 23:00 07:00 Intake Total 300 ml 780 ml 340 ml Output Total 3500 ml 0 ml 10 ml Balance -3200 ml 780 ml 330 ml Exam HEENT exam; supple neck, no JVD. No lymphadenopathy. Midline trachea. No thyromegaly. Pharynx is clear. Patient is edentulous. Chest exam; improved breath sounds left lung. Right lung is clear to auscultation. S1-S2 audible, no murmurs. Regular rhythm. Abdomen exam; soft, nontender. No organomegaly. Bowel sounds audible. Next Extremity exam; no peripheral edema. Patient does have chronic skin changes. [employer] exam; no focal deficit. Results Result Diagram: 08/08/17 0530 08/09/17 0548 Results 24 hrs Laboratory Tests Test 08/09/17 05:48 08/09/17 07:00 08/09/17 07:42 Sodium Level 136 Potassium Level 4.1 Chloride Level 101 Carbon Dioxide Level 27 Anion Gap 12 Blood Urea Nitrogen 26 H Creatinine 4.90 H Glucose Level 118 Calcium Level 8.9 Phosphorus Level 5.6 H Magnesium Level 2.0 Blood Gas Specimen Source Blood arterial Arterial Blood Date Drawn 08/09/2017 6:30:46 AM Arterial Blood pH (Temp corrected) 7.481 H Arterial Blood pCO2 (Temp correct) 34.4 L Arterial Blood pO2 (Temp corrected) 58.1 L Arterial Blood HCO3 25.1 Arterial Blood Base Excess 1.8 Arterial Blood Oxygen Saturation 91.7 L Seb Test N/A Arterial Blood Gas Puncture Site Right Brachial Arterial Blood Carboxyhemoglobin 0.3 Arterial Blood Methemoglobin 0.1 Blood Gas A-a O2 Differential 620.5 H Oxyhemoglobin Percent 91.3 L Total Hemoglobin 10.5 L Blood Gas Temperature 37.0 Blood Gas Actual Respiration Rate 18 Blood Gas Modality HFNC FiO2 100.0 Blood Gas Notified Whom BL Blood Gas Notified Time 08/09/2017 6:38:49 AM White Blood Count Pending Red Blood Count Pending Hemoglobin Pending Hematocrit Pending Mean Corpuscular Volume Pending Mean Corpuscular Hemoglobin Pending Mean Corpuscular Hemoglobin Concent Pending Red Cell Distribution Width Pending Platelet Count Pending Mean Platelet Volume Pending Medications Medications Current Medications Acetaminophen (Tylenol Tab) 650 mg Q6H PRN PO PAIN AND OR ELEVATED TEMP; Start 07/22/17 at 20:30 Ondansetron HCl (Zofran Inj) 4 mg Q6H PRN IV NAUSEA AND/OR VOMITING; Start 07/22/17 at 23:00 Bisacodyl (Dulcolax) 5 mg DAILY PRN PO CONSTIPATION; Start 07/22/17 at 23:00 Acetaminophen/ Hydrocodone Bitart ([place] (5/325)) 1 tab Q6H PRN PO Breakthrough Pain Last administered on 08/07/17 00:53; Admin Dose 1 TAB; Start 07/24/17 at 11:30 Guaifenesin/ Dextromethorphan (Robitussin Dm Liquid Cup) 5 ml TID PRN PO Cough Last administered on 08/07/17 08:49; Admin Dose 5 ML; Start 07/24/17 at 11:30 Alprazolam (Xanax) 1 mg Q8H PRN PO ANXIETY Last administered on 08/09/17 02: 35; Admin Dose 1 MG; Start 07/25/17 at 22:00 Pantoprazole (Protonix Tab) 40 mg DAILY@06 PO Last administered on 08/09/17 05:58; Admin Dose 40 MG; Start 07/28/17 at 06:00 Nitroglycerin (Nitroglycerin (Sl Tab) 0.4 Mg) 1 tab Q5M PRN SL ANGINA Last administered on 07/28/17 06:49; Admin Dose 1 TAB; Start 07/28/17 at 05:30 Aspirin (Aspirin) 81 mg DAILY PO Last administered on 08/09/17 09:47; Admin Dose 81 MG; Start 07/30/17 at 09:00 Metoprolol Tartrate (Lopressor) 12.5 mg BID PO Last administered on 08/09/17 09:47; Admin Dose 12.5 MG; Start 07/29/17 at 21:00 Isosorbide Dinitrate (Isordil) 20 mg TID PO Last administered on 08/09/17 09: 48; Admin Dose 20 MG; Start 07/29/17 at 21:00 Tramadol HCl (Ultram) 50 mg Q6H PRN PO pain Last administered on 08/07/17 08: 48; Admin Dose 50 MG; Start 08/05/17 at 16:30 Morphine Sulfate (morphine) 2 mg Q4H PRN IV pain Last administered on 23:59; Admin Dose 2 MG; Start 08/05/17 at 17:00 Docusate Sodium (Colace) 100 mg Q12 PO Last administered on 08/09/17 09:48; Admin Dose 100 MG; Start 08/05/17 at 21:00 Clonidine (Catapres) 0.1 mg Q6 PRN PO SBP>170; Start 08/05/17 at 17:00 Morphine Sulfate (morphine) 5 mg Q4H PRN IV PAIN Last administered on 18:56; Admin Dose 5 MG; Start 08/07/17 at 14:30 Acetylcysteine 3 ml 3 ml Q4 NEB Last administered on 08/09/17 08:59; Admin Dose 3 ML; Start 08/07/17 at 21:00 Aztreonam (Azactam 1gm/NS (Pmx)) 50 ml @ 100 mls/hr Q12 IVPB Last administered on 08/09/17t 09:48; Admin Dose 100 MLS/HR; Start 08/08/17 at 12: 30 LEATHA PHAM Aug 09, 2017 09:51
[2017-08-09 11:32] LABS: BASOPHIL # 0.1 10^3/ul (0.0-0.1); BASOPHILS % 1.2 % (0.0-2.0); EOSINOPHILS # 0.4 10^3/ul (0.0-0.5); EOSINOPHILS % 3.7 % (0.0-7.0); HEMATOCRIT 30.3 % (37.0-47.0); HEMOGLOBIN 9.4 g/dl (12.0-16.0); LYMPHOCYTES % 21.2 % (15.0-51.0); MEAN CORPUSCULAR HEMOGLOBIN 28.1 pg (29.0-33.0); MEAN CORPUSCULAR VOLUME 90.7 fl (82.0-101.0); MEAN PLATELET VOLUME 9.9 fl (7.4-10.4); MONOCYTE # 0.9 10^3/ul (0.3-0.9); MONOCYTES % 9.7 % (0.0-11.0); PLATELET COUNT 268 10^3/UL (140-415); RED BLOOD COUNT 3.34 10^6/ul (4.20-5.40); RED CELL DISTRIBUTION WIDTH 14.6 % (11.5-14.5); WHITE BLOOD COUNT 9.3 10^3/ul (4.8-10.8)
--- NOTE | 2017-08-09 11:45 | CONS ---
Date/Time of Note Date/Time of Note DATE: 08/09/17 TIME: 11:42 Assessment/Plan Assessment/Plan Chief Complaint/Hosp Course IMPRESSION: 1. Positive troponin in the setting of renal failure, but chest pain and cardiac risk factors, assess significance.- Now trended negative and s/p lexiscan with no ischemia/NL EF.Echo n10/10 with NL EF 50-55. Mod OK to proceed to surgery for rectal prolapse from cardiac standpoint at moderate CV risk on current medications including low dose BB continue pre-post- operatively. Avoid large fluid shifts/swings in blood pressure as possible-Now post-op s/p rectal prolapse surgery 2. Abnormal electrocardiogram with nonspecific ST-T abnormalities and initial anterolateral T-wave inversions. 3. Hypertension-refusing medications but patient BP on lower end today 4. Rectal prolapse. 5. Hepatitis C antibody positive, hepatitis B core antibody positive. 6. Anemia. 7. End-stage renal disease on hemodialysis. 8. L Lung white out/pleural effusion-slowly improving Recc: -Continue BB/isordil with possible need to increase. BP very labile -Continue asa -routine post-op care -Pain control -Possible thoracentesis Problems: Consultation Date/Type/Reason Admit Date/Time Jul 22, 2017 at 19:26 Initial Consult Date 07/23/17 Type of Consultation: cardiology Reason for Consultation positive troponin Referring Provider: KISHAN MEJIA MD Exam/Review of Systems Vital Signs Vitals Vital Signs Date Time Temp Pulse Resp B/P Pulse Ox O2 Delivery O2 Flow Rate FiO2 08/09/17 09:09 75 14 95 100 08/09/17 08:00 98.3 181/102 High Flow 08/08/17 05:07 15.0 Intake and Output 08/08/17 08/08/17 08/09/17 15:00 23:00 07:00 Intake Total 300 ml 780 ml 340 ml Output Total 3500 ml 0 ml 10 ml Balance -3200 ml 780 ml 330 ml Exam Review of Systems: CONSTITUTIONAL: No fevers, chills. PULMONARY: No sob CARDIOVASCULAR: No chest pain/palpitations GASTROINTESTINAL: No nausea/vomiting. GENITOURINARY: No hematuria/dysuria. MUSCULOSKELETAL: No myagias/arthalgias. PSYCHIATRIC: The patient denies depression. NEUROLOGIC: No weakness Constitutional: alert Psych: no complaints Head: normocephalic ENMT: mucosa pink and moist Neck: jvd (9 cm water), supple Respiratory: diminished breath sounds (at bases/B) Cardiovascular: regular rate and rhythm Gastrointestinal: non-tender, soft Musculoskeletal: muscle tone (normal) Extremities: edema (none) 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: other (No focal deficits) Results Result Diagram: 08/09/17 1125 08/09/17 0548 Results 24 hrs Laboratory Tests Test 08/09/17 05:48 08/09/17 07:00 08/09/17 11:25 Sodium Level 136 Potassium Level 4.1 Chloride Level 101 Carbon Dioxide Level 27 Anion Gap 12 Blood Urea Nitrogen 26 H Creatinine 4.90 H Glucose Level 118 Calcium Level 8.9 Phosphorus Level 5.6 H Magnesium Level 2.0 Blood Gas Specimen Source Blood arterial Arterial Blood Date Drawn 08/09/2017 6:30:46 AM Arterial Blood pH (Temp corrected) 7.481 H Arterial Blood pCO2 (Temp correct) 34.4 L Arterial Blood pO2 (Temp corrected) 58.1 L Arterial Blood HCO3 25.1 Arterial Blood Base Excess 1.8 Arterial Blood Oxygen Saturation 91.7 L Seb Test N/A Arterial Blood Gas Puncture Site Right Brachial Arterial Blood Carboxyhemoglobin 0.3 Arterial Blood Methemoglobin 0.1 Blood Gas A-a O2 Differential 620.5 H Oxyhemoglobin Percent 91.3 L Total Hemoglobin 10.5 L Blood Gas Temperature 37.0 Blood Gas Actual Respiration Rate 18 Blood Gas Modality HFNC FiO2 100.0 Blood Gas Notified Whom BL Blood Gas Notified Time 08/09/2017 6:38:49 AM White Blood Count 9.3 Red Blood Count 3.34 L Hemoglobin 9.4 L Hematocrit 30.3 L Mean Corpuscular Volume 90.7 Mean Corpuscular Hemoglobin 28.1 L Mean Corpuscular Hemoglobin Concent 31.0 L Red Cell Distribution Width 14.6 H Platelet Count 268 Mean Platelet Volume 9.9 Neutrophils % 64.0 Lymphocytes % 21.2 Monocytes % 9.7 Eosinophils % 3.7 Basophils % 1.2 Nucleated Red Blood Cells % 0.0 Neutrophils # 6.0 Lymphocytes # 2.0 Monocytes # 0.9 Eosinophils # 0.4 Basophils # 0.1 Nucleated Red Blood Cells # 0.0 Medications Medications Current Medications Acetaminophen (Tylenol Tab) 650 mg Q6H PRN PO PAIN AND OR ELEVATED TEMP; Start 07/22/17 at 20:30 Ondansetron HCl (Zofran Inj) 4 mg Q6H PRN IV NAUSEA AND/OR VOMITING; Start 07/22/17 at 23:00 Bisacodyl (Dulcolax) 5 mg DAILY PRN PO CONSTIPATION; Start 07/22/17 at 23:00 Acetaminophen/ Hydrocodone Bitart ([place] (5/325)) 1 tab Q6H PRN PO Breakthrough Pain Last administered on 08/07/17 00:53; Admin Dose 1 TAB; Start 07/24/17 at 11:30 Guaifenesin/ Dextromethorphan (Robitussin Dm Liquid Cup) 5 ml TID PRN PO Cough Last administered on 08/07/17 08:49; Admin Dose 5 ML; Start 07/24/17 at 11:30 Alprazolam (Xanax) 1 mg Q8H PRN PO ANXIETY Last administered on 08/09/17 02: 35; Admin Dose 1 MG; Start 07/25/17 at 22:00 Pantoprazole (Protonix Tab) 40 mg DAILY@06 PO Last administered on 08/09/17 05:58; Admin Dose 40 MG; Start 07/28/17 at 06:00 Nitroglycerin (Nitroglycerin (Sl Tab) 0.4 Mg) 1 tab Q5M PRN SL ANGINA Last administered on 07/28/17 06:49; Admin Dose 1 TAB; Start 07/28/17 at 05:30 Aspirin (Aspirin) 81 mg DAILY PO Last administered on 08/09/17 09:47; Admin Dose 81 MG; Start 07/30/17 at 09:00 Metoprolol Tartrate (Lopressor) 12.5 mg BID PO Last administered on 08/09/17 09:47; Admin Dose 12.5 MG; Start 07/29/17 at 21:00 Isosorbide Dinitrate (Isordil) 20 mg TID PO Last administered on 08/09/17 09: 48; Admin Dose 20 MG; Start 07/29/17 at 21:00 Tramadol HCl (Ultram) 50 mg Q6H PRN PO pain Last administered on 08/07/17 08: 48; Admin Dose 50 MG; Start 08/05/17 at 16:30 Morphine Sulfate (morphine) 2 mg Q4H PRN IV pain Last administered on 23:59; Admin Dose 2 MG; Start 08/05/17 at 17:00 Docusate Sodium (Colace) 100 mg Q12 PO Last administered on 08/09/17 09:48; Admin Dose 100 MG; Start 08/05/17 at 21:00 Clonidine (Catapres) 0.1 mg Q6 PRN PO SBP>170; Start 08/05/17 at 17:00 Morphine Sulfate (morphine) 5 mg Q4H PRN IV PAIN Last administered on 18:56; Admin Dose 5 MG; Start 08/07/17 at 14:30 Acetylcysteine 3 ml 3 ml Q4 NEB Last administered on 08/09/17 08:59; Admin Dose 3 ML; Start 08/07/17 at 21:00 Aztreonam (Azactam 1gm/NS (Pmx)) 50 ml @ 100 mls/hr Q12 IVPB Last administered on 08/09/17 09:48; Admin Dose 100 MLS/HR; Start 08/08/17 at 12: 30 CONI ENRIQUEZ Aug 09, 2017 11:45
--- NOTE | 2017-08-09 13:05 | PN ---
Date/Time of Note Date/Time of Note DATE: 08/09/17 TIME: 13:00 Assessment/Plan Lines/Catheters IV Catheter Type (from Nrs): Peripheral IV Patino in Place (from Nrs): No Assessment/Plan Chief Complaint/Hosp Course 1. Rectal prolapse status post laparoscopic LAR, rectopexy, biologic 08/03; tolerating diet with +bowel function -Avoid straining 2. Respiratory compromise with left sided white out and bilateral pleural effusion in ICU; cxr improved, was scheduled for thoracentesis but refused: agreeable to throa today -judicious fluid management and gentle diuresis/HD -resp following -pulrabia toilenaheed 3. ESRD: on HD -hd per renal 4. Electrolyte imbalance: -optimize lytes 5. Hypoalbuminemia with hypocalcemia: nutritional +/- inflammation -as above -optimize nutrition 6. Anemia: without acute bleed: s/p 1 unit prbc tx today -monitor and transfuse as needed 7. Hepatitis with reactive serology -medical management 8. UTI s/p abx per sensitivity -frequent bladder emptying 9. Chest pain: no current c/o pain; trop +; EKG: NSR. -cardiac optimization Thank you. Patient seen and examined in collaboration with Dr. Deep Zhang. Problems: Subjective 24 Hr Interval Summary Refused thoracentesis yesterday- agreeable today. Continues on highflow oxygen. Comfortable. No c/o pain, sob, congested cough, n/v/d/dysuria, change in tele rhythm. +bowel function. Exam/Review of Systems Vital Signs Vitals Vital Signs Date Time Temp Pulse Resp B/P Pulse Ox O2 Delivery O2 Flow Rate FiO2 08/09/17 09:09 75 14 95 100 08/09/17 08:00 98.3 181/102 High Flow 08/08/17 05:07 15.0 Intake and Output 08/08/17 08/08/17 08/09/17 15:00 23:00 07:00 Intake Total 300 ml 780 ml 340 ml Output Total 3500 ml 0 ml 10 ml Balance -3200 ml 780 ml 330 ml Exam Free Text/Dictation Constitutional: alert, oriented Psych: nl mood Head: atraumatic, normocephalic Eyes: nl conjunctiva, nl lids, nl sclera ENMT: No mucosa pink and moist (dry) Neck: non-tender, supple Respiratory: diminished breath sounds L, crackles at bases; No labored breathing; high flow O2 Cardiovascular: nl pulses, regular rate and rhythm, No edema Gastrointestinal: non-tender, soft, No distended, No rebound or guarding Genitourinary - Female: No further prolapse; no bleed Musculoskeletal: nl extremities to inspection Extremities: normal pulses, No edema 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: nl speech, nl strength Skin: No rash or lesions Rectal: No further prolapse, no meri bleed noted Results Result Diagram: 08/09/17 1125 08/09/17 0548 RAFFY GRAHAM NP Aug 09, 2017 13:05
[2017-08-09] MEDS: HYDROCODONE/APAP (5/325) TAB PO PRN (17:20)
--- NOTE | 2017-08-09 17:26 | CONS ---
Date/Time of Note Date/Time of Note DATE: 08/09/17 TIME: 17:25 Assessment/Plan Assessment/Plan Additional Assessment/Plan Assessment/Plan Additional Assessment/Plan Additional Assessment/Plan IMPRESSION: 1. Rectal prolapse. 2. End-stage renal disease, on dialysis. 3. Anemia. 4. Positive hepatitis C antibody, but viral study was negative. 5. Urinary tract infection. 6. Status post a surgery for rectal prolapse 7. Left lung complete opacification, partial reexpansion of left lung 8. Respiratory failure, better Plan Continue present care Possible left thoracocentesis if there is a fluid Consultation Date/Type/Reason Admit Date/Time Jul 22, 2017 at 19:26 Initial Consult Date 07/23/17 Type of Consultation: cardiology Referring Provider: KISHAN MEJIA MD 24 HR Interval Summary Constitutional: improved Exam/Review of Systems Vital Signs Vitals Vital Signs Date Time Temp Pulse Resp B/P Pulse Ox O2 Delivery O2 Flow Rate FiO2 08/09/17 16:57 95 100 08/09/17 16:55 71 14 08/09/17 16:00 98.2 138/90 High Flow 08/08/17 05:07 15.0 Intake and Output 08/08/17 08/08/17 08/09/17 15:00 23:00 07:00 Intake Total 300 ml 780 ml 340 ml Output Total 3500 ml 0 ml 10 ml Balance -3200 ml 780 ml 330 ml Exam Constitutional: alert, oriented, well developed Psych: nl mood/affect, no complaints Head: atraumatic, normocephalic Eyes: EOMI, PERRL, nl conjunctiva, nl lids, nl sclera ENMT: nl external ears & nose, nl lips & teeth, nl nasal mucosa & septum Neck: non-tender, supple Respiratory: clear to auscultation, normal air movement Cardiovascular: nl pulses, regular rate and rhythm Gastrointestinal: nl liver, spleen, non-tender, soft Musculoskeletal: nl extremities to inspection, nl gait and stance Extremities: normal pulses 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: PAPER BUNDLER II-XII intact, nl mental status, nl speech, nl strength Skin: nl turgor, No rash or lesions Lymph: nl lymph nodes Results Result Diagram: 08/09/17 1125 08/09/17 0548 Results 24 hrs Laboratory Tests Test 08/09/17 05:48 08/09/17 07:00 08/09/17 11:25 08/09/17 13:50 Sodium Level 136 Potassium Level 4.1 Chloride Level 101 Carbon Dioxide Level 27 Anion Gap 12 Blood Urea Nitrogen 26 H Creatinine 4.90 H Glucose Level 118 Calcium Level 8.9 Phosphorus Level 5.6 H Magnesium Level 2.0 Blood Gas Specimen Source Blood arterial Arterial Blood Date Drawn 08/09/2017 6:30:46 AM Arterial Blood pH (Temp corrected) 7.481 H Arterial Blood pCO2 (Temp correct) 34.4 L Arterial Blood pO2 (Temp corrected) 58.1 L Arterial Blood HCO3 25.1 Arterial Blood Base Excess 1.8 Arterial Blood Oxygen Saturation 91.7 L Seb Test N/A Arterial Blood Gas Puncture Site Right Brachial Arterial Blood Carboxyhemoglobin 0.3 Arterial Blood Methemoglobin 0.1 Blood Gas A-a O2 Differential 620.5 H Oxyhemoglobin Percent 91.3 L Total Hemoglobin 10.5 L Blood Gas Temperature 37.0 Blood Gas Actual Respiration Rate 18 Blood Gas Modality HFNC FiO2 100.0 Blood Gas Notified Whom BL Blood Gas Notified Time 08/09/2017 6:38:49 AM White Blood Count 9.3 Red Blood Count 3.34 L Hemoglobin 9.4 L Hematocrit 30.3 L Mean Corpuscular Volume 90.7 Mean Corpuscular Hemoglobin 28.1 L Mean Corpuscular Hemoglobin Concent 31.0 L Red Cell Distribution Width 14.6 H Platelet Count 268 Mean Platelet Volume 9.9 Neutrophils % 64.0 Lymphocytes % 21.2 Monocytes % 9.7 Eosinophils % 3.7 Basophils % 1.2 Nucleated Red Blood Cells % 0.0 Neutrophils # 6.0 Lymphocytes # 2.0 Monocytes # 0.9 Eosinophils # 0.4 Basophils # 0.1 Nucleated Red Blood Cells # 0.0 HIV (1&2) Antibody NEGATIVE Medications Medications Current Medications Acetaminophen (Tylenol Tab) 650 mg Q6H PRN PO PAIN AND OR ELEVATED TEMP; Start 07/22/17 at 20:30 Ondansetron HCl (Zofran Inj) 4 mg Q6H PRN IV NAUSEA AND/OR VOMITING; Start 07/22/17 at 23:00 Bisacodyl (Dulcolax) 5 mg DAILY PRN PO CONSTIPATION; Start 07/22/17 at 23:00 Acetaminophen/ Hydrocodone Bitart ([place] (5/325)) 1 tab Q6H PRN PO Breakthrough Pain Last administered on 08/09/17 17:20; Admin Dose 1 TAB; Start 07/24/17 at 11:30 Guaifenesin/ Dextromethorphan (Robitussin Dm Liquid Cup) 5 ml TID PRN PO Cough Last administered on 08/07/17 08:49; Admin Dose 5 ML; Start 07/24/17 at 11:30 Alprazolam (Xanax) 1 mg Q8H PRN PO ANXIETY Last administered on 08/09/17 02: 35; Admin Dose 1 MG; Start 07/25/17 at 22:00 Pantoprazole (Protonix Tab) 40 mg DAILY@06 PO Last administered on 08/09/17 05:58; Admin Dose 40 MG; Start 07/28/17 at 06:00 Nitroglycerin (Nitroglycerin (Sl Tab) 0.4 Mg) 1 tab Q5M PRN SL ANGINA Last administered on 07/28/17 06:49; Admin Dose 1 TAB; Start 07/28/17 at 05:30 Aspirin (Aspirin) 81 mg DAILY PO Last administered on 08/09/17 09:47; Admin Dose 81 MG; Start 07/30/17 at 09:00 Isosorbide Dinitrate (Isordil) 20 mg TID PO Last administered on 08/09/17 12: 37; Admin Dose 20 MG; Start 07/29/17 at 21:00 Tramadol HCl (Ultram) 50 mg Q6H PRN PO pain Last administered on 08/07/17 08: 48; Admin Dose 50 MG; Start 08/05/17 at 16:30 Morphine Sulfate (morphine) 2 mg Q4H PRN IV pain Last administered on 23:59; Admin Dose 2 MG; Start 08/05/17 at 17:00 Docusate Sodium (Colace) 100 mg Q12 PO Last administered on 08/09/17 09:48; Admin Dose 100 MG; Start 08/05/17 at 21:00 Clonidine (Catapres) 0.1 mg Q6 PRN PO SBP>170; Start 08/05/17 at 17:00 Morphine Sulfate (morphine) 5 mg Q4H PRN IV PAIN Last administered on 18:56; Admin Dose 5 MG; Start 08/07/17 at 14:30 Acetylcysteine 3 ml 3 ml Q4 NEB Last administered on 08/09/17t 16:50; Admin Dose 3 ML; Start 08/07/17 at 21:00 Aztreonam (Azactam 1gm/NS (Pmx)) 50 ml @ 100 mls/hr Q12 IVPB Last administered on 08/09/17 09:48; Admin Dose 100 MLS/HR; Start 08/08/17 at 12: 30 Metoprolol Tartrate (Lopressor) 25 mg BID PO ; Start 08/09/17 at 21:00 ZIA BAEZA MD Aug 09, 2017 17:26
[2017-08-10] VITALS (33 sets, daily range): BP systolic 112–148; BP diastolic 76–105; PULSE 65–84; RESP 11–19
[2017-08-10] MEDS: IPRATROPIUM (NEB) 0.5 MG/2.5 ML AMP HHN SCH ×6 (00:49→20:29)
[2017-08-10] MEDS: ALBUTEROL 0.083% (NEB) 2.5 MG/3 ML AMP HHN SCH ×6 (00:50→20:29)
[2017-08-10] MEDS: ACETYLCYSTEINE 20% 4 ML VIAL NEB SCH ×6 (00:50→20:29)
[2017-08-10] MEDS: HYDROCODONE/APAP (5/325) TAB PO PRN ×3 (03:43→18:11)
[2017-08-10] MEDS: ALPRAZOLAM 0.5 MG TAB PO PRN ×2 (04:41→15:47)
[2017-08-10 06:38] LABS: BASOPHIL # 0.1 10^3/ul (0.0-0.1); BASOPHILS % 1.3 % (0.0-2.0); EOSINOPHILS # 0.5 10^3/ul (0.0-0.5); EOSINOPHILS % 4.8 % (0.0-7.0); HEMATOCRIT 29.7 % (37.0-47.0); LYMPHOCYTES # 1.5 10^3/ul (0.8-2.9); LYMPHOCYTES % 16.1 % (15.0-51.0); MEAN CORPUSCULAR HEMOGLOBIN 27.5 pg (29.0-33.0); MEAN CORPUSCULAR HGB CONC 30.3 g/dl (32.0-37.0); MEAN CORPUSCULAR VOLUME 90.8 fl (82.0-101.0); MEAN PLATELET VOLUME 10.4 fl (7.4-10.4); MONOCYTE # 0.8 10^3/ul (0.3-0.9); MONOCYTES % 8.5 % (0.0-11.0); NEUTROPHIL # 6.5 10^3/ul (1.6-7.5); NEUTROPHILS % 68.9 % (39.0-77.0); PLATELET COUNT 292 10^3/UL (140-415); RED BLOOD COUNT 3.27 10^6/ul (4.20-5.40); RED CELL DISTRIBUTION WIDTH 14.6 % (11.5-14.5); WHITE BLOOD COUNT 9.4 10^3/ul (4.8-10.8)
[2017-08-10] MEDS: PANTOPRAZOLE (EC) 40 MG TAB PO SCH (06:44)
[2017-08-10 07:34] LABS: CALCIUM 8.6 mg/dl (8.4-10.2); CREATININE 6.67 mg/dl (0.44-1.00); POTASSIUM 4.9 mmol/L (3.5-5.1)
[2017-08-10] MEDS: CALCIUM ACETATE 667 MG CAP PO SCH ×3 (08:38→18:13)
[2017-08-10] MEDS: ISOSORBIDE DINITRATE 20 MG TAB PO SCH ×3 (08:38→21:00)
[2017-08-10] MEDS: ASPIRIN 81 MG TAB PO SCH (08:38)
[2017-08-10] MEDS: DOCUSATE SODIUM 100 MG CAP PO SCH ×2 (08:38→21:00)
[2017-08-10] MEDS: AZTREONAM 1 GM/NS (PMX) 50 ML IVPB SCH (08:38)
[2017-08-10] MEDS: METOPROLOL 25 MG TAB PO SCH ×2 (08:39→21:00)
--- NOTE | 2017-08-10 10:23 | RADRPT ---
PROCEDURE: XR Chest. CLINICAL INDICATION: Shortness of breath. TECHNIQUE: Single frontal view. COMPARISON: 08/09/2017. FINDINGS: The tunneled left internal jugular vein dialysis catheter remains in satisfactory position. There is air space disease at the right lung base, slightly improved. There is complete opacification of the left hemithorax with volume loss and shift of the mediastinum to the left consistent with probable mucous plug and small left pleural effusion. The heart size is normal. There is a small right pleural effusion and a moderate left pleural effusion. There is no pneumothorax. IMPRESSION: 1. New complete opacification of the left hemithorax indicating probable mucous plug. 2. Improved aeration of the right lung base. 3. No other new abnormality. Call report: A call report of the findings was made to the patient's nurse Kirsty Gill on 08/10 at 1021 hours. RPTAT: QQ .Sam Villalpando MD, MD Date Time Electronically viewed and signed by .Sam Villalpando MD, on 08/10/2017 10:23 .R/
[2017-08-10] MEDS: morphine 2 MG INJ IV PRN ×3 (11:05→21:00)
--- NOTE | 2017-08-10 13:59 | CONS ---
Date/Time of Note Date/Time of Note DATE: 08/10/17 TIME: 13:54 Assessment/Plan Assessment/Plan Chief Complaint/Hosp Course IMPRESSION: 1. Positive troponin in the setting of renal failure, but chest pain and cardiac risk factors, assess significance.- Now trended negative and s/p lexiscan with no ischemia/NL EF.Echo n10/10 with NL EF 50-55. Mod OK to proceed to surgery for rectal prolapse from cardiac standpoint at moderate CV risk on current medications including low dose BB continue pre-post- operatively. Avoid large fluid shifts/swings in blood pressure as possible-Now post-op s/p rectal prolapse surgery 2. Abnormal electrocardiogram with nonspecific ST-T abnormalities and initial anterolateral T-wave inversions. 3. Hypertension-currently well controlled 4. Rectal prolapse. 5. Hepatitis C antibody positive, hepatitis B core antibody positive. 6. Anemia. 7. End-stage renal disease on hemodialysis. 8. L Lung white out/pleural effusion-slowly improving Recc: -Continue BB/isordil -Continue asa -routine post-op care -Pain control -HD for volume removal Problems: Consultation Date/Type/Reason Admit Date/Time Jul 22, 2017 at 19:26 Initial Consult Date 07/23/17 Type of Consultation: cardiology Reason for Consultation positive troponin Referring Provider: KISHAN MEJIA MD Exam/Review of Systems Vital Signs Vitals Vital Signs Date Time Temp Pulse Resp B/P Pulse Ox O2 Delivery O2 Flow Rate FiO2 08/10/17 13:45 65 08/10/17 12:18 97 90 08/10/17 12:00 14 121/90 High Flow 08/10/17 08:00 98.3 08/08/17 05:07 15.0 Intake and Output 08/09/17 08/09/17 08/10/17 15:00 23:00 07:00 Intake Total 400 ml 300 ml 60 ml Output Total 50 ml 0 ml 10 ml Balance 350 ml 300 ml 50 ml Exam Review of Systems: CONSTITUTIONAL: No fevers, chills. PULMONARY: No sob CARDIOVASCULAR: No chest pain/palpitations GASTROINTESTINAL: No nausea/vomiting. GENITOURINARY: No hematuria/dysuria. MUSCULOSKELETAL: No myagias/arthalgias. PSYCHIATRIC: The patient denies depression. NEUROLOGIC: No weakness Constitutional: other (sleeping, arouasable) Psych: no complaints Head: normocephalic ENMT: mucosa pink and moist Neck: jvd (9 cm water), supple Respiratory: diminished breath sounds (at bases/B) Cardiovascular: regular rate and rhythm Musculoskeletal: muscle tone (normal) Extremities: edema (none) 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: other (No focal deficits) Results Result Diagram: 08/10/1731 08/10/17 0531 Results 24 hrs Laboratory Tests Test 08/10/17 05:31 White Blood Count 9.4 Red Blood Count 3.27 L Hemoglobin 9.0 L Hematocrit 29.7 L Mean Corpuscular Volume 90.8 Mean Corpuscular Hemoglobin 27.5 L Mean Corpuscular Hemoglobin Concent 30.3 L Red Cell Distribution Width 14.6 H Platelet Count 292 Mean Platelet Volume 10.4 Neutrophils % 68.9 Lymphocytes % 16.1 Monocytes % 8.5 Eosinophils % 4.8 Basophils % 1.3 Nucleated Red Blood Cells % 0.0 Neutrophils # 6.5 Lymphocytes # 1.5 Monocytes # 0.8 Eosinophils # 0.5 Basophils # 0.1 Nucleated Red Blood Cells # 0.0 Sodium Level 131 L Potassium Level 4.9 Chloride Level 100 Carbon Dioxide Level 21 Anion Gap 15 Blood Urea Nitrogen 43 #H Creatinine 6.67 H Glucose Level 64 #L Calcium Level 8.6 Medications Medications Current Medications Acetaminophen (Tylenol Tab) 650 mg Q6H PRN PO PAIN AND OR ELEVATED TEMP; Start 07/22/17 at 20:30 Ondansetron HCl (Zofran Inj) 4 mg Q6H PRN IV NAUSEA AND/OR VOMITING; Start 07/22/17 at 23:00 Bisacodyl (Dulcolax) 5 mg DAILY PRN PO CONSTIPATION Last administered on 03:43; Admin Dose 5 MG; Start 07/22/17 at 23:00 Acetaminophen/ Hydrocodone Bitart ([place] (5/325)) 1 tab Q6H PRN PO Breakthrough Pain Last administered on 08/10/17 11:05; Admin Dose 1 TAB; Start 07/24/17 at 11:30 Guaifenesin/ Dextromethorphan (Robitussin Dm Liquid Cup) 5 ml TID PRN PO Cough Last administered on 08/07/17 08:49; Admin Dose 5 ML; Start 07/24/17 at 11:30 Alprazolam (Xanax) 1 mg Q8H PRN PO ANXIETY Last administered on 08/10/17 04: 41; Admin Dose 1 MG; Start 07/25/17 at 22:00 Pantoprazole (Protonix Tab) 40 mg DAILY@06 PO Last administered on 08/10/17 06:44; Admin Dose 40 MG; Start 07/28/17 at 06:00 Nitroglycerin (Nitroglycerin (Sl Tab) 0.4 Mg) 1 tab Q5M PRN SL ANGINA Last administered on 07/28/17 06:49; Admin Dose 1 TAB; Start 07/28/17 at 05:30 Aspirin (Aspirin) 81 mg DAILY PO Last administered on 08/10/17 08:38; Admin Dose 81 MG; Start 07/30/17 at 09:00 Isosorbide Dinitrate (Isordil) 20 mg TID PO Last administered on 08/10/17 08: 38; Admin Dose 20 MG; Start 07/29/17 at 21:00 Tramadol HCl (Ultram) 50 mg Q6H PRN PO pain Last administered on 08/07/17 08: 48; Admin Dose 50 MG; Start 08/05/17 at 16:30 Morphine Sulfate (morphine) 2 mg Q4H PRN IV pain Last administered on 11:05; Admin Dose 2 MG; Start 08/05/17 at 17:00 Docusate Sodium (Colace) 100 mg Q12 PO Last administered on 08/10/17 08:38; Admin Dose 100 MG; Start 08/05/17 at 21:00 Clonidine (Catapres) 0.1 mg Q6 PRN PO SBP>170; Start 08/05/17 at 17:00 Morphine Sulfate (morphine) 5 mg Q4H PRN IV PAIN Last administered on 18:56; Admin Dose 5 MG; Start 08/07/17 at 14:30 Acetylcysteine (Mucomyst) 3 ml Q4 NEB Last administered on 08/10/17 08:29; Admin Dose 3 ML; Start 08/07/17 at 21:00 Metoprolol Tartrate 25 mg 25 mg BID PO Last administered on 08/10/17 08:39; Admin Dose 25 MG; Start 08/09/17 at 21:00 Aztreonam/Sodium Chloride (Azactam/NS) 50 ml @ 100 mls/hr Q12 IV ; Start 08/10 at 21:00 CONI ENRIQUEZ Aug 10, 2017 13:59
--- NOTE | 2017-08-10 14:09 | CONS ---
Date/Time of Note Date/Time of Note DATE: 08/10/17 TIME: 14:05 Consult Date/Type/Reason Admit Date/Time Jul 22, 2017 at 19:26 Initial Consult Date 07/23/17 Type of Consultation: Pulm/CCM Ordering Provider: KISHAN MEJIA MD Subjective CXR this morning shows complete left lung ATX. Currently undergoing HD Objective Vital Signs Date Time Temp Pulse Resp B/P Pulse Ox O2 Delivery O2 Flow Rate FiO2 08/10/17 13:45 65 08/10/17 12:18 97 90 08/10/17 12:00 14 121/90 High Flow 08/10/17 08:00 98.3 08/08/17 05:07 15.0 Intake and Output 08/09/17 08/09/17 08/10/17 15:00 23:00 07:00 Intake Total 400 ml 300 ml 60 ml Output Total 50 ml 0 ml 10 ml Balance 350 ml 300 ml 50 ml Exam HEENT: Neck supple; no JVD; no LAD CVS: RRR, S1 and S2 CHEST: Absent Left-sided breath sounds ABD: Soft, NT, + BS EXT: No c/c/e Results/Medications Result Diagram: 08/10/1731 08/10/1731 Results 24 hrs Laboratory Tests Test 08/10/17 05:31 White Blood Count 9.4 Red Blood Count 3.27 L Hemoglobin 9.0 L Hematocrit 29.7 L Mean Corpuscular Volume 90.8 Mean Corpuscular Hemoglobin 27.5 L Mean Corpuscular Hemoglobin Concent 30.3 L Red Cell Distribution Width 14.6 H Platelet Count 292 Mean Platelet Volume 10.4 Neutrophils % 68.9 Lymphocytes % 16.1 Monocytes % 8.5 Eosinophils % 4.8 Basophils % 1.3 Nucleated Red Blood Cells % 0.0 Neutrophils # 6.5 Lymphocytes # 1.5 Monocytes # 0.8 Eosinophils # 0.5 Basophils # 0.1 Nucleated Red Blood Cells # 0.0 Sodium Level 131 L Potassium Level 4.9 Chloride Level 100 Carbon Dioxide Level 21 Anion Gap 15 Blood Urea Nitrogen 43 #H Creatinine 6.67 H Glucose Level 64 #L Calcium Level 8.6 Medications Current Medications Acetaminophen (Tylenol Tab) 650 mg Q6H PRN PO PAIN AND OR ELEVATED TEMP; Start 07/22/17 at 20:30 Ondansetron HCl (Zofran Inj) 4 mg Q6H PRN IV NAUSEA AND/OR VOMITING; Start 07/22/17 at 23:00 Bisacodyl (Dulcolax) 5 mg DAILY PRN PO CONSTIPATION Last administered on 03:43; Admin Dose 5 MG; Start 07/22/17 at 23:00 Acetaminophen/ Hydrocodone Bitart ([place] (5/325)) 1 tab Q6H PRN PO Breakthrough Pain Last administered on 08/10/17 11:05; Admin Dose 1 TAB; Start 07/24/17 at 11:30 Guaifenesin/ Dextromethorphan (Robitussin Dm Liquid Cup) 5 ml TID PRN PO Cough Last administered on 08/07/17 08:49; Admin Dose 5 ML; Start 07/24/17 at 11:30 Alprazolam (Xanax) 1 mg Q8H PRN PO ANXIETY Last administered on 08/10/17 04: 41; Admin Dose 1 MG; Start 07/25/17 at 22:00 Pantoprazole (Protonix Tab) 40 mg DAILY@06 PO Last administered on 08/10/17 06:44; Admin Dose 40 MG; Start 07/28/17 at 06:00 Nitroglycerin (Nitroglycerin (Sl Tab) 0.4 Mg) 1 tab Q5M PRN SL ANGINA Last administered on 07/28/17 06:49; Admin Dose 1 TAB; Start 07/28/17 at 05:30 Aspirin (Aspirin) 81 mg DAILY PO Last administered on 08/10/17 08:38; Admin Dose 81 MG; Start 07/30/17 at 09:00 Isosorbide Dinitrate (Isordil) 20 mg TID PO Last administered on 08/10/17 08: 38; Admin Dose 20 MG; Start 07/29/17 at 21:00 Tramadol HCl (Ultram) 50 mg Q6H PRN PO pain Last administered on 08/07/17 08: 48; Admin Dose 50 MG; Start 08/05/17 at 16:30 Morphine Sulfate (morphine) 2 mg Q4H PRN IV pain Last administered on 11:05; Admin Dose 2 MG; Start 08/05/17 at 17:00 Docusate Sodium (Colace) 100 mg Q12 PO Last administered on 08/10/17 08:38; Admin Dose 100 MG; Start 08/05/17 at 21:00 Clonidine (Catapres) 0.1 mg Q6 PRN PO SBP>170; Start 08/05/17 at 17:00 Morphine Sulfate (morphine) 5 mg Q4H PRN IV PAIN Last administered on 18:56; Admin Dose 5 MG; Start 08/07/17 at 14:30 Acetylcysteine (Mucomyst) 3 ml Q4 NEB Last administered on 08/10/17 08:29; Admin Dose 3 ML; Start 08/07/17 at 21:00 Metoprolol Tartrate 25 mg 25 mg BID PO Last administered on 08/10/17 08:39; Admin Dose 25 MG; Start 08/09/17 at 21:00 Aztreonam/Sodium Chloride (Azactam/NS) 50 ml @ 100 mls/hr Q12 IV ; Start 08/10 at 21:00 Assessment/Plan Chief Complaint/Hosp Course Briefly, this is 62-year-old woman with ESRD on HD, Hep C, HTN, admitted for recurrent rectal prolapse s/p prior reductions, await laparoscopic intervention. Of note, CT abdomen/pelvis notable for B/L free-flowing pleural effusions. Problems: Additional Assessment/Plan IMP: ti1. Hypoxemic Respiratory Insufficiency: 2/2 to complete left lung ATX 2. Left Lung ATX 3. Rectal prolapse s/p repair 4. ESRD -- on HD Plan 1. Aggressive CPT/suctioning q4 hours 2. If ATX does not improve, may need bronchoscopy JAMES VALLEJO MD Aug 10, 2017 14:09
--- NOTE | 2017-08-10 16:14 | PN ---
Date/Time of Note Date/Time of Note DATE: 08/10/17 TIME: 16:08 Assessment/Plan Lines/Catheters IV Catheter Type (from Nrs): Peripheral IV Patino in Place (from Nrs): No Assessment/Plan Chief Complaint/Hosp Course 1. Rectal prolapse status post laparoscopic LAR, rectopexy, biologic 08/03; tolerating diet with +bowel function -Avoid straining 2. Respiratory compromise with left sided white out and bilateral pleural effusion in ICU; cxr improved, was scheduled for thoracentesis but refused: agreeable to thora today-not done; poss bronch -judicious fluid management and gentle diuresis/HD -resp following -torsten burns 3. ESRD: on HD -hd per renal 4. Electrolyte imbalance: -optimize lytes 5. Hypoalbuminemia with hypocalcemia: nutritional +/- inflammation -as above -optimize nutrition 6. Anemia: without acute bleed: -monitor and transfuse as needed 7. Hepatitis with reactive serology -medical management 8. UTI s/p abx per sensitivity -frequent bladder emptying 9. Chest pain: no current c/o pain; trop +; EKG: NSR. -cardiac optimization Thank you. Patient seen and examined in collaboration with Dr. Deep Zhang. Problems: Subjective 24 Hr Interval Summary No acute pain, only mild muscle ache. +bowel function without bleeding. Thora cancelled, CXR showing complete opacification of left hemithorax. Continues on high-flow oxygen. No fevers, chills, sob, congested cough, n/v/d/dysuria, avitia, dizziness, cp, palpitations. Exam/Review of Systems Vital Signs Vitals Vital Signs Date Time Temp Pulse Resp B/P Pulse Ox O2 Delivery O2 Flow Rate FiO2 08/10/17 14:15 66 08/10/17 12:18 97 90 08/10/17 12:00 14 121/90 High Flow 08/10/17 08:00 98.3 08/08/17 05:07 15.0 Intake and Output 08/09/17 08/09/17 08/10/17 15:00 23:00 07:00 Intake Total 400 ml 300 ml 60 ml Output Total 50 ml 0 ml 10 ml Balance 350 ml 300 ml 50 ml Exam Free Text/Dictation Constitutional: alert, oriented Psych: nl mood Head: atraumatic, normocephalic Eyes: nl conjunctiva, nl lids, nl sclera ENMT: No mucosa pink and moist (dry) Neck: non-tender, supple Respiratory: absent breath sounds L, crackles at bases; No labored breathing; high flow O2 Cardiovascular: nl pulses, regular rate and rhythm, No edema Gastrointestinal: non-tender, soft, No distended, No rebound or guarding Genitourinary - Female: No further prolapse; no bleed Musculoskeletal: nl extremities to inspection Extremities: normal pulses, No edema 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: nl speech, nl strength Skin: No rash or lesions Rectal: No further prolapse, no meri bleed noted Results Result Diagram: 08/10/1731 08/10/17 0531 RAFFY GRAHAM NP Aug 10, 2017 16:14
--- NOTE | 2017-08-10 16:18 | PN ---
Date/Time of Note Date/Time of Note DATE: 08/10/17 TIME: 16:16 Assessment/Plan VTE Prophylaxis VTE Prophylaxis Intervention: LMWH Lines/Catheters IV [facility]from [facility] Peripheral IV Urinary Cath still in place: No Assessment/Plan Chief Complaint/Hosp Course 1. Rectal prolapse, severe. 2. SIRS 3. Anemia. 4. Hepatitis B core antibody positive. 5. End-stage renal disease. 6. electrolyte imbalance 7 pleural effusion 8 NSTEMI 9 S/P LEXISCAN NEG 10. Hypoxic respiratory insufficiency with complete opacification of left lung? mucous plug s/p dry UF /HD, cannot r/o underlying Pneumonia and underlying effusion Problems: Assessment/Plan 1. continue high flow oxygen therapy 2. Continue A/b Subjective 24 Hr Interval Summary Subjective hx not possible: pt critical status Exam/Review of Systems Vital Signs Vitals Vital Signs Date Time Temp Pulse Resp B/P Pulse Ox O2 Delivery O2 Flow Rate FiO2 08/10/17 16:00 82 17 148/84 92 High Flow 08/10/17 12:18 90 08/10/17 08:00 98.3 08/08/17 05:07 15.0 Intake and Output 08/09/17 08/09/17 08/10/17 15:00 23:00 07:00 Intake Total 400 ml 300 ml 60 ml Output Total 50 ml 0 ml 10 ml Balance 350 ml 300 ml 50 ml Exam Constitutional: frail, other (lethargic) Eyes: nl conjunctiva ENMT: nl external ears & nose Neck: supple Respiratory: diminished breath sounds Gastrointestinal: soft Results Result Diagram: 08/10/17 0531 08/10/17 0531 Results 24 hrs Laboratory Tests Test 08/10/17 05:31 White Blood Count 9.4 Red Blood Count 3.27 L Hemoglobin 9.0 L Hematocrit 29.7 L Mean Corpuscular Volume 90.8 Mean Corpuscular Hemoglobin 27.5 L Mean Corpuscular Hemoglobin Concent 30.3 L Red Cell Distribution Width 14.6 H Platelet Count 292 Mean Platelet Volume 10.4 Neutrophils % 68.9 Lymphocytes % 16.1 Monocytes % 8.5 Eosinophils % 4.8 Basophils % 1.3 Nucleated Red Blood Cells % 0.0 Neutrophils # 6.5 Lymphocytes # 1.5 Monocytes # 0.8 Eosinophils # 0.5 Basophils # 0.1 Nucleated Red Blood Cells # 0.0 Sodium Level 131 L Potassium Level 4.9 Chloride Level 100 Carbon Dioxide Level 21 Anion Gap 15 Blood Urea Nitrogen 43 #H Creatinine 6.67 H Glucose Level 64 #L Calcium Level 8.6 Medications Medications Current Medications Acetaminophen (Tylenol Tab) 650 mg Q6H PRN PO PAIN AND OR ELEVATED TEMP; Start 07/22/17 at 20:30 Ondansetron HCl (Zofran Inj) 4 mg Q6H PRN IV NAUSEA AND/OR VOMITING; Start 07/22/17 at 23:00 Bisacodyl (Dulcolax) 5 mg DAILY PRN PO CONSTIPATION Last administered on 03:43; Admin Dose 5 MG; Start 07/22/17 at 23:00 Acetaminophen/ Hydrocodone Bitart ([place] (5/325)) 1 tab Q6H PRN PO Breakthrough Pain Last administered on 08/10/17 11:05; Admin Dose 1 TAB; Start 07/24/17 at 11:30 Guaifenesin/ Dextromethorphan (Robitussin Dm Liquid Cup) 5 ml TID PRN PO Cough Last administered on 08/07/17 08:49; Admin Dose 5 ML; Start 07/24/17 at 11:30 Alprazolam (Xanax) 1 mg Q8H PRN PO ANXIETY Last administered on 08/10/17 15: 47; Admin Dose 1 MG; Start 07/25/17 at 22:00 Pantoprazole (Protonix Tab) 40 mg DAILY@06 PO Last administered on 08/10/17 06:44; Admin Dose 40 MG; Start 07/28/17 at 06:00 Nitroglycerin (Nitroglycerin (Sl Tab) 0.4 Mg) 1 tab Q5M PRN SL ANGINA Last administered on 07/28/17 06:49; Admin Dose 1 TAB; Start 07/28/17 at 05:30 Aspirin (Aspirin) 81 mg DAILY PO Last administered on 08/10/17 08:38; Admin Dose 81 MG; Start 07/30/17 at 09:00 Isosorbide Dinitrate (Isordil) 20 mg TID PO Last administered on 08/10/17 08: 38; Admin Dose 20 MG; Start 07/29/17 at 21:00 Tramadol HCl (Ultram) 50 mg Q6H PRN PO pain Last administered on 08/07/17 08: 48; Admin Dose 50 MG; Start 08/05/17 at 16:30 Morphine Sulfate (morphine) 2 mg Q4H PRN IV pain Last administered on 15:48; Admin Dose 2 MG; Start 08/05/17 at 17:00 Docusate Sodium (Colace) 100 mg Q12 PO Last administered on 08/10/17 08:38; Admin Dose 100 MG; Start 08/05/17 at 21:00 Clonidine (Catapres) 0.1 mg Q6 PRN PO SBP>170; Start 08/05/17 at 17:00 Morphine Sulfate (morphine) 5 mg Q4H PRN IV PAIN Last administered on 18:56; Admin Dose 5 MG; Start 08/07/17 at 14:30 Acetylcysteine (Mucomyst) 3 ml Q4 NEB Last administered on 08/10/17 08:29; Admin Dose 3 ML; Start 08/07/17 at 21:00 Metoprolol Tartrate 25 mg 25 mg BID PO Last administered on 08/10/17 08:39; Admin Dose 25 MG; Start 08/09/17 at 21:00 Aztreonam/Sodium Chloride (Azactam/NS) 50 ml @ 100 mls/hr Q12 IV ; Start 08/10 at 21:00 LYDIA DIANA Aug 10, 2017 16:18
[2017-08-10] MEDS ORDERED: VANCOMYCIN IV PER PHARMACY XX SCH (19:00)
[2017-08-10] MEDS ORDERED: VANCOMYCIN 1 GM in NS 250 ML IVPB SCH (20:00)
[2017-08-10] MEDS: MUPIROCIN 2% 22 GM OINT TOP SCH (21:01)
[2017-08-10] MEDS: AZTREONAM 0.5 GM in SOD CHLORIDE 0.9% 50 ML IV SCH (22:01)
[2017-08-11] VITALS (31 sets, daily range): BP systolic 101–174; BP diastolic 73–101; PULSE 62–77; RESP 9–19
[2017-08-11] MEDS: ACETYLCYSTEINE 20% 4 ML VIAL NEB SCH ×6 (00:16→20:06)
[2017-08-11] MEDS: ALBUTEROL 0.083% (NEB) 2.5 MG/3 ML AMP HHN SCH ×6 (00:16→20:06)
[2017-08-11] MEDS: IPRATROPIUM (NEB) 0.5 MG/2.5 ML AMP HHN SCH ×6 (00:16→20:06)
[2017-08-11] MEDS: ALPRAZOLAM 0.5 MG TAB PO PRN ×2 (00:54→09:00)
[2017-08-11 05:23] LABS: BASOPHIL # 0.1 10^3/ul (0.0-0.1); BASOPHILS % 1.5 % (0.0-2.0); EOSINOPHILS # 0.4 10^3/ul (0.0-0.5); EOSINOPHILS % 5.3 % (0.0-7.0); HEMATOCRIT 29.2 % (37.0-47.0); HEMOGLOBIN 8.8 g/dl (12.0-16.0); LYMPHOCYTES # 1.8 10^3/ul (0.8-2.9); LYMPHOCYTES % 23.1 % (15.0-51.0); MEAN CORPUSCULAR HEMOGLOBIN 27.2 pg (29.0-33.0); MEAN CORPUSCULAR HGB CONC 30.1 g/dl (32.0-37.0); MEAN CORPUSCULAR VOLUME 90.4 fl (82.0-101.0); MONOCYTE # 0.6 10^3/ul (0.3-0.9); MONOCYTES % 8.1 % (0.0-11.0); NEUTROPHIL # 4.7 10^3/ul (1.6-7.5); NEUTROPHILS % 61.9 % (39.0-77.0); PLATELET COUNT 315 10^3/UL (140-415); RED BLOOD COUNT 3.23 10^6/ul (4.20-5.40); RED CELL DISTRIBUTION WIDTH 14.4 % (11.5-14.5); WHITE BLOOD COUNT 7.6 10^3/ul (4.8-10.8)
[2017-08-11 06:03] LABS: CALCIUM 8.5 mg/dl (8.4-10.2); CREATININE 4.63 mg/dl (0.44-1.00)
[2017-08-11] MEDS: PANTOPRAZOLE (EC) 40 MG TAB PO SCH (06:48)
--- NOTE | 2017-08-11 07:12 | RADRPT ---
PROCEDURE: XR Chest. CLINICAL INDICATION: Shortness of breath. Post bronchoscopy. TECHNIQUE: Single frontal view. COMPARISON: 08/10/2017. FINDINGS: The tunneled left internal jugular vein dialysis catheter remains in satisfactory position. There is air space disease at the right lung base, slightly improved. There is near complete opacification o f the left hemithorax with volume loss and shift of the mediastinum to the left consistent with prob able mucous plug and small left pleural effusion. This is slightly improved with some aeration of th e left upper lobe now noted. The heart size is normal. There is a small right pleural effusion and a moderate left pleural effusion. There is no pneumothorax. IMPRESSION: 1. Slightly improved appearance of the left lung. 2. No other change from 08/10/2017. RPTAT: QQ .Sam Villalpando MD, MD Date Time Electronically viewed and signed by .Sam Villalpando MD, MD on 08/11/2017 07:12 .R/
[2017-08-11] MEDS: ASPIRIN 81 MG TAB PO SCH (08:41)
[2017-08-11] MEDS: DOCUSATE SODIUM 100 MG CAP PO SCH ×2 (08:41→20:42)
[2017-08-11] MEDS: ISOSORBIDE DINITRATE 20 MG TAB PO SCH ×3 (08:41→20:42)
[2017-08-11] MEDS: CALCIUM ACETATE 667 MG CAP PO SCH ×3 (08:41→17:06)
[2017-08-11] MEDS: METOPROLOL 25 MG TAB PO SCH ×2 (08:42→20:42)
[2017-08-11] MEDS: morphine 2 MG INJ IV PRN ×2 (08:42→13:36)
[2017-08-11] MEDS: traMADol 50 MG TAB PO PRN ×2 (08:42→17:07)
[2017-08-11] MEDS: MUPIROCIN 2% 22 GM OINT TOP SCH ×2 (08:43→20:46)
[2017-08-11] MEDS: AZTREONAM 0.5 GM in SOD CHLORIDE 0.9% 50 ML IV SCH ×2 (08:45→20:42)
--- NOTE | 2017-08-11 12:39 | CONS ---
Date/Time of Note Date/Time of Note DATE: 08/11/17 TIME: 12:37 Assessment/Plan Assessment/Plan Chief Complaint/Hosp Course IMPRESSION: 1. Positive troponin in the setting of renal failure, but chest pain and cardiac risk factors, assess significance.- Now trended negative and s/p lexiscan with no ischemia/NL EF.Echo n10/10 with NL EF 50-55. Mod OK to proceed to surgery for rectal prolapse from cardiac standpoint at moderate CV risk on current medications including low dose BB continue pre-post- operatively. Avoid large fluid shifts/swings in blood pressure as possible-Now post-op s/p rectal prolapse surgery 2. Abnormal electrocardiogram with nonspecific ST-T abnormalities and initial anterolateral T-wave inversions. 3. Hypertension-currently well controlled 4. Rectal prolapse. 5. Hepatitis C antibody positive, hepatitis B core antibody positive. 6. Anemia. 7. End-stage renal disease on hemodialysis. 8. L Lung white out/pleural effusion-slowly improving Recc: -Continue BB/isordil with reasonable BP -Continue asa -routine post-op care -Pain control -HD for volume removal Problems: Consultation Date/Type/Reason Admit Date/Time Jul 22, 2017 at 19:26 Initial Consult Date 07/23/17 Type of Consultation: cardiology Reason for Consultation positive troponin Referring Provider: KISHAN MEJIA MD Exam/Review of Systems Vital Signs Vitals Vital Signs Date Time Temp Pulse Resp B/P Pulse Ox O2 Delivery O2 Flow Rate FiO2 08/11/17 11:00 62 14 127/88 98 High Flow 08/11/17 08:33 70 08/11/17 08:00 98.3 08/08/17 05:07 15.0 Intake and Output 08/10/17 08/10/17 08/11/17 15:00 23:00 07:00 Intake Total 500 ml 1070 ml 50 ml Output Total 3000 ml 0 ml 10 ml Balance -2500 ml 1070 ml 40 ml Exam Review of Systems: CONSTITUTIONAL: No fevers, chills. PULMONARY: No sob CARDIOVASCULAR: No chest pain/palpitations GASTROINTESTINAL: No nausea/vomiting. GENITOURINARY: No hematuria/dysuria. MUSCULOSKELETAL: No myagias/arthalgias. PSYCHIATRIC: The patient denies depression. NEUROLOGIC: No weakness Constitutional: alert Psych: no complaints Head: normocephalic ENMT: mucosa pink and moist Neck: jvd (9 cm water), supple Respiratory: diminished breath sounds (at bases/B) Cardiovascular: regular rate and rhythm Gastrointestinal: non-tender, soft Musculoskeletal: muscle tone (normal) Extremities: edema (none) 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: other (No focal deficits) Results Result Diagram: 08/11/17 0450 08/11/17 0450 Results 24 hrs Laboratory Tests Test 08/11/17 04:50 White Blood Count 7.6 Red Blood Count 3.23 L Hemoglobin 8.8 L Hematocrit 29.2 L Mean Corpuscular Volume 90.4 Mean Corpuscular Hemoglobin 27.2 L Mean Corpuscular Hemoglobin Concent 30.1 L Red Cell Distribution Width 14.4 Platelet Count 315 Mean Platelet Volume 10.0 Neutrophils % 61.9 Lymphocytes % 23.1 Monocytes % 8.1 Eosinophils % 5.3 Basophils % 1.5 Nucleated Red Blood Cells % 0.0 Neutrophils # 4.7 Lymphocytes # 1.8 Monocytes # 0.6 Eosinophils # 0.4 Basophils # 0.1 Nucleated Red Blood Cells # 0.0 Sodium Level 137 Potassium Level 4.0 Chloride Level 102 Carbon Dioxide Level 28 Anion Gap 11 Blood Urea Nitrogen 26 #H Creatinine 4.63 #H Glucose Level 78 Calcium Level 8.5 Medications Medications Current Medications Acetaminophen (Tylenol Tab) 650 mg Q6H PRN PO PAIN AND OR ELEVATED TEMP; Start 07/22/17 at 20:30 Ondansetron HCl (Zofran Inj) 4 mg Q6H PRN IV NAUSEA AND/OR VOMITING; Start 07/22/17 at 23:00 Bisacodyl (Dulcolax) 5 mg DAILY PRN PO CONSTIPATION Last administered on 03:43; Admin Dose 5 MG; Start 07/22/17 at 23:00 Acetaminophen/ Hydrocodone Bitart ([place] (5/325)) 1 tab Q6H PRN PO Breakthrough Pain Last administered on 08/10/17 18:11; Admin Dose 1 TAB; Start 07/24/17 at 11:30 Guaifenesin/ Dextromethorphan (Robitussin Dm Liquid Cup) 5 ml TID PRN PO Cough Last administered on 08/07/17 08:49; Admin Dose 5 ML; Start 07/24/17 at 11:30 Alprazolam (Xanax) 1 mg Q8H PRN PO ANXIETY Last administered on 08/11/17 09: 00; Admin Dose 1 MG; Start 07/25/17 at 22:00 Pantoprazole (Protonix Tab) 40 mg DAILY@06 PO Last administered on 08/11/17 06:48; Admin Dose 40 MG; Start 07/28/17 at 06:00 Nitroglycerin (Nitroglycerin (Sl Tab) 0.4 Mg) 1 tab Q5M PRN SL ANGINA Last administered on 07/28/17 06:49; Admin Dose 1 TAB; Start 07/28/17 at 05:30 Aspirin (Aspirin) 81 mg DAILY PO Last administered on 08/11/17 08:41; Admin Dose 81 MG; Start 07/30/17 at 09:00 Isosorbide Dinitrate (Isordil) 20 mg TID PO Last administered on 08/11/17 12: 09; Admin Dose 20 MG; Start 07/29/17 at 21:00 Tramadol HCl (Ultram) 50 mg Q6H PRN PO pain Last administered on 08/11/17 08: 42; Admin Dose 50 MG; Start 08/05/17 at 16:30 Morphine Sulfate (morphine) 2 mg Q4H PRN IV pain Last administered on 08:42; Admin Dose 2 MG; Start 08/05/17 at 17:00 Docusate Sodium (Colace) 100 mg Q12 PO Last administered on 08/11/17 08:41; Admin Dose 100 MG; Start 08/05/17 at 21:00 Clonidine (Catapres) 0.1 mg Q6 PRN PO SBP>170; Start 08/05/17 at 17:00 Morphine Sulfate (morphine) 5 mg Q4H PRN IV PAIN Last administered on 18:56; Admin Dose 5 MG; Start 08/07/17 at 14:30 Acetylcysteine (Mucomyst) 3 ml Q4 NEB Last administered on 08/11/17 08:29; Admin Dose 3 ML; Start 08/07/17 at 21:00 Metoprolol Tartrate 25 mg 25 mg BID PO Last administered on 08/11/17 08:42; Admin Dose 25 MG; Start 08/09/17 at 21:00 Aztreonam/Sodium Chloride (Azactam/NS) 50 ml @ 100 mls/hr Q12 IV Last administered on 08/11/17 08:45; Admin Dose 100 MLS/HR; Start 08/10/17 at 21: 00 Mupirocin (Bactroban) 1 applic BID TOP Last administered on 08/11/17 08:43; Admin Dose 1 APPLIC; Start 08/10/17 at 21:00; Stop 08/20/17 at 20:59 CONI ENRQIUEZ Aug 11, 2017 12:39
--- NOTE | 2017-08-11 13:12 | PN ---
Date/Time of Note Date/Time of Note DATE: 08/11/17 TIME: 13:10 Assessment/Plan VTE Prophylaxis VTE Prophylaxis Intervention: anti-embolic stocking Lines/Catheters IV Catheter Type (from [facility] PERMACATH Urinary Cath still in place: No Assessment/Plan Chief Complaint/Hosp Course 1. s/p repair rectal prolapse. 2. SIRS 3. Anemia. 4. Hepatitis B. 5. End-stage renal disease. 6. electrolyte imbalance 7 pleural effusion. thoracentesis pending 8 NSTEMI 9 S/P LEXISCAN NEG 10. Hypoxic respiratory insufficiency , s/p bronchoscopy Problems: Assessment/Plan 1. continue critical care 2.Pt is still on 70 % high flow oxygen Subjective 24 Hr Interval Summary Constitutional: no complaints Exam/Review of Systems Vital Signs Vitals Vital Signs Date Time Temp Pulse Resp B/P Pulse Ox O2 Delivery O2 Flow Rate FiO2 08/11/17 13:04 18 98 08/11/17 13:02 65 08/11/17 12:00 69 08/11/17 11:00 127/88 High Flow 08/11/17 08:00 98.3 08/08/17 05:07 15.0 Intake and Output 08/10/17 08/10/17 08/11/17 15:00 23:00 07:00 Intake Total 500 ml 1070 ml 50 ml Output Total 3000 ml 0 ml 10 ml Balance -2500 ml 1070 ml 40 ml Exam Constitutional: alert, oriented Respiratory: diminished breath sounds Gastrointestinal: soft, surgical scars Results Result Diagram: 08/11/17 0450 08/11/17 0450 Results 24 hrs Laboratory Tests Test 08/11/17 04:50 White Blood Count 7.6 Red Blood Count 3.23 L Hemoglobin 8.8 L Hematocrit 29.2 L Mean Corpuscular Volume 90.4 Mean Corpuscular Hemoglobin 27.2 L Mean Corpuscular Hemoglobin Concent 30.1 L Red Cell Distribution Width 14.4 Platelet Count 315 Mean Platelet Volume 10.0 Neutrophils % 61.9 Lymphocytes % 23.1 Monocytes % 8.1 Eosinophils % 5.3 Basophils % 1.5 Nucleated Red Blood Cells % 0.0 Neutrophils # 4.7 Lymphocytes # 1.8 Monocytes # 0.6 Eosinophils # 0.4 Basophils # 0.1 Nucleated Red Blood Cells # 0.0 Sodium Level 137 Potassium Level 4.0 Chloride Level 102 Carbon Dioxide Level 28 Anion Gap 11 Blood Urea Nitrogen 26 #H Creatinine 4.63 #H Glucose Level 78 Calcium Level 8.5 Medications Medications Current Medications Acetaminophen (Tylenol Tab) 650 mg Q6H PRN PO PAIN AND OR ELEVATED TEMP; Start 07/22/17 at 20:30 Ondansetron HCl (Zofran Inj) 4 mg Q6H PRN IV NAUSEA AND/OR VOMITING; Start 07/22/17 at 23:00 Bisacodyl (Dulcolax) 5 mg DAILY PRN PO CONSTIPATION Last administered on 03:43; Admin Dose 5 MG; Start 07/22/17 at 23:00 Acetaminophen/ Hydrocodone Bitart ([place] (5/325)) 1 tab Q6H PRN PO Breakthrough Pain Last administered on 08/10/17 18:11; Admin Dose 1 TAB; Start 07/24/17 at 11:30 Guaifenesin/ Dextromethorphan (Robitussin Dm Liquid Cup) 5 ml TID PRN PO Cough Last administered on 08/07/17 08:49; Admin Dose 5 ML; Start 07/24/17 at 11:30 Alprazolam (Xanax) 1 mg Q8H PRN PO ANXIETY Last administered on 08/11/17 09: 00; Admin Dose 1 MG; Start 07/25/17 at 22:00 Pantoprazole (Protonix Tab) 40 mg DAILY@06 PO Last administered on 08/11/17 06:48; Admin Dose 40 MG; Start 07/28/17 at 06:00 Nitroglycerin (Nitroglycerin (Sl Tab) 0.4 Mg) 1 tab Q5M PRN SL ANGINA Last administered on 07/28/17 06:49; Admin Dose 1 TAB; Start 07/28/17 at 05:30 Aspirin (Aspirin) 81 mg DAILY PO Last administered on 08/11/17 08:41; Admin Dose 81 MG; Start 07/30/17 at 09:00 Isosorbide Dinitrate (Isordil) 20 mg TID PO Last administered on 08/11/17 12: 09; Admin Dose 20 MG; Start 07/29/17 at 21:00 Tramadol HCl (Ultram) 50 mg Q6H PRN PO pain Last administered on 08/11/17 08: 42; Admin Dose 50 MG; Start 08/05/17 at 16:30 Morphine Sulfate (morphine) 2 mg Q4H PRN IV pain Last administered on 08:42; Admin Dose 2 MG; Start 08/05/17 at 17:00 Docusate Sodium (Colace) 100 mg Q12 PO Last administered on 08/11/17 08:41; Admin Dose 100 MG; Start 08/05/17 at 21:00 Clonidine (Catapres) 0.1 mg Q6 PRN PO SBP>170; Start 08/05/17 at 17:00 Morphine Sulfate (morphine) 5 mg Q4H PRN IV PAIN Last administered on 18:56; Admin Dose 5 MG; Start 08/07/17 at 14:30 Acetylcysteine (Mucomyst) 3 ml Q4 NEB Last administered on 08/11/17 12:53; Admin Dose 3 ML; Start 08/07/17 at 21:00 Metoprolol Tartrate 25 mg 25 mg BID PO Last administered on 08/11/17 08:42; Admin Dose 25 MG; Start 08/09/17 at 21:00 Aztreonam/Sodium Chloride (Azactam/NS) 50 ml @ 100 mls/hr Q12 IV Last administered on 08/11/17 08:45; Admin Dose 100 MLS/HR; Start 08/10/17 at 21: 00 Mupirocin (Bactroban) 1 applic BID TOP Last administered on 08/11/17 08:43; Admin Dose 1 APPLIC; Start 08/10/17 at 21:00; Stop 08/20/17 at 20:59 LYDIA DIANA Aug 11, 2017 13:12
--- NOTE | 2017-08-11 13:16 | CONS ---
Date/Time of Note Date/Time of Note DATE: 08/11/17 TIME: 13:14 Consult Date/Type/Reason Admit Date/Time Jul 22, 2017 at 19:26 Initial Consult Date 07/23/17 Type of Consultation: Pulm/CCM Ordering Provider: KISHAN MEJIA MD Subjective No events. Undergoing CPT. Objective Vital Signs Date Time Temp Pulse Resp B/P Pulse Ox O2 Delivery O2 Flow Rate FiO2 08/11/17 13:04 18 98 08/11/17 13:02 65 08/11/17 12:00 69 08/11/17 11:00 127/88 High Flow 08/11/17 08:00 98.3 08/08/17 05:07 15.0 Intake and Output 08/10/17 08/10/17 08/11/17 15:00 23:00 07:00 Intake Total 500 ml 1070 ml 50 ml Output Total 3000 ml 0 ml 10 ml Balance -2500 ml 1070 ml 40 ml Exam HEENT: Neck supple; no JVD; no LAD CVS: RRR, S1 and S2 CHEST: Absent Left-sided breath sounds ABD: Soft, NT, + BS EXT: No c/c/e Results/Medications Result Diagram: 08/11/17 0450 08/11/17 0450 Results 24 hrs Laboratory Tests Test 08/11/17 04:50 White Blood Count 7.6 Red Blood Count 3.23 L Hemoglobin 8.8 L Hematocrit 29.2 L Mean Corpuscular Volume 90.4 Mean Corpuscular Hemoglobin 27.2 L Mean Corpuscular Hemoglobin Concent 30.1 L Red Cell Distribution Width 14.4 Platelet Count 315 Mean Platelet Volume 10.0 Neutrophils % 61.9 Lymphocytes % 23.1 Monocytes % 8.1 Eosinophils % 5.3 Basophils % 1.5 Nucleated Red Blood Cells % 0.0 Neutrophils # 4.7 Lymphocytes # 1.8 Monocytes # 0.6 Eosinophils # 0.4 Basophils # 0.1 Nucleated Red Blood Cells # 0.0 Sodium Level 137 Potassium Level 4.0 Chloride Level 102 Carbon Dioxide Level 28 Anion Gap 11 Blood Urea Nitrogen 26 #H Creatinine 4.63 #H Glucose Level 78 Calcium Level 8.5 Medications Current Medications Acetaminophen (Tylenol Tab) 650 mg Q6H PRN PO PAIN AND OR ELEVATED TEMP; Start 07/22/17 at 20:30 Ondansetron HCl (Zofran Inj) 4 mg Q6H PRN IV NAUSEA AND/OR VOMITING; Start 07/22/17 at 23:00 Bisacodyl (Dulcolax) 5 mg DAILY PRN PO CONSTIPATION Last administered on 03:43; Admin Dose 5 MG; Start 07/22/17 at 23:00 Acetaminophen/ Hydrocodone Bitart ([place] (5/325)) 1 tab Q6H PRN PO Breakthrough Pain Last administered on 08/10/17 18:11; Admin Dose 1 TAB; Start 07/24/17 at 11:30 Guaifenesin/ Dextromethorphan (Robitussin Dm Liquid Cup) 5 ml TID PRN PO Cough Last administered on 08/07/17 08:49; Admin Dose 5 ML; Start 07/24/17 at 11:30 Alprazolam (Xanax) 1 mg Q8H PRN PO ANXIETY Last administered on 08/11/17 09: 00; Admin Dose 1 MG; Start 07/25/17 at 22:00 Pantoprazole (Protonix Tab) 40 mg DAILY@06 PO Last administered on 08/11/17 06:48; Admin Dose 40 MG; Start 07/28/17 at 06:00 Nitroglycerin (Nitroglycerin (Sl Tab) 0.4 Mg) 1 tab Q5M PRN SL ANGINA Last administered on 07/28/17 06:49; Admin Dose 1 TAB; Start 07/28/17 at 05:30 Aspirin (Aspirin) 81 mg DAILY PO Last administered on 08/11/17 08:41; Admin Dose 81 MG; Start 07/30/17 at 09:00 Isosorbide Dinitrate (Isordil) 20 mg TID PO Last administered on 08/11/17 12: 09; Admin Dose 20 MG; Start 07/29/17 at 21:00 Tramadol HCl (Ultram) 50 mg Q6H PRN PO pain Last administered on 08/11/17 08: 42; Admin Dose 50 MG; Start 08/05/17 at 16:30 Morphine Sulfate (morphine) 2 mg Q4H PRN IV pain Last administered on 08:42; Admin Dose 2 MG; Start 08/05/17 at 17:00 Docusate Sodium (Colace) 100 mg Q12 PO Last administered on 08/11/17 08:41; Admin Dose 100 MG; Start 08/05/17 at 21:00 Clonidine (Catapres) 0.1 mg Q6 PRN PO SBP>170; Start 08/05/17 at 17:00 Morphine Sulfate (morphine) 5 mg Q4H PRN IV PAIN Last administered on 18:56; Admin Dose 5 MG; Start 08/07/17 at 14:30 Acetylcysteine (Mucomyst) 3 ml Q4 NEB Last administered on 08/11/17 12:53; Admin Dose 3 ML; Start 08/07/17 at 21:00 Metoprolol Tartrate 25 mg 25 mg BID PO Last administered on 08/11/17 08:42; Admin Dose 25 MG; Start 08/09/17 at 21:00 Aztreonam/Sodium Chloride (Azactam/NS) 50 ml @ 100 mls/hr Q12 IV Last administered on 08/11/17 08:45; Admin Dose 100 MLS/HR; Start 08/10/17 at 21: 00 Mupirocin (Bactroban) 1 applic BID TOP Last administered on 08/11/17 08:43; Admin Dose 1 APPLIC; Start 08/10/17 at 21:00; Stop 08/20/17 at 20:59 Miscellaneous Information (*Rx Drug Level Order Reminder*) VANCO RANDOM W/ AM LABS... ONCE ONCE XX ; Start 08/12/17 at 05:00; Stop 08/12/17 at 05:01 Assessment/Plan Chief Complaint/Hosp Course Briefly, this is 62-year-old woman with ESRD on HD, Hep C, HTN, admitted for recurrent rectal prolapse s/p prior reductions, await laparoscopic intervention. Of note, CT abdomen/pelvis notable for B/L free-flowing pleural effusions. Problems: Additional Assessment/Plan IMP: 1. Hypoxemic Respiratory Insufficiency: 2/2 to complete left lung ATX and effusion. CXR today shows mild improvement in aeration. 2. Left Lung ATX/effusion 3. Rectal prolapse s/p repair 4. ESRD -- on HD Plan 1. Aggressive CPT/suctioning q4 hours 2. ICS 3. Titrate FiO2 as tolerated. JAMES VALLEJO MD Aug 11, 2017 13:16
--- NOTE | 2017-08-11 21:57 | PN ---
Date/Time of Note Date/Time of Note DATE: 08/11/17 TIME: 21:51 Assessment/Plan Lines/Catheters IV Catheter Type (from [facility] PERMACATH Patino in Place (from [facility]): No Assessment/Plan Chief Complaint/Hosp Course 1. Rectal prolapse status post laparoscopic LAR, rectopexy, biologic 08/03; tolerating diet with +bowel function, no bleeding -Avoid straining 2. Respiratory compromise with left sided white out and bilateral pleural effusion in ICU; cxr improved, was scheduled for thoracentesis but refused: agreeable to thora-not done; poss bronch- improving currently with noninvasive therapies -judicious fluid management and gentle diuresis/HD -per resp -pulm toilette 3. ESRD: on HD -hd per renal 4. Electrolyte imbalance: -optimize lytes 5. Hypoalbuminemia with hypocalcemia: nutritional +/- inflammation -as above -optimize nutrition 6. Anemia: without acute bleed: -monitor and transfuse as needed 7. Hepatitis with reactive serology -medical management 8. UTI s/p abx per sensitivity -frequent bladder emptying Thank you. Patient seen and examined in collaboration with Dr. Deep Zhang. Problems: Subjective 24 Hr Interval Summary Continues on high flow oxygen. No shortness of breath. Appears comfortable. Chest x-ray would improve aeration. No fevers, chills, chest pain, palpitations , change in telemetry rhythm. + bowel function without bleeding. Exam/Review of Systems Vital Signs Vitals Vital Signs Date Time Temp Pulse Resp B/P Pulse Ox O2 Delivery O2 Flow Rate FiO2 08/11/17 20:07 97 55 08/11/17 20:07 70 18 08/11/17 19:00 123/87 High Flow 08/11/17 16:00 98.1 08/08/17 05:07 15.0 Intake and Output 08/10/17 08/10/17 08/11/17 15:00 23:00 07:00 Intake Total 500 ml 1070 ml 50 ml Output Total 3000 ml 0 ml 10 ml Balance -2500 ml 1070 ml 40 ml Exam Free Text/Dictation Constitutional: alert, oriented Psych: nl mood Head: atraumatic, normocephalic Eyes: nl conjunctiva, nl lids, nl sclera ENMT: No mucosa pink and moist (dry) Neck: non-tender, supple Respiratory: diminished breath sounds L, crackles at bases; No labored breathing; high flow O2 Cardiovascular: nl pulses, regular rate and rhythm, No edema Gastrointestinal: non-tender, soft, No distended, No rebound or guarding Genitourinary - Female: No further prolapse; no bleed Musculoskeletal: nl extremities to inspection Extremities: normal pulses, No edema 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: nl speech, nl strength Skin: No rash or lesions Rectal: No further prolapse, no meri bleed noted Results Result Diagram: 08/11/17 0450 08/11/17 045 RAFFY GRAHAM NP Aug 11, 2017 21:57
[2017-08-12] VITALS (34 sets, daily range): BP systolic 98–167; BP diastolic 67–94; PULSE 64–140; RESP 11–18
[2017-08-12] MEDS: ALBUTEROL 0.083% (NEB) 2.5 MG/3 ML AMP HHN SCH ×6 (00:10→20:13)
[2017-08-12] MEDS: IPRATROPIUM (NEB) 0.5 MG/2.5 ML AMP HHN SCH ×6 (00:10→20:13)
[2017-08-12] MEDS: ACETYLCYSTEINE 20% 4 ML VIAL NEB SCH ×6 (00:10→20:13)
[2017-08-12] MEDS: morphine 10 MG INJ IV PRN ×4 (02:07→22:14)
[2017-08-12] MEDS: ALPRAZOLAM 0.5 MG TAB PO PRN ×2 (03:36→11:32)
[2017-08-12] MEDS: traMADol 50 MG TAB PO PRN ×2 (05:31→11:35)
[2017-08-12] MEDS: PANTOPRAZOLE (EC) 40 MG TAB PO SCH (05:31)
--- NOTE | 2017-08-12 07:29 | RADRPT ---
PROCEDURE: XR Chest. CLINICAL INDICATION: Shortness of breath. TECHNIQUE: Single frontal view. COMPARISON: 08/11/2017. FINDINGS: The tunneled left internal jugular vein dialysis catheter remains in satisfactory position. There is air space disease at the right lung base, slightly worse. There is near complete opacification of t he left hemithorax with volume loss and shift of the mediastinum to the left consistent with probabl e mucous plug and small left pleural effusion. This is unchanged with some aeration of the left uppe r lobe noted. The heart size is normal. There is a small right pleural effusion and a moderate left pleural effusion. There is no pneumothorax. IMPRESSION: 1. Slightly worse appearance of the right lung base. 2. No other change from 08/11/2017. RPTAT: QQ .Sam Villalpando MD, MD Date Time Electronically viewed and signed by .Sam Villalpando MD, MD on 08/12/2017 07:28 .R/
[2017-08-12] MEDS: CALCIUM ACETATE 667 MG CAP PO SCH ×3 (08:56→17:58)
[2017-08-12] MEDS: ASPIRIN 81 MG TAB PO SCH (08:56)
[2017-08-12] MEDS: MUPIROCIN 2% 22 GM OINT TOP SCH ×2 (08:57→20:41)
[2017-08-12] MEDS: DOCUSATE SODIUM 100 MG CAP PO SCH ×2 (08:57→20:39)
[2017-08-12] MEDS: ISOSORBIDE DINITRATE 20 MG TAB PO SCH ×3 (09:00→20:40)
[2017-08-12] MEDS: METOPROLOL 25 MG TAB PO SCH ×2 (09:00→20:40)
[2017-08-12] MEDS: AZTREONAM 0.5 GM in SOD CHLORIDE 0.9% 50 ML IV SCH ×2 (09:15→20:39)
--- NOTE | 2017-08-12 09:25 | PN ---
Date/Time of Note Date/Time of Note DATE: 08/12/17 TIME: 09:20 Assessment/Plan VTE Prophylaxis VTE Prophylaxis Intervention: heparin Lines/Catheters IV Catheter Type (from [facility]): PERMACATH Urinary Cath still in place: No Assessment/Plan Chief Complaint/Hosp Course 62 y/o with 1. Rectal prolapse, severe.status post laparoscopic LAR, rectopexy, biologic 08/03; improving 2. Leukocytosis > imrpoved could be MRSA pneumonia 3. Anemia likely End-stage renal disease however with acute drop no bleeding noted 4. Hepatitis B core antibody positive. 5 pleural effusion 6 NSTEMI 7 S/P LEXISCAN NEG 8 Hypoxic respiratory insufficency with complete opacification of left lung? mucous plug s/p dry UF /HD, cannot r/o underlying Pneumonia and underlying effusion still on high flow requiring ICU care 9 MRSA pneumonia Plan - Spoke to Dr Palacios> will do Ct chest - Based on results thoracentesis vs Bronch todau - Repeat chest xray still white out left lung - c/w - Chest PT and Mucomist - c/w Aztreonam and Vancomycin - ID consult - HD today - c/w Morphine and ultram - Epogen - GI/DVT prophylaxsis - Appreciate Pulmonary recs - Problems: Subjective 24 Hr Interval Summary Free Text/Dictation Still on high flow oxygen Chest Xray white out left lung getting Chest PT/Mucomist Plan for HD today Exam/Review of Systems Vital Signs Vitals Vital Signs Date Time Temp Pulse Resp B/P Pulse Ox O2 Delivery O2 Flow Rate FiO2 08/12/17 04:36 98 50 08/12/17 04:36 64 18 08/12/17 04:00 98.3 131/86 Nasal Cannula Intake and Output 08/11/17 08/11/17 08/12/17 15:00 23:00 07:00 Intake Total 530 ml 400 ml Output Total 150 ml Balance 530 ml 250 ml Exam Gen: Awake,alert, mild resp distress Respiratory: absent left sided breaths sounds Cardiovascular: regular rate and rhythm Gastrointestinal: bowel sounds (+), soft, distended, surgical site TTP Left permacaTH Results Result Diagram: 08/11/17 0450 08/11/17 0450 Results 24 hrs Laboratory Tests Test 08/12/17 06:46 Random Vancomycin Level 7.2 Medications Medications Current Medications Acetaminophen (Tylenol Tab) 650 mg Q6H PRN PO PAIN AND OR ELEVATED TEMP; Start 07/22/17 at 20:30 Ondansetron HCl (Zofran Inj) 4 mg Q6H PRN IV NAUSEA AND/OR VOMITING; Start 07/22/17 at 23:00 Bisacodyl (Dulcolax) 5 mg DAILY PRN PO CONSTIPATION Last administered on 03:43; Admin Dose 5 MG; Start 07/22/17 at 23:00 Acetaminophen/ Hydrocodone Bitart ([place] (5/325)) 1 tab Q6H PRN PO Breakthrough Pain Last administered on 08/10/17 18:11; Admin Dose 1 TAB; Start 07/24/17 at 11:30 Guaifenesin/ Dextromethorphan (Robitussin Dm Liquid Cup) 5 ml TID PRN PO Cough Last administered on 08/07/17 08:49; Admin Dose 5 ML; Start 07/24/17 at 11:30 Alprazolam (Xanax) 1 mg Q8H PRN PO ANXIETY Last administered on 08/12/17 03: 36; Admin Dose 1 MG; Start 07/25/17 at 22:00 Pantoprazole (Protonix Tab) 40 mg DAILY@06 PO Last administered on 08/12/17 05:31; Admin Dose 40 MG; Start 07/28/17 at 06:00 Nitroglycerin (Nitroglycerin (Sl Tab) 0.4 Mg) 1 tab Q5M PRN SL ANGINA Last administered on 07/28/17 06:49; Admin Dose 1 TAB; Start 07/28/17 at 05:30 Aspirin (Aspirin) 81 mg DAILY PO Last administered on 08/12/17 08:56; Admin Dose 81 MG; Start 07/30/17 at 09:00 Isosorbide Dinitrate (Isordil) 20 mg TID PO Last administered on 08/11/17 20: 42; Admin Dose 20 MG; Start 07/29/17 at 21:00 Tramadol HCl (Ultram) 50 mg Q6H PRN PO pain Last administered on 08/12/17 05: 31; Admin Dose 50 MG; Start 08/05/17 at 16:30 Morphine Sulfate (morphine) 2 mg Q4H PRN IV pain Last administered on 13:36; Admin Dose 2 MG; Start 08/05/17 at 17:00 Docusate Sodium (Colace) 100 mg Q12 PO Last administered on 08/11/17 20:42; Admin Dose 100 MG; Start 08/05/17 at 21:00 Clonidine (Catapres) 0.1 mg Q6 PRN PO SBP>170; Start 08/05/17 at 17:00 Morphine Sulfate (morphine) 5 mg Q4H PRN IV PAIN Last administered on 08:57; Admin Dose 5 MG; Start 08/07/17 at 14:30 Acetylcysteine (Mucomyst) 3 ml Q4 NEB Last administered on 08/12/17 04:36; Admin Dose 3 ML; Start 08/07/17 at 21:00 Metoprolol Tartrate 25 mg 25 mg BID PO Last administered on 08/11/17 20:42; Admin Dose 25 MG; Start 08/09/17 at 21:00 Aztreonam/Sodium Chloride (Azactam/NS) 50 ml @ 100 mls/hr Q12 IV Last administered on 08/12/17 09:15; Admin Dose 100 MLS/HR; Start 08/10/17 at 21: 00 Mupirocin (Bactroban) 1 applic BID TOP Last administered on 08/12/17 08:57; Admin Dose 1 APPLIC; Start 08/10/17 at 21:00; Stop 08/20/17 at 20:59 ROSLYN SHANNON MD Aug 12, 2017 09:25
--- NOTE | 2017-08-12 10:09 | PN ---
Date/Time of Note Date/Time of Note DATE: 08/12/17 TIME: 10:02 Assessment/Plan Lines/Catheters IV Catheter Type (from [facility]): PERMACATH Patino in Place (from [facility]): No Assessment/Plan Chief Complaint/Hosp Course 1. Rectal prolapse status post laparoscopic LAR, rectopexy, biologic 08/03; tolerating diet with +bowel function, no bleeding -Avoid straining 2. Respiratory compromise with left sided white out and bilateral pleural effusion in ICU; cxr improved, was scheduled for thoracentesis but refused: agreeable to thora-not done; poss bronch- improving currently with noninvasive therapies; CXR noted: r lung worse -judicious fluid management and gentle diuresis/HD -per resp -pulm toilette -CT per pulm 3. ESRD: on HD -hd per renal 4. Electrolyte imbalance: -optimize lytes 5. Hypoalbuminemia with hypocalcemia: nutritional +/- inflammation -as above -optimize nutrition 6. Anemia: without acute bleed: -monitor and transfuse as needed 7. Hepatitis with reactive serology -medical management 8. UTI s/p abx per sensitivity -frequent bladder emptying Thank you. Patient seen and examined in collaboration with Dr. Deep Zhang. Problems: Subjective 24 Hr Interval Summary Feels well. Less short of breath. However, cxr showing slightly worsened appearance of right lung base. Continues on high flow O2. +bowel function-no bleeding w bm. No fevers, chills, sob, congested cough, n/v/d/dysuria, cp, palpitations, change of tele rhythm. Exam/Review of Systems Vital Signs Vitals Vital Signs Date Time Temp Pulse Resp B/P Pulse Ox O2 Delivery O2 Flow Rate FiO2 08/12/17 09:00 65 14 132/94 98 High Flow Nasal Cannula 08/12/17 08:59 50 08/12/17 08:00 98.2 Intake and Output 08/11/17 08/11/17 08/12/17 15:00 23:00 07:00 Intake Total 530 ml 400 ml Output Total 150 ml Balance 530 ml 250 ml Exam Free Text/Dictation Constitutional: alert, oriented Psych: nl mood Head: atraumatic, normocephalic Eyes: nl conjunctiva, nl lids, nl sclera ENMT: No mucosa pink and moist (dry) Neck: non-tender, supple Respiratory: diminished breath sounds; No labored breathing; high flow O2 Cardiovascular: nl pulses, regular rate and rhythm, No edema Gastrointestinal: non-tender, soft, No distended, No rebound or guarding Genitourinary - Female: No further prolapse; no bleed Musculoskeletal: nl extremities to inspection Extremities: normal pulses, No edema 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: nl speech, nl strength Skin: No rash or lesions Rectal: No further prolapse, no meri bleed noted Results Result Diagram: 08/11/17 0450 08/11/17 045 RAFFY GRAHAM NP Aug 12, 2017 10:08
[2017-08-12] MEDS ORDERED: VANCOMYCIN 1.25 GM in SOD CHLORIDE 0.9% 250 ML IVPB SCH (11:30)
[2017-08-12] MEDS: NITROGLYCERIN (SL) 0.4 MG TAB SL PRN (11:54)
--- NOTE | 2017-08-12 12:43 | CONS ---
Date/Time of Note Date/Time of Note DATE: 08/12/17 TIME: 12:39 Assessment/Plan Assessment/Plan Chief Complaint/Hosp Course IMPRESSION: 1. Positive troponin in the setting of renal failure, but chest pain and cardiac risk factors, assess significance.- Now trended negative and s/p lexiscan with no ischemia/NL EF.Echo n10/10 with NL EF 50-55. Mod OK to proceed to surgery for rectal prolapse from cardiac standpoint at moderate CV risk on current medications including low dose BB continue pre-post- operatively. Avoid large fluid shifts/swings in blood pressure as possible-Now post-op s/p rectal prolapse surgery 2. Abnormal electrocardiogram with nonspecific ST-T abnormalities and initial anterolateral T-wave inversions. 3. Hypertension-currently well controlled 4. Rectal prolapse. 5. Hepatitis C antibody positive, hepatitis B core antibody positive. 6. Anemia. 7. End-stage renal disease on hemodialysis. 8. L Lung white out/pleural effusion-slowly improving 9. Chest pain-episode during HD today. Recc: -Continue BB/isordil with reasonable BP -Continue asa -routine post-op care -Pain control -Patient refused ECG -HD for volume removal -Will retrend cardiac enzymes Problems: Consultation Date/Type/Reason Admit Date/Time Jul 22, 2017 at 19:26 Initial Consult Date 07/23/17 Type of Consultation: cardiology Reason for Consultation positive troponin Referring Provider: KISHAN MEJIA MD Exam/Review of Systems Vital Signs Vitals Vital Signs Date Time Temp Pulse Resp B/P Pulse Ox O2 Delivery O2 Flow Rate FiO2 08/12/17 12:00 98.4 72 11 116/74 90 High Flow Nasal Cannula 08/12/17 10:25 50 Intake and Output 08/11/17 08/11/17 08/12/17 15:00 23:00 07:00 Intake Total 530 ml 400 ml Output Total 150 ml Balance 530 ml 250 ml Exam Review of Systems: CONSTITUTIONAL: No fevers, chills. PULMONARY: No sob CARDIOVASCULAR: No chest pain/palpitations GASTROINTESTINAL: No nausea/vomiting. GENITOURINARY: No hematuria/dysuria. MUSCULOSKELETAL: No myagias/arthalgias. PSYCHIATRIC: The patient denies depression. NEUROLOGIC: No weakness Constitutional: alert Psych: no complaints Head: normocephalic ENMT: mucosa pink and moist Neck: jvd (9 cm), supple Respiratory: diminished breath sounds (at bases/B) Cardiovascular: regular rate and rhythm Gastrointestinal: non-tender, soft Musculoskeletal: muscle tone (normal) Extremities: edema 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: other (No focal deficits) Results Result Diagram: 08/11/17 0450 08/11/17 0450 Results 24 hrs Laboratory Tests Test 08/12/17 06:46 Random Vancomycin Level 7.2 Medications Medications Current Medications Acetaminophen (Tylenol Tab) 650 mg Q6H PRN PO PAIN AND OR ELEVATED TEMP; Start 07/22/17 at 20:30 Ondansetron HCl (Zofran Inj) 4 mg Q6H PRN IV NAUSEA AND/OR VOMITING; Start 07/22/17 at 23:00 Bisacodyl (Dulcolax) 5 mg DAILY PRN PO CONSTIPATION Last administered on 03:43; Admin Dose 5 MG; Start 07/22/17 at 23:00 Acetaminophen/ Hydrocodone Bitart ([place] (5/325)) 1 tab Q6H PRN PO Breakthrough Pain Last administered on 08/10/17 18:11; Admin Dose 1 TAB; Start 07/24/17 at 11:30 Guaifenesin/ Dextromethorphan (Robitussin Dm Liquid Cup) 5 ml TID PRN PO Cough Last administered on 08/07/17 08:49; Admin Dose 5 ML; Start 07/24/17 at 11:30 Alprazolam (Xanax) 1 mg Q8H PRN PO ANXIETY Last administered on 08/12/17 11: 32; Admin Dose 1 MG; Start 07/25/17 at 22:00 Pantoprazole (Protonix Tab) 40 mg DAILY@06 PO Last administered on 08/12/17 05:31; Admin Dose 40 MG; Start 07/28/17 at 06:00 Nitroglycerin (Nitroglycerin (Sl Tab) 0.4 Mg) 1 tab Q5M PRN SL ANGINA Last administered on 08/12/17 11:54; Admin Dose 1 TAB; Start 07/28/17 at 05:30 Aspirin (Aspirin) 81 mg DAILY PO Last administered on 08/12/17 08:56; Admin Dose 81 MG; Start 07/30/17 at 09:00 Isosorbide Dinitrate (Isordil) 20 mg TID PO Last administered on 08/11/17 20: 42; Admin Dose 20 MG; Start 07/29/17 at 21:00 Tramadol HCl (Ultram) 50 mg Q6H PRN PO pain Last administered on 08/12/17 11: 35; Admin Dose 50 MG; Start 08/05/17 at 16:30 Morphine Sulfate (morphine) 2 mg Q4H PRN IV pain Last administered on 13:36; Admin Dose 2 MG; Start 08/05/17 at 17:00 Docusate Sodium (Colace) 100 mg Q12 PO Last administered on 08/11/17 20:42; Admin Dose 100 MG; Start 08/05/17 at 21:00 Clonidine (Catapres) 0.1 mg Q6 PRN PO SBP>170; Start 08/05/17 at 17:00 Morphine Sulfate (morphine) 5 mg Q4H PRN IV PAIN Last administered on 08:57; Admin Dose 5 MG; Start 08/07/17 at 14:30 Acetylcysteine (Mucomyst) 3 ml Q4 NEB Last administered on 08/12/17 10:21; Admin Dose 3 ML; Start 08/07/17 at 21:00 Metoprolol Tartrate 25 mg 25 mg BID PO Last administered on 08/11/17 20:42; Admin Dose 25 MG; Start 08/09/17 at 21:00 Aztreonam/Sodium Chloride (Azactam/NS) 50 ml @ 100 mls/hr Q12 IV Last administered on 08/12/17 09:15; Admin Dose 100 MLS/HR; Start 08/10/17 at 21: 00 Mupirocin 1 applic 1 applic BID TOP Last administered on 08/12/17 08:57; Admin Dose 1 APPLIC; Start 08/10/17 at 21:00; Stop 08/20/17 at 20:59 Vancomycin HCl/ Sodium Chloride (Vancocin/NS) 250 ml @ 83.333 mls/ hr ONCE IVPB ; Start 08/12/17 at 11:30; Stop 08/12/17 at 18:00 CONI ENRIQUEZ Aug 12, 2017 12:43
--- NOTE | 2017-08-12 12:50 | CONS ---
Date/Time of Note Date/Time of Note DATE: 08/12/17 TIME: 12:49 Consult Date/Type/Reason Admit Date/Time Jul 22, 2017 at 19:26 Initial Consult Date 07/23/17 Type of Consultation: Pulmonary Ordering Provider: KISHAN MEJIA MD Subjective Patient remains on high flow O2, awake alert and oriented. Declining thoracentesis. Objective Vital Signs Date Time Temp Pulse Resp B/P Pulse Ox O2 Delivery O2 Flow Rate FiO2 08/12/17 12:00 98.4 72 11 116/74 90 High Flow Nasal Cannula 08/12/17 10:25 50 Intake and Output 08/11/17 08/11/17 08/12/17 15:00 23:00 07:00 Intake Total 530 ml 400 ml Output Total 150 ml Balance 530 ml 250 ml Exam PHYSICAL EXAMINATION GENERAL: Elderly gentleman, Vapotherm oxygen. VITAL SIGNS: see below. HEENT: Pupils equal, round, and reactive to light. CARDIAC: S1, S2, 1/6 systolic ejection murmur CHEST: Diminished air entry bilaterally. ABDOMEN: Mildly distended. Bowel sounds present no guarding or rebound EXTREMITIES: No cyanosis, clubbing edema +1 NEUROLOGIC: Generalized weakness Results/Medications Result Diagram: 08/11/17 0450 08/11/17 0450 Results 24 hrs Laboratory Tests Test 08/12/17 06:46 Random Vancomycin Level 7.2 Medications Current Medications Acetaminophen (Tylenol Tab) 650 mg Q6H PRN PO PAIN AND OR ELEVATED TEMP; Start 07/22/17 at 20:30 Ondansetron HCl (Zofran Inj) 4 mg Q6H PRN IV NAUSEA AND/OR VOMITING; Start 07/22/17 at 23:00 Bisacodyl (Dulcolax) 5 mg DAILY PRN PO CONSTIPATION Last administered on 03:43; Admin Dose 5 MG; Start 07/22/17 at 23:00 Acetaminophen/ Hydrocodone Bitart ([place] (5/325)) 1 tab Q6H PRN PO Breakthrough Pain Last administered on 08/10/17 18:11; Admin Dose 1 TAB; Start 07/24/17 at 11:30 Guaifenesin/ Dextromethorphan (Robitussin Dm Liquid Cup) 5 ml TID PRN PO Cough Last administered on 08/07/17 08:49; Admin Dose 5 ML; Start 07/24/17 at 11:30 Alprazolam (Xanax) 1 mg Q8H PRN PO ANXIETY Last administered on 08/12/17 11: 32; Admin Dose 1 MG; Start 07/25/17 at 22:00 Pantoprazole (Protonix Tab) 40 mg DAILY@06 PO Last administered on 08/12/17 05:31; Admin Dose 40 MG; Start 07/28/17 at 06:00 Nitroglycerin (Nitroglycerin (Sl Tab) 0.4 Mg) 1 tab Q5M PRN SL ANGINA Last administered on 08/12/17 11:54; Admin Dose 1 TAB; Start 07/28/17 at 05:30 Aspirin (Aspirin) 81 mg DAILY PO Last administered on 08/12/17 08:56; Admin Dose 81 MG; Start 07/30/17 at 09:00 Isosorbide Dinitrate (Isordil) 20 mg TID PO Last administered on 08/11/17 20: 42; Admin Dose 20 MG; Start 07/29/17 at 21:00 Tramadol HCl (Ultram) 50 mg Q6H PRN PO pain Last administered on 08/12/17 11: 35; Admin Dose 50 MG; Start 08/05/17 at 16:30 Morphine Sulfate (morphine) 2 mg Q4H PRN IV pain Last administered on 13:36; Admin Dose 2 MG; Start 08/05/17 at 17:00 Docusate Sodium (Colace) 100 mg Q12 PO Last administered on 08/11/17 20:42; Admin Dose 100 MG; Start 08/05/17 at 21:00 Clonidine (Catapres) 0.1 mg Q6 PRN PO SBP>170; Start 08/05/17 at 17:00 Morphine Sulfate (morphine) 5 mg Q4H PRN IV PAIN Last administered on 08:57; Admin Dose 5 MG; Start 08/07/17 at 14:30 Acetylcysteine (Mucomyst) 3 ml Q4 NEB Last administered on 08/12/17 10:21; Admin Dose 3 ML; Start 08/07/17 at 21:00 Metoprolol Tartrate 25 mg 25 mg BID PO Last administered on 08/11/17 20:42; Admin Dose 25 MG; Start 08/09/17 at 21:00 Aztreonam/Sodium Chloride (Azactam/NS) 50 ml @ 100 mls/hr Q12 IV Last administered on 08/12/17 09:15; Admin Dose 100 MLS/HR; Start 08/10/17 at 21: 00 Mupirocin 1 applic 1 applic BID TOP Last administered on 08/12/17 08:57; Admin Dose 1 APPLIC; Start 08/10/17 at 21:00; Stop 08/20/17 at 20:59 Vancomycin HCl/ Sodium Chloride (Vancocin/NS) 250 ml @ 83.333 mls/ hr ONCE IVPB ; Start 08/12/17 at 11:30; Stop 08/12/17 at 18:00 Assessment/Plan Chief Complaint/Hosp Course 1. Hypoxemic Respiratory Insufficiency: 2/2 to complete left lung ATX and effusion. CXR today shows mild improvement in aeration. 2. Left Lung ATX/effusion 3. Rectal prolapse s/p repair 4. ESRD -- on HD Plan 1. Aggressive CPT/suctioning q4 hours 2. ICS 3. Titrate FiO2 as tolerated. 4. CT chest. We will discuss findings and plan of care with patient. Problems: SAMIA CINTRON MD, [facility] Aug 12, 2017 12:50
[2017-08-12 13:59] LABS: CREATINE KINASE < 20 IU/L (23-200)
[2017-08-12 14:09] LABS: CK-MB 0.94 ng/ml (0.0-2.4); TROPONIN-I 0.038 ng/ml (0.00-0.12)
--- NOTE | 2017-08-12 19:57 | CONS ---
Date/Time of Note Date/Time of Note DATE: 08/12/17 TIME: 19:57 Assessment/Plan Assessment/Plan Additional Assessment/Plan Additional Assessment/Plan IMPRESSION: 1. Rectal prolapse. 2. End-stage renal disease, on dialysis. 3. Anemia. 4. Positive hepatitis C antibody, but viral study was negative. 5. Urinary tract infection. 6. Status post a surgery for rectal prolapse 7. Left lung complete opacification, partial reexpansion of left lung 8. Respiratory failure, better Plan Continue present care Continue high flow of oxygen Consultation Date/Type/Reason Admit Date/Time Jul 22, 2017 at 19:26 Initial Consult Date 07/23/17 Type of Consultation: Pulmonary Referring Provider: KISHAN MEJIA MD 24 HR Interval Summary Constitutional: no complaints Exam/Review of Systems Vital Signs Vitals Vital Signs Date Time Temp Pulse Resp B/P Pulse Ox O2 Delivery O2 Flow Rate FiO2 08/12/17 18:00 80 17 123/75 97 High Flow Nasal Cannula 08/12/17 16:00 97.9 08/12/17 14:41 50 Intake and Output 08/11/17 08/11/17 08/12/17 15:00 23:00 07:00 Intake Total 530 ml 400 ml Output Total 150 ml Balance 530 ml 250 ml Exam Constitutional: alert, oriented, well developed Psych: nl mood/affect, no complaints Head: atraumatic, normocephalic Eyes: EOMI, PERRL, nl conjunctiva, nl lids, nl sclera ENMT: nl external ears & nose, nl lips & teeth, nl nasal mucosa & septum Neck: non-tender, supple Respiratory: clear to auscultation, normal air movement Cardiovascular: nl pulses, regular rate and rhythm Gastrointestinal: nl liver, spleen, non-tender, soft Musculoskeletal: nl extremities to inspection, nl gait and stance Extremities: normal pulses 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: CAN CRIMPER II-XII intact, nl mental status, nl speech, nl strength Skin: nl turgor, No rash or lesions Lymph: nl lymph nodes Results Result Diagram: 08/11/1744908/11/17 0450 Results 24 hrs Laboratory Tests Test 08/12/17 06:46 08/12/17 13:00 Random Vancomycin Level 7.2 Creatine Kinase < 20 L Creatine Kinase Index Creatinine Kinase MB (Mass) 0.94 Troponin I 0.038 Medications Medications Current Medications Acetaminophen (Tylenol Tab) 650 mg Q6H PRN PO PAIN AND OR ELEVATED TEMP; Start 07/22/17 at 20:30 Ondansetron HCl (Zofran Inj) 4 mg Q6H PRN IV NAUSEA AND/OR VOMITING; Start 07/22/17 at 23:00 Bisacodyl (Dulcolax) 5 mg DAILY PRN PO CONSTIPATION Last administered on 03:43; Admin Dose 5 MG; Start 07/22/17 at 23:00 Acetaminophen/ Hydrocodone Bitart ([place] (5/325)) 1 tab Q6H PRN PO Breakthrough Pain Last administered on 08/10/17 18:11; Admin Dose 1 TAB; Start 07/24/17 at 11:30 Guaifenesin/ Dextromethorphan (Robitussin Dm Liquid Cup) 5 ml TID PRN PO Cough Last administered on 08/07/17 08:49; Admin Dose 5 ML; Start 07/24/17 at 11:30 Alprazolam (Xanax) 1 mg Q8H PRN PO ANXIETY Last administered on 08/12/17 11: 32; Admin Dose 1 MG; Start 07/25/17 at 22:00 Pantoprazole (Protonix Tab) 40 mg DAILY@06 PO Last administered on 08/12/17 05:31; Admin Dose 40 MG; Start 07/28/17 at 06:00 Nitroglycerin (Nitroglycerin (Sl Tab) 0.4 Mg) 1 tab Q5M PRN SL ANGINA Last administered on 08/12/17 11:54; Admin Dose 1 TAB; Start 07/28/17 at 05:30 Aspirin (Aspirin) 81 mg DAILY PO Last administered on 08/12/17 08:56; Admin Dose 81 MG; Start 07/30/17 at 09:00 Isosorbide Dinitrate (Isordil) 20 mg TID PO Last administered on 08/11/17 20: 42; Admin Dose 20 MG; Start 07/29/17 at 21:00 Tramadol HCl (Ultram) 50 mg Q6H PRN PO pain Last administered on 08/12/17 11: 35; Admin Dose 50 MG; Start 08/05/17 at 16:30 Morphine Sulfate (morphine) 2 mg Q4H PRN IV pain Last administered on 13:36; Admin Dose 2 MG; Start 08/05/17 at 17:00 Docusate Sodium (Colace) 100 mg Q12 PO Last administered on 08/11/17 20:42; Admin Dose 100 MG; Start 08/05/17 at 21:00 Clonidine (Catapres) 0.1 mg Q6 PRN PO SBP>170; Start 08/05/17 at 17:00 Morphine Sulfate (morphine) 5 mg Q4H PRN IV PAIN Last administered on 18:01; Admin Dose 5 MG; Start 08/07/17 at 14:30 Acetylcysteine (Mucomyst) 3 ml Q4 NEB Last administered on 08/12/17 14:38; Admin Dose 3 ML; Start 08/07/17 at 21:00 Metoprolol Tartrate 25 mg 25 mg BID PO Last administered on 08/11/17 20:42; Admin Dose 25 MG; Start 08/09/17 at 21:00 Aztreonam/Sodium Chloride (Azactam/NS) 50 ml @ 100 mls/hr Q12 IV Last administered on 08/12/17 09:15; Admin Dose 100 MLS/HR; Start 08/10/17 at 21: 00 Mupirocin (Bactroban) 1 applic BID TOP Last administered on 08/12/17 08:57; Admin Dose 1 APPLIC; Start 08/10/17 at 21:00; Stop 08/20/17 at 20:59 ZIA BAEZA MD Aug 12, 2017 19:57
[2017-08-13] VITALS (23 sets, daily range): BP systolic 93–132; BP diastolic 59–118; PULSE 66–80; RESP 12–20
[2017-08-13] MEDS: ALBUTEROL 0.083% (NEB) 2.5 MG/3 ML AMP HHN SCH ×6 (01:05→20:17)
[2017-08-13] MEDS: ACETYLCYSTEINE 20% 4 ML VIAL NEB SCH ×6 (01:05→20:18)
[2017-08-13] MEDS: IPRATROPIUM (NEB) 0.5 MG/2.5 ML AMP HHN SCH ×6 (01:05→20:18)
[2017-08-13 01:34] LABS: CREATINE KINASE < 20 IU/L (23-200)
[2017-08-13 01:41] LABS: CK-MB 0.58 ng/ml (0.0-2.4); TROPONIN-I 0.048 ng/ml (0.00-0.12)
[2017-08-13] MEDS: morphine 10 MG INJ IV PRN ×3 (04:04→17:32)
--- NOTE | 2017-08-13 04:28 | CONS ---
DATE OF ADMISSION: 07/22/2017 DATE OF CONSULTATION: 08/12/2017 TYPE FOR CONSULTATION: Infectious disease. REASON FOR CONSULTATION: Antibiotic management. HISTORY OF PRESENT ILLNESS: Uzma Mcguire is a 62-year-old female with end-stage renal disease and initially hypertension and was taken to [facility] for rectal prolapse. The patient avitia d rectal prolapse reduced but she had recurrence and was transferred to [facility] for furt her management. Initially, her problems included: 1. End-stage renal disease. 2. Anemia of chronic disease. 3. Severe rectal prolapse. 4. Leukocytosis. On admission, her white count was 25.3. Her hematocrit was 26.4, platelet count 301,000. ALLERGIES: SHE HAS A HISTORY OF ALLERGY TO PENICILLIN. HOSPITAL COURSE: Currently has been hospitalized for 20 days and is in the intensive care unit. Th e patient was seen in consultation by Dr. Zhang's PA who recommended colorectal surgery. Accordin g to Dr. Zhang, on 07/24/2017, her white count was 23.2, BUN and creatinine is 90/9.86. On 2016, she had an operative procedure with a colonoscopy and brushing by Dr. Hobbs. She has been fo llowed by multiple physicians; currently, she was seen by ____. She is status post laparoscopic LAR rectopexy as of 08/03/2017. She has a pleural effusion. Her Lexiscan is negative. She has no n-STEMI. She has hypoxic respiratory insufficiency with complete opacification of the left lung, mu cous plug status post dry UF/HD; cannot rule out underlying pneumonia and underlying effusion, still on high flow oxygen, requiring ICU care. She has what appears to be MRSA pneumonia. She is on van comycin and aztreonam. As noted, the procedure on 08/03/2017 was unremarkable in the sense that it w as completely successful. She had a laparoscopic low anterior resection biological implantation rig id sigmoidoscopy and rectopexy. Today she was seen by Dr. Palacios, white count was 7.6. PAST MEDICAL HISTORY: As outlined. REVIEW OF SYSTEMS: Noncontributory. PHYSICAL EXAMINATION: GENERAL: The patient is an elderly appearing white female who is alert, responsive, in no acute dis tress. VITAL SIGNS: Stable. She is afebrile. SKIN: Without generalized rash. HEENT: Within normal limits. NECK: Supple. LYMPH NODES: None palpable. CHEST: Decreased breath sounds at the bases, left greater than right. HEART: Without murmur or gallop. ABDOMEN: Soft, nontender, without organosplenomegaly or masses. EXTREMITIES: Without cyanosis, clubbing, or edema. RECTAL AND GENITAL: Exams deferred. NEUROLOGIC: Without focal neurological abnormalities. IMAGING STUDIES: Chest x-ray from the 08/12/2017 shows the tunneled left internal jugular vein dial ysis catheter in satisfactory condition. There is airspace disease at the right lung base, slightly worse. There is near complete opacification of the left hemithorax with volume loss and shift ____ the mediastinum to the left consistent with probable mucous plug and small left pleural effusion. This is unchanged with some aeration of the left upper lobe noted. Heart size is normal. There is a small right pleural effusion and moderate left pleural effusion. There is no pneumothorax. The i mpression was slightly worse appearance of the right lung base. MICROBIOLOGY: As noted, she is growing methicillin-resistant Staphylococcus and normal respiratory walter. She had Lactobacillus in her urine which is a contaminant and she is currently on vancomycin and aztreonam. A thoracentesis I believe is pending. IMPRESSION AND PLAN: At this point, will continue her on current therapy. I will dictate my findin gs to Dr. Yost and to the numerous consultants. Dictated By: SHAHZAD BARRON MD, JD/JON Conf#: [id number] DID#: [id number]
[2017-08-13] MEDS: ALPRAZOLAM 0.5 MG TAB PO PRN ×2 (04:36→12:50)
[2017-08-13] MEDS: PANTOPRAZOLE (EC) 40 MG TAB PO SCH (05:22)
[2017-08-13] MEDS: DOCUSATE SODIUM 100 MG CAP PO SCH ×2 (09:14→21:08)
[2017-08-13] MEDS: METOPROLOL 25 MG TAB PO SCH ×2 (09:14→21:08)
[2017-08-13] MEDS: ASPIRIN 81 MG TAB PO SCH (09:14)
[2017-08-13] MEDS: traMADol 50 MG TAB PO PRN (09:14)
[2017-08-13] MEDS: ISOSORBIDE DINITRATE 20 MG TAB PO SCH ×3 (09:14→21:09)
[2017-08-13] MEDS: MUPIROCIN 2% 22 GM OINT TOP SCH ×2 (09:15→21:09)
[2017-08-13] MEDS: AZTREONAM 0.5 GM in SOD CHLORIDE 0.9% 50 ML IV SCH ×2 (09:15→21:24)
[2017-08-13] MEDS: CALCIUM ACETATE 667 MG CAP PO SCH ×3 (09:15→17:32)
--- NOTE | 2017-08-13 09:50 | PN ---
Date/Time of Note Date/Time of Note DATE: 08/13/17 TIME: 09:49 Assessment/Plan VTE Prophylaxis VTE Prophylaxis Intervention: contraindicated VTE Contraindication Reason: bleeding Lines/Catheters IV Catheter Type (from Nrs): permacath Urinary Cath still in place: No Assessment/Plan Chief Complaint/Hosp Course 62 y/o with 1. Rectal prolapse, severe.status post laparoscopic LAR, rectopexy, biologic 08/03; improving 2. Leukocytosis > imrpoved could be MRSA pneumonia 3. Anemia likely End-stage renal disease however with acute drop no bleeding noted 4. Hepatitis B core antibody positive. 5 pleural effusion 6 NSTEMI 7 S/P LEXISCAN NEG 8 Hypoxic respiratory insufficency with complete opacification of left lung? mucous plug s/p dry UF /HD, cannot r/o underlying Pneumonia and underlying effusion still on high flow requiring ICU care 9 MRSA pneumonia Plan - Spoke to Dr Palacios> CT chest pending - Based on results thoracentesis vs Bronch today - c/w - Chest PT and Mucomist - c/w Aztreonam - hd tmw - c/w Morphine and ultram - Epogen - GI/DVT prophylaxsis - Appreciate Pulmonary recs - Problems: Subjective 24 Hr Interval Summary Free Text/Dictation Still on high flow Exam/Review of Systems Vital Signs Vitals Vital Signs Date Time Temp Pulse Resp B/P Pulse Ox O2 Delivery O2 Flow Rate FiO2 08/13/17 09:00 75 20 132/118 94 High Flow Nasal Cannula 08/13/17 08:00 98.3 08/13/17 05:09 50 Intake and Output 08/12/17 08/12/17 08/13/17 15:00 23:00 07:00 Intake Total 830 ml 660 ml 100 ml Output Total 3300 ml Balance -2470 ml 660 ml 100 ml Exam Gen: Awake,alert, mild resp distress Respiratory: absent left sided breaths sounds Cardiovascular: regular rate and rhythm Gastrointestinal: bowel sounds (+), soft, distended, surgical site TTP Left permacaTH Results Result Diagram: 08/11/1744908/11/17449 Results 24 hrs Laboratory Tests Test 08/12/17 13:00 08/13/17 00:45 Creatine Kinase < 20 L < 20 L Creatine Kinase Index Creatinine Kinase MB (Mass) 0.94 0.58 Troponin I 0.038 0.048 Medications Medications Current Medications Acetaminophen (Tylenol Tab) 650 mg Q6H PRN PO PAIN AND OR ELEVATED TEMP; Start 07/22/17 at 20:30 Ondansetron HCl (Zofran Inj) 4 mg Q6H PRN IV NAUSEA AND/OR VOMITING; Start 07/22/17 at 23:00 Bisacodyl (Dulcolax) 5 mg DAILY PRN PO CONSTIPATION Last administered on 03:43; Admin Dose 5 MG; Start 07/22/17 at 23:00 Acetaminophen/ Hydrocodone Bitart ([place] (5/325)) 1 tab Q6H PRN PO Breakthrough Pain Last administered on 08/10/17 18:11; Admin Dose 1 TAB; Start 07/24/17 at 11:30 Guaifenesin/ Dextromethorphan (Robitussin Dm Liquid Cup) 5 ml TID PRN PO Cough Last administered on 08/07/17 08:49; Admin Dose 5 ML; Start 07/24/17 at 11:30 Alprazolam (Xanax) 1 mg Q8H PRN PO ANXIETY Last administered on 08/13/17 04: 36; Admin Dose 1 MG; Start 07/25/17 at 22:00 Pantoprazole (Protonix Tab) 40 mg DAILY@06 PO Last administered on 08/13/17 05:22; Admin Dose 40 MG; Start 07/28/17 at 06:00 Nitroglycerin (Nitroglycerin (Sl Tab) 0.4 Mg) 1 tab Q5M PRN SL ANGINA Last administered on 08/12/17 11:54; Admin Dose 1 TAB; Start 07/28/17 at 05:30 Aspirin (Aspirin) 81 mg DAILY PO Last administered on 08/13/17 09:14; Admin Dose 81 MG; Start 07/30/17 at 09:00 Isosorbide Dinitrate (Isordil) 20 mg TID PO Last administered on 08/13/17 09: 14; Admin Dose 20 MG; Start 07/29/17 at 21:00 Tramadol HCl (Ultram) 50 mg Q6H PRN PO pain Last administered on 08/13/17 09: 14; Admin Dose 50 MG; Start 08/05/17 at 16:30 Morphine Sulfate (morphine) 2 mg Q4H PRN IV pain Last administered on 13:36; Admin Dose 2 MG; Start 08/05/17 at 17:00 Docusate Sodium (Colace) 100 mg Q12 PO Last administered on 08/13/17 09:14; Admin Dose 100 MG; Start 08/05/17 at 21:00 Clonidine (Catapres) 0.1 mg Q6 PRN PO SBP>170; Start 08/05/17 at 17:00 Morphine Sulfate (morphine) 5 mg Q4H PRN IV PAIN Last administered on 04:04; Admin Dose 5 MG; Start 08/07/17 at 14:30 Acetylcysteine (Mucomyst) 3 ml Q4 NEB Last administered on 08/13/17 05:08; Admin Dose 3 ML; Start 08/07/17 at 21:00 Metoprolol Tartrate 25 mg 25 mg BID PO Last administered on 08/13/17 09:14; Admin Dose 25 MG; Start 08/09/17 at 21:00 Aztreonam/Sodium Chloride (Azactam/NS) 50 ml @ 100 mls/hr Q12 IV Last administered on 08/13/17 09:15; Admin Dose 100 MLS/HR; Start 08/10/17 at 21: 00 Mupirocin (Bactroban) 1 applic BID TOP Last administered on 08/13/17 09:15; Admin Dose 1 APPLIC; Start 08/10/17 at 21:00; Stop 08/20/17 at 20:59 ROSLYN SHANNON MD Aug 13, 2017 09:50
--- NOTE | 2017-08-13 10:00 | CONS ---
Date/Time of Note Date/Time of Note DATE: 08/13/17 TIME: 09:58 Assessment/Plan Assessment/Plan Additional Assessment/Plan 1. Positive troponin in the setting of renal failure, but chest pain and cardiac risk factors, assess significance.- Now trended negative and s/p lexiscan with no ischemia/NL EF.Echo n10/10 with NL EF 50-55. Mod OK to proceed to surgery for rectal prolapse from cardiac standpoint at moderate CV risk on current medications including low dose BB continue pre-post- operatively. Avoid large fluid shifts/swings in blood pressure as possible-Now post-op s/p rectal prolapse surgery - stable overall, on meds now 2. Abnormal electrocardiogram with nonspecific ST-T abnormalities and initial anterolateral T-wave inversions- araceli CP noted. 3. Hypertension-currently well controlled- BP well controlled. 4. Rectal prolapse- post op. 5. Hepatitis C antibody positive, hepatitis B core antibody positive. 6. Anemia. 7. End-stage renal disease on hemodialysis- Rx as needed. 8. L Lung white out/pleural effusion-slowly improving 9. Chest pain-episode during HD today. Consultation Date/Type/Reason Admit Date/Time Jul 22, 2017 at 19:26 Initial Consult Date 07/23/17 Type of Consultation: Pulmonary Referring Provider: KISHAN MEJIA MD 24 HR Interval Summary Free Text/Dictation BP in good range - no CP now - will monitor clinically. Con't Med rx ROS: No fever, no chills, no nausea, no vomiting, no diarrhea/constipation No recent weight changes No chest pain, no PND, no orthopnea No dizziness, blurred vision No thirst, no heat or cold intolerance Exam/Review of Systems Vital Signs Vitals Vital Signs Date Time Temp Pulse Resp B/P Pulse Ox O2 Delivery O2 Flow Rate FiO2 08/13/17 09:00 75 20 132/118 94 High Flow Nasal Cannula 08/13/17 08:00 98.3 08/13/17 05:09 50 Intake and Output 08/12/17 08/12/17 08/13/17 15:00 23:00 07:00 Intake Total 830 ml 660 ml 100 ml Output Total 3300 ml Balance -2470 ml 660 ml 100 ml Exam General: WN/WD/NAD, AOx 2-3 HEENT: Unicetric/atraumatic/EOMI (follows commands) NECK: JVD elevated, no thyromegaly Lymph: no lymphadenopathy HEART: regular with no S3, II/ systolic murmur at apex LUNGS: Coarse sounds ABD: soft, NT, ND, +BS : Intact Neuro: non focal SKIN: chronic changes EXT: trace edema Results Result Diagram: 08/11/1744908/11/17449 Results 24 hrs Laboratory Tests Test 08/12/17 13:00 08/13/17 00:45 Creatine Kinase < 20 L < 20 L Creatine Kinase Index Creatinine Kinase MB (Mass) 0.94 0.58 Troponin I 0.038 0.048 Medications Medications Current Medications Acetaminophen (Tylenol Tab) 650 mg Q6H PRN PO PAIN AND OR ELEVATED TEMP; Start 07/22/17 at 20:30 Ondansetron HCl (Zofran Inj) 4 mg Q6H PRN IV NAUSEA AND/OR VOMITING; Start 07/22/17 at 23:00 Bisacodyl (Dulcolax) 5 mg DAILY PRN PO CONSTIPATION Last administered on 03:43; Admin Dose 5 MG; Start 07/22/17 at 23:00 Acetaminophen/ Hydrocodone Bitart ([place]et (5/325)) 1 tab Q6H PRN PO Breakthrough Pain Last administered on 08/10/17 18:11; Admin Dose 1 TAB; Start 07/24/17 at 11:30 Guaifenesin/ Dextromethorphan (Robitussin Dm Liquid Cup) 5 ml TID PRN PO Cough Last administered on 08/07/17 08:49; Admin Dose 5 ML; Start 07/24/17 at 11:30 Alprazolam (Xanax) 1 mg Q8H PRN PO ANXIETY Last administered on 08/13/17 04: 36; Admin Dose 1 MG; Start 07/25/17 at 22:00 Pantoprazole (Protonix Tab) 40 mg DAILY@06 PO Last administered on 08/13/17 05:22; Admin Dose 40 MG; Start 07/28/17 at 06:00 Nitroglycerin (Nitroglycerin (Sl Tab) 0.4 Mg) 1 tab Q5M PRN SL ANGINA Last administered on 08/12/17 11:54; Admin Dose 1 TAB; Start 07/28/17 at 05:30 Aspirin (Aspirin) 81 mg DAILY PO Last administered on 08/13/17 09:14; Admin Dose 81 MG; Start 07/30/17 at 09:00 Isosorbide Dinitrate (Isordil) 20 mg TID PO Last administered on 08/13/17 09: 14; Admin Dose 20 MG; Start 07/29/17 at 21:00 Tramadol HCl (Ultram) 50 mg Q6H PRN PO pain Last administered on 08/13/17 09: 14; Admin Dose 50 MG; Start 08/05/17 at 16:30 Morphine Sulfate (morphine) 2 mg Q4H PRN IV pain Last administered on 13:36; Admin Dose 2 MG; Start 08/05/17 at 17:00 Docusate Sodium (Colace) 100 mg Q12 PO Last administered on 08/13/17 09:14; Admin Dose 100 MG; Start 08/05/17 at 21:00 Clonidine (Catapres) 0.1 mg Q6 PRN PO SBP>170; Start 08/05/17 at 17:00 Morphine Sulfate (morphine) 5 mg Q4H PRN IV PAIN Last administered on 04:04; Admin Dose 5 MG; Start 08/07/17 at 14:30 Acetylcysteine (Mucomyst) 3 ml Q4 NEB Last administered on 08/13/17 05:08; Admin Dose 3 ML; Start 08/07/17 at 21:00 Metoprolol Tartrate 25 mg 25 mg BID PO Last administered on 08/13/17 09:14; Admin Dose 25 MG; Start 08/09/17 at 21:00 Aztreonam/Sodium Chloride (Azactam/NS) 50 ml @ 100 mls/hr Q12 IV Last administered on 08/13/17 09:15; Admin Dose 100 MLS/HR; Start 08/10/17 at 21: 00 Mupirocin (Bactroban) 1 applic BID TOP Last administered on 08/13/17 09:15; Admin Dose 1 APPLIC; Start 08/10/17 at 21:00; Stop 08/20/17 at 20:59 NASREEN CRUZ MD Aug 13, 2017 10:00
--- NOTE | 2017-08-13 10:51 | RADRPT ---
PROCEDURE: CT Chest without contrast. CLINICAL INDICATION: Dyspnea, pneumonia TECHNIQUE: CT of the chest was performed on a multi-detector scanner without IV contrast. Coronal and sagittal images were reformatted from the axial data set. One or more of the following dose re duction techniques were used: automated exposure control, adjustment of the mA and/or kV according t o patient size, use of iterative reconstruction technique. CTDI = 4.36 mGy. DLP = 166.4 mGy-cm. COMPARISON: Chest x-ray, 08/12/2017 FINDINGS: Large left and mild right pleural effusions are identified, with associated bibasilar atelectasis. A reas of interlobular septal thickening and patchy ground-glass opacity are seen bilaterally, suggest darin of mild pulmonary edema. No pneumothorax is identified. There is mild pulmonary emphysema. Bilat eral bronchial wall thickening and ectasia are noted, compatible with chronic bronchitis. No pulmo nary nodule or mass lesion is identified. The heart size is normal. Small pericardial effusion is noted. Coronary arterial and aortic athero sclerotic calcifications are present. There is no thoracic aortic aneurysm. No mediastinal, hilar, axillary or supraclavicular lymphadenopathy is identified. Left-sided Perma-Cath tip is at the SVC/ right atrial junction. Visualized portions of the upper abdomen are unremarkable. The surrounding osseous structures are re markable for degenerative enthesopathy of the spine. No osteolytic or osteoblastic lesion is detect ed. IMPRESSION: 1. Large left and mild right pleural effusions, with associated bibasilar atelectasis. 2. Findings suggestive of mild pulmonary edema, as above. 3. Mild pulmonary emphysema and findings of chronic bronchitis are noted. 4. Coronary arterial and aortic atherosclerotic calcifications are present. Small pericardial effus ion is noted. 5. Left-sided Perma-Cath is in place. 6. No mass, lymphadenopathy, or focal acute infiltrate is identified. RPTAT: AAQQ .Ish King MD, Date Time Electronically viewed and signed by .Ish King MD, MD on 08/13/2017 10:50 .R/
--- NOTE | 2017-08-13 10:52 | RADRPT ---
PROCEDURE: XR Chest. CLINICAL INDICATION: Pneumonia, CHF TECHNIQUE: Single frontal chest x-ray. COMPARISON: CT and x-ray, 08/12/2017 FINDINGS: Large left and mild right pleural effusions are again noted, decreased in size on the left. No pneum othorax is identified. Cardiomediastinal silhouette is within normal limits. Left-sided Port-A-Cat h remains in place. The osseous structures are unremarkable. IMPRESSION: 1. Large left and small right pleural effusions, decreased in size on the left. RPTAT: AAQQ .Ish King MD, MD Date Time Electronically viewed and signed by .Ish King MD, on 08/13/2017 10:52 .R/
--- NOTE | 2017-08-13 11:09 | CONS ---
Date/Time of Note Date/Time of Note DATE: 08/13/17 TIME: 11:08 Consult Date/Type/Reason Admit Date/Time Jul 22, 2017 at 19:26 Initial Consult Date 07/23/17 Type of Consultation: Pulmonary Ordering Provider: KISHAN MEJIA MD Subjective Patient remains comfortable today. Continues high flow O2 with moderate desaturation off supplemental oxygen. CT chest demonstrated left pleural effusion with compressive atelectasis. Objective Vital Signs Date Time Temp Pulse Resp B/P Pulse Ox O2 Delivery O2 Flow Rate FiO2 08/13/17 09:00 75 20 132/118 94 High Flow Nasal Cannula 08/13/17 08:00 98.3 08/13/17 05:09 50 Intake and Output 08/12/17 08/12/17 08/13/17 15:00 23:00 07:00 Intake Total 830 ml 660 ml 100 ml Output Total 3300 ml Balance -2470 ml 660 ml 100 ml Exam PHYSICAL EXAMINATION GENERAL: Elderly lady on Vapotherm oxygen. VITAL SIGNS: see below. HEENT: Pupils equal, round, and reactive to light. CARDIAC: S1, S2, 1/6 systolic ejection murmur CHEST: Diminished air entry bilaterally. Left lung greater than right. ABDOMEN: Mildly distended. Bowel sounds present no guarding or rebound EXTREMITIES: No cyanosis, clubbing edema +1 NEUROLOGIC: Generalized weakness Results/Medications Result Diagram: 08/11/17 0450 08/11/17 0450 Results 24 hrs Laboratory Tests Test 08/12/17 13:00 08/13/17 00:45 Creatine Kinase < 20 L < 20 L Creatine Kinase Index Creatinine Kinase MB (Mass) 0.94 0.58 Troponin I 0.038 0.048 Medications Current Medications Acetaminophen (Tylenol Tab) 650 mg Q6H PRN PO PAIN AND OR ELEVATED TEMP; Start 07/22/17 at 20:30 Ondansetron HCl (Zofran Inj) 4 mg Q6H PRN IV NAUSEA AND/OR VOMITING; Start 07/22/17 at 23:00 Bisacodyl (Dulcolax) 5 mg DAILY PRN PO CONSTIPATION Last administered on t 03:43; Admin Dose 5 MG; Start 07/22/17 at 23:00 Acetaminophen/ Hydrocodone Bitart (Adena (5/325)) 1 tab Q6H PRN PO Breakthrough Pain Last administered on 08/10/17 18:11; Admin Dose 1 TAB; Start 07/24/17 at 11:30 Guaifenesin/ Dextromethorphan (Robitussin Dm Liquid Cup) 5 ml TID PRN PO Cough Last administered on 08/07/17 08:49; Admin Dose 5 ML; Start 07/24/17 at 11:30 Alprazolam (Xanax) 1 mg Q8H PRN PO ANXIETY Last administered on 08/13/17 04: 36; Admin Dose 1 MG; Start 07/25/17 at 22:00 Pantoprazole (Protonix Tab) 40 mg DAILY@06 PO Last administered on 08/13/17 05:22; Admin Dose 40 MG; Start 07/28/17 at 06:00 Nitroglycerin (Nitroglycerin (Sl Tab) 0.4 Mg) 1 tab Q5M PRN SL ANGINA Last administered on 08/12/17 11:54; Admin Dose 1 TAB; Start 07/28/17 at 05:30 Aspirin (Aspirin) 81 mg DAILY PO Last administered on 08/13/17 09:14; Admin Dose 81 MG; Start 07/30/17 at 09:00 Isosorbide Dinitrate (Isordil) 20 mg TID PO Last administered on 08/13/17 09: 14; Admin Dose 20 MG; Start 07/29/17 at 21:00 Tramadol HCl (Ultram) 50 mg Q6H PRN PO pain Last administered on 08/13/17 09: 14; Admin Dose 50 MG; Start 08/05/17 at 16:30 Morphine Sulfate (morphine) 2 mg Q4H PRN IV pain Last administered on 13:36; Admin Dose 2 MG; Start 08/05/17 at 17:00 Docusate Sodium (Colace) 100 mg Q12 PO Last administered on 08/13/17 09:14; Admin Dose 100 MG; Start 08/05/17 at 21:00 Clonidine (Catapres) 0.1 mg Q6 PRN PO SBP>170; Start 08/05/17 at 17:00 Morphine Sulfate (morphine) 5 mg Q4H PRN IV PAIN Last administered on 04:04; Admin Dose 5 MG; Start 08/07/17 at 14:30 Acetylcysteine (Mucomyst) 3 ml Q4 NEB Last administered on 08/13/17 05:08; Admin Dose 3 ML; Start 08/07/17 at 21:00 Metoprolol Tartrate 25 mg 25 mg BID PO Last administered on 08/13/17 09:14; Admin Dose 25 MG; Start 08/09/17 at 21:00 Aztreonam/Sodium Chloride (Azactam/NS) 50 ml @ 100 mls/hr Q12 IV Last administered on 08/13/17 09:15; Admin Dose 100 MLS/HR; Start 08/10/17 at 21: 00 Mupirocin (Bactroban) 1 applic BID TOP Last administered on 08/13/17 09:15; Admin Dose 1 APPLIC; Start 08/10/17 at 21:00; Stop 08/20/17 at 20:59 Assessment/Plan Chief Complaint/Hosp Course 1. Hypoxemic Respiratory Insufficiency: Left pleural effusion with compressive atelectasis. 2. Left Lung ATX/effusion 3. Rectal prolapse s/p repair 4. ESRD -- on HD Plan 1. Aggressive CPT/suctioning q4 hours 2. ICS 3. Titrate FiO2 as tolerated. 4. CT chest noted. Findings were discussed with patient. Explained need for thoracentesis to allow lung reexpansion and improve hypoxemia. Patient agrees for thoracentesis. Problems: SAMIA CINTRON MD, [facility] Aug 13, 2017 11:09
[2017-08-13 14:15] LABS: BASOPHIL # 0.1 10^3/ul (0.0-0.1); BASOPHILS % 1.2 % (0.0-2.0); EOSINOPHILS # 0.7 10^3/ul (0.0-0.5); EOSINOPHILS % 9.5 % (0.0-7.0); HEMATOCRIT 27.4 % (37.0-47.0); HEMOGLOBIN 8.3 g/dl (12.0-16.0); LYMPHOCYTES # 2.4 10^3/ul (0.8-2.9); LYMPHOCYTES % 33.1 % (15.0-51.0); MEAN CORPUSCULAR HEMOGLOBIN 27.6 pg (29.0-33.0); MEAN CORPUSCULAR HGB CONC 30.3 g/dl (32.0-37.0); MEAN PLATELET VOLUME 9.6 fl (7.4-10.4); MONOCYTE # 0.7 10^3/ul (0.3-0.9); MONOCYTES % 10.1 % (0.0-11.0); NEUTROPHIL # 3.3 10^3/ul (1.6-7.5); NEUTROPHILS % 45.5 % (39.0-77.0); PLATELET COUNT 333 10^3/UL (140-415); RED BLOOD COUNT 3.01 10^6/ul (4.20-5.40); RED CELL DISTRIBUTION WIDTH 14.5 % (11.5-14.5); WHITE BLOOD COUNT 7.2 10^3/ul (4.8-10.8)
[2017-08-13 14:37] LABS: ALBUMIN 2.5 g/dl (3.3-4.9); ALBUMIN/GLOBULIN RATIO 0.8; CALCIUM 8.6 mg/dl (8.4-10.2); CREATININE 5.41 mg/dl (0.44-1.00); POTASSIUM 4.1 mmol/L (3.5-5.1); TOTAL PROTEIN 5.6 g/dl (6.1-8.1)
--- NOTE | 2017-08-13 14:47 | PN ---
DATE: 08/13/2017 SUBJECTIVE: No events overnight. The patient is alert, speaking on the phone. She is in no distre ss. Denies pain, discomfort. VITAL SIGNS: Temperature 98.3, pulse 77, respirations 14, blood pressure 120/83, saturation 93 on n leo cannula. MICROBIOLOGY: Sputum culture on 08/08 grew MRSA. DIAGNOSTICS: Chest x-ray this morning revealed large left and small right pleural effusions, decrea sed in size on the left. CT of the chest yesterday revealed pulmonary edema, mild pulmonary emphyse ma with chronic bronchitis. INDWELLINGS: The patient has a left chest Perm-A-Cath. ANTIMICROBIALS: She is on: 1. Vancomycin. 2. Aztreonam. PHYSICAL EXAMINATION: GENERAL: Fragile, well-developed, elderly woman who is awake, in no distress. HEENT: Head atraumatic, normocephalic. Sclerae anicteric. Buccal mucosa dry. NECK: Supple. CHEST: Rise symmetrical. Breath sounds diminished to bases with scattered crackles. HEART: S1, S2. ABDOMEN: Soft. Bowel tones present. ASSESSMENT: 1. Methicillin-resistant Staphylococcus aureus tracheobronchitis, possible pneumonia, remains on ap propriate therapy. 2. Rectal prolapse. 3. Bilateral pleural effusions, right more than left. 4. Anemia. PLAN: The patient remains stable. She is being seen by multiple consultants, pending thoracentesis . Dictated By: VINI GRIJALVA ELECTRONIC TEST TECHNICIAN for [facility]AH[facility] GARG/JON Conf#: [id number] DID#: [id number]
[2017-08-13 14:48] LABS: MAGNESIUM 1.8 mg/dl (1.7-2.5); PHOSPHORUS 4.6 mg/dl (2.5-4.9)
--- NOTE | 2017-08-13 16:18 | PN ---
Date/Time of Note Date/Time of Note DATE: 08/13/17 TIME: 16:14 Assessment/Plan Lines/Catheters IV Catheter Type (from [facility]): PERMACATH Patino in Place (from [facility]): No Assessment/Plan Chief Complaint/Hosp Course 1. Rectal prolapse status post laparoscopic LAR, rectopexy, biologic 08/03; tolerating diet with +bowel function,bleeding with bm but no prolapse noted -Avoid straining -stool softeners -continue to monitor 2. Respiratory compromise with left sided white out and bilateral pleural effusion in ICU; cxr improved, was scheduled for thoracentesis but refused: agreeable to thora-not done; poss bronch- improving currently with noninvasive therapies; CT with noted pl effusion -judicious fluid management and gentle diuresis/HD -per resp -pulm toilette -thora pending 3. ESRD: on HD; cr increasing -hd per renal 4. Electrolyte imbalance: -optimize lytes 5. Hypoalbuminemia with hypocalcemia: nutritional +/- inflammation -as above -optimize nutrition 6. Anemia: without acute bleed: -monitor and transfuse as needed 7. Hepatitis with reactive serology -medical management 8. UTI s/p abx per sensitivity -frequent bladder emptying Thank you. Patient seen and examined in collaboration with Dr. Deep Zhang. Problems: Subjective 24 Hr Interval Summary Pending thoracentesis today. Continues on high flow o2. Some bleeding noted with bowel movement but no prolapse noted. No fevers, chills, sob, congested cough, n/v/d/dysuria, avitia, dizziness, cp, palpitations. Exam/Review of Systems Vital Signs Vitals Vital Signs Date Time Temp Pulse Resp B/P Pulse Ox O2 Delivery O2 Flow Rate FiO2 08/13/17 15:05 98 50 08/13/17 15:00 79 20 High Flow Nasal Cannula 08/13/17 12:00 98.1 Intake and Output 08/12/17 08/12/17 08/13/17 15:00 23:00 07:00 Intake Total 830 ml 660 ml 100 ml Output Total 3300 ml Balance -2470 ml 660 ml 100 ml Exam Free Text/Dictation Constitutional: alert, oriented Psych: anxious Head: atraumatic, normocephalic Eyes: nl conjunctiva, nl lids, nl sclera ENMT: No mucosa pink and moist (dry) Neck: non-tender, supple Respiratory: diminished breath sounds; No labored breathing; high flow O2 Cardiovascular: nl pulses, regular rate and rhythm, No edema Gastrointestinal: non-tender, soft, No distended, No rebound or guarding Genitourinary - Female: No further prolapse; no bleed Musculoskeletal: nl extremities to inspection Extremities: normal pulses, No edema 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: nl speech, nl strength Skin: No rash or lesions Rectal: No further prolapse, no meri bleed noted Results Result Diagram: 08/13/17 1358 08/13/17 1358 RAFFY GRAHAM NP Aug 13, 2017 16:18
--- NOTE | 2017-08-13 17:19 | RADRPT ---
PROCEDURE: US guided left thoracentesis. CLINICAL INDICATION: Shortness of breath. Left pleural effusion. TECHNIQUE: Prior to the procedure, informed consent was obtained. The risks, benefits, and alternatives were e xplained to the patient or the patient's family, including but not limited to bleeding, infection, p ain, visceral or vascular damage, shock, pneumothorax, chest tube placement, air embolism, and . The patient or the patient's family understood the risks and the alternatives and wished to proce ed with the study. Informed written consent was obtained. A procedural pause was performed. The patient's name, date of , and procedure to be performed were verified. Ultrasound of the left hemithorax was performed in the axial and sagittal planes. A left pleural eff usion is noted. Utilizing ultrasound guidance, optimal location for entry to the pleural cavity was ascertained. The overlying skin was prepped and draped in the usual sterile fashion. Approximately 10 ml of 1% Xylocaine was injected locally for pain control. Using ultrasound guidance, a 5-Yoruba Yueh catheter was introduced into the left pleural space without difficulty. Fluid was aspirated. COMPARISON: Chest x-ray done earlier the same day. FINDINGS: Initial ultrasound demonstrates fluid in the left pleural space. Approximately 0.950 liters of sero us fluid was aspirated and sent to the laboratory. IMPRESSION: 1. Satisfactory ultrasound-guided left thoracentesis. RPTAT: QQ .Sam Villalpando MD, Date Time Electronically viewed and signed by .Sam Villalpando MD, on 08/13/2017 17:19 .R/
[2017-08-13] MEDS ORDERED: LIDOCAINE 1% (MPF) 5 ML VIAL ONE (17:28)
--- NOTE | 2017-08-13 18:04 | RADRPT ---
PROCEDURE: XR Chest. CLINICAL INDICATION: Shortness of breath. Post left thoracentesis. TECHNIQUE: Single frontal view. COMPARISON: Prior study done earlier the same day. FINDINGS: The left lung is now clear. Previously noted large left pleural effusion is no longer present. There is mild right basilar atelectasis and a small right pleural effusion. There is a tunneled left internal jugular vein dialysis catheter with the tip in the cavoatrial junc tion region. There is no pneumothorax. IMPRESSION: 1. No pneumothorax following left thoracentesis. 2. Improved appearance of the left lung. RPTAT: QQ .Sam Villalpando MD, MD Date Time Electronically viewed and signed by .Sam Villalpando MD, MD on 08/13/2017 18:04 .R/
[2017-08-13 18:19] LABS: FLD MN% 80.9 %; FLD PMN% 19.1 %; FLD WBC 131 /cmm
[2017-08-13 18:45] LABS: FLUID LD 258 U/L; FLUID TYPE FLUID
[2017-08-13 18:46] LABS: FLUID GLUCOSE 82 mg/dl; FLUID TYPE FLUID
[2017-08-13 19:16] LABS: FLUID TOTAL PROTEIN 2.4 g/dl
[2017-08-13 20:28] LABS: FLD CLARITY HAZY; FLD COLOR YELLOW; FLD TYPE THORACENTHESIS
[2017-08-14] VITALS (28 sets, daily range): BP systolic 94–141; BP diastolic 52–87; PULSE 68–92; RESP 6–18
[2017-08-14] MEDS: ALPRAZOLAM 0.5 MG TAB PO PRN ×2 (02:29→12:49)
[2017-08-14] MEDS: ALBUTEROL 0.083% (NEB) 2.5 MG/3 ML AMP HHN SCH ×6 (04:27→21:12)
[2017-08-14] MEDS: IPRATROPIUM (NEB) 0.5 MG/2.5 ML AMP HHN SCH ×6 (04:27→21:12)
[2017-08-14] MEDS: ACETYLCYSTEINE 20% 4 ML VIAL NEB SCH ×6 (04:28→21:12)
[2017-08-14] MEDS: PANTOPRAZOLE (EC) 40 MG TAB PO SCH (06:14)
[2017-08-14] MEDS: CALCIUM ACETATE 667 MG CAP PO SCH ×3 (08:02→17:35)
[2017-08-14] MEDS: DOCUSATE SODIUM 100 MG CAP PO SCH ×2 (08:02→20:45)
[2017-08-14] MEDS: ASPIRIN 81 MG TAB PO SCH (08:02)
[2017-08-14] MEDS: MUPIROCIN 2% 22 GM OINT TOP SCH ×2 (08:03→20:45)
[2017-08-14] MEDS: HYDROCODONE/APAP (5/325) TAB PO PRN (08:09)
[2017-08-14] MEDS: AZTREONAM 0.5 GM in SOD CHLORIDE 0.9% 50 ML IV SCH (08:09)
--- NOTE | 2017-08-14 08:58 | PN ---
Date/Time of Note Date/Time of Note DATE: 08/14/17 TIME: 08:53 Assessment/Plan VTE Prophylaxis VTE Prophylaxis Intervention: LMWH Lines/Catheters IV Catheter Type (from Nrs): PERMACATH Central line still needed: Yes Urinary Cath still in place: No Assessment/Plan Chief Complaint/Hosp Course 62 y/o with 1. Rectal prolapse, severe.status post laparoscopic LAR, rectopexy, biologic 08/03; improving 2. Leukocytosis > imrpoved could be MRSA pneumonia 3. Anemia likely End-stage renal disease however with acute drop no bleeding noted 4. Hepatitis B core antibody positive. 5 pleural effusion 6 NSTEMI 7 S/P LEXISCAN NEG 8 Hypoxic respiratory insufficency with complete opacification of left lung? mucous plug s/p dry UF /HD, cannot r/o underlying Pneumonia and underlying effusion still on high flow requiring ICU care 9 MRSA pneumonia Plan - S/P thoracentesis on 08/13/17 with marked improvement in resp status, off oxygen - Appreciate pulmonary help - Transfer to Med surg - c/w - Chest PT and Mucomist - c/w Aztreonam - hd today - c/w Morphine and ultram - Epogen - GI/DVT prophylaxsis - Physical therapy - Problems: Subjective 24 Hr Interval Summary Free Text/Dictation SOB improved completely Off oxygen s/p Thoracentesis with removal of 0.9 L Exam/Review of Systems Vital Signs Vitals Vital Signs Date Time Temp Pulse Resp B/P Pulse Ox O2 Delivery O2 Flow Rate FiO2 08/14/17 06:00 72 12 94/52 93 08/14/17 04:27 Nasal Cannula 3.0 08/14/17 04:00 98.6 08/13/17 20:18 50 Intake and Output 08/13/17 08/13/17 08/14/17 15:00 23:00 07:00 Intake Total 370 ml 120 ml 300 ml Balance 370 ml 120 ml 300 ml Exam Gen: Awake,alert, mild resp distress Respiratory: CTAB Cardiovascular: regular rate and rhythm Gastrointestinal: bowel sounds (+), soft, distended, surgical site TTP Left permacaTH Results Result Diagram: 08/13/17 1358 08/13/17 1358 Results 24 hrs Laboratory Tests Test 08/13/17 13:58 08/13/17 17:08 White Blood Count 7.2 Red Blood Count 3.01 L Hemoglobin 8.3 L Hematocrit 27.4 L Mean Corpuscular Volume 91.0 Mean Corpuscular Hemoglobin 27.6 L Mean Corpuscular Hemoglobin Concent 30.3 L Red Cell Distribution Width 14.5 Platelet Count 333 Mean Platelet Volume 9.6 Neutrophils % 45.5 Lymphocytes % 33.1 Monocytes % 10.1 Eosinophils % 9.5 H Basophils % 1.2 Nucleated Red Blood Cells % 0.0 Neutrophils # 3.3 Lymphocytes # 2.4 Monocytes # 0.7 Eosinophils # 0.7 H Basophils # 0.1 Nucleated Red Blood Cells # 0.0 Sodium Level 137 Potassium Level 4.1 Chloride Level 103 Carbon Dioxide Level 27 Anion Gap 11 Blood Urea Nitrogen 30 H Creatinine 5.41 H Glucose Level 103 Calcium Level 8.6 Phosphorus Level 4.6 Magnesium Level 1.8 Total Bilirubin 0.0 L Direct Bilirubin 0.00 Indirect Bilirubin 0.0 Aspartate Amino Transf (AST/SGOT) 13 L Alanine Aminotransferase (ALT/SGPT) 22 Alkaline Phosphatase 63 Total Protein 5.6 L Albumin 2.5 L Globulin 3.10 Albumin/Globulin Ratio 0.80 Body Fluid Type FLUID Body Fluid Volume 950.0 Body Fluid Color YELLOW Body Fluid Appearance HAZY Body Fluid WBC 131 Body Fluid RBC (Auto) 2 Body Fluid Polynuclear WBCs (%) 19.1 Body Fluid Mononuclear Cells % Auto 80.9 Body Fluid Glucose 82 Body Fluid Total Protein 2.4 Body Fluid Lactate Dehydrogenase 258 Medications Medications Current Medications Acetaminophen (Tylenol Tab) 650 mg Q6H PRN PO PAIN AND OR ELEVATED TEMP; Start 07/22/17 at 20:30 Ondansetron HCl (Zofran Inj) 4 mg Q6H PRN IV NAUSEA AND/OR VOMITING; Start 07/22/17 at 23:00 Bisacodyl (Dulcolax) 5 mg DAILY PRN PO CONSTIPATION Last administered on 03:43; Admin Dose 5 MG; Start 07/22/17 at 23:00 Acetaminophen/ Hydrocodone Bitart ([place] (5/325)) 1 tab Q6H PRN PO Breakthrough Pain Last administered on 08/14/17 08:09; Admin Dose 1 TAB; Start 07/24/17 at 11:30 Guaifenesin/ Dextromethorphan (Robitussin Dm Liquid Cup) 5 ml TID PRN PO Cough Last administered on 08/07/17 08:49; Admin Dose 5 ML; Start 07/24/17 at 11:30 Alprazolam (Xanax) 1 mg Q8H PRN PO ANXIETY Last administered on 08/14/17 02: 29; Admin Dose 1 MG; Start 07/25/17 at 22:00 Pantoprazole (Protonix Tab) 40 mg DAILY@06 PO Last administered on 08/14/17 06:14; Admin Dose 40 MG; Start 07/28/17 at 06:00 Nitroglycerin (Nitroglycerin (Sl Tab) 0.4 Mg) 1 tab Q5M PRN SL ANGINA Last administered on 08/12/17 11:54; Admin Dose 1 TAB; Start 07/28/17 at 05:30 Aspirin (Aspirin) 81 mg DAILY PO Last administered on 08/14/17 08:02; Admin Dose 81 MG; Start 07/30/17 at 09:00 Isosorbide Dinitrate (Isordil) 20 mg TID PO Last administered on 08/13/17 21: 09; Admin Dose 20 MG; Start 07/29/17 at 21:00 Tramadol HCl (Ultram) 50 mg Q6H PRN PO pain Last administered on 08/13/17 09: 14; Admin Dose 50 MG; Start 08/05/17 at 16:30 Morphine Sulfate (morphine) 2 mg Q4H PRN IV pain Last administered on 13:36; Admin Dose 2 MG; Start 08/05/17 at 17:00 Docusate Sodium (Colace) 100 mg Q12 PO Last administered on 08/14/17 08:02; Admin Dose 100 MG; Start 08/05/17 at 21:00 Clonidine (Catapres) 0.1 mg Q6 PRN PO SBP>170; Start 08/05/17 at 17:00 Morphine Sulfate (morphine) 5 mg Q4H PRN IV PAIN Last administered on 17:32; Admin Dose 5 MG; Start 08/07/17 at 14:30 Acetylcysteine (Mucomyst) 3 ml Q4 NEB Last administered on 08/14/17 04:28; Admin Dose 3 ML; Start 08/07/17 at 21:00 Metoprolol Tartrate 25 mg 25 mg BID PO Last administered on 08/13/17 21:08; Admin Dose 25 MG; Start 08/09/17 at 21:00 Aztreonam/Sodium Chloride (Azactam/NS) 50 ml @ 100 mls/hr Q12 IV Last administered on 08/14/17 08:09; Admin Dose 100 MLS/HR; Start 08/10/17 at 21: 00 Mupirocin (Bactroban) 1 applic BID TOP Last administered on 08/14/17 08:03; Admin Dose 1 APPLIC; Start 08/10/17 at 21:00; Stop 08/20/17 at 20:59 ROSLYN SHANNON MD Aug 14, 2017 08:58
[2017-08-14] MEDS: ISOSORBIDE DINITRATE 20 MG TAB PO SCH ×3 (09:00→20:43)
[2017-08-14] MEDS: METOPROLOL 25 MG TAB PO SCH ×2 (09:00→20:44)
--- NOTE | 2017-08-14 09:04 | CONS ---
Date/Time of Note Date/Time of Note DATE: 08/14/17 TIME: 09:03 Consult Date/Type/Reason Admit Date/Time Jul 22, 2017 at 19:26 Initial Consult Date 07/23/17 Type of Consultation: Pulmonary Ordering Provider: KISHAN MEJIA MD Subjective Patient stable following thoracentesis. Significant improvement in lung aeration. No further hypoxemia. Patient is on room air at present. Objective Vital Signs Date Time Temp Pulse Resp B/P Pulse Ox O2 Delivery O2 Flow Rate FiO2 08/14/17 06:00 72 12 94/52 93 08/14/17 04:27 Nasal Cannula 3.0 08/14/17 04:00 98.6 08/13/17 20:18 50 Intake and Output 08/13/17 08/13/17 08/14/17 15:00 23:00 07:00 Intake Total 370 ml 120 ml 300 ml Balance 370 ml 120 ml 300 ml Exam PHYSICAL EXAMINATION GENERAL: Elderly lady on room air oxygen VITAL SIGNS: see below. HEENT: Pupils equal, round, and reactive to light. CARDIAC: S1, S2, 1/6 systolic ejection murmur CHEST: Diminished air entry bilaterally. ABDOMEN: Mildly distended. Bowel sounds present no guarding or rebound EXTREMITIES: No cyanosis, clubbing edema +1 NEUROLOGIC: Generalized weakness Results/Medications Result Diagram: 08/13/17 1358 08/13/17 1358 Results 24 hrs Laboratory Tests Test 08/13/17 13:58 08/13/17 17:08 White Blood Count 7.2 Red Blood Count 3.01 L Hemoglobin 8.3 L Hematocrit 27.4 L Mean Corpuscular Volume 91.0 Mean Corpuscular Hemoglobin 27.6 L Mean Corpuscular Hemoglobin Concent 30.3 L Red Cell Distribution Width 14.5 Platelet Count 333 Mean Platelet Volume 9.6 Neutrophils % 45.5 Lymphocytes % 33.1 Monocytes % 10.1 Eosinophils % 9.5 H Basophils % 1.2 Nucleated Red Blood Cells % 0.0 Neutrophils # 3.3 Lymphocytes # 2.4 Monocytes # 0.7 Eosinophils # 0.7 H Basophils # 0.1 Nucleated Red Blood Cells # 0.0 Sodium Level 137 Potassium Level 4.1 Chloride Level 103 Carbon Dioxide Level 27 Anion Gap 11 Blood Urea Nitrogen 30 H Creatinine 5.41 H Glucose Level 103 Calcium Level 8.6 Phosphorus Level 4.6 Magnesium Level 1.8 Total Bilirubin 0.0 L Direct Bilirubin 0.00 Indirect Bilirubin 0.0 Aspartate Amino Transf (AST/SGOT) 13 L Alanine Aminotransferase (ALT/SGPT) 22 Alkaline Phosphatase 63 Total Protein 5.6 L Albumin 2.5 L Globulin 3.10 Albumin/Globulin Ratio 0.80 Body Fluid Type FLUID Body Fluid Volume 950.0 Body Fluid Color YELLOW Body Fluid Appearance HAZY Body Fluid WBC 131 Body Fluid RBC (Auto) 2 Body Fluid Polynuclear WBCs (%) 19.1 Body Fluid Mononuclear Cells % Auto 80.9 Body Fluid Glucose 82 Body Fluid Total Protein 2.4 Body Fluid Lactate Dehydrogenase 258 Medications Current Medications Acetaminophen (Tylenol Tab) 650 mg Q6H PRN PO PAIN AND OR ELEVATED TEMP; Start 07/22/17 at 20:30 Ondansetron HCl (Zofran Inj) 4 mg Q6H PRN IV NAUSEA AND/OR VOMITING; Start 07/22/17 at 23:00 Bisacodyl (Dulcolax) 5 mg DAILY PRN PO CONSTIPATION Last administered on 03:43; Admin Dose 5 MG; Start 07/22/17 at 23:00 Acetaminophen/ Hydrocodone Bitart ([place] (5/325)) 1 tab Q6H PRN PO Breakthrough Pain Last administered on 08/14/17 08:09; Admin Dose 1 TAB; Start 07/24/17 at 11:30 Guaifenesin/ Dextromethorphan (Robitussin Dm Liquid Cup) 5 ml TID PRN PO Cough Last administered on 08/07/17 08:49; Admin Dose 5 ML; Start 07/24/17 at 11:30 Alprazolam (Xanax) 1 mg Q8H PRN PO ANXIETY Last administered on 08/14/17 02: 29; Admin Dose 1 MG; Start 07/25/17 at 22:00 Pantoprazole (Protonix Tab) 40 mg DAILY@06 PO Last administered on 08/14/17 06:14; Admin Dose 40 MG; Start 07/28/17 at 06:00 Nitroglycerin (Nitroglycerin (Sl Tab) 0.4 Mg) 1 tab Q5M PRN SL ANGINA Last administered on 08/12/17 11:54; Admin Dose 1 TAB; Start 07/28/17 at 05:30 Aspirin (Aspirin) 81 mg DAILY PO Last administered on 08/14/17 08:02; Admin Dose 81 MG; Start 07/30/17 at 09:00 Isosorbide Dinitrate (Isordil) 20 mg TID PO Last administered on 08/13/17 21: 09; Admin Dose 20 MG; Start 07/29/17 at 21:00 Tramadol HCl (Ultram) 50 mg Q6H PRN PO pain Last administered on 08/13/17 09: 14; Admin Dose 50 MG; Start 08/05/17 at 16:30 Morphine Sulfate (morphine) 2 mg Q4H PRN IV pain Last administered on 13:36; Admin Dose 2 MG; Start 08/05/17 at 17:00 Docusate Sodium (Colace) 100 mg Q12 PO Last administered on 08/14/17 08:02; Admin Dose 100 MG; Start 08/05/17 at 21:00 Clonidine (Catapres) 0.1 mg Q6 PRN PO SBP>170; Start 08/05/17 at 17:00 Morphine Sulfate (morphine) 5 mg Q4H PRN IV PAIN Last administered on 17:32; Admin Dose 5 MG; Start 08/07/17 at 14:30 Acetylcysteine (Mucomyst) 3 ml Q4 NEB Last administered on 08/14/17 04:28; Admin Dose 3 ML; Start 08/07/17 at 21:00 Metoprolol Tartrate 25 mg 25 mg BID PO Last administered on 08/13/17 21:08; Admin Dose 25 MG; Start 08/09/17 at 21:00 Aztreonam/Sodium Chloride (Azactam/NS) 50 ml @ 100 mls/hr Q12 IV Last administered on 08/14/17 08:09; Admin Dose 100 MLS/HR; Start 08/10/17 at 21: 00 Mupirocin (Bactroban) 1 applic BID TOP Last administered on 08/14/17 08:03; Admin Dose 1 APPLIC; Start 08/10/17 at 21:00; Stop 08/20/17 at 20:59 Assessment/Plan Chief Complaint/Hosp Course 1. Hypoxemic Respiratory Insufficiency: Left pleural effusion with compressive atelectasis. Now status post thoracentesis with resolution of radiographic changes and hypoxemia. 2. Left Lung ATX/effusion 3. Rectal prolapse s/p repair 4. ESRD -- on HD Plan 1. Continue bronchodilators 2. ICS 3. Dialysis per nephrology 4. Transfer to telemetry Problems: SAMIA CINTRON MD, [facility] Aug 14, 2017 09:04
--- NOTE | 2017-08-14 10:36 | CONS ---
Date/Time of Note Date/Time of Note DATE: 08/14/17 TIME: 10:33 Assessment/Plan Assessment/Plan Chief Complaint/Hosp Course IMPRESSION: 1. Positive troponin in the setting of renal failure, but chest pain and cardiac risk factors, assess significance.- Now trended negative and s/p lexiscan with no ischemia/NL EF.Echo n10/10 with NL EF 50-55. Mod OK to proceed to surgery for rectal prolapse from cardiac standpoint at moderate CV risk on current medications including low dose BB continue pre-post- operatively. Avoid large fluid shifts/swings in blood pressure as possible-Now post-op s/p rectal prolapse surgery 2. Abnormal electrocardiogram with nonspecific ST-T abnormalities and initial anterolateral T-wave inversions. 3. Hypertension-currently well controlled 4. Rectal prolapse. 5. Hepatitis C antibody positive, hepatitis B core antibody positive. 6. Anemia. 7. End-stage renal disease on hemodialysis. 8. L Lung white out/pleural effusion-slowly improving 9. Chest pain-episode during HD today. -negative trop x 2 Recc: -Continue BB/isordil as tolerated and may need to reduce dose if BP remains low -Continue asa -routine post-op care -Pain control -HD for volume removal Problems: Consultation Date/Type/Reason Admit Date/Time Jul 22, 2017 at 19:26 Initial Consult Date 07/23/17 Type of Consultation: cardiology Reason for Consultation positive troponin Referring Provider: KISHAN MEJIA MD Exam/Review of Systems Vital Signs Vitals Vital Signs Date Time Temp Pulse Resp B/P Pulse Ox O2 Delivery O2 Flow Rate FiO2 08/14/17 09:12 97 21 08/14/17 08:00 71 08/14/17 08:00 10 103/66 08/14/17 04:27 Nasal Cannula 3.0 08/14/17 04:00 98.6 Intake and Output 08/13/17 08/13/17 08/14/17 15:00 23:00 07:00 Intake Total 370 ml 120 ml 300 ml Balance 370 ml 120 ml 300 ml Exam Review of Systems: CONSTITUTIONAL: No fevers, chills. PULMONARY: No sob CARDIOVASCULAR: No chest pain/palpitations GASTROINTESTINAL: No nausea/vomiting. GENITOURINARY: No hematuria/dysuria. MUSCULOSKELETAL: No myagias/arthalgias. PSYCHIATRIC: The patient denies depression. NEUROLOGIC: No weakness Constitutional: alert, oriented Psych: no complaints Head: normocephalic ENMT: mucosa pink and moist Neck: jvd (9 cm water), supple Respiratory: diminished breath sounds (at bases/B) Cardiovascular: regular rate and rhythm Gastrointestinal: non-tender, soft Musculoskeletal: muscle tone (normal) Extremities: edema (none) 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: other (No focal deficits) Results Result Diagram: 08/13/17 1358 08/13/17 1358 Results 24 hrs Laboratory Tests Test 08/13/17 13:58 08/13/17 17:08 White Blood Count 7.2 Red Blood Count 3.01 L Hemoglobin 8.3 L Hematocrit 27.4 L Mean Corpuscular Volume 91.0 Mean Corpuscular Hemoglobin 27.6 L Mean Corpuscular Hemoglobin Concent 30.3 L Red Cell Distribution Width 14.5 Platelet Count 333 Mean Platelet Volume 9.6 Neutrophils % 45.5 Lymphocytes % 33.1 Monocytes % 10.1 Eosinophils % 9.5 H Basophils % 1.2 Nucleated Red Blood Cells % 0.0 Neutrophils # 3.3 Lymphocytes # 2.4 Monocytes # 0.7 Eosinophils # 0.7 H Basophils # 0.1 Nucleated Red Blood Cells # 0.0 Sodium Level 137 Potassium Level 4.1 Chloride Level 103 Carbon Dioxide Level 27 Anion Gap 11 Blood Urea Nitrogen 30 H Creatinine 5.41 H Glucose Level 103 Calcium Level 8.6 Phosphorus Level 4.6 Magnesium Level 1.8 Total Bilirubin 0.0 L Direct Bilirubin 0.00 Indirect Bilirubin 0.0 Aspartate Amino Transf (AST/SGOT) 13 L Alanine Aminotransferase (ALT/SGPT) 22 Alkaline Phosphatase 63 Total Protein 5.6 L Albumin 2.5 L Globulin 3.10 Albumin/Globulin Ratio 0.80 Body Fluid Type FLUID Body Fluid Volume 950.0 Body Fluid Color YELLOW Body Fluid Appearance HAZY Body Fluid WBC 131 Body Fluid RBC (Auto) 2 Body Fluid Polynuclear WBCs (%) 19.1 Body Fluid Mononuclear Cells % Auto 80.9 Body Fluid Glucose 82 Body Fluid Total Protein 2.4 Body Fluid Lactate Dehydrogenase 258 Medications Medications Current Medications Acetaminophen (Tylenol Tab) 650 mg Q6H PRN PO PAIN AND OR ELEVATED TEMP; Start 07/22/17 at 20:30 Ondansetron HCl (Zofran Inj) 4 mg Q6H PRN IV NAUSEA AND/OR VOMITING; Start 07/22/17 at 23:00 Bisacodyl (Dulcolax) 5 mg DAILY PRN PO CONSTIPATION Last administered on 03:43; Admin Dose 5 MG; Start 07/22/17 at 23:00 Acetaminophen/ Hydrocodone Bitart ([place] (5/325)) 1 tab Q6H PRN PO Breakthrough Pain Last administered on 08/14/17 08:09; Admin Dose 1 TAB; Start 07/24/17 at 11:30 Guaifenesin/ Dextromethorphan (Robitussin Dm Liquid Cup) 5 ml TID PRN PO Cough Last administered on 08/07/17 08:49; Admin Dose 5 ML; Start 07/24/17 at 11:30 Alprazolam (Xanax) 1 mg Q8H PRN PO ANXIETY Last administered on 08/14/17 02: 29; Admin Dose 1 MG; Start 07/25/17 at 22:00 Pantoprazole (Protonix Tab) 40 mg DAILY@06 PO Last administered on 08/14/17 06:14; Admin Dose 40 MG; Start 07/28/17 at 06:00 Nitroglycerin (Nitroglycerin (Sl Tab) 0.4 Mg) 1 tab Q5M PRN SL ANGINA Last administered on 08/12/17 11:54; Admin Dose 1 TAB; Start 07/28/17 at 05:30 Aspirin (Aspirin) 81 mg DAILY PO Last administered on 08/14/17 08:02; Admin Dose 81 MG; Start 07/30/17 at 09:00 Isosorbide Dinitrate (Isordil) 20 mg TID PO Last administered on 08/13/17 21: 09; Admin Dose 20 MG; Start 07/29/17 at 21:00 Tramadol HCl (Ultram) 50 mg Q6H PRN PO pain Last administered on 08/13/17 09: 14; Admin Dose 50 MG; Start 08/05/17 at 16:30 Morphine Sulfate (morphine) 2 mg Q4H PRN IV pain Last administered on 13:36; Admin Dose 2 MG; Start 08/05/17 at 17:00 Docusate Sodium (Colace) 100 mg Q12 PO Last administered on 08/14/17 08:02; Admin Dose 100 MG; Start 08/05/17 at 21:00 Clonidine (Catapres) 0.1 mg Q6 PRN PO SBP>170; Start 08/05/17 at 17:00 Morphine Sulfate (morphine) 5 mg Q4H PRN IV PAIN Last administered on 17:32; Admin Dose 5 MG; Start 08/07/17 at 14:30 Acetylcysteine (Mucomyst) 3 ml Q4 NEB Last administered on 08/14/17 09:10; Admin Dose 3 ML; Start 08/07/17 at 21:00 Metoprolol Tartrate 25 mg 25 mg BID PO Last administered on 08/13/17 21:08; Admin Dose 25 MG; Start 08/09/17 at 21:00 Aztreonam/Sodium Chloride (Azactam/NS) 50 ml @ 100 mls/hr Q12 IV Last administered on 08/14/17 08:09; Admin Dose 100 MLS/HR; Start 08/10/17 at 21: 00 Mupirocin (Bactroban) 1 applic BID TOP Last administered on 08/14/17 08:03; Admin Dose 1 APPLIC; Start 08/10/17 at 21:00; Stop 08/20/17 at 20:59 CONI ENRIQUEZ Aug 14, 2017 10:36
[2017-08-14] MEDS: morphine 2 MG INJ IV PRN (11:54)
--- NOTE | 2017-08-14 13:37 | CONS ---
Date/Time of Note Date/Time of Note DATE: 08/14/17 TIME: 13:34 Consult Date/Type/Reason Admit Date/Time Jul 22, 2017 at 19:26 Initial Consult Date 07/23/17 Type of Consultation: ID Ordering Provider: KISHAN MEJIA MD Objective Vital Signs Date Time Temp Pulse Resp B/P Pulse Ox O2 Delivery O2 Flow Rate FiO2 08/14/17 10:30 78 16 08/14/17 10:00 98.0 107/72 93 08/14/17 09:12 21 08/14/17 04:27 Nasal Cannula 3.0 Intake and Output 08/13/17 08/13/17 08/14/17 15:00 23:00 07:00 Intake Total 370 ml 120 ml 300 ml Balance 370 ml 120 ml 300 ml Results/Medications Result Diagram: 08/13/17 1358 08/13/17 1358 Results 24 hrs Laboratory Tests Test 08/13/17 13:58 08/13/17 17:08 White Blood Count 7.2 Red Blood Count 3.01 L Hemoglobin 8.3 L Hematocrit 27.4 L Mean Corpuscular Volume 91.0 Mean Corpuscular Hemoglobin 27.6 L Mean Corpuscular Hemoglobin Concent 30.3 L Red Cell Distribution Width 14.5 Platelet Count 333 Mean Platelet Volume 9.6 Neutrophils % 45.5 Lymphocytes % 33.1 Monocytes % 10.1 Eosinophils % 9.5 H Basophils % 1.2 Nucleated Red Blood Cells % 0.0 Neutrophils # 3.3 Lymphocytes # 2.4 Monocytes # 0.7 Eosinophils # 0.7 H Basophils # 0.1 Nucleated Red Blood Cells # 0.0 Sodium Level 137 Potassium Level 4.1 Chloride Level 103 Carbon Dioxide Level 27 Anion Gap 11 Blood Urea Nitrogen 30 H Creatinine 5.41 H Glucose Level 103 Calcium Level 8.6 Phosphorus Level 4.6 Magnesium Level 1.8 Total Bilirubin 0.0 L Direct Bilirubin 0.00 Indirect Bilirubin 0.0 Aspartate Amino Transf (AST/SGOT) 13 L Alanine Aminotransferase (ALT/SGPT) 22 Alkaline Phosphatase 63 Total Protein 5.6 L Albumin 2.5 L Globulin 3.10 Albumin/Globulin Ratio 0.80 Body Fluid Type FLUID Body Fluid Volume 950.0 Body Fluid Color YELLOW Body Fluid Appearance HAZY Body Fluid WBC 131 Body Fluid RBC (Auto) 2 Body Fluid Polynuclear WBCs (%) 19.1 Body Fluid Mononuclear Cells % Auto 80.9 Body Fluid Glucose 82 Body Fluid Total Protein 2.4 Body Fluid Lactate Dehydrogenase 258 Medications Current Medications Acetaminophen (Tylenol Tab) 650 mg Q6H PRN PO PAIN AND OR ELEVATED TEMP; Start 07/22/17 at 20:30 Ondansetron HCl (Zofran Inj) 4 mg Q6H PRN IV NAUSEA AND/OR VOMITING; Start 07/22/17 at 23:00 Bisacodyl (Dulcolax) 5 mg DAILY PRN PO CONSTIPATION Last administered on 03:43; Admin Dose 5 MG; Start 07/22/17 at 23:00 Acetaminophen/ Hydrocodone Bitart ([place] (5/325)) 1 tab Q6H PRN PO Breakthrough Pain Last administered on 08/14/17 08:09; Admin Dose 1 TAB; Start 07/24/17 at 11:30 Guaifenesin/ Dextromethorphan (Robitussin Dm Liquid Cup) 5 ml TID PRN PO Cough Last administered on 08/07/17 08:49; Admin Dose 5 ML; Start 07/24/17 at 11:30 Alprazolam (Xanax) 1 mg Q8H PRN PO ANXIETY Last administered on 08/14/17 12: 49; Admin Dose 1 MG; Start 07/25/17 at 22:00 Pantoprazole (Protonix Tab) 40 mg DAILY@06 PO Last administered on 08/14/17 06:14; Admin Dose 40 MG; Start 07/28/17 at 06:00 Nitroglycerin (Nitroglycerin (Sl Tab) 0.4 Mg) 1 tab Q5M PRN SL ANGINA Last administered on 08/12/17 11:54; Admin Dose 1 TAB; Start 07/28/17 at 05:30 Aspirin (Aspirin) 81 mg DAILY PO Last administered on 08/14/17 08:02; Admin Dose 81 MG; Start 07/30/17 at 09:00 Isosorbide Dinitrate (Isordil) 20 mg TID PO Last administered on 08/13/17 21: 09; Admin Dose 20 MG; Start 07/29/17 at 21:00 Tramadol HCl (Ultram) 50 mg Q6H PRN PO pain Last administered on 08/13/17 09: 14; Admin Dose 50 MG; Start 08/05/17 at 16:30 Morphine Sulfate (morphine) 2 mg Q4H PRN IV pain Last administered on 11:54; Admin Dose 2 MG; Start 08/05/17 at 17:00 Docusate Sodium (Colace) 100 mg Q12 PO Last administered on 08/14/17 08:02; Admin Dose 100 MG; Start 08/05/17 at 21:00 Clonidine (Catapres) 0.1 mg Q6 PRN PO SBP>170; Start 08/05/17 at 17:00 Morphine Sulfate (morphine) 5 mg Q4H PRN IV PAIN Last administered on 17:32; Admin Dose 5 MG; Start 08/07/17 at 14:30 Acetylcysteine (Mucomyst) 3 ml Q4 NEB Last administered on 08/14/17 09:10; Admin Dose 3 ML; Start 08/07/17 at 21:00 Metoprolol Tartrate 25 mg 25 mg BID PO Last administered on 08/13/17 21:08; Admin Dose 25 MG; Start 08/09/17 at 21:00 Aztreonam/Sodium Chloride (Azactam/NS) 50 ml @ 100 mls/hr Q12 IV Last administered on 08/14/17 08:09; Admin Dose 100 MLS/HR; Start 08/10/17 at 21: 00 Mupirocin (Bactroban) 1 applic BID TOP Last administered on 08/14/17 08:03; Admin Dose 1 APPLIC; Start 08/10/17 at 21:00; Stop 08/20/17 at 20:59 Miscellaneous Information (*Rx Drug Level Order Reminder*) RANDOM VANCOMYCIN LEVEL ... ONCE ONCE XX ; Start 08/15/17 at 05:00; Stop 08/15/17 at 05:01 Assessment/Plan Chief Complaint/Hosp Course SUBJECTIVE: No events overnight. The patient is alert, looks comfortable, denies pain, discomfort. MICROBIOLOGY: Sputum culture on 08/08 grew MRSA. INDWELLINGS: The patient has a left chest Perm-A-Cath. ANTIMICROBIALS: 1. Vancomycin. 2. Aztreonam. PHYSICAL EXAMINATION: GENERAL: Fragile, well-developed, elderly woman who is awake, in no distress. HEENT: Head atraumatic, normocephalic. Sclerae anicteric. Buccal mucosa dry. NECK: Supple. CHEST: Rise symmetrical. Breath sounds diminished to bases with scattered crackles. HEART: S1, S2. ABDOMEN: Soft. Bowel tones present. ASSESSMENT: 1. Methicillin-resistant Staphylococcus aureus tracheobronchitis, possible pneumonia, remains on appropriate therapy. 2. Rectal prolapse. 3. Bilateral pleural effusions, right more than left, s/p thoracentesis. 4. Anemia. PLAN: The patient remains stable thoracentesis, dc Azactam, continue Vanco to complete 2 weeks [facility] staff Problems: VINI GRIJALVA NP Aug 14, 2017 13:37
[2017-08-14] MEDS: morphine 10 MG INJ IV PRN ×2 (15:30→22:36)
--- NOTE | 2017-08-14 16:34 | RADRPT ---
PROCEDURE: XR Chest. CLINICAL INDICATION: Shortness of breath. TECHNIQUE: Single frontal view. COMPARISON: 08/13/2017. FINDINGS: There is mild atelectasis at the lung bases with right worse than left. The lungs are otherwise nancy r. There is a tunneled left internal jugular vein dialysis catheter with the tip in the cavoatrial j unction region. The heart size is normal. There are small bilateral pleural effusions. There is no pneumothorax. IMPRESSION: 1. Dialysis catheter in satisfactory position. 2. Slightly worse appearance of the left lung base. 3. Small bilateral pleural effusions. RPTAT: QQ .Sam Villalpando MD, MD Date Time Electronically viewed and signed by .Sam Villalpando MD, on 08/14/2017 16:33 .R/
--- NOTE | 2017-08-14 21:55 | PN ---
Date/Time of Note Date/Time of Note DATE: 08/14/17 TIME: 21:48 Assessment/Plan Lines/Catheters IV Catheter Type (from [facility]): permacath Patino in Place (from [facility]): No Assessment/Plan Chief Complaint/Hosp Course 1. Rectal prolapse status post laparoscopic LAR, rectopexy, biologic 08/03; tolerating diet with +bowel function,no bleeding with bm; no prolapse noted -Avoid straining -stool softeners -continue to monitor 2. Respiratory compromise with left sided white out and bilateral pleural effusion: s/p L thoracentesis today -judicious fluid management and gentle diuresis/HD -per resp -pulm toilette 3. ESRD: on HD; -hd per renal 4. Electrolyte imbalance: -optimize lytes 5. Hypoalbuminemia with hypocalcemia: nutritional +/- inflammation -as above -optimize nutrition 6. Anemia: without acute bleed: -monitor and transfuse as needed 7. Hepatitis with reactive serology -medical management Thank you. Patient seen and examined in collaboration with Dr. Deep Zhang. Problems: Subjective 24 Hr Interval Summary S/p L thoracentesis today. No longer requiring oxygen. No fevers, chills, sob, congested cough, cp, palpitations, avitia, dizziness, n/v/d/dysuria. No reports of bleeding with bowel movement. Exam/Review of Systems Vital Signs Vitals Vital Signs Date Time Temp Pulse Resp B/P Pulse Ox O2 Delivery O2 Flow Rate FiO2 08/14/17 21:12 77 16 93 21 08/14/17 20:00 97.9 114/67 Room Air 08/14/17 04:27 3.0 Intake and Output 08/13/17 08/13/17 08/14/17 15:00 23:00 07:00 Intake Total 370 ml 120 ml 300 ml Balance 370 ml 120 ml 300 ml Exam Free Text/Dictation Constitutional: alert, oriented Psych: anxious Head: atraumatic, normocephalic Eyes: nl conjunctiva, nl lids, nl sclera ENMT: No mucosa pink and moist (dry) Neck: non-tender, supple Respiratory: improved aeration to left lung; No labored breathing; ra Cardiovascular: nl pulses, regular rate and rhythm, No edema Gastrointestinal: non-tender, soft, No distended, No rebound or guarding Genitourinary - Female: No further prolapse; no bleed Musculoskeletal: nl extremities to inspection Extremities: normal pulses, No edema 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: nl speech, nl strength Skin: No rash or lesions Rectal: No further prolapse, no meri bleed noted Results Result Diagram: 08/13/17 1358 08/13/17 1358 RAFFY GRAHAM NP Aug 14, 2017 21:54
[2017-08-15] VITALS (13 sets, daily range): BP systolic 99–140; BP diastolic 53–83; PULSE 66–77; RESP 11–18
[2017-08-15] MEDS: ALBUTEROL 0.083% (NEB) 2.5 MG/3 ML AMP HHN SCH ×6 (01:00→21:10)
[2017-08-15] MEDS: ACETYLCYSTEINE 20% 4 ML VIAL NEB SCH ×6 (01:00→21:10)
[2017-08-15] MEDS: IPRATROPIUM (NEB) 0.5 MG/2.5 ML AMP HHN SCH ×6 (01:00→21:10)
[2017-08-15] MEDS: PANTOPRAZOLE (EC) 40 MG TAB PO SCH (06:17)
[2017-08-15] MEDS: morphine 2 MG INJ IV PRN (06:17)
[2017-08-15 06:30] LABS: BASOPHIL # 0.1 10^3/ul (0.0-0.1); BASOPHILS % 1.5 % (0.0-2.0); EOSINOPHILS # 0.7 10^3/ul (0.0-0.5); EOSINOPHILS % 9.4 % (0.0-7.0); HEMOGLOBIN 8.5 g/dl (12.0-16.0); LYMPHOCYTES # 1.9 10^3/ul (0.8-2.9); LYMPHOCYTES % 25.6 % (15.0-51.0); MEAN CORPUSCULAR HEMOGLOBIN 27.7 pg (29.0-33.0); MEAN CORPUSCULAR HGB CONC 30.4 g/dl (32.0-37.0); MEAN CORPUSCULAR VOLUME 91.2 fl (82.0-101.0); MEAN PLATELET VOLUME 9.4 fl (7.4-10.4); MONOCYTE # 0.7 10^3/ul (0.3-0.9); MONOCYTES % 9.3 % (0.0-11.0); NEUTROPHILS % 53.4 % (39.0-77.0); PLATELET COUNT 349 10^3/UL (140-415); RED BLOOD COUNT 3.07 10^6/ul (4.20-5.40); RED CELL DISTRIBUTION WIDTH 14.3 % (11.5-14.5); WHITE BLOOD COUNT 7.6 10^3/ul (4.8-10.8)
[2017-08-15 07:03] LABS: CALCIUM 8.3 mg/dl (8.4-10.2); CREATININE 4.79 mg/dl (0.44-1.00); POTASSIUM 5.3 mmol/L (3.5-5.1)
[2017-08-15] MEDS: ISOSORBIDE DINITRATE 20 MG TAB PO SCH ×3 (08:36→21:49)
[2017-08-15] MEDS: ASPIRIN 81 MG TAB PO SCH (08:36)
[2017-08-15] MEDS: METOPROLOL 25 MG TAB PO SCH ×2 (08:36→21:49)
[2017-08-15] MEDS: CALCIUM ACETATE 667 MG CAP PO SCH ×3 (08:37→18:05)
[2017-08-15] MEDS: DOCUSATE SODIUM 100 MG CAP PO SCH ×2 (08:37→21:00)
[2017-08-15] MEDS: HYDROCODONE/APAP (5/325) TAB PO PRN (08:44)
[2017-08-15] MEDS: MUPIROCIN 2% 22 GM OINT TOP SCH ×2 (09:00→21:50)
[2017-08-15] MEDS: ALPRAZOLAM 1 MG TAB PO PRN (09:47)
--- NOTE | 2017-08-15 11:53 | CONS ---
Date/Time of Note Date/Time of Note DATE: 08/15/17 TIME: 11:51 Assessment/Plan Assessment/Plan Additional Assessment/Plan Assessment recommendations; 1. Patient admitted with pulmonary edema with significant clinical improvement. 2. Patient developed complete right lung atelectasis with marked clinical and radiological improvement as well. 3. Status post right thoracentesis. 4. Chronic renal failure, on hemodialysis. 5. Status post rectal prolapse surgery. 6. Anemia. Continue current treatment. Consider transfer to rehab. Consultation Date/Type/Reason Admit Date/Time Jul 22, 2017 at 19:26 Initial Consult Date 07/23/17 Type of Consultation: Pulmonary Referring Provider: KISHAN MEJIA MD 24 HR Interval Summary Free Text/Dictation Patient's condition is stable. Denies any shortness breath, chest pain, coughing or wheezing. General exam; elderly woman, awake and alert. Currently in no distress. Exam/Review of Systems Vital Signs Vitals Vital Signs Date Time Temp Pulse Resp B/P Pulse Ox O2 Delivery O2 Flow Rate FiO2 08/15/17 11:47 98.6 67 18 116/71 96 08/15/17 09:14 21 08/15/17 02:00 Room Air 08/14/17 04:27 3.0 Intake and Output 08/14/17 08/14/17 08/15/17 15:00 23:00 07:00 Intake Total 700 ml 300 ml 120 ml Output Total 2600 ml Balance -1900 ml 300 ml 120 ml Exam HEENT exam; supple neck, no JVD. No lymphadenopathy. Midline trachea. No thyromegaly. Pharynx is clear. Patient is edentulous. Chest exam; clear to auscultation. S1-S2 audible, no murmurs. Regular rhythm. Abdomen exam; soft, nontender. No organomegaly. Bowel sounds audible. Extremity exam; no peripheral edema. PROMOTIONS EXECUTIVE exam; no focal deficit. Results Result Diagram: 08/15/17 0557 08/15/17 0557 Results 24 hrs Laboratory Tests Test 08/15/17 05:57 White Blood Count 7.6 Red Blood Count 3.07 L Hemoglobin 8.5 L Hematocrit 28.0 L Mean Corpuscular Volume 91.2 Mean Corpuscular Hemoglobin 27.7 L Mean Corpuscular Hemoglobin Concent 30.4 L Red Cell Distribution Width 14.3 Platelet Count 349 Mean Platelet Volume 9.4 Neutrophils % 53.4 Lymphocytes % 25.6 Monocytes % 9.3 Eosinophils % 9.4 H Basophils % 1.5 Nucleated Red Blood Cells % 0.0 Neutrophils # 4.0 Lymphocytes # 1.9 Monocytes # 0.7 Eosinophils # 0.7 H Basophils # 0.1 Nucleated Red Blood Cells # 0.0 Sodium Level 138 Potassium Level 5.3 H Chloride Level 102 Carbon Dioxide Level 29 Anion Gap 12 Blood Urea Nitrogen 31 H Creatinine 4.79 H Glucose Level 80 Calcium Level 8.3 L Random Vancomycin Level 16.2 Medications Medications Current Medications Acetaminophen (Tylenol Tab) 650 mg Q6H PRN PO PAIN AND OR ELEVATED TEMP; Start 07/22/17 at 20:30 Ondansetron HCl (Zofran Inj) 4 mg Q6H PRN IV NAUSEA AND/OR VOMITING; Start 07/22/17 at 23:00 Bisacodyl (Dulcolax) 5 mg DAILY PRN PO CONSTIPATION Last administered on 03:43; Admin Dose 5 MG; Start 07/22/17 at 23:00 Acetaminophen/ Hydrocodone Bitart ([place] (5/325)) 1 tab Q6H PRN PO Breakthrough Pain Last administered on 08/15/17 08:44; Admin Dose 1 TAB; Start 07/24/17 at 11:30 Guaifenesin/ Dextromethorphan (Robitussin Dm Liquid Cup) 5 ml TID PRN PO Cough Last administered on 08/07/17 08:49; Admin Dose 5 ML; Start 07/24/17 at 11:30 Pantoprazole (Protonix Tab) 40 mg DAILY@06 PO Last administered on 08/15/17 06:17; Admin Dose 40 MG; Start 07/28/17 at 06:00 Nitroglycerin (Nitroglycerin (Sl Tab) 0.4 Mg) 1 tab Q5M PRN SL ANGINA Last administered on 08/12/17 11:54; Admin Dose 1 TAB; Start 07/28/17 at 05:30 Aspirin (Aspirin) 81 mg DAILY PO Last administered on 08/15/17 08:36; Admin Dose 81 MG; Start 07/30/17 at 09:00 Isosorbide Dinitrate (Isordil) 20 mg TID PO Last administered on 08/15/17 08: 36; Admin Dose 20 MG; Start 07/29/17 at 21:00 Tramadol HCl (Ultram) 50 mg Q6H PRN PO pain Last administered on 08/13/17 09: 14; Admin Dose 50 MG; Start 08/05/17 at 16:30 Morphine Sulfate (morphine) 2 mg Q4H PRN IV pain Last administered on 06:17; Admin Dose 2 MG; Start 08/05/17 at 17:00 Docusate Sodium (Colace) 100 mg Q12 PO Last administered on 08/15/17 08:37; Admin Dose 100 MG; Start 08/05/17 at 21:00 Clonidine (Catapres) 0.1 mg Q6 PRN PO SBP>170; Start 08/05/17 at 17:00 Morphine Sulfate (morphine) 5 mg Q4H PRN IV PAIN Last administered on 22:36; Admin Dose 5 MG; Start 08/07/17 at 14:30 Acetylcysteine (Mucomyst) 3 ml Q4 NEB Last administered on 08/15/17 09:25; Admin Dose 3 ML; Start 08/07/17 at 21:00 Metoprolol Tartrate (Lopressor) 25 mg BID PO Last administered on 08/15/17 08 :36; Admin Dose 25 MG; Start 08/09/17 at 21:00 Mupirocin (Bactroban) 1 applic BID TOP Last administered on 08/14/17 20:45; Admin Dose 1 APPLIC; Start 08/10/17 at 21:00; Stop 08/20/17 at 20:59 Alprazolam 1 mg 1 mg Q8H PRN PO ANXIETY Last administered on 08/15/17 09:47; Admin Dose 1 MG; Start 08/15/17 at 09:00 Vancomycin HCl (Vancocin) 250 ml @ 125 mls/hr Q96H IVPB ; Start 08/15/17 at 16 :00 LEATHA PHAM Aug 15, 2017 11:53
[2017-08-15] MEDS: morphine 10 MG INJ IV PRN ×2 (11:58→16:07)
[2017-08-15 14:11] LABS: FLD RBC 2000 /uL
--- NOTE | 2017-08-15 14:11 | CONS ---
Date/Time of Note Date/Time of Note DATE: 08/15/17 TIME: 14:10 Consult Date/Type/Reason Admit Date/Time Jul 22, 2017 at 19:26 Initial Consult Date 07/23/17 Type of Consultation: id Ordering Provider: KISHAN MEJIA MD Objective Vital Signs Date Time Temp Pulse Resp B/P Pulse Ox O2 Delivery O2 Flow Rate FiO2 08/15/17 12:28 96 21 08/15/17 12:05 66 08/15/17 11:47 98.6 18 116/71 08/15/17 02:00 Room Air 08/14/17 04:27 3.0 Intake and Output 08/14/17 08/14/17 08/15/17 15:00 23:00 07:00 Intake Total 700 ml 300 ml 120 ml Output Total 2600 ml Balance -1900 ml 300 ml 120 ml Results/Medications Result Diagram: 08/15/17 0557 08/15/17 0557 Results 24 hrs Laboratory Tests Test 08/15/17 05:57 White Blood Count 7.6 Red Blood Count 3.07 L Hemoglobin 8.5 L Hematocrit 28.0 L Mean Corpuscular Volume 91.2 Mean Corpuscular Hemoglobin 27.7 L Mean Corpuscular Hemoglobin Concent 30.4 L Red Cell Distribution Width 14.3 Platelet Count 349 Mean Platelet Volume 9.4 Neutrophils % 53.4 Lymphocytes % 25.6 Monocytes % 9.3 Eosinophils % 9.4 H Basophils % 1.5 Nucleated Red Blood Cells % 0.0 Neutrophils # 4.0 Lymphocytes # 1.9 Monocytes # 0.7 Eosinophils # 0.7 H Basophils # 0.1 Nucleated Red Blood Cells # 0.0 Sodium Level 138 Potassium Level 5.3 H Chloride Level 102 Carbon Dioxide Level 29 Anion Gap 12 Blood Urea Nitrogen 31 H Creatinine 4.79 H Glucose Level 80 Calcium Level 8.3 L Random Vancomycin Level 16.2 Medications Current Medications Acetaminophen (Tylenol Tab) 650 mg Q6H PRN PO PAIN AND OR ELEVATED TEMP; Start 07/22/17 at 20:30 Ondansetron HCl (Zofran Inj) 4 mg Q6H PRN IV NAUSEA AND/OR VOMITING; Start 07/22/17 at 23:00 Bisacodyl (Dulcolax) 5 mg DAILY PRN PO CONSTIPATION Last administered on t 03:43; Admin Dose 5 MG; Start 07/22/17 at 23:00 Acetaminophen/ Hydrocodone Bitart ([place] (5/325)) 1 tab Q6H PRN PO Breakthrough Pain Last administered on 08/15/17 08:44; Admin Dose 1 TAB; Start 07/24/17 at 11:30 Guaifenesin/ Dextromethorphan (Robitussin Dm Liquid Cup) 5 ml TID PRN PO Cough Last administered on 08/07/17 08:49; Admin Dose 5 ML; Start 07/24/17 at 11:30 Pantoprazole (Protonix Tab) 40 mg DAILY@06 PO Last administered on 08/15/17 06:17; Admin Dose 40 MG; Start 07/28/17 at 06:00 Nitroglycerin (Nitroglycerin (Sl Tab) 0.4 Mg) 1 tab Q5M PRN SL ANGINA Last administered on 08/12/17 11:54; Admin Dose 1 TAB; Start 07/28/17 at 05:30 Aspirin (Aspirin) 81 mg DAILY PO Last administered on 08/15/17 08:36; Admin Dose 81 MG; Start 07/30/17 at 09:00 Isosorbide Dinitrate (Isordil) 20 mg TID PO Last administered on 08/15/17 12: 46; Admin Dose 20 MG; Start 07/29/17 at 21:00 Tramadol HCl (Ultram) 50 mg Q6H PRN PO pain Last administered on 08/13/17 09: 14; Admin Dose 50 MG; Start 08/05/17 at 16:30 Morphine Sulfate (morphine) 2 mg Q4H PRN IV pain Last administered on 06:17; Admin Dose 2 MG; Start 08/05/17 at 17:00 Docusate Sodium (Colace) 100 mg Q12 PO Last administered on 08/15/17 08:37; Admin Dose 100 MG; Start 08/05/17 at 21:00 Clonidine (Catapres) 0.1 mg Q6 PRN PO SBP>170; Start 08/05/17 at 17:00 Morphine Sulfate (morphine) 5 mg Q4H PRN IV PAIN Last administered on 11:58; Admin Dose 5 MG; Start 08/07/17 at 14:30 Acetylcysteine (Mucomyst) 3 ml Q4 NEB Last administered on 08/15/17 09:25; Admin Dose 3 ML; Start 08/07/17 at 21:00 Metoprolol Tartrate (Lopressor) 25 mg BID PO Last administered on 08/15/17 08 :36; Admin Dose 25 MG; Start 08/09/17 at 21:00 Mupirocin (Bactroban) 1 applic BID TOP Last administered on 08/15/17 09:00; Admin Dose 1 APPLIC; Start 08/10/17 at 21:00; Stop 08/20/17 at 20:59 Alprazolam 1 mg 1 mg Q8H PRN PO ANXIETY Last administered on 08/15/17 09:47; Admin Dose 1 MG; Start 08/15/17 at 09:00 Vancomycin HCl (Vancocin) 250 ml @ 125 mls/hr Q96H IVPB ; Start 08/15/17 at 16 :00 Assessment/Plan Chief Complaint/Hosp Course SUBJECTIVE: No events overnight. The patient is alert, looks comfortable, no fevers. MICROBIOLOGY: Sputum culture on 08/08 grew MRSA. INDWELLINGS: The patient has a left chest Perm-A-Cath. ANTIMICROBIALS: Vancomycin. PHYSICAL EXAMINATION: GENERAL: Fragile, well-developed, elderly woman who is awake, in no distress. HEENT: Head atraumatic, normocephalic. Sclerae anicteric. Buccal mucosa dry. NECK: Supple. CHEST: Rise symmetrical. Breath sounds diminished to bases with scattered crackles. HEART: S1, S2. ABDOMEN: Soft. Bowel tones present. ASSESSMENT: 1. Methicillin-resistant Staphylococcus aureus tracheobronchitis, possible pneumonia, remains on appropriate therapy. 2. Rectal prolapse. 3. Bilateral pleural effusions, right more than left, s/p thoracentesis. 4. Anemia. PLAN: The patient remains stable, continue Vanco to complete 2 weeks, pulmonary rec-s, HD per renal DW staff Problems: VINI GRIJALVA NP Aug 15, 2017 14:11
[2017-08-15] MEDS ORDERED: VANCOMYCIN 1 GM in NS 250 ML IVPB SCH (16:00)
[2017-08-15] MEDS ORDERED: NA POLYST SULFON 15 GM/60 ML BTL PO ONE (16:00)
--- NOTE | 2017-08-15 16:32 | PN ---
Date/Time of Note Date/Time of Note DATE: 08/15/17 TIME: 16:30 Assessment/Plan VTE Prophylaxis VTE Prophylaxis Intervention: LMWH Lines/Catheters IV C[facility]ter Type (from [facility]): Permacath Urinary Cath still in place: No Assessment/Plan Chief Complaint/Hosp Course 62 y/o with 1. Rectal prolapse, severe.status post laparoscopic LAR, rectopexy, biologic 08/03; improving 2. Leukocytosis > imrpoved could be MRSA pneumonia on Vancomycin 3. Anemia likely End-stage renal disease however with acute drop no bleeding noted 4. Hepatitis B core antibody positive. 5 pleural effusion 6 NSTEMI 7 S/P LEXISCAN NEG 8 Hypoxic respiratory insufficency with complete opacification of left lung? mucous plug s/p dry UF /HD, cannot r/o underlying Pneumonia and underlying effusion still on high flow requiring ICU care now resolved s/p Thoracentesis 9 MRSA pneumonia Plan - S/P thoracentesis on 08/13/17 with marked improvement in resp status, off oxygen - Appreciate pulmonary help - c/w - Chest PT and Mucomist - c/w Vancomycin for 2 weeks - hd tmw - c/w Morphine and ultram - Epogen - GI/DVT prophylaxsis - Physical therapy - dc samanta to SNIF tmw,c ase gas manager to arrange for SNIF Problems: Subjective 24 Hr Interval Summary Free Text/Dictation Sometimes muscle cramps Breathing improved Exam/Review of Systems Vital Signs Vitals Vital Signs Date Time Temp Pulse Resp B/P Pulse Ox O2 Delivery O2 Flow Rate FiO2 08/15/17 15:49 98.3 69 18 119/79 100 08/15/17 12:28 21 08/15/17 02:00 Room Air 08/14/17 04:27 3.0 Intake and Output 08/14/17 08/14/17 08/15/17 15:00 23:00 07:00 Intake Total 700 ml 300 ml 120 ml Output Total 2600 ml Balance -1900 ml 300 ml 120 ml Exam Gen: Awake,alert, mild resp distress Respiratory: CTAB Cardiovascular: regular rate and rhythm Gastrointestinal: bowel sounds (+), soft, distended, surgical site TTP Left permacaTH Results Result Diagram: 08/15/17 0557 08/15/17 0557 Results 24 hrs Laboratory Tests Test 08/15/17 05:57 White Blood Count 7.6 Red Blood Count 3.07 L Hemoglobin 8.5 L Hematocrit 28.0 L Mean Corpuscular Volume 91.2 Mean Corpuscular Hemoglobin 27.7 L Mean Corpuscular Hemoglobin Concent 30.4 L Red Cell Distribution Width 14.3 Platelet Count 349 Mean Platelet Volume 9.4 Neutrophils % 53.4 Lymphocytes % 25.6 Monocytes % 9.3 Eosinophils % 9.4 H Basophils % 1.5 Nucleated Red Blood Cells % 0.0 Neutrophils # 4.0 Lymphocytes # 1.9 Monocytes # 0.7 Eosinophils # 0.7 H Basophils # 0.1 Nucleated Red Blood Cells # 0.0 Sodium Level 138 Potassium Level 5.3 H Chloride Level 102 Carbon Dioxide Level 29 Anion Gap 12 Blood Urea Nitrogen 31 H Creatinine 4.79 H Glucose Level 80 Calcium Level 8.3 L Random Vancomycin Level 16.2 Medications Medications Current Medications Acetaminophen (Tylenol Tab) 650 mg Q6H PRN PO PAIN AND OR ELEVATED TEMP; Start 07/22/17 at 20:30 Ondansetron HCl (Zofran Inj) 4 mg Q6H PRN IV NAUSEA AND/OR VOMITING; Start 07/22/17 at 23:00 Bisacodyl (Dulcolax) 5 mg DAILY PRN PO CONSTIPATION Last administered on 03:43; Admin Dose 5 MG; Start 07/22/17 at 23:00 Acetaminophen/ Hydrocodone Bitart ([place] (5/325)) 1 tab Q6H PRN PO Breakthrough Pain Last administered on 08/15/17 08:44; Admin Dose 1 TAB; Start 07/24/17 at 11:30 Guaifenesin/ Dextromethorphan (Robitussin Dm Liquid Cup) 5 ml TID PRN PO Cough Last administered on 08/07/17 08:49; Admin Dose 5 ML; Start 07/24/17 at 11:30 Pantoprazole (Protonix Tab) 40 mg DAILY@06 PO Last administered on 08/15/17 06:17; Admin Dose 40 MG; Start 07/28/17 at 06:00 Nitroglycerin (Nitroglycerin (Sl Tab) 0.4 Mg) 1 tab Q5M PRN SL ANGINA Last administered on 08/12/17 11:54; Admin Dose 1 TAB; Start 07/28/17 at 05:30 Aspirin (Aspirin) 81 mg DAILY PO Last administered on 08/15/17 08:36; Admin Dose 81 MG; Start 07/30/17 at 09:00 Isosorbide Dinitrate (Isordil) 20 mg TID PO Last administered on 08/15/17 12: 46; Admin Dose 20 MG; Start 07/29/17 at 21:00 Tramadol HCl (Ultram) 50 mg Q6H PRN PO pain Last administered on 08/13/17 09: 14; Admin Dose 50 MG; Start 08/05/17 at 16:30 Morphine Sulfate (morphine) 2 mg Q4H PRN IV pain Last administered on 06:17; Admin Dose 2 MG; Start 08/05/17 at 17:00 Docusate Sodium (Colace) 100 mg Q12 PO Last administered on 08/15/17 08:37; Admin Dose 100 MG; Start 08/05/17 at 21:00 Clonidine (Catapres) 0.1 mg Q6 PRN PO SBP>170; Start 08/05/17 at 17:00 Morphine Sulfate (morphine) 5 mg Q4H PRN IV PAIN Last administered on 11:58; Admin Dose 5 MG; Start 08/07/17 at 14:30 Acetylcysteine (Mucomyst) 3 ml Q4 NEB Last administered on 08/15/17 09:25; Admin Dose 3 ML; Start 08/07/17 at 21:00 Metoprolol Tartrate (Lopressor) 25 mg BID PO Last administered on 08/15/17 08 :36; Admin Dose 25 MG; Start 08/09/17 at 21:00 Mupirocin (Bactroban) 1 applic BID TOP Last administered on 08/15/17 09:00; Admin Dose 1 APPLIC; Start 08/10/17 at 21:00; Stop 08/20/17 at 20:59 Alprazolam 1 mg 1 mg Q8H PRN PO ANXIETY Last administered on 08/15/17 09:47; Admin Dose 1 MG; Start 08/15/17 at 09:00 Vancomycin HCl (Vancocin) 250 ml @ 125 mls/hr Q96H IVPB ; Start 08/15/17 at 16 :00 Sodium Polystyrene Sulfonate (Kayexalate) 60 gm ONCE ONCE PO ; Start 08/15/17 at 16:00; Stop 08/15/17 at 16:01; Status UNV ROSLYN SHANNON MD Aug 15, 2017 16:33
--- NOTE | 2017-08-15 20:49 | CONS ---
Date/Time of Note Date/Time of Note DATE: 08/15/17 TIME: 20:47 Assessment/Plan Assessment/Plan Chief Complaint/Hosp Course IMPRESSION: 1. Positive troponin in the setting of renal failure, but chest pain and cardiac risk factors, assess significance.- Now trended negative and s/p lexiscan with no ischemia/NL EF.Echo n10/10 with NL EF 50-55. Mod OK to proceed to surgery for rectal prolapse from cardiac standpoint at moderate CV risk on current medications including low dose BB continue pre-post- operatively. Avoid large fluid shifts/swings in blood pressure as possible-Now post-op s/p rectal prolapse surgery 2. Abnormal electrocardiogram with nonspecific ST-T abnormalities and initial anterolateral T-wave inversions. 3. Hypertension-currently well controlled 4. Rectal prolapse. 5. Hepatitis C antibody positive, hepatitis B core antibody positive. 6. Anemia. 7. End-stage renal disease on hemodialysis. 8. L Lung white out/pleural effusion-slowly improving 9. Chest pain-episode during HD. -negative trop x 2 since most recent episode Recc: -Continue BB/isordil as tolerated -Continue asa -routine post-op care -Pain control -HD for volume removal Problems: Consultation Date/Type/Reason Admit Date/Time Jul 22, 2017 at 19:26 Initial Consult Date 07/23/17 Type of Consultation: cardiology Reason for Consultation positive trop Referring Provider: KISHAN MEJIA MD Exam/Review of Systems Vital Signs Vitals Vital Signs Date Time Temp Pulse Resp B/P Pulse Ox O2 Delivery O2 Flow Rate FiO2 08/15/17 20:20 69 08/15/17 19:40 98.0 18 130/80 100 08/15/17 12:28 21 08/15/17 02:00 Room Air 08/14/17 04:27 3.0 Intake and Output 08/14/17 08/14/17 08/15/17 15:00 23:00 07:00 Intake Total 700 ml 300 ml 120 ml Output Total 2600 ml Balance -1900 ml 300 ml 120 ml Exam Review of Systems: CONSTITUTIONAL: No fevers, chills. PULMONARY: No sob CARDIOVASCULAR: No chest pain/palpitations GASTROINTESTINAL: No nausea/vomiting. GENITOURINARY: No hematuria/dysuria. MUSCULOSKELETAL: No myagias/arthalgias. PSYCHIATRIC: The patient denies depression. NEUROLOGIC: No weakness Constitutional: alert, oriented Psych: no complaints Head: normocephalic ENMT: mucosa pink and moist Neck: jvd (8 cm water), supple Respiratory: clear to auscultation Cardiovascular: regular rate and rhythm Gastrointestinal: non-tender, soft Musculoskeletal: muscle weakness (mild generalized) Extremities: edema (none) 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: other (No focal deficits) Results Result Diagram: 08/15/17 0557 08/15/17 0557 Results 24 hrs Laboratory Tests Test 08/15/17 05:57 White Blood Count 7.6 Red Blood Count 3.07 L Hemoglobin 8.5 L Hematocrit 28.0 L Mean Corpuscular Volume 91.2 Mean Corpuscular Hemoglobin 27.7 L Mean Corpuscular Hemoglobin Concent 30.4 L Red Cell Distribution Width 14.3 Platelet Count 349 Mean Platelet Volume 9.4 Neutrophils % 53.4 Lymphocytes % 25.6 Monocytes % 9.3 Eosinophils % 9.4 H Basophils % 1.5 Nucleated Red Blood Cells % 0.0 Neutrophils # 4.0 Lymphocytes # 1.9 Monocytes # 0.7 Eosinophils # 0.7 H Basophils # 0.1 Nucleated Red Blood Cells # 0.0 Sodium Level 138 Potassium Level 5.3 H Chloride Level 102 Carbon Dioxide Level 29 Anion Gap 12 Blood Urea Nitrogen 31 H Creatinine 4.79 H Glucose Level 80 Calcium Level 8.3 L Random Vancomycin Level 16.2 Medications Medications Current Medications Acetaminophen (Tylenol Tab) 650 mg Q6H PRN PO PAIN AND OR ELEVATED TEMP; Start 07/22/17 at 20:30 Ondansetron HCl (Zofran Inj) 4 mg Q6H PRN IV NAUSEA AND/OR VOMITING; Start 07/22/17 at 23:00 Bisacodyl (Dulcolax) 5 mg DAILY PRN PO CONSTIPATION Last administered on 03:43; Admin Dose 5 MG; Start 07/22/17 at 23:00 Acetaminophen/ Hydrocodone Bitart ([place] (5/325)) 1 tab Q6H PRN PO Breakthrough Pain Last administered on 08/15/17 08:44; Admin Dose 1 TAB; Start 07/24/17 at 11:30 Guaifenesin/ Dextromethorphan (Robitussin Dm Liquid Cup) 5 ml TID PRN PO Cough Last administered on 08/07/17 08:49; Admin Dose 5 ML; Start 07/24/17 at 11:30 Pantoprazole (Protonix Tab) 40 mg DAILY@06 PO Last administered on 08/15/17 06:17; Admin Dose 40 MG; Start 07/28/17 at 06:00 Nitroglycerin (Nitroglycerin (Sl Tab) 0.4 Mg) 1 tab Q5M PRN SL ANGINA Last administered on 08/12/17 11:54; Admin Dose 1 TAB; Start 07/28/17 at 05:30 Aspirin (Aspirin) 81 mg DAILY PO Last administered on 08/15/17 08:36; Admin Dose 81 MG; Start 07/30/17 at 09:00 Isosorbide Dinitrate (Isordil) 20 mg TID PO Last administered on 08/15/17 12: 46; Admin Dose 20 MG; Start 07/29/17 at 21:00 Tramadol HCl (Ultram) 50 mg Q6H PRN PO pain Last administered on 08/13/17 09: 14; Admin Dose 50 MG; Start 08/05/17 at 16:30 Morphine Sulfate (morphine) 2 mg Q4H PRN IV pain Last administered on 06:17; Admin Dose 2 MG; Start 08/05/17 at 17:00 Docusate Sodium (Colace) 100 mg Q12 PO Last administered on 08/15/17 08:37; Admin Dose 100 MG; Start 08/05/17 at 21:00 Clonidine (Catapres) 0.1 mg Q6 PRN PO SBP>170; Start 08/05/17 at 17:00 Morphine Sulfate (morphine) 5 mg Q4H PRN IV PAIN Last administered on 16:07; Admin Dose 5 MG; Start 08/07/17 at 14:30 Acetylcysteine (Mucomyst) 3 ml Q4 NEB Last administered on 08/15/17 09:25; Admin Dose 3 ML; Start 08/07/17 at 21:00 Metoprolol Tartrate (Lopressor) 25 mg BID PO Last administered on 08/15/17 08 :36; Admin Dose 25 MG; Start 08/09/17 at 21:00 Mupirocin (Bactroban) 1 applic BID TOP Last administered on 08/15/17 09:00; Admin Dose 1 APPLIC; Start 08/10/17 at 21:00; Stop 08/20/17 at 20:59 Alprazolam 1 mg 1 mg Q8H PRN PO ANXIETY Last administered on 08/15/17 09:47; Admin Dose 1 MG; Start 08/15/17 at 09:00 Vancomycin HCl (Vancocin) 250 ml @ 125 mls/hr Q96H IVPB Last administered on 08/15/17 16:09; Admin Dose 125 MLS/HR; Start 08/15/17 at 16:00 CONI ENRIQUEZ Aug 15, 2017 20:49
--- NOTE | 2017-08-15 23:33 | PN ---
Date/Time of Note Date/Time of Note DATE: 08/15/17 TIME: 23:33 Assessment/Plan Lines/Catheters IV Catheter Type (from [facility]): Permacath Patino in Place (from [facility]): No Assessment/Plan Chief Complaint/Hosp Course 1. Rectal prolapse status post laparoscopic LAR, rectopexy, biologic 08/03; tolerating diet with +bowel function,no bleeding with bm; no prolapse noted -Avoid straining -stool softeners -continue to monitor 2. Respiratory compromise with left sided white out and bilateral pleural effusion: s/p L thoracentesis; currently on RA, able to lay flat and breath comfortably -judicious fluid management and gentle diuresis/HD -per resp -pulm toilette 3. ESRD: on HD; -hd per renal 4. Electrolyte imbalance: -optimize lytes 5. Hypoalbuminemia with hypocalcemia: nutritional +/- inflammation -as above -optimize nutrition 6. Anemia: without acute bleed: -monitor and transfuse as needed 7. Hepatitis with reactive serology -medical management Thank you. Patient seen and examined in collaboration with Dr. Deep Zhang. Problems: Subjective 24 Hr Interval Summary Feels well. Breathing comfortably on room air. Loose stools w min blood w wiping but no prolapse. No fevers, chills, sob, congested cough, cp, palpitations, avitia, dizziness, n/v/d/dysuria. Exam/Review of Systems Vital Signs Vitals Vital Signs Date Time Temp Pulse Resp B/P Pulse Ox O2 Delivery O2 Flow Rate FiO2 08/16/17 12:27 66 08/16/17 12:03 97.7 18 139/76 08/16/17 07:51 94 08/16/17 01:36 21 08/15/17 02:00 Room Air 08/14/17 04:27 3.0 Intake and Output 08/15/17 08/15/17 08/16/17 15:00 23:00 07:00 Intake Total 440 ml Balance 440 ml Exam Free Text/Dictation Constitutional: alert, oriented Psych: anxious Head: atraumatic, normocephalic Eyes: nl conjunctiva, nl lids, nl sclera ENMT: No mucosa pink and moist (dry) Neck: non-tender, supple Respiratory: improved aeration to left lung; No labored breathing; ra Cardiovascular: nl pulses, regular rate and rhythm, No edema Gastrointestinal: non-tender, soft, No distended, No rebound or guarding Genitourinary - Female: No further prolapse; no bleed Musculoskeletal: nl extremities to inspection Extremities: normal pulses, No edema 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: nl speech, nl strength Skin: No rash or lesions Rectal: No further prolapse, no meri bleed noted Results Result Diagram: 08/15/17 0557 08/15/17 0557 RAFFY GRAHAM NP Aug 15, 2017 23:33
[2017-08-16] VITALS (18 sets, daily range): BP systolic 118–154; BP diastolic 66–89; PULSE 66–81; RESP 16–18
[2017-08-16] MEDS: IPRATROPIUM (NEB) 0.5 MG/2.5 ML AMP HHN SCH ×5 (01:35→17:00)
[2017-08-16] MEDS: ALBUTEROL 0.083% (NEB) 2.5 MG/3 ML AMP HHN SCH ×5 (01:35→17:00)
[2017-08-16] MEDS: ACETYLCYSTEINE 20% 4 ML VIAL NEB SCH ×5 (01:36→17:00)
[2017-08-16] MEDS: ALPRAZOLAM 1 MG TAB PO PRN ×2 (03:47→12:05)
[2017-08-16] MEDS: PANTOPRAZOLE (EC) 40 MG TAB PO SCH (06:22)
[2017-08-16] MEDS: MUPIROCIN 2% 22 GM OINT TOP SCH (08:28)
[2017-08-16] MEDS: ISOSORBIDE DINITRATE 20 MG TAB PO SCH ×2 (08:29→12:05)
[2017-08-16] MEDS: METOPROLOL 25 MG TAB PO SCH (08:30)
[2017-08-16] MEDS: ASPIRIN 81 MG TAB PO SCH (08:30)
[2017-08-16] MEDS: DOCUSATE SODIUM 100 MG CAP PO SCH ×2 (08:30→08:38)
[2017-08-16] MEDS: CALCIUM ACETATE 667 MG CAP PO SCH ×3 (08:30→17:34)
[2017-08-16] MEDS: morphine 2 MG INJ IV PRN (11:14)
--- NOTE | 2017-08-16 11:36 | PN ---
Date/Time of Note Date/Time of Note DATE: 08/16/17 TIME: 11:35 Assessment/Plan VTE Prophylaxis VTE Prophylaxis Intervention: ambulation Lines/Catheters IV C[facility] Type ([facility] permacath Urinary Cath still in place: No Assessment/Plan Chief Complaint/Hosp Course 1. s/p repair rectal prolapse. 2. SIRS, resolved 3. Anemia. 4. Hepatitis B. 5. End-stage renal disease. 6. electrolyte imbalance 7 pleural effusion. thoracentesis done 8 NSTEMI 9 S/P LEXISCAN NEG 10. Hypoxic respiratory insufficiency , s/p bronchoscopy Problems: Assessment/Plan 1. discharge home if cleared by dr Zhang Subjective 24 Hr Interval Summary Constitutional: improved, no complaints Exam/Review of Systems Vital Signs Vitals Vital Signs Date Time Temp Pulse Resp B/P Pulse Ox O2 Delivery O2 Flow Rate FiO2 08/16/17 08:41 73 08/16/17 07:51 97.7 16 147/89 94 08/16/17 01:36 21 08/15/17 02:00 Room Air 08/14/17 04:27 3.0 Intake and Output 08/15/17 08/15/17 08/16/17 15:00 23:00 07:00 Intake Total 440 ml Balance 440 ml Exam Constitutional: alert, oriented Cardiovascular: regular rate and rhythm Gastrointestinal: soft Results Result Diagram: 08/15/17 0557 08/15/17 0557 Medications Medications Current Medications Acetaminophen (Tylenol Tab) 650 mg Q6H PRN PO PAIN AND OR ELEVATED TEMP; Start 07/22/17 at 20:30 Ondansetron HCl (Zofran Inj) 4 mg Q6H PRN IV NAUSEA AND/OR VOMITING; Start 07/22/17 at 23:00 Bisacodyl (Dulcolax) 5 mg DAILY PRN PO CONSTIPATION Last administered on 03:43; Admin Dose 5 MG; Start 07/22/17 at 23:00 Acetaminophen/ Hydrocodone Bitart ([place] (5/325)) 1 tab Q6H PRN PO Breakthrough Pain Last administered on 08/15/17 08:44; Admin Dose 1 TAB; Start 07/24/17 at 11:30 Guaifenesin/ Dextromethorphan (Robitussin Dm Liquid Cup) 5 ml TID PRN PO Cough Last administered on 08/07/17 08:49; Admin Dose 5 ML; Start 07/24/17 at 11:30 Pantoprazole (Protonix Tab) 40 mg DAILY@06 PO Last administered on 08/16/17 06:22; Admin Dose 40 MG; Start 07/28/17 at 06:00 Nitroglycerin (Nitroglycerin (Sl Tab) 0.4 Mg) 1 tab Q5M PRN SL ANGINA Last administered on 08/12/17 11:54; Admin Dose 1 TAB; Start 07/28/17 at 05:30 Aspirin (Aspirin) 81 mg DAILY PO Last administered on 08/16/17 08:30; Admin Dose 81 MG; Start 07/30/17 at 09:00 Isosorbide Dinitrate (Isordil) 20 mg TID PO Last administered on 08/16/17 08: 29; Admin Dose 20 MG; Start 07/29/17 at 21:00 Tramadol HCl (Ultram) 50 mg Q6H PRN PO pain Last administered on 08/13/17 09: 14; Admin Dose 50 MG; Start 08/05/17 at 16:30 Morphine Sulfate (morphine) 2 mg Q4H PRN IV pain Last administered on 11:14; Admin Dose 2 MG; Start 08/05/17 at 17:00 Docusate Sodium (Colace) 100 mg Q12 PO Last administered on 08/15/17 08:37; Admin Dose 100 MG; Start 08/05/17 at 21:00 Clonidine (Catapres) 0.1 mg Q6 PRN PO SBP>170; Start 08/05/17 at 17:00 Morphine Sulfate (morphine) 5 mg Q4H PRN IV PAIN Last administered on 16:07; Admin Dose 5 MG; Start 08/07/17 at 14:30 Acetylcysteine (Mucomyst) 3 ml Q4 NEB Last administered on 08/16/17 01:36; Admin Dose 3 ML; Start 08/07/17 at 21:00 Metoprolol Tartrate (Lopressor) 25 mg BID PO Last administered on 08/16/17 08 :30; Admin Dose 25 MG; Start 08/09/17 at 21:00 Mupirocin (Bactroban) 1 applic BID TOP Last administered on 08/16/17 08:28; Admin Dose 1 APPLIC; Start 08/10/17 at 21:00; Stop 08/20/17 at 20:59 Alprazolam 1 mg 1 mg Q8H PRN PO ANXIETY Last administered on 08/16/17 03:47; Admin Dose 1 MG; Start 08/15/17 at 09:00 Vancomycin HCl (Vancocin) 250 ml @ 125 mls/hr Q96H IVPB Last administered on 08/15/17 16:09; Admin Dose 125 MLS/HR; Start 08/15/17 at 16:00 LYDIA DIANA Aug 16, 2017 11:36
--- NOTE | 2017-08-16 11:37 | PDOCDIS ---
Discharge Instructions DIAGNOSIS Discharge Diagnosis s/p laparoscopic sigmoidectomy CONDITION Patient Condition: Stable HOME CARE INSTRUCTIONS: Diet Instructions: 2gm NaSpecial Diet: Renal ACTIVITY: Activity Restrictions: Slowly Increase Activity Bathing Restrictions: Shower FOLLOW UP/APPOINTMENTS Follow-up Plan Dr Zhang 1 week SCHOOL/WORK RELEASE May return to School/Work with: With Restrictions LYDIA DIANA Aug 16, 2017 11:37
[2017-08-16] MEDS ORDERED: HYDR-3498 PO (11:45)
[2017-08-16] MEDS ORDERED: DOCU-216 PO (11:45)
[2017-08-16] MEDS ORDERED: TRAM50TA2 PO (11:45)
[2017-08-16] MEDS ORDERED: METO-448 PO (11:45)
[2017-08-16] MEDS ORDERED: ISOS20TA19 PO (11:45)
[2017-08-16] MEDS ORDERED: PANT40TA4 PO (11:45)
[2017-08-16] MEDS ORDERED: ALPR1TAB7 PO (11:46)
[2017-08-16] MEDS ORDERED: HEPARIN 1000 UNITS/ML 10 ML INJ CATHETER ONE (12:00)
[2017-08-16 14:16] LABS: CREATININE 5.58 mg/dl (0.44-1.00); POTASSIUM 4.2 mmol/L (3.5-5.1)
--- NOTE | 2017-08-16 14:25 | CONS ---
Date/Time of Note Date/Time of Note DATE: 08/16/17 TIME: 14:24 Consult Date/Type/Reason Admit Date/Time Jul 22, 2017 at 19:26 Initial Consult Date 07/23/17 Type of Consultation: ID Ordering Provider: KISHAN MEJIA MD Objective Vital Signs Date Time Temp Pulse Resp B/P Pulse Ox O2 Delivery O2 Flow Rate FiO2 08/16/17 12:27 66 08/16/17 12:03 97.7 18 139/76 08/16/17 07:51 94 08/16/17 01:36 21 08/15/17 02:00 Room Air 08/14/17 04:27 3.0 Intake and Output 08/15/17 08/15/17 08/16/17 15:00 23:00 07:00 Intake Total 440 ml Balance 440 ml Results/Medications Result Diagram: 08/15/17 0557 08/16/17 1300 Results 24 hrs Laboratory Tests Test 08/16/17 13:00 White Blood Count Pending Red Blood Count Pending Hemoglobin Pending Hematocrit Pending Mean Corpuscular Volume Pending Mean Corpuscular Hemoglobin Pending Mean Corpuscular Hemoglobin Concent Pending Red Cell Distribution Width Pending Platelet Count Pending Mean Platelet Volume Pending Sodium Level 138 Potassium Level 4.2 Chloride Level 109 Carbon Dioxide Level 22 Anion Gap 11 Blood Urea Nitrogen 45 #H Creatinine 5.58 H Glucose Level 68 #L Calcium Level 7.0 L Medications Current Medications Acetaminophen (Tylenol Tab) 650 mg Q6H PRN PO PAIN AND OR ELEVATED TEMP; Start 07/22/17 at 20:30 Ondansetron HCl (Zofran Inj) 4 mg Q6H PRN IV NAUSEA AND/OR VOMITING; Start 07/22/17 at 23:00 Bisacodyl (Dulcolax) 5 mg DAILY PRN PO CONSTIPATION Last administered on 03:43; Admin Dose 5 MG; Start 07/22/17 at 23:00 Acetaminophen/ Hydrocodone Bitart ([place] (5/325)) 1 tab Q6H PRN PO Breakthrough Pain Last administered on 08/15/17 08:44; Admin Dose 1 TAB; Start 07/24/17 at 11:30 Pantoprazole (Protonix Tab) 40 mg DAILY@06 PO Last administered on 08/16/17 06:22; Admin Dose 40 MG; Start 07/28/17 at 06:00 Nitroglycerin (Nitroglycerin (Sl Tab) 0.4 Mg) 1 tab Q5M PRN SL ANGINA Last administered on 08/12/17 11:54; Admin Dose 1 TAB; Start 07/28/17 at 05:30 Aspirin (Aspirin) 81 mg DAILY PO Last administered on 08/16/17 08:30; Admin Dose 81 MG; Start 07/30/17 at 09:00 Isosorbide Dinitrate (Isordil) 20 mg TID PO Last administered on 08/16/17 08: 29; Admin Dose 20 MG; Start 07/29/17 at 21:00 Tramadol HCl (Ultram) 50 mg Q6H PRN PO pain Last administered on 08/13/17 09: 14; Admin Dose 50 MG; Start 08/05/17 at 16:30 Docusate Sodium (Colace) 100 mg Q12 PO Last administered on 08/15/17 08:37; Admin Dose 100 MG; Start 08/05/17 at 21:00 Clonidine (Catapres) 0.1 mg Q6 PRN PO SBP>170; Start 08/05/17 at 17:00 Acetylcysteine (Mucomyst) 3 ml Q4 NEB Last administered on 08/16/17 01:36; Admin Dose 3 ML; Start 08/07/17 at 21:00 Metoprolol Tartrate (Lopressor) 25 mg BID PO Last administered on 08/16/17 08 :30; Admin Dose 25 MG; Start 08/09/17 at 21:00 Mupirocin (Bactroban) 1 applic BID TOP Last administered on 08/16/17 08:28; Admin Dose 1 APPLIC; Start 08/10/17 at 21:00; Stop 08/20/17 at 20:59 Alprazolam 1 mg 1 mg Q8H PRN PO ANXIETY Last administered on 08/16/17 12:05; Admin Dose 1 MG; Start 08/15/17 at 09:00 Vancomycin HCl (Vancocin) 250 ml @ 125 mls/hr Q96H IVPB Last administered on 08/15/17 16:09; Admin Dose 125 MLS/HR; Start 08/15/17 at 16:00 Assessment/Plan Chief Complaint/Hosp Course SUBJECTIVE: No events overnight. The patient is alert, looks comfortable, no fevers. MICROBIOLOGY: Sputum culture on 08/08 grew MRSA. INDWELLINGS: The patient has a left chest Perm-A-Cath. ANTIMICROBIALS: Vancomycin. PHYSICAL EXAMINATION: GENERAL: Fragile, well-developed, elderly woman who is awake, in no distress. HEENT: Head atraumatic, normocephalic. Sclerae anicteric. Buccal mucosa dry. NECK: Supple. CHEST: Rise symmetrical. Breath sounds diminished to bases with scattered crackles. HEART: S1, S2. ABDOMEN: Soft. Bowel tones present. ASSESSMENT: 1. Methicillin-resistant Staphylococcus aureus tracheobronchitis, possible pneumonia, remains on appropriate therapy. 2. Rectal prolapse. 3. Bilateral pleural effusions, right more than left, s/p thoracentesis. 4. Anemia. PLAN: The patient remains stable, anticipate dc on oral Doxycycline to complete treatment for MRSA DW staff Problems: VINI GRIJALVA NP Aug 16, 2017 14:25
--- NOTE | 2017-08-16 15:59 | CONS ---
Date/Time of Note Date/Time of Note DATE: 08/16/17 TIME: 15:56 Assessment/Plan Assessment/Plan Chief Complaint/Hosp Course IMPRESSION: 1. Positive troponin in the setting of renal failure, but chest pain and cardiac risk factors, assess significance.- Now trended negative and s/p lexiscan with no ischemia/NL EF.Echo n10/10 with NL EF 50-55. Mod OK to proceed to surgery for rectal prolapse from cardiac standpoint at moderate CV risk on current medications including low dose BB continue pre-post- operatively. Avoid large fluid shifts/swings in blood pressure as possible-Now post-op s/p rectal prolapse surgery 2. Abnormal electrocardiogram with nonspecific ST-T abnormalities and initial anterolateral T-wave inversions. 3. Hypertension-currently well controlled 4. Rectal prolapse. 5. Hepatitis C antibody positive, hepatitis B core antibody positive. 6. Anemia. 7. End-stage renal disease on hemodialysis/hyperkalemia-improved 8. L Lung white out/pleural effusion-slowly improving 9. Chest pain-episode during HD. -negative trop x 2 since most recent episode 10. MRSA bronchitis Recc: -Continue BB/isordil as tolerated -Continue asa -routine post-op care -Pain control -HD for volume removal Problems: Consultation Date/Type/Reason Admit Date/Time Jul 22, 2017 at 19:26 Initial Consult Date 07/23/17 Type of Consultation: cardiology Reason for Consultation positive troponin Referring Provider: KISHAN MEJIA MD Exam/Review of Systems Vital Signs Vitals Vital Signs Date Time Temp Pulse Resp B/P Pulse Ox O2 Delivery O2 Flow Rate FiO2 08/16/17 12:27 66 08/16/17 12:03 97.7 18 139/76 08/16/17 07:51 94 08/16/17 01:36 21 08/15/17 02:00 Room Air 08/14/17 04:27 3.0 Intake and Output 08/15/17 08/15/17 08/16/17 15:00 23:00 07:00 Intake Total 440 ml Balance 440 ml Exam Review of Systems: CONSTITUTIONAL: No fevers, chills. PULMONARY: No sob CARDIOVASCULAR: No chest pain/palpitations GASTROINTESTINAL: No nausea/vomiting. GENITOURINARY: No hematuria/dysuria. MUSCULOSKELETAL: No myagias/arthalgias. PSYCHIATRIC: The patient denies depression. NEUROLOGIC: No weakness Constitutional: alert Psych: no complaints Head: normocephalic ENMT: mucosa pink and moist Neck: jvd (9 cm water), supple Respiratory: diminished breath sounds Cardiovascular: regular rate and rhythm Gastrointestinal: non-tender, soft Musculoskeletal: muscle tone (normal) Extremities: edema (none) 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: other (No focal deficits) Results Result Diagram: 08/15/17 0557 08/16/17 1300 Results 24 hrs Laboratory Tests Test 08/16/17 13:00 White Blood Count Pending Red Blood Count Pending Hemoglobin Pending Hematocrit Pending Mean Corpuscular Volume Pending Mean Corpuscular Hemoglobin Pending Mean Corpuscular Hemoglobin Concent Pending Red Cell Distribution Width Pending Platelet Count Pending Mean Platelet Volume Pending Sodium Level 138 Potassium Level 4.2 Chloride Level 109 Carbon Dioxide Level 22 Anion Gap 11 Blood Urea Nitrogen 45 #H Creatinine 5.58 H Glucose Level 68 #L Calcium Level 7.0 L Medications Medications Current Medications Acetaminophen (Tylenol Tab) 650 mg Q6H PRN PO PAIN AND OR ELEVATED TEMP; Start 07/22/17 at 20:30 Ondansetron HCl (Zofran Inj) 4 mg Q6H PRN IV NAUSEA AND/OR VOMITING; Start 07/22/17 at 23:00 Bisacodyl (Dulcolax) 5 mg DAILY PRN PO CONSTIPATION Last administered on 03:43; Admin Dose 5 MG; Start 07/22/17 at 23:00 Acetaminophen/ Hydrocodone Bitart ([place] (5/325)) 1 tab Q6H PRN PO Breakthrough Pain Last administered on 08/15/17 08:44; Admin Dose 1 TAB; Start 07/24/17 at 11:30 Pantoprazole (Protonix Tab) 40 mg DAILY@06 PO Last administered on 08/16/17 06:22; Admin Dose 40 MG; Start 07/28/17 at 06:00 Nitroglycerin (Nitroglycerin (Sl Tab) 0.4 Mg) 1 tab Q5M PRN SL ANGINA Last administered on 08/12/17 11:54; Admin Dose 1 TAB; Start 07/28/17 at 05:30 Aspirin (Aspirin) 81 mg DAILY PO Last administered on 08/16/17 08:30; Admin Dose 81 MG; Start 07/30/17 at 09:00 Isosorbide Dinitrate (Isordil) 20 mg TID PO Last administered on 08/16/17 08: 29; Admin Dose 20 MG; Start 07/29/17 at 21:00 Tramadol HCl (Ultram) 50 mg Q6H PRN PO pain Last administered on 08/13/17 09: 14; Admin Dose 50 MG; Start 08/05/17 at 16:30 Docusate Sodium (Colace) 100 mg Q12 PO Last administered on 08/15/17 08:37; Admin Dose 100 MG; Start 08/05/17 at 21:00 Clonidine (Catapres) 0.1 mg Q6 PRN PO SBP>170; Start 08/05/17 at 17:00 Acetylcysteine (Mucomyst) 3 ml Q4 NEB Last administered on 08/16/17 01:36; Admin Dose 3 ML; Start 08/07/17 at 21:00 Metoprolol Tartrate (Lopressor) 25 mg BID PO Last administered on 08/16/17 08 :30; Admin Dose 25 MG; Start 08/09/17 at 21:00 Mupirocin (Bactroban) 1 applic BID TOP Last administered on 08/16/17 08:28; Admin Dose 1 APPLIC; Start 08/10/17 at 21:00; Stop 08/20/17 at 20:59 Alprazolam 1 mg 1 mg Q8H PRN PO ANXIETY Last administered on 08/16/17 12:05; Admin Dose 1 MG; Start 08/15/17 at 09:00 Vancomycin HCl (Vancocin) 250 ml @ 125 mls/hr Q96H IVPB Last administered on 08/15/17 16:09; Admin Dose 125 MLS/HR; Start 08/15/17 at 16:00 CONI ENRIQUEZ Aug 16, 2017 15:59
[2017-08-16 16:18] LABS: BASOPHIL # 0.1 10^3/ul (0.0-0.1); BASOPHILS % 1.1 % (0.0-2.0); EOSINOPHILS # 0.7 10^3/ul (0.0-0.5); EOSINOPHILS % 7.6 % (0.0-7.0); HEMATOCRIT 27.1 % (37.0-47.0); HEMOGLOBIN 8.5 g/dl (12.0-16.0); LYMPHOCYTES # 1.6 10^3/ul (0.8-2.9); LYMPHOCYTES % 18.4 % (15.0-51.0); MEAN CORPUSCULAR HEMOGLOBIN 28.1 pg (29.0-33.0); MEAN CORPUSCULAR HGB CONC 31.4 g/dl (32.0-37.0); MEAN CORPUSCULAR VOLUME 89.7 fl (82.0-101.0); MEAN PLATELET VOLUME 9.4 fl (7.4-10.4); MONOCYTE # 0.7 10^3/ul (0.3-0.9); MONOCYTES % 8.5 % (0.0-11.0); NEUTROPHIL # 5.4 10^3/ul (1.6-7.5); NEUTROPHILS % 62.9 % (39.0-77.0); PLATELET COUNT 330 10^3/UL (140-415); RED BLOOD COUNT 3.02 10^6/ul (4.20-5.40); RED CELL DISTRIBUTION WIDTH 14.1 % (11.5-14.5); WHITE BLOOD COUNT 8.5 10^3/ul (4.8-10.8)
--- NOTE | 2017-08-16 20:45 | PN ---
Date/Time of Note Date/Time of Note DATE: 08/16/17 TIME: 20:44 Assessment/Plan Lines/Catheters IV Catheter Type (from [facility]): Saline Lock Patino in Place (from [facility]): No Assessment/Plan Chief Complaint/Hosp Course 1. Rectal prolapse status post laparoscopic LAR, rectopexy, biologic 08/03; tolerating diet with +bowel function,no bleeding with bm; no prolapse noted -Avoid straining -stool softeners -continue to monitor 2. Respiratory compromise with left sided white out and bilateral pleural effusion: s/p L thoracentesis; currently on RA, able to lay flat and breath comfortably -judicious fluid management and gentle diuresis/HD -per resp -pulm toilette 3. ESRD: on HD; -hd per renal 4. Electrolyte imbalance: -optimize lytes 5. Hypoalbuminemia with hypocalcemia: nutritional +/- inflammation -as above -optimize nutrition 6. Anemia: without acute bleed: -monitor and transfuse as needed 7. Hepatitis with reactive serology -medical management Thank you Problems: Subjective 24 Hr Interval Summary Feels well. Breathing comfortably on room air. Loose stools w min blood w wiping but no prolapse. No fevers, chills, sob, congested cough, cp, palpitations, avitia, dizziness, n/v/d/dysuria. Exam/Review of Systems Vital Signs Vitals Vital Signs Date Time Temp Pulse Resp B/P Pulse Ox O2 Delivery O2 Flow Rate FiO2 08/16/17 16:47 81 08/16/17 16:00 98.1 18 149/83 95 08/16/17 01:36 21 08/15/17 02:00 Room Air 08/14/17 04:27 3.0 Intake and Output 08/15/17 08/15/17 08/16/17 15:00 23:00 07:00 Intake Total 440 ml Balance 440 ml Exam Free Text/Dictation Constitutional: alert, oriented Psych: anxious Head: atraumatic, normocephalic Eyes: nl conjunctiva, nl lids, nl sclera ENMT: No mucosa pink and moist (dry) Neck: non-tender, supple Respiratory: improved aeration to left lung; No labored breathing; ra Cardiovascular: nl pulses, regular rate and rhythm, No edema Gastrointestinal: non-tender, soft, No distended, No rebound or guarding Genitourinary - Female: No further prolapse; no bleed Musculoskeletal: nl extremities to inspection Extremities: normal pulses, No edema 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: nl speech, nl strength Skin: No rash or lesions Rectal: No further prolapse, no meri bleed noted Results Result Diagram: 08/16/17 1538 08/16/17 1300 KLARISSA ELIZONDO MD Aug 16, 2017 20:45
--- NOTE | 2017-08-18 08:24 | DS ---
Date/Time of Note Date/Time of Note DATE: 08/18/17 TIME: 08:21 Discharge Summary Admission/Discharge Info Admit Date/Time Jul 22, 2017 at 19:26 Discharge Date/Time Aug 16, 2017 at 18:05 Discharge Diagnosis s/p laparoscopic sigmoidectomy Patient Condition: Stable Consults Dr Zhang, surgeon, dr Oglesby, ID, Dr Hobbs, GI, Dr Loza, pulmonary and dr Ceballos, cardiology Procedures laparoscopic sigmoidectomy Hospital Course Patient was admitted to [facility] after few unsuccessful attempts to reducing prolapsed rectum. She has history of ESRD, hypertension.Patient also has history of ESRD on hemodialysis, missed few dialysis in the past. She underwent laparoscopic LAR and rectopexy. During postoperative period pt was transferred to ICU with respiratory failure and she underwent bronchoscopy. Then her condition restored and physical thearpy was started to help with mobility. Dx:1. Rectal prolapse status post laparoscopic LAR, rectopexy, biologic 08/03; tolerating diet with +bowel function,no bleeding with bm; no prolapse noted -Avoid straining -stool softeners -continue to monitor 2. Respiratory compromise with left sided white out and bilateral pleural effusion: s/p L thoracentesis; currently on RA, able to lay flat and breath comfortably -judicious fluid management and gentle diuresis/HD -per resp -pulm toilette 3. ESRD: on HD; -hd per renal 4. Electrolyte imbalance: -optimize lytes 5. Hypoalbuminemia with hypocalcemia: nutritional +/- inflammation -as above -optimize nutrition 6. Anemia: without acute bleed: -monitor and transfuse as needed 7. Hepatitis with reactive serology -medical management Pt was transferred to SNF for further medical management and increasing strength and mobility. Home Meds Active Scripts Alprazolam* (Alprazolam*) 1 Mg Tablet, 1 MG PO Q12 Y for ANXIETY for 30 Days, TAB Prov:LYDIA DIANA 08/16/17 Tramadol HCl (Tramadol HCl) 50 Mg Tablet, 50 MG PO Q12 Y for pain for 14 Days, TAB Prov:ZENLYDIA VALDERRAMA 08/16/17 Pantoprazole* (Pantoprazole*) 40 Mg Tablet., 40 MG PO DAILY@06 for 30 Days Prov:LYDIA DIANA 08/16/17 Metoprolol Tartrate* (Lopressor*) 25 Mg Tab, 25 MG PO BID for 30 Days, TAB Prov:LYDIA DIANA 08/16/17 Isosorbide Dinitrate* (Isosorbide Dinitrate*) 20 Mg Tablet, 20 MG PO TID for 30 Days, TAB Prov:LYDIA DIANA 08/16/17 Hydrocodone Bit-Acetaminophen (Hydrocodone Bit-APAP) 5-325MG Tablet, 1 TAB PO Q6H Y for Breakthrough Pain for 14 Days, TAB Prov:LYDIA DIANA 08/16/17 Docusate Sodium (Dok) 100 Mg Capsule, 100 MG PO Q12 for 30 Days, CAP Prov:LYDIA DIANA 08/16/17 Reported Medications Alprazolam* (Alprazolam*) 0.5 Mg Tablet, 0.5 MG PO Q8H Y for ANXIETY, TAB 07/22/17 Calcium Acetate* (Calcium Acetate*) 667 Mg Capsule, 1334 MG PO WITH MEALS, #60 CAP 07/22/17 Discontinued Reported Medications Hydromorphone Hcl* (Hydromorphone Hcl*) 4 Mg Tablet, 4 MG PO Q4H Y for PAIN, TAB 07/22/17 Discontinued Scripts Clindamycin Hcl* (Clindamycin Hcl*) 300 Mg Capsule, 300 MG PO TID for 10 Days, CAP Prov:MILADY HAYWOOD MD 05/26/15 Follow-up Plan Dr Zhang 1 week Primary Care Provider Care Physician No Primary LYDIA DIANA Aug 18, 2017 08:24
== END 2017-08-16 18:05 | DRG 329 ==
LOC: PP2 19:26 → TEL 08-07 00:12 → ICU 08-07 14:02 → MS4 08-15 03:22
PROVIDERS: ADMIT Internal Medicine Nephrology; ATTEND Internal Medicine Nephrology
PROC: 5A1D70Z Performance of Urinary Filtration, Intermittent, Less than 6 Hours Per Day (ICD-10-PCS; 2017-07-22)
PROC: 30233N1 Transfusion of Nonautologous Red Blood Cells into Peripheral Vein, Percutaneous Approach (ICD-10-PCS; 2017-07-24)
PROC: 0DJD8ZZ Inspection of Lower Intestinal Tract, Via Natural or Artificial Opening Endoscopic (ICD-10-PCS; 2017-07-29)
PROC: 0DBN4ZZ Excision of Sigmoid Colon, Percutaneous Endoscopic Approach (ICD-10-PCS; 2017-08-03)
PROC: 0DQP4ZZ Repair Rectum, Percutaneous Endoscopic Approach (ICD-10-PCS; 2017-08-03)
PROC: 0DU Gastrointestinal System, Supplement (ICD-10-PCS; 2017-08-03)
PROC: 0DBP4ZZ Excision of Rectum, Percutaneous Endoscopic Approach (ICD-10-PCS; principal; 2017-08-03 07:30)
PROC: 0W9B3ZX Drainage of Left Pleural Cavity, Percutaneous Approach, Diagnostic (ICD-10-PCS; 2017-08-13)
DX: K62.3 Rectal prolapse (principal); N18.6 End stage renal disease; J96.01 Acute respiratory failure with hypoxia; I21.4 Non-ST elevation (NSTEMI) myocardial infarction; J90 Pleural effusion, not elsewhere classified; I12.0 Hypertensive chronic kidney disease with stage 5 chronic kidney disease or end stage renal disease; R65.10 Systemic inflammatory response syndrome (SIRS) of non-infectious origin without acute organ dysfunction; E87.1 Hypo-osmolality and hyponatremia; N39.0 Urinary tract infection, site not specified; J98.11 Atelectasis; E11.9 Type 2 diabetes mellitus without complications; K75.9 Inflammatory liver disease, unspecified; E88.09 Other disorders of plasma-protein metabolism, not elsewhere classified; E83.51 Hypocalcemia; D64.9 Anemia, unspecified; K57.90 Diverticulosis of intestine, part unspecified, without perforation or abscess without bleeding; J20.8 Acute bronchitis due to other specified organisms; B95.62 Methicillin resistant Staphylococcus aureus infection as the cause of diseases classified elsewhere; Z99.2 Dependence on renal dialysis
CPT/HCPCS: 32555; 36430; 36600; 71010; 71020; 71250; 74176; 78452; 80048; 80053; 80061; 80202; 81001; 82550; 82553; 82803; 82945; 82962; 83615; 83735; 84100; 84157; 84484; 84702; 85025; 85610; 86703; 86704; 86709; 86803; 86850; 86900; 86901; 86920; 87070; 87081; 87086; 87340; 88104; 88305; 88309; 89051; 90686; 90935; 93005; 93017; 93306; 94640; 94664; 97161; A9500; A9505; J0360; J0744; J1170; J1644; J1885; J1940; J2250; J2270; J2405; J2710; J2785; J3010; J3370; J7050; P9016; Q4166